=== PATIENT | female | born 1955 | race Caucasian/White ===

== ENCOUNTER 2016-08-22 23:20 | Emergency (ER) | payer MEDICAID ==
[~2016-08-22] VITALS: Ht 170.2 cm; Wt 85.0 kg
[~2016-08-22 23:20] MED LIST: ACET325T51 PO; ASPI-1085 PO; BUSP7.5T7 PO; CHOL4PAC23 PO; FLUT12AE7 ORAL INH; FURO20TA4 PO; GABA-338 PO; IPRA3AMP INH; LANS30CA58 PO; LEVO1CAP2 PO; LORA-315 PO; MELO15TA12 PO; METF500T4 PO; METO-279 PO; NITR0.4T SL; PALI3TAB PO; PANT40TA27 PO; POTA-12 PO; PRED20TA PO; PRIM50TA30 PO; RISP3TAB14 PO; TRAM50TA4 PO; [UNRECOGNIZED DRUG - CODE] PO
[2016-08-22 23:27] VITALS: TEMP 98.7; Ht 170.2 cm; Wt 85.0 kg
[2016-08-22] MEDS ORDERED: NITROGLYCERIN 0.4 MG SUBLINGUAL TABLET SL PRN (23:30)
[2016-08-22] MEDS ORDERED: ALBUTEROL/IPRATROPIUM INHAL. 2.5mg-0.5mg/3ml Neb. AEROSOL ONE (23:30)
--- NOTE | 2016-08-22 23:32 | ERPDOC ---
Departure Disposition Decision Date: Aug 23, 2016 Disposition Decision Time: 00:33 Disposition: 01 DISCHARGED HOME, SELF-CARE Impression Impression Impression: Primary Impression: Atypical chest pain Severity: Severe Condition: Improved Seen By: Physician only Referrals: MONICA COLVIN DO (Family) Patient Instructions: Chest Pain (ED) Problems/Meds/Labs Reviewed?: Yes Medications reviewed and manag: Yes Additional Instructions: For any return of chest discomfort tonight, immediately take one nitroglycerin sublingually, and call EMS See Dr. Colvin first thing in the morning at your scheduled appointment Follow up care ordered?: Yes Mental Status: Alert HPI - Chest Pain General Chief Complaint: Chest Pain Stated Complaint: CHEST PAIN Time Seen by Provider: 23:24 Source: patient, EMS Exam Limitations: no limitations HPI - Chest Pain Initial Comments Patient was sitting in a recliner approximately one to one and a half hours ago when she had the sudden onset of chest tightness and pain with radiation into the left jaw. Patient says this is the same way she felt when she had her myocardial infarction in 2000. Patient also notes tightness with her breathing, consistent with her COPD, and does note that she's had worsening dyspnea over the past several days. Patient took one of her nitroglycerin yesterday for chest tightness with resolution, earlier today for chest tightness with resolution, and then this evening with only partial resolution. EMS found the patient in moderate distress with both Tylenol sounds as well as chest tightness and chest pain. Patient elected no more nitroglycerin, but was given 100 g of fentanyl in route, which reduced her pain further to a 5 or 6 out of 10 at this time. Currently the patient complains of a 3 out of 10 chest heaviness and tightness, but states that the "chest pain" is gone. Patient has a history of coronary artery disease with GA in 2000, COPD, oxygen dependence on 2 L, continues to smoke heavily, and is morbidly obese with diabetes. Occurred At: home Onset/Timing: Rapid Duration: 1-3 hrs Activities at Onset/Context: rest Location: substernal Quality: squeezing, tightness Modifying Factors: IMPROVES WITH: nitroglycerin Associated Symptoms: diaphoresis, shortness of breath, DENIES: abdominal pain, back pain, dizziness, edema, fast HR, fatigue, fever/chills, headache, heartburn , irregular HR, nausea/vomiting, rash, slow HR, swelling/lump in chest, syncope , weakness Chest Pain Radiation: jaw Nitro Today/Relief: 0.4 mg x 1, provided at home Aspirin Treatment Today: 81 mg x 4, provided by EMS Prior Chest Pain/Cardiac Yariel: non-cardiac, angina, cardiac cath, heart attack Hx of Similar Symptoms: Yes Allergies: Coded Allergies: Influenza Virus Vaccines (Verified Allergy, Severe, DYSPNEA, 08/22/16) lisinopril (Verified Allergy, Intermediate, TONGUE SWELLING, 08/22/16) Iodinated Contrast Media - Oral and (Verified Allergy, Mild, RASH, 08/22/16 ) Sulfa (Sulfonamide Antibiotics) (Verified Allergy, Unknown, RASH, 08/22/16) asenapine (Verified Allergy, Unknown, 08/22/16) asenapine maleate (Verified Allergy, Unknown, 08/22/16) duloxetine (Verified Allergy, Unknown, 08/22/16) hydromorphone HCl (Verified Allergy, Unknown, 08/22/16) venlafaxine (Verified Allergy, Unknown, 08/22/16) lurasidone (Verified Adverse Reaction, Intermediate, INCREASED SODIUM, ) adhesive (Verified Adverse Reaction, Unknown, 08/22/16) cephalexin (Verified Adverse Reaction, Unknown, VOMITING, 08/22/16) morphine (Verified Adverse Reaction, Unknown, SWELLING, 08/22/16) Uncoded Allergies: SHELLFISH (Allergy, Severe, 08/06/15) DECONGESTANT ALLERGY ORAL (Allergy, Unknown, 05/01/12) Past History Past Medical History Metabolic: cancer, diabetes, hypercholesterolemia, hypertension, other Cardiac: CAD, GA Respiratory: COPD, pneumonia GI: GERD, gallbladder disease, ulcers Female: UTI Neurological: CVA, chronic disability Musculoskeletal: back pain, osteoarthritis Integumentary: other Psychological: bipolar, depression Surgical History General: appendix, colonoscopy, gallbladder, hernia, tonsils Cardiac: cardiac cath Reproductive/: hysterectomy Joint: carpal tunnel, knee, shoulder Family History Family PMH: FOUND: GA, cancer, diabetes Vaccines Hx Influenza Vaccination: Yes (fall last year) Hx Pneumococcal Vaccination: Yes (05/17) Hx Tetanus Diptheria: No Hx Tetanus, Diptheria, Pertuss: No Social History Smoking Status: Current every day smoker Does patient use chewing tobac: No # of Packs/Tins per Day: 2 # of Years: 47 Quit Date: Jun 24, 2016 Substance Use Type: does not use Alcohol Intake: occasionally Marital Status: Single Housing: apartment Household Members: caregiver Current Occupational Status: retired Record Review Pertinent history updated: Yes Review of Systems Constitutional Constitutional: DENIES: appetite decrease, appetite increase, chills, dizziness , fever, weakness ENMT Ears: DENIES: pain Hearing: DENIES: hearing loss, tinnitus Balance: DENIES: vertigo Mouth/Throat: DENIES: change in swallowing, change in voice, hoarsness, painful swallowing, sore throat Cardiovascular Cardiac: chest pain Rhythm/Rate: DENIES: irregular beat, palpitations, tachycardia Vascular: DENIES: pedal edema Pulmonary Respiratory: dyspnea, pneumonia hx, DENIES: cough, exposure to TB, hyperventilation, last PPD, pleuritic chest pain, recent risky activities, sputum, tachypnea GI Upper Abdomen: DENIES: dysphagia, heartburn/indigestion, nausea, pain, vomiting Lower Abdomen: DENIES: blood in stool, constipation, diarrhea, pain General: DENIES: burning, dysuria, frequency, pain, urgency Musculoskeletal General: DENIES: cramps, joint pain, joint swelling, pain, weakness Integumentary Skin: DENIES: rash, sores Neurological General: DENIES: headache, numbness, tingling, vertigo, weakness Physical Exam General General Nourishment: well nourished, well developed, appears stated age, obese General Body Habitus: disheveled Vitals and Pain First Documented Vital Signs Date Time Temp Pulse Resp B/P Pulse Ox O2 Delivery O2 Flow Rate FiO2 08/22/16 23:27 98.7 83 25 140/92 95 Nasal Cannula 2.00 Weight: Kilograms: Height (feet): 5 Height (inches): 5.00 Triage Pain Scale: RN VS reviewed by Provider: Yes Normal Exams: Head: Normocephalic w/o trauma Eyes: Pupils are PERRLA w/ EOMI, No scleral icterus, irritation, or foreign bodies noted ENMT: No facial trauma, nasal exudates, pharyngeal erythema, or exudates are noted Neck: Full range of motion, without adenopathy, JVD, bruits or thyromegaly Respiratory (brief) Respiratory: FOUND: equal bilaterally, symmetrical, wheezes, NOT FOUND: clear all bone (course tight wheezes bilaterally with poor air movement), rales, tenderness Cardiovascular (brief) Cardiac: FOUND: regular rate, regular rhythm, NOT FOUND: click, gallop, murmur , pedal edema Capillary Refill: <2 sec Pulses: all distal extremities, equal, strong Abdomen (brief) Abdominal Brief: FOUND: bowel normo active x4, soft, NOT FOUND: distended, hepatosplenomegaly, tender Lymphatic (brief) Lymphatic Brief: NOT FOUND: adenopathy, lymphedema Musculoskeletal (brief) Musculoskeletal Brief: NOT FOUND: deformity, loss of motion, spasm, tenderness Integumentary (brief) Integumentary Brief: FOUND: dry, pink, warm Neurologic (brief) Neurological Brief: FOUND: CN w/o gross def to obs, motor-no gross deficits, sensory-no gross deficits Psychiatric (brief) Psychiatric Brief: FOUND: alert, attentive, normal affect, oriented Progress Results/Orders Orders Procedure Category Date Status Time Iv Lock (Ed Only) EDM 08/22/16 Transmitted 23:24 Cbc W/Auto LAB 08/22/16 Complete Diff-Reflex Manual Cmp - Comprehensive LAB 08/22/16 Complete Metabolic EKG EKG 08/22/16 Taken Troponin I W LAB 08/22/16 Complete Hemolysis Index Chest 1 View RAD 08/22/16 Taken Albuterol/Ipratropium PHA 08/22/16 Complete (Duoneb) 23:30 Nitroglycerin PHA 08/22/16 In Process (Nitrostat) 23:30 Methylprednisolone PHA 08/23/16 Complete Sod Succ (Solu-Medrol 00:00 Lab Results Laboratory Tests Test 08/22/16 23:42 White Blood Count 14.2T/MM3 Red Blood Count 4.16M/MM3 Hemoglobin 12.6GM/DL Hematocrit 36.2% Mean Corpuscular Volume 87.0UM3 Mean Corpuscular Hemoglobin 30.3UUG Mean Corpuscular Hemoglobin Concent 34.8GM/DL RDW Standard Deviation 41.6FL Platelet Count 282T/MM3 Mean Platelet Volume 9.4UM3 Immature Granulocyte % (Auto) 0.4% Neutrophils (%) (Auto) 65.1% Lymphocytes (%) (Auto) 29.3% Monocytes (%) (Auto) 4.5% Eosinophils (%) (Auto) 0.4% Basophils (%) (Auto) 0.3% Absolute Immature Granulocyte (auto 0.06T/MM3 Absolute Neutrophils (auto) 9.2T/MM3 Absolute Lymphocytes (auto) 4.2T/MM3 Absolute Monocytes (auto) 0.6T/MM3 Absolute Eosinophils (auto) 0.1T/MM3 Absolute Basophils (auto) 0.0T/MM3 Turbidity < 20 Sodium Level 130MEQ/L Potassium Level 3.9MEQ/L Chloride Level 90MEQ/L Carbon Dioxide Level 28MEQ/L Anion Gap 12MEQ/L Blood Urea Nitrogen 15.0MG/DL Creatinine 0.8MG/DL Glomerular Filtration Rate Calc 73 BUN/Creatinine Ratio 19RATIO Glucose Level 93MG/DL Calculated Osmolality 252MOSM/KG Calcium Level 9.3MG/DL Total Bilirubin 0.50MG/DL Icterus Index < 2 Aspartate Amino Transf (AST/SGOT) 28U/L Alanine Aminotransferase (ALT/SGPT) 37U/L Alkaline Phosphatase 113U/L Troponin I < 0.012ng/ml Total Protein 7.3G/DL Albumin 4.3G/DL Globulin 3.0G/DL Albumin/Globulin Ratio 1.4RATIO Chemistry Specimen Hemolysis < 15 Medications Current ED Medications Albuterol/ Ipratropium (Duoneb) 6 ml O ONCE AEROSOL Last administered on 23:32; Start 08/22/16 at 23:30; Stop 08/22/16 at 23:31; Status DC Nitroglycerin (Nitrostat) 0.4 mg Q5MIN PRN SL CHEST PAIN Last administered on 23:59; Start 08/22/16 at 23:30 Methylprednisolone Sodium Succinate (Solu-Medrol) 125 mg O ONCE IV Last administered on 08/22/16 23:57; Start 08/23/16 at 00:00; Stop 08/23/16 at 00:01 ; Status DC Progress Progress Patient given 2 DuoNeb nebs [id number], also given is sublingual 1 - EKG - normal sinus rhythm without ischemia, ectopy, or infarction. He does have mildly peaked T waves in comparison to old EKGs, but no STEMI CBC - normal CMP - normal Troponin - normal Chest x-ray - normal After a total of 2 DuoNeb nebs, Solu-Medrol her 25 mg, and one sublingual nitroglycerin, the patient is completely and totally pain/discomfort free in the chest. Patient feels like she is breathing back to her baseline, and states that she feels like she got more relief from the nitroglycerin in the breathing treatment Patient feels like this is atypical for her COPD exacerbations. Patient is discussed with Dr. Colvin - patient has an appointment with him at 8: 30 tomorrow morning, had no specific relief directly related to nitroglycerin, and is certainly a complex medical case. At this point patient would prefer to go home, with close follow-up with Dr. Colvin first thing in the morning and is being allowed to return home, with strict instructions to use nitroglycerin and call EMS immediately for any return of chest discomfort. MONICA CLEMENTS MD Aug 22, 2016 23:32
[2016-08-22] MEDS ORDERED: PALI3TAB PO (23:41)
[2016-08-22] MEDS ORDERED: CYPR4TAB37 PO (23:41)
[2016-08-22 23:57] LABS: BASOPHILS % (AUTO) 0.3 % (0-2); EOSINOPHILS # (AUTO) 0.1 T/MM3 (0-0.5); EOSINOPHILS % (AUTO) 0.4 % (0-4); HCT - HEMATOCRIT 36.2 % (36-46); HGB - HEMOGLOBIN 12.6 GM/DL (12-16); IMMATURE GRANULOCYTE # (AUTO) 0.06 T/MM3 (0.00-0.03); IMMATURE GRANULOCYTE % (AUTO) 0.4 % (0.0-0.5); LYMPHOCYTES # (AUTO) 4.2 T/MM3 (1-4.8); LYMPHOCYTES % (AUTO) 29.3 % (23-45); MEAN CORPUSCULAR HGB 30.3 UUG (26-34); MEAN CORPUSCULAR HGB CONC(MCHC 34.8 GM/DL (31-37); MEAN PLATELET VOLUME 9.4 UM3 (9.4-12.4); MONOCYTES # (AUTO) 0.6 T/MM3 (0-0.8); MONOCYTES % (AUTO) 4.5 % (0-9.0); NEUTROPHILS #(AUTO)-ABSOLUTE 9.2 T/MM3 (1.8-7.7); NEUTROPHILS % (AUTO) 65.1 % (33-66); RED BLOOD COUNT 4.16 M/MM3 (4.00-5.20); WBC - WHITE BLOOD COUNT 14.2 T/MM3 (4.5-11.0)
[2016-08-23] LABS: ALBUMIN 4.3 G/DL (3.5-5.0); ALBUMIN/GLOBULIN RATIO 1.4 RATIO (1.1-2.2); ALKALINE PHOSPHATASE 113 U/L (38-126); ALT (SGPT) 37 U/L (9-52); ANION GAP 12 MEQ/L (5-15); AST (SGOT) 28 U/L (14-36); BUN/CREATININE RATIO 19 RATIO (6-26); CALCIUM 9.3 MG/DL (8.4-10.2); CHLORIDE 90 MEQ/L (98-107); CO2 - CARBON DIOXIDE 28 MEQ/L (22-30); CREATININE 0.8 MG/DL (0.7-1.2); GLOMERULAR FILTRATION RATE 73; GLUCOSE 93 MG/DL (65-110); POTASSIUM 3.9 MEQ/L (3.6-5); SODIUM 130 MEQ/L (134-144); TOTAL PROTEIN 7.3 G/DL (6.3-8.2)
[2016-08-23 00:40] VITALS: BP 122/68; PULSE 80; RESP 19; O2SAT 95
--- NOTE | 2016-08-23 00:40 | NUR ---
DEPARTURE PT COLLECTED BELONGINGS AND TAKEN TO EXIT VIA WHEELCHAIR, WITH OXYGEN STILL APPLIED, TO AWAIT RIDE FROM CAREGIVER.
--- NOTE | 2016-08-23 07:51 | DI ---
Indication: ITS.REASON: dyspnea with chest heaviness PROCEDURE: CHEST 1 VIEW: Encounter: Initial Comparison: August 09, 2016 Findings: The lungs are stable in appearance without new focal airspace consolidation. There is no pleural effusion or pneumothorax. The heart size, pulmonary vascularity and mediastinal contours are unchanged. IMPRESSION: Stable appearance of the chest without acute cardiopulmonary disease. .
== END 2016-08-23 00:40 | disposition home or self-care (01) ==
LOC: ED 23:20
DX: R07.89 Other chest pain (principal); J44.9 Chronic obstructive pulmonary disease, unspecified; I25.10 Atherosclerotic heart disease of native coronary artery without angina pectoris; I10 Essential (primary) hypertension; I25.2 Old myocardial infarction; F17.200 Nicotine dependence, unspecified, uncomplicated; Z99.81 Dependence on supplemental oxygen
CPT/HCPCS: 71010; 80053; 84484; 85025; 93005; 94640; 96374; 99284; J2930

== ENCOUNTER 2016-08-26 13:50 | Outpatient (CLI) | payer MEDICAID ==
--- NOTE | 2016-08-23 14:25 | NUR ---
PREOP CALL NO ANSWER DETAILED VOICE MAIL LEFT WITH INSTRUCTIONS AND CHECK IN TIME.
[2016-08-26] VITALS (20 sets, daily range): BP systolic 152–194; BP diastolic 67–97; PULSE 87–108; RESP 20–32; TEMP 98.7; O2SAT 91–100; Ht 165.1 cm; Wt 108.6 kg
[~2016-08-26] VITALS: Ht 165.1 cm; Wt 108.6 kg
--- NOTE | 2016-08-26 12:27 | HPPDOC ---
KARISHMA EMERSON [employer] 08/26/16 1215: HPI - Adult Date DATE: 08/26/16 TIME: 12:04 General Date of Admission Date of Admission: 08/26/16 Chief Complaint: chest pain History of Present Illness Suyapa is a 61 year old female who is known to Dr. Benoit with a history of CAD with AK in 2000, COPD and Pulmonary HTN who is oxygen dependent on 2 L, continues to smoke heavily, is morbidly obese with HTN and DM. She was evaluated on 08/22/16 in the ED for sudden onset of chest tightness and pain with radiation into the left jaw. She at the time reported this was the same way she felt when she had her myocardial infarction in 2000. She reported tightness with her breathing, consistent with her COPD, and worsening dyspnea over the past several days prior. She was scheduled to see Dr. Fink the following morning and did not want to be admitted so she allowed to return home , with strict instructions to use nitroglycerin and call EMS immediately for any return of chest discomfort. She is being admitted as an outpatient for left heart catheterization with possible PCI today. She is examined in her room on Surgical. She states she has used Nitro SL 3x in the last 2 weeks. Currently denies chest pain, dyspnea or other complaints. Past Medical History Past Medical History Metabolic: cancer, diabetes, hypercholesterolemia, hypertension, other Cardiac: CAD, AK Respiratory: COPD, pneumonia GI: GERD, gallbladder disease, ulcers Female: UTI Neurological: CVA, chronic disability Musculoskeletal: back pain, osteoarthritis Integumentary: other Psychological: bipolar, depression Surgical History General: appendix, colonoscopy, gallbladder, hernia, tonsils Cardiac: cardiac cath Reproductive/: hysterectomy Joint: carpal tunnel, knee, shoulder Current Medications Home Meds Reported Medications Paliperidone (Invega) 6 Mg Tab.er.24, 1 TAB PO DAILY, #30 TAB 2 Refills 08/26/16 Potassium Chloride (Potassium Chloride) 10 Meq Capsule.er, 10 MEQ PO WB, CAP Take 1 capsule, by mouth, daily with breakfast 08/26/16 Lorazepam (Lorazepam) 0.5 Mg Tablet, 0.5 MG PO HS Y for ANXIETY, TAB 08/26/16 Paliperidone (Invega) 3 Mg Tab.er.24, 0.5 TAB PO BID, #30 TAB 2 Refills 08/22/16 Cyproheptadine HCl (Cyproheptadine HCl) 4 Mg Tablet, 1 TAB PO HS, #30 TAB 1 Refill 08/22/16 Levomefolate/Algal Oil (Deplin-Algal Oil 7.5 mg Cap) 1 Each Capsule, 1 TAB PO DAILY 08/09/16 Buspirone HCl (Buspirone HCl) 7.5 Mg Tablet, 1 TAB PO BID 08/09/16 Pantoprazole Sodium (Pantoprazole Sodium) 40 Mg Tablet.dr, 40 MG PO HS 07/15/16 Metoprolol Succinate (Metoprolol Succinate) 100 Mg Tab.er.24h, 100 MG PO DAILY 07/15/16 Metformin HCl (Metformin HCl) 500 Mg Tablet, 500 MG PO BID 07/15/16 Gabapentin (Gabapentin) 300 Mg Capsule, 1 CAP PO HS, CAP 07/01/16 Lansoprazole (Lansoprazole) 30 Mg Capsule.dr, 30 MG PO DAILY 10/26/15 Acetaminophen (Acetaminophen) 325 Mg Tablet, 325-650 MG PO Q6H Y for PAIN 10/26/15 Aspirin *EC* (Aspirin EC) 81 Mg Tablet.dr, 81 MG PO DAILY 10/26/15 Furosemide (Furosemide) 20 Mg Tablet, 20 MG PO DAILY 10/26/15 Ipratropium/Albuterol Sulfate (Iprat-Albut 0.5-3(2.5) mg/3 ml) 3 Ml Ampul.neb, 1 VIAL INH Q6H 09/23/15 Nitroglycerin (Nitrostat) 0.4 Mg Tablet, 0.4 MG SL Q5MIN Y for CHEST PAIN 08/06/15 Risperidone (Risperidone) 3 Mg Tablet, 1.5 MG PO DAILY 10/11/14 Meloxicam (Mobic) 15 Mg Tablet, 15 MG PO DAILY 10/11/14 Cholestyramine (with Sugar) (Questran Packet) 4 Gm Powd.pack, 4 GM PO BID Y for DIARRHEA 10/11/14 Primidone (Primidone) 50 Mg Tablet, 150 MG PO HS 10/11/14 Fluticasone Propionate (Flovent HFA 220mcg) 120 Puff/12 G Inhaler, 2 PUFF ORAL INH BID 07/14/14 Tramadol HCl (Tramadol HCl) 50 Mg Tablet, 50-100 MG PO QID Y for PAIN 07/13/14 Cabergoline (Cabergoline) 0.5 Mg Tablet, 1 MG PO TuFr 06/19/12 Discontinued Reported Medications Potassium Chloride (Potassium Chloride) 10 Meq Tab.er.prt, 10 MEQ PO DAILY 04/13/16 Allergies: Coded Allergies: Influenza Virus Vaccines (Verified Allergy, Severe, DYSPNEA, 08/22/16) lisinopril (Verified Allergy, Intermediate, TONGUE SWELLING, 08/22/16) Iodinated Contrast Media - Oral and (Verified Allergy, Mild, RASH, 08/22/16 ) Sulfa (Sulfonamide Antibiotics) (Verified Allergy, Unknown, RASH, 08/22/16) asenapine (Verified Allergy, Unknown, 08/22/16) asenapine maleate (Verified Allergy, Unknown, 08/22/16) duloxetine (Verified Allergy, Unknown, 08/22/16) hydromorphone HCl (Verified Allergy, Unknown, 08/22/16) venlafaxine (Verified Allergy, Unknown, 08/22/16) lurasidone (Verified Adverse Reaction, Intermediate, INCREASED SODIUM, ) adhesive (Verified Adverse Reaction, Unknown, 08/22/16) cephalexin (Verified Adverse Reaction, Unknown, VOMITING, 08/22/16) morphine (Verified Adverse Reaction, Unknown, SWELLING, 08/22/16) Uncoded Allergies: SHELLFISH (Allergy, Severe, 08/06/15) DECONGESTANT ALLERGY ORAL (Allergy, Unknown, 05/01/12) Family History FOUND: CHF (mother), AK (brother), cancer, diabetes Vaccines fall 05/17 UNKNOWN Social History Smoking Status: Current every day smoker Does patient use chewing tobac: No # of Packs/Tins per Day: 2 # of Years: 47 Quit Date: Jun 24, 2016 Substance Use Type: does not use Alcohol Intake: occasionally Marital Status: Single Housing: apartment Household Members: caregiver Current Occupational Status: retired Review of Systems Constitutional: DENIES: chills, dizziness, fever, weakness Eyes General: DENIES: pain Vision: DENIES: double vision ENMT Hearing: DENIES: tinnitus Balance: DENIES: vertigo Sinuses: NOT FOUND: rhinorrhea Mouth/Throat: DENIES: sore throat Cardiovascular chest pain, dyspnea on exertion, DENIES: murmur, orthopnea, paroxysmal nocturnal dysp Rhythm/Rate: DENIES: irregular beat, palpitations Pulmonary Respiratory: cough, DENIES: dyspnea, sputum GI Upper Abdomen: DENIES: nausea, vomiting Lower Abdomen: DENIES: blood in stool, diarrhea General: DENIES: dysuria Integumentary Skin: DENIES: rash, sores Neurological General: DENIES: headache, numbness, seizures, syncope, weakness All Other Systems All Other Systems: Reviewed (remainder of 10-point ROS Neg.) Physical Exam General General Nourishment: well nourished, well developed, obese, apparent age Height (Feet): 5 Height (Inches): 7.00 Telemetry Rhythm: Sinus Rhythm ENMT Brief: FOUND: mucosa moist Neck Brief: NOT FOUND: JVD, carotid bruits Respiratory Brief: FOUND: equal bilaterally, wheezes (throughout, inspiratory and expiratory), NOT FOUND: clear all bone, rales Cardiovascular (brief) Cardiac Brief: FOUND: regular rate, regular rhythm, NOT FOUND: click, gallop, murmur, pedal edema Abdomen (brief) Abdominal Brief: FOUND: BS normo active x4, soft Integumentary (brief) Integumentary Brief: FOUND: dry, pink, warm Neurologic RN Documented GCS Eye Opening: Verbal: Motor: Total: Psychiatric (brief) FOUND: alert, attentive, oriented Laboratory Laboratory Tests Test 08/26/16 14:18 08/26/16 14:19 Turbidity < 20 Sodium Level 131MEQ/L Potassium Level 3.8MEQ/L Chloride Level 92MEQ/L Carbon Dioxide Level 27MEQ/L Anion Gap 12MEQ/L Blood Urea Nitrogen 14.0MG/DL Creatinine 0.8MG/DL Glomerular Filtration Rate Calc 73 BUN/Creatinine Ratio 18RATIO Glucose Level 199MG/DL Calculated Osmolality 260MOSM/KG Calcium Level 9.0MG/DL Icterus Index < 2 Chemistry Specimen Hemolysis < 15 White Blood Count 8.4T/MM3 Red Blood Count 4.39M/MM3 Hemoglobin 12.9GM/DL Hematocrit 38.3% Mean Corpuscular Volume 87.2UM3 Mean Corpuscular Hemoglobin 29.4UUG Mean Corpuscular Hemoglobin Concent 33.7GM/DL RDW Standard Deviation 42.1FL Platelet Count 268T/MM3 Mean Platelet Volume 8.6UM3 Immature Granulocyte % (Auto) % Neutrophils (%) (Auto) % Lymphocytes (%) (Auto) % Monocytes (%) (Auto) % Eosinophils (%) (Auto) % Basophils (%) (Auto) % Absolute Immature Granulocyte (auto T/MM3 Absolute Neutrophils (auto) T/MM3 Absolute Lymphocytes (auto) T/MM3 Absolute Monocytes (auto) T/MM3 Absolute Eosinophils (auto) T/MM3 Absolute Basophils (auto) T/MM3 Neutrophils % (Manual) 91.0% Lymphocytes % (Manual) 6.0% Monocytes % (Manual) 3.0% Absolute Neutrophils (Manual) 7.6T/MM3 Lymphocytes # (Manual) 0.5T/MM3 Monocytes # (Manual) 0.3T/MM3 Red Cell Morphology Comment Normal EKG SR Assessment & Plan Problems: (1) Precordial pain Status: Acute Assessment & Plan: Left heart cath today with possible PCI (2) CAD (coronary artery disease) Status: Chronic Qualifiers: Coronary Disease-Associated Artery/Lesion type: [place] artery [place] vs. transplanted heart: [place] heart Associated angina: without angina Qualified Codes: I25.10 - Atherosclerotic heart disease of [place] coronary artery without angina pectoris Assessment & Plan: Heart cath 11/2010: No significant coronary lesions (3) HTN (hypertension) Status: Chronic Qualifiers: Hypertension type: essential hypertension Qualified Codes: I10 - Essential (primary) hypertension Assessment & Plan: well controlled on current therapy (4) DM type 2 (diabetes mellitus, type 2) Status: Chronic Qualifiers: Diabetes mellitus complication status: without complication Diabetes mellitus custodial insulin use: without terminal computer operator use Qualified Codes: E11.9 - Type 2 diabetes mellitus without complications Assessment & Plan: PCP manages (5) COPD (chronic obstructive pulmonary disease) Status: Chronic Qualifiers: COPD type: unspecified COPD Qualified Codes: J44.9 - Chronic obstructive pulmonary disease, unspecified (6) Nicotine dependence Status: Chronic Qualifiers: Nicotine product type: cigarettes Code Status Full Code Hospital Course Summary Disclaimer The hospital course summary below is not to be considered part of the above Progress Note. RENE BENOIT MD 08/26/16 0732: Past Medical History Current Medications Home Meds Reported Medications Paliperidone (Invega) 6 Mg Tab.er.24, 1 TAB PO DAILY, #30 TAB 2 Refills 08/26/16 Potassium Chloride (Potassium Chloride) 10 Meq Capsule.er, 10 MEQ PO WB, CAP Take 1 capsule, by mouth, daily with breakfast 08/26/16 Lorazepam (Lorazepam) 0.5 Mg Tablet, 0.5 MG PO HS Y for ANXIETY, TAB 08/26/16 Paliperidone (Invega) 3 Mg Tab.er.24, 0.5 TAB PO BID, #30 TAB 2 Refills 08/22/16 Cyproheptadine HCl (Cyproheptadine HCl) 4 Mg Tablet, 1 TAB PO HS, #30 TAB 1 Refill 08/22/16 Levomefolate/Algal Oil (Deplin-Algal Oil 7.5 mg Cap) 1 Each Capsule, 1 TAB PO DAILY 08/09/16 Buspirone HCl (Buspirone HCl) 7.5 Mg Tablet, 1 TAB PO BID 08/09/16 Pantoprazole Sodium (Pantoprazole Sodium) 40 Mg Tablet.dr, 40 MG PO HS 07/15/16 Metoprolol Succinate (Metoprolol Succinate) 100 Mg Tab.er.24h, 100 MG PO DAILY 07/15/16 Metformin HCl (Metformin HCl) 500 Mg Tablet, 500 MG PO BID 07/15/16 Gabapentin (Gabapentin) 300 Mg Capsule, 1 CAP PO HS, CAP 07/01/16 Lansoprazole (Lansoprazole) 30 Mg Capsule.dr, 30 MG PO DAILY 10/26/15 Acetaminophen (Acetaminophen) 325 Mg Tablet, 325-650 MG PO Q6H Y for PAIN 10/26/15 Aspirin *EC* (Aspirin EC) 81 Mg Tablet.dr, 81 MG PO DAILY 10/26/15 Furosemide (Furosemide) 20 Mg Tablet, 20 MG PO DAILY 10/26/15 Ipratropium/Albuterol Sulfate (Iprat-Albut 0.5-3(2.5) mg/3 ml) 3 Ml Ampul.neb, 1 VIAL INH Q6H 09/23/15 Nitroglycerin (Nitrostat) 0.4 Mg Tablet, 0.4 MG SL Q5MIN Y for CHEST PAIN 08/06/15 Risperidone (Risperidone) 3 Mg Tablet, 1.5 MG PO DAILY 10/11/14 Meloxicam (Mobic) 15 Mg Tablet, 15 MG PO DAILY 10/11/14 Cholestyramine (with Sugar) (Questran Packet) 4 Gm Powd.pack, 4 GM PO BID Y for DIARRHEA 10/11/14 Primidone (Primidone) 50 Mg Tablet, 150 MG PO HS 10/11/14 Fluticasone Propionate (Flovent HFA 220mcg) 120 Puff/12 G Inhaler, 2 PUFF ORAL INH BID 07/14/14 Tramadol HCl (Tramadol HCl) 50 Mg Tablet, 50-100 MG PO QID Y for PAIN 07/13/14 Cabergoline (Cabergoline) 0.5 Mg Tablet, 1 MG PO TuFr 06/19/12 Discontinued Reported Medications Potassium Chloride (Potassium Chloride) 10 Meq Tab.er.prt, 10 MEQ PO DAILY 04/13/16 Allergies: Coded Allergies: Influenza Virus Vaccines (Verified Allergy, Severe, DYSPNEA, 08/22/16) lisinopril (Verified Allergy, Intermediate, TONGUE SWELLING, 08/22/16) Iodinated Contrast Media - Oral and (Verified Allergy, Mild, RASH, 08/22/16 ) Sulfa (Sulfonamide Antibiotics) (Verified Allergy, Unknown, RASH, 08/22/16) asenapine (Verified Allergy, Unknown, 08/22/16) asenapine maleate (Verified Allergy, Unknown, 08/22/16) duloxetine (Verified Allergy, Unknown, 08/22/16) hydromorphone HCl (Verified Allergy, Unknown, 08/22/16) venlafaxine (Verified Allergy, Unknown, 08/22/16) lurasidone (Verified Adverse Reaction, Intermediate, INCREASED SODIUM, ) adhesive (Verified Adverse Reaction, Unknown, 08/22/16) cephalexin (Verified Adverse Reaction, Unknown, VOMITING, 08/22/16) morphine (Verified Adverse Reaction, Unknown, SWELLING, 08/22/16) Uncoded Allergies: SHELLFISH (Allergy, Severe, 08/06/15) DECONGESTANT ALLERGY ORAL (Allergy, Unknown, 05/01/12) Assessment & Plan Plan/Intensity of Service After examining the patient I agree with the above assessment. I am involved in the formulation of the patient's plan of care. KARISHMA EMERSON APRN Aug 26, 2016 12:15 RENE BENOIT MD Aug 26, 2016 16:56
[~2016-08-26 13:50] MED LIST changes: +CYPR4TAB37 PO; -LORA-315 PO; +NORMAL SALINE 1,000 ML IV SCH; -POTA-12 PO; -PRED20TA PO; +SALINE FLUSH 10ml SYRINGE IVF PRN
--- NOTE | 2016-08-26 14:00 | NUR ---
Admitted to room, denies pain, has chronic tremors.
[2016-08-26] MEDS: ALBUTEROL/IPRATROPIUM INHAL. 2.5mg-0.5mg/3ml Neb. AEROSOL PRN ×2 (14:27→18:13)
[2016-08-26 14:35] LABS: HCT - HEMATOCRIT 38.3 % (36-46); HGB - HEMOGLOBIN 12.9 GM/DL (12-16); MEAN CORPUSCULAR HGB 29.4 UUG (26-34); MEAN CORPUSCULAR HGB CONC(MCHC 33.7 GM/DL (31-37); MEAN CORPUSCULAR VOLUME 87.2 UM3 (80-100); MEAN PLATELET VOLUME 8.6 UM3 (9.4-12.4); RED BLOOD COUNT 4.39 M/MM3 (4.00-5.20); WBC - WHITE BLOOD COUNT 8.4 T/MM3 (4.5-11.0)
[2016-08-26 14:44] LABS: ANION GAP 12 MEQ/L (5-15); BUN/CREATININE RATIO 18 RATIO (6-26); CHLORIDE 92 MEQ/L (98-107); CO2 - CARBON DIOXIDE 27 MEQ/L (22-30); CREATININE 0.8 MG/DL (0.7-1.2); GLOMERULAR FILTRATION RATE 73; GLUCOSE 199 MG/DL (65-110); POTASSIUM 3.8 MEQ/L (3.6-5); SODIUM 131 MEQ/L (134-144)
[2016-08-26] MEDS ORDERED: LORA0.5T2 PO (14:48)
[2016-08-26 14:57] LABS: LYMPHOCYTES # (MANUAL) 0.5 T/MM3 (1-4.8); MONOCYTES # (MANUAL) 0.3 T/MM3 (0-0.8); NEUTROPHILS #(MANUAL)-ABSOLUTE 7.6 T/MM3 (1.8-7.7)
--- NOTE | 2016-08-26 15:00 | NUR ---
IVL inserted on first attempt. Preps done, admission done.
[2016-08-26] MEDS ORDERED: POTA10CA37 PO (15:08)
[2016-08-26] MEDS ORDERED: PALI6TAB PO (15:10)
[2016-08-26] MEDS ORDERED: HEPARIN 1,000units in NS 500ml BAG IV ONE (16:29)
[2016-08-26] MEDS ORDERED: LIDOCAINE 1% (10mg/ml) 30ml SDV ONE (16:29)
[2016-08-26] MEDS ORDERED: LORAZEPAM 2 MG/ML INJECTION IV ONE (16:45)
[2016-08-26] MEDS ORDERED: MIDAZOLAM 2mg/2ml INJECTION ONE (17:13)
[2016-08-26] MEDS ORDERED: VERAPAMIL 5mg/2ml INJECTION IV ONE (17:13)
[2016-08-26] MEDS ORDERED: FENTANYL 100mcg/2ml INJECTION ONE (17:13)
[2016-08-26] MEDS ORDERED: NITROGLYCERIN 50mg/10ml INJECTION IV ONE (17:14)
[2016-08-26] MEDS ORDERED: IOHEXOL 350mg/ml 200ml BOTTLE ONE (17:19)
--- NOTE | 2016-08-26 17:20 | NUR ---
To CVL per cart.
[2016-08-26] MEDS ORDERED: DiphenhydrAMINE 50 MG/ML INJECTION ONE (17:33)
[2016-08-26] MEDS ORDERED: ONDANSETRON 4mg/2ml INJECTION IV PRN (18:00)
[2016-08-26] MEDS ORDERED: MILK OF MAGNESIA 30 ML SUSP PO PRN (18:00)
[2016-08-26] MEDS ORDERED: ATROPINE 1 MG/ML VIAL IV PRN (18:00)
[2016-08-26] MEDS ORDERED: BISACODYL 5 MG E.C. TABLET PO PRN (18:00)
[2016-08-26] MEDS ORDERED: ACETAMINOPHEN 325 MG TABLET PO PRN (18:00)
[2016-08-26] MEDS ORDERED: NITROGLYCERIN 0.4 MG SUBLINGUAL TABLET SL PRN (18:00)
[2016-08-26] MEDS ORDERED: BISACODYL 10 MG SUPPOSITORY RECTALLY PRN (18:00)
[2016-08-26] MEDS ORDERED: LORAZEPAM 2 MG/ML INJECTION IV PRN (18:00)
[2016-08-26] MEDS ORDERED: MAG-AL + SIM LIQUID 30 ML UDC PO PRN (18:00)
[2016-08-26] MEDS ORDERED: PROMETHAZINE 25 MG INJECTION IV PRN (18:00)
[2016-08-26] MEDS ORDERED: LORAZEPAM 0.5 MG TABLET PO PRN (18:00)
[2016-08-26] MEDS ORDERED: METOCLOPRAMIDE 10mg/2ml INJECTION IV PRN (18:00)
--- NOTE | 2016-08-26 21:31 | CVPROF ---
CARDIAC CATHETERIZATION DATE OF PROCEDURE August 26, 2016 The patient is a very pleasant 61-year-old lady who was admitted with symptoms of unstable angina and has been experiencing symptoms of unstable angina. She was referred for further evaluation by cardiac catheterization and possible intervention. Informed consent was obtained after explaining the procedure and the potential risks to the patient who agreed to proceed with the procedure. PROCEDURE 1. Left heart catheterization. 2. Coronary angiography. 3. Left ventriculography. TECHNIQUE She was prepped and draped in the usual sterile techniques. Conscious sedation was performed using Versed and fentanyl. Using modified Seldinger technique, arterial access was obtained into the right radial artery with placement of a 6-Khmer arterial sheath. 3000 units of heparin, 300 mcg of nitroglycerin, and 2.5 mg of verapamil were given through the arterial sheath. LEFT VENTRIGULOGRAPHY Left ventriculography in single-plane RUBIO shallow projection showed normal LV systolic function with ejection fraction of about 60% with no mitral regurgitation or gradient across the aortic valve. LVEDP was about 5. CORONARY ANGIOGRAPHY Left main, left anterior descending and diagonals, left circumflex and marginals, and right coronary artery all had minor irregularities with no hemodynamically significant lesions. The patient tolerated the procedure well with no complications. IMPRESSION 1. Minor coronary irregularities with no hemodynamically significant lesions. 2. Normal LV systolic function with ejection fraction of about 60%. PLAN Medical management. TAMI
--- NOTE | 2016-08-26 21:40 | NUR ---
DISMISSAL REVIEWED DISMISSAL TEACHING WITH PATIENT, THEN WHEN CAREGIVER ARRIVED. INCLUDING DIET, ACTIVITY WITH RESTRICTIONS. ADVISED HER TO CALL DR BENOIT'S OFFICE IN THE A.M. TO CLARIFY APPT, SHE HAD ALREADY HAD AN APPT FOR THE WITH HIM. SHE IS AWARE OF THE NEW APPT FOR 09/17 AT 1030. MEDS RETURNED AND BELONGINGS GATHERED AND PLACED IN BAG. PT BACK ON HER HOME O2 AT 2L SHE TAKES AT HOME. BP IMPROVED BEFORE DISMISSAL. PT DENIED PAIN. WHEELED TO E.R. EXIT AND CAREGIVER HERE TO DRIVE HER HOME. THEY BOTH VOICED UNDERSTANDING OF ALL INSTRUCTIONS. 2X2 AND TEGADERM TO RIGHT RADIAL SITE DRY AND INTACT UPON DISMISSAL, IV SITE DC'D, HEMOSTASIS ACHIEVED, 2X2 APPLIED. GIVEN DISMISSAL PACKET.
--- NOTE | 2016-08-27 09:37 | NUR ---
DM Screen Pt here less than 24 hours. Pt dismissed without being seen by RD. RD will contact pt to offer out pt visit.
== END 2016-08-26 21:40 | disposition home or self-care (01) ==
LOC: CATH 13:50 → SRG 13:51 → CATH 21:40
PROVIDERS: ATTEND Internal Medicine Cardiovascular Disease
DX: I25.10 Atherosclerotic heart disease of native coronary artery without angina pectoris (principal); R07.2 Precordial pain; J44.9 Chronic obstructive pulmonary disease, unspecified; J45.909 Unspecified asthma, uncomplicated; I27.2 Other secondary pulmonary hypertension; Z99.81 Dependence on supplemental oxygen; F17.210 Nicotine dependence, cigarettes, uncomplicated; E66.01 Morbid (severe) obesity due to excess calories; I10 Essential (primary) hypertension; E11.9 Type 2 diabetes mellitus without complications; Z68.39 Body mass index [BMI] 39.0-39.9, adult; I25.2 Old myocardial infarction; R60.0 Localized edema; E78.00 Pure hypercholesterolemia, unspecified; Z87.01 Personal history of pneumonia (recurrent); K21.9 Gastro-esophageal reflux disease without esophagitis; Z86.73 Personal history of transient ischemic attack (TIA), and cerebral infarction without residual deficits; F31.9 Bipolar disorder, unspecified; Z79.82 Long term (current) use of aspirin; Z79.1 Long term (current) use of non-steroidal anti-inflammatories (NSAID); Z79.899 Other long term (current) drug therapy; Z79.84 Long term (current) use of oral hypoglycemic drugs; Z82.49 Family history of ischemic heart disease and other diseases of the circulatory system
CPT/HCPCS: 36415; 80048; 85025; 93005; 93458; 94640; C1893; J1200; J1644; J2060; J2250; J2930; J3010; J7030; Q9967; Z2098; Z2605

== ENCOUNTER 2016-10-17 12:17 | Emergency (ER) | payer MEDICAID ==
[~2016-10-17] VITALS: Ht 165.1 cm; Wt 111.0 kg
[~2016-10-17 12:17] MED LIST changes: +ALBU2.5V7 PO; +HYDR-4246 PO; -LEVO1CAP2 PO; +LORA0.5T2 PO; +MAGN400T31 PO; +METH-310 PO; -NORMAL SALINE 1,000 ML IV SCH; +PALI6TAB PO; +POTA10CA37 PO; -SALINE FLUSH 10ml SYRINGE IVF PRN
[2016-10-17 12:21] VITALS: Ht 165.1 cm; Wt 111.0 kg
[2016-10-17] MEDS ORDERED: ALBUTEROL/IPRATROPIUM INHAL. 2.5mg-0.5mg/3ml Neb. AEROSOL ONE ×2 (12:30→13:00)
[2016-10-17] MEDS ORDERED: PredniSONE 10 MG TABLET PO ONE (12:30)
--- NOTE | 2016-10-17 12:35 | NUR ---
RT IN TRIAGE ROOM TO ADMINISTER NEBULIZER TREATMENT AT THIS TIME.
[2016-10-17 12:39] VITALS: O2SAT 95
--- NOTE | 2016-10-17 12:44 | ERPDOC ---
Departure Disposition Decision Date: October 17, 2016 Disposition Decision Time: 14:26 Disposition: 01 DISCHARGED HOME, SELF-CARE Impression Impression Impression: Primary Impression: COPD exacerbation Severity: Moderate Condition: Stable Seen By: Mid-level only Referrals: MONICA COLVIN DO (PCP) Patient Instructions: COPD (Chronic Obstructive Pulmonary Disease) (ED) Problems/Meds/Labs Reviewed?: Yes Medications reviewed and manag: Yes Additional Instructions: Take the Prednisone as prescribed. Use your nebulizer as needed for shortness of breath. I do want you to return to Er for reevaluation of you have any worsening of symptoms at all. Follow up care ordered?: Yes Mental Status: Alert Scripts Azithromycin (Zithromax) 250 Mg Tablet 1 TAB PO DAILY, #4 TAB 0 Refills TAKE TWO ON DAY ONE, THEN ONE TAB DAILY UNTIL ALL TAKEN. Prov: LIONESSylvester Damon APRN 10/17/16 Prednisone (Prednisone) 20 Mg Tablet 20 MG PO BIDWM, #10 TAB 0 Refills Take 1 tablet, by mouth, 2 times a day with meals. Prov: ALISTAIR HAZEL APRN 10/17/16 HPI - Dyspnea General Chief Complaint: Dyspnea/Respdistress Stated Complaint: DIFFICULTY BREATHING Time Seen by Provider: 12:26 Source: patient Exam Limitations: no limitations HPI - Dyspnea Initial Comments She was at PT this morning and had onset of dyspnea. Has a history of COPD with frequent exacerbations. She did use her nebulizer at home about 2 hours ago. Is normally on 2L O2 per NC at home, O2 says up on arrival were in the upper 80s so was placed on 4L O2 per NC and sats up to 94%. She denies any fever or cough. Occurred At: other (while at PT) Onset/Timing: Rapid Duration: 1/2 hour Severity: moderate Activities at Onset: activity Prior Episodes/Possible Cause: frequent episodes Associated Symptoms: shortness of breath, DENIES: chest pain, cough, diaphoresis, fever/chills, headaches, loss of appetite, malaise, nausea/vomiting , rash, seizure, syncope, weakness Aspirin Treatment Today: unknown Hx of Similar Symptoms: No Allergies: Coded Allergies: Influenza Virus Vaccines (Verified Allergy, Severe, DYSPNEA, 10/17/16) lisinopril (Verified Allergy, Intermediate, TONGUE SWELLING, 10/17/16) Iodinated Contrast Media - Oral and (Verified Allergy, Mild, RASH, 10/17/16 ) Sulfa (Sulfonamide Antibiotics) (Verified Allergy, Unknown, RASH, 10/17/16) asenapine (Verified Allergy, Unknown, 10/17/16) asenapine maleate (Verified Allergy, Unknown, 10/17/16) duloxetine (Verified Allergy, Unknown, 10/17/16) hydromorphone HCl (Verified Allergy, Unknown, 10/17/16) venlafaxine (Verified Allergy, Unknown, 10/17/16) lurasidone (Verified Adverse Reaction, Intermediate, INCREASED SODIUM, ) adhesive (Verified Adverse Reaction, Unknown, 10/17/16) cephalexin (Verified Adverse Reaction, Unknown, VOMITING, 10/17/16) morphine (Verified Adverse Reaction, Unknown, SWELLING, 10/17/16) Uncoded Allergies: SHELLFISH (Allergy, Severe, 08/06/15) DECONGESTANT ALLERGY ORAL (Allergy, Unknown, 05/01/12) Past History Past Medical History Metabolic: cancer, diabetes, hypercholesterolemia, hypertension, other Cardiac: CAD, [place] Respiratory: COPD, pneumonia GI: GERD, gallbladder disease, ulcers Female: UTI Neurological: CVA, chronic disability Musculoskeletal: back pain, osteoarthritis Integumentary: other Psychological: bipolar, depression Surgical History General: appendix, colonoscopy, gallbladder, hernia, tonsils Cardiac: cardiac cath Reproductive/: hysterectomy Joint: carpal tunnel, knee, shoulder Family History Family PMH: FOUND: CHF, [place], cancer, diabetes Vaccines Hx Influenza Vaccination: Yes (April 2016) Hx Pneumococcal Vaccination: Yes (may 2016) Hx Tetanus Diptheria: No Hx Tetanus, Diptheria, Pertuss: No Social History Does patient use chewing tobac: No # of Packs/Tins per Day: 2 # of Years: 47 Quit Date: Jun 24, 2016 Substance Use Type: does not use Alcohol Intake: occasionally Marital Status: Single Housing: apartment Household Members: caregiver Current Occupational Status: retired Review of Systems Constitutional Constitutional: DENIES: chills, dizziness, fatigue, fever, weakness Cardiovascular Cardiac: dyspnea on exertion, DENIES: chest pain, orthopnea Rhythm/Rate: DENIES: irregular beat, palpitations Vascular: DENIES: pedal edema, unilateral swelling Pulmonary Respiratory: dyspnea, DENIES: cough, sputum, tachypnea GI Upper Abdomen: DENIES: nausea, pain, vomiting Lower Abdomen: DENIES: constipation, diarrhea, pain Integumentary Skin: DENIES: rash Neurological General: DENIES: headache, numbness, tingling, weakness Physical Exam General General Nourishment: well nourished, well developed, appears stated age, no acute distress, adult General Body Habitus: well groomed Vitals and Pain First Documented Vital Signs Date Time Temp Pulse Resp B/P Pulse Ox O2 Delivery O2 Flow Rate FiO2 10/17/16 12:21 98.0 92 24 151/69 87 Nasal Cannula 3.00 Weight: Kilograms: 111.000 Height (feet): 5 Height (inches): 5.00 Triage Pain Scale: RN VS reviewed by Provider: Yes Normal Exams: Neck: Full range of motion, without adenopathy, JVD, bruits or thyromegaly CV: Regular rate and rhythm, without murmur or gallop, Pulses 2+ all extremities, capillary refill, <2 seconds all ext., no pedal edema noted Abdomen: Bowel sounds positive, soft, non-tender, non-distended, no hepatosplenomegaly, masses or bruits noted Integumentary: No rashes, hives, or bruising noted Neurologic: Patient is alert, and oriented Psychiatric: Patient exhibits, appropriate attention, emotion and affect Respiratory (brief) Respiratory: FOUND: wheezes (throughout all lobes) Differential Diagnoses Considering: Acute Bronchitis, Acute CA, Acute Respiratory Failure, Angioedema , COPD Exacerbation Progress Results/Orders Orders Procedure Category Date Status Time Albuterol/Ipratropium PHA 10/17/16 Complete (Duoneb) 12:30 Prednisone PHA 10/17/16 Complete (Prednisone) 12:30 Albuterol/Ipratropium PHA 10/17/16 Complete (Duoneb) 13:00 EKG EKG 10/17/16 Taken Chest, Pa & Lateral RAD 10/17/16 Resulted Albuterol Sulfate PHA 10/17/16 Complete (Proventil 2.5 Mg/3 Ml 14:15 Azithromycin PHA 10/17/16 In Process (Zithromax 500 Mg) 14:45 Medications Current ED Medications Albuterol/ Ipratropium (Duoneb) 3 ml O ONCE AEROSOL Last administered on t 12:39; Start 10/17/16 at 12:30; Stop 10/17/16 at 12:31; Status DC Prednisone (PredniSONE) 60 mg O ONCE PO Last administered on 10/17/16t 12:48; Start 10/17/16 at 12:30; Stop 10/17/16 at 12:31; Status DC Albuterol/ Ipratropium (Duoneb) 3 ml O ONCE AEROSOL ; Start 10/17/16 at 13:00; Stop 10/17/16 at 13:01; Status DC Albuterol Sulfate (Proventil 2.5 Mg/3 ml) 2.5 mg O ONCE AEROSOL Last administered on 10/17/16 14:11; Start 10/17/16 at 14:15; Stop 10/17/16 at 14:16 ; Status DC Azithromycin (ZITHROMAX 500 mg) 500 mg O ONCE PO ; Start 10/17/16 at 14:45; Stop 10/17/16 at 14:46 Progress Progress 1330- Patient feels like she is at her baseline. Is breathing much better. Lungs are still very wheezy throughout however. Did turn O2 down to 3L per NC and sats so far have remained at 93%. Will go ahead and get Chest xray and EKG at this time. May repeat Albuterol x1, has had Duoneb x2 so far. Still with wheezing throughout. She does again state that she feels much better and insists she is at her baseline. Is ready to go home. O2 remains at 98% on the 2L per NC. Have weaned her back down to 2L which is what she takes at home. Will have her take some Prednisone and Zithromax for possible early pneumonia. nebulizer at home. Strict return precautions were given. Xray Xray : Reason for Exam: dyspnea Xray: CXR PA/Lat Interpretation: Abnormal (airspace disease vs early pneumonia) ALISTAIR HAZEL APRN October 17, 2016 12:44
--- NOTE | 2016-10-17 12:57 | NUR ---
PROVIDER LORENA HAZEL APRN IN ROOM TO ASSESS PT AT THIS TIME.
[2016-10-17] MEDS ORDERED: [UNRECOGNIZED DRUG - CODE] PO (13:07)
--- NOTE | 2016-10-17 13:13 | NUR ---
RT IN ROOM TO ADMINISTER NEBULIZER TREATMENT AT THIS TIME.
--- NOTE | 2016-10-17 13:21 | NUR ---
ROOM CHANGE PATIENT TAKEN TO TRAUMA A PER WC, STABLE.
--- NOTE | 2016-10-17 14:05 | DI ---
INDICATION: ITS.REASON: dyspnea PROCEDURE: CHEST 2-VIEWS UPRIGHT (PA \T\ LAT) Encounter: Initial COMPARISON: September 18, 2016 FINDINGS: Mild airspace opacity in the right lower lobe is new seen on the frontal view only. Remaining lung bone are clear. There is no pleural effusion or pneumothorax. Elevated left hemidiaphragm. The heart size, mediastinal contours and pulmonary vascularity are within normal limits. Nondisplaced right second rib fracture again noted. Suture anchor in the right humeral head. IMPRESSION: Mild right basilar airspace disease could be due to atelectasis or early pneumonia. .
--- NOTE | 2016-10-17 14:08 | NUR ---
RT RT AT BEDSIDE FOR REPEAT BREATHING TX
[2016-10-17] MEDS ORDERED: ALBUTEROL INH.SOLN. 2.5mg/3ml (0.083%) Neb. AEROSOL ONE (14:15)
--- NOTE | 2016-10-17 14:25 | NUR ---
PROVIDER N NOLD CANTEEN OPERATOR AT BEDSIDE TO DISCUSS POC
[2016-10-17] MEDS ORDERED: PRED20TA PO (14:29)
[2016-10-17] MEDS ORDERED: AZIT250T PO (14:31)
[2016-10-17 14:32] VITALS: BP 164/72; PULSE 83; RESP 25; TEMP 98; O2SAT 95
[2016-10-17] MEDS ORDERED: AZITHROMYCIN 500 MG TABLET PO ONE (14:45)
== END 2016-10-17 14:32 | disposition home or self-care (01) ==
LOC: ED 12:17
DX: J44.1 Chronic obstructive pulmonary disease with (acute) exacerbation (principal); I10 Essential (primary) hypertension; I25.10 Atherosclerotic heart disease of native coronary artery without angina pectoris; Z99.81 Dependence on supplemental oxygen; Z87.891 Personal history of nicotine dependence
CPT/HCPCS: 71020; 93005; 94640; 99283; J7512; J7611

== ENCOUNTER 2016-10-25 08:50 | Emergency (ER) | payer MEDICAID ==
[~2016-10-25] VITALS: Ht 165.1 cm; Wt 107.9 kg
[~2016-10-25 08:50] MED LIST changes: -ALBU2.5V7 PO; +AZIT250T PO; -HYDR-4246 PO; -LORA0.5T2 PO; -METH-310 PO; -PALI3TAB PO; +PRED20TA PO; -RISP3TAB14 PO; +[UNRECOGNIZED DRUG - CODE] PO
[2016-10-25 08:53] VITALS: Ht 165.1 cm; Wt 107.9 kg
--- NOTE | 2016-10-25 09:15 | NUR ---
DR DEL TORO IN
[2016-10-25] MEDS ORDERED: IBUP-1724 PO (09:26)
[2016-10-25] MEDS ORDERED: ALBU2.5V7 AEROSOL (09:26)
[2016-10-25] MEDS ORDERED: PRAM0.129 PO (09:26)
--- NOTE | 2016-10-25 09:54 | ERPDOC ---
Departure Disposition Decision Date: October 25, 2016 Disposition Decision Time: 09:52 Disposition: 01 DISCHARGED HOME, SELF-CARE Impression Impression Impression: Primary Impression: Eye pain Laterality: left Qualified Codes: H57.12 - Ocular pain, left eye Severity: Moderate Condition: Improved Seen By: Physician only Referrals: MONICA COLVIN DO (PCP) 1 Day Patient Instructions: Eye Pain (ED) Problems/Meds/Labs Reviewed?: Yes Medications reviewed and manag: Yes Additional Instructions: Go directly to Dr. Ortega's office of opthamology at [place] after leaving the ED today. Do not go anywhere else. Follow up as directed. Follow up care ordered?: Yes Mental Status: Alert, Oriented HPI - General Medical General Chief Complaint: Eye Problems Stated Complaint: L EYE PAIN Time Seen by Provider: 09:00 HPI - General Medical Initial Comments 71-year-old female presents to the emergency department with a chief complaint of left eye pain. Patient noted onset of symptoms 3 days ago. Symptoms have been persistent in nature since onset. She denies any injury or trauma. She does not wear contact lenses. Her symptoms are moderate in nature. She does not note any exacerbating or remitting factors. Patient notes a mild burning discomfort in the left eye without radiation. She notes that her symptoms started 3 days ago. Patient states that her vision also feels slightly blurry. She denies any other complaints or associated symptoms. Denies foreign body sensation. Occurred At: home Onset: Constant Allergies: Coded Allergies: Influenza Virus Vaccines (Verified Allergy, Severe, DYSPNEA, 10/25/16) lisinopril (Verified Allergy, Intermediate, TONGUE SWELLING, 10/25/16) Iodinated Contrast Media - Oral and (Verified Allergy, Mild, RASH, 10/25/16 ) Sulfa (Sulfonamide Antibiotics) (Verified Allergy, Unknown, RASH, 10/25/16) asenapine (Verified Allergy, Unknown, 10/25/16) asenapine maleate (Verified Allergy, Unknown, 10/25/16) duloxetine (Verified Allergy, Unknown, 10/25/16) hydromorphone HCl (Verified Allergy, Unknown, 10/25/16) venlafaxine (Verified Allergy, Unknown, 10/25/16) lurasidone (Verified Adverse Reaction, Intermediate, INCREASED SODIUM, ) adhesive (Verified Adverse Reaction, Unknown, 10/25/16) cephalexin (Verified Adverse Reaction, Unknown, VOMITING, 10/25/16) morphine (Verified Adverse Reaction, Unknown, SWELLING, 10/25/16) Uncoded Allergies: SHELLFISH (Allergy, Severe, 08/06/15) DECONGESTANT ALLERGY ORAL (Allergy, Unknown, 05/01/12) Past History Past Medical History Metabolic: cancer, diabetes, hypercholesterolemia, hypertension, other Cardiac: CAD, NE Respiratory: COPD, pneumonia GI: GERD, gallbladder disease, ulcers Female: UTI Neurological: CVA, chronic disability Musculoskeletal: back pain, osteoarthritis Integumentary: other Psychological: bipolar, depression Surgical History General: appendix, colonoscopy, gallbladder, hernia, tonsils Cardiac: cardiac cath Reproductive/: hysterectomy Joint: carpal tunnel, knee, shoulder Family History Family PMH: FOUND: CHF, NE, cancer, diabetes Vaccines Hx Influenza Vaccination: Yes (April 2016) Hx Pneumococcal Vaccination: Yes (may 2016) Hx Tetanus Diptheria: No Hx Tetanus, Diptheria, Pertuss: No Social History Smoking Status: Former smoker Does patient use chewing tobac: No # of Packs/Tins per Day: 2 # of Years: 47 Quit Date: Jun 24, 2016 Substance Use Type: does not use Alcohol Intake: occasionally Marital Status: Single Housing: apartment Household Members: caregiver Current Occupational Status: retired Review of Systems Constitutional Constitutional: DENIES: chills, fever Eyes General: burning, DENIES: erythema, exudate Lids/Accessories: DENIES: erythema, swelling Vision: blurring, DENIES: acuity ENMT Ears: DENIES: drainage, erythema Hearing: DENIES: hearing loss Balance: DENIES: ataxia, falling to one side Sinuses: DENIES: congestion, pain Nose: DENIES: nosebleeds, pain Mouth/Throat: DENIES: painful swallowing, sore throat Teeth: DENIES: pain Jaw: DENIES: pain Cardiovascular Cardiac: DENIES: chest pain, dyspnea on exertion Rhythm/Rate: DENIES: irregular beat, palpitations Vascular: DENIES: pedal edema, unilateral swelling Pulmonary Respiratory: DENIES: cough, dyspnea, pleuritic chest pain, sputum GI Upper Abdomen: DENIES: nausea, pain, vomiting Lower Abdomen: DENIES: diarrhea, pain General: DENIES: burning, dysuria, frequency, urgency Musculoskeletal General: DENIES: joint pain, pain, tenderness Integumentary Skin: DENIES: itching, rash Neurological General: DENIES: change in strength, headache, numbness, weakness Psychiatric Psychiatric: DENIES: emotional instability, suicidal ideation/attempt Endocrine Endocrine: DENIES: polydipsia, polyphagia Hematologic/Lymphatic Hematologic/Lymphatic: DENIES: frequent nosebleeds, lymphadenopathy Allergic/Immunological Allergic/Immunoligical: DENIES: allergic reactions, hives Physical Exam General General Nourishment: well nourished, well developed, appears stated age, no acute distress, adult General Body Habitus: well groomed Vitals and Pain First Documented Vital Signs Date Time Temp Pulse Resp B/P Pulse Ox O2 Delivery O2 Flow Rate FiO2 10/25/16 08:53 97.8 69 20 110/70 95 Nasal Cannula 2.00 Weight: Kilograms: 107.900 Height (feet): 5 Height (inches): 5.00 Triage Pain Scale: RN VS reviewed by Provider: Yes Normal Exams: Head: Normocephalic w/o trauma Eyes: Pupils are PERRLA w/ EOMI, No scleral icterus, irritation, or foreign bodies noted Fundi: Disks flat and sharp, No hemorrhages, or AV nicking noted ENMT: No facial trauma, nasal exudates, pharyngeal erythema, or exudates are noted Dental: No fractured, loose, or missing teeth noted Neck: Full range of motion, without adenopathy, JVD, bruits or thyromegaly Chest/Resp: Clear all bone, with good airflow, and symmetry bilaterally CV: Regular rate and rhythm, without murmur or gallop, Pulses 2+ all extremities, capillary refill, <2 seconds all ext., no pedal edema noted Abdomen: Bowel sounds positive, soft, non-tender, non-distended, no hepatosplenomegaly, masses or bruits noted Lymphatic: No lymphadenopathy, or lymphedema noted Musculoskeletal: No tenderness, or deformity noted, good range of motion, all extremities Integumentary: No rashes, hives, or bruising noted, hair and nails, without abnormality Neurologic: Patient is alert, and oriented, cranial nerves, motor/sensory/ cerebellar, exams w/o gross deficits, to observation Psychiatric: Patient exhibits, appropriate attention, emotion and affect ENMT (brief) Comments L eye - Pupil was round equal and reactive to light. Extra ocular movements are intact. No proptosis. Normal lids and lashes. No hyphema. Mild conjunctival injection. Negative fluorescein dye uptake. Unremarkable slit lamp examination. No foreign body. Intraocular pressure was 14, 16, 18. R eye - WNL. Visual Acuity - 20/50 - R. 20/200 - L. BILAT: 20/50. Differential Diagnoses Considering: Other (foreign body/conjunctivitis/iritis/ eye injury) Progress Results/Orders Orders Procedure Category Date Status Time Fluorescein Sodium PHA 10/25/16 Complete (Ful-Yris) 09:30 Medications Current ED Medications Fluorescein Sodium (Ful-Yris) 1 mg O ONCE LEFT EYE Last administered on t 10:03; Start 10/25/16 at 09:30; Stop 10/25/16 at 09:31; Status DC Progress Progress Exam is discussed in detail with the patient's marketing director Dr. Ortega of [employer]. Dr. Ortega recommends not placing any medications in the patient's eye at this time and having the patient follow-up with her in the office today. She will handle all medications as needed for the patient at her request. Appointment is secured for the patient at 4:15 today. Patient verbalizes agreement and understanding. Patient is to go directly to Dr. Ortega office after leaving the emergency department at 4:15 for follow-up. Patient verbalizes agreement and understanding. Patient is discharged home in improved condition. She is to follow up as instructed. Patient is to return to the emergency Department if her condition worsens or changes in any manner. Patient declined offered analgesic pain medication in the ED. FARA DEL TORO DO October 25, 2016 09:54
[2016-10-25] MEDS: FLUORESCEIN SODIUM 1 MG/STRIP LEFT EYE ONE (10:03)
[2016-10-25 10:05] VITALS: BP 109/71; PULSE 68; RESP 20; TEMP 98.2; O2SAT 94
--- NOTE | 2016-10-25 10:05 | NUR ---
DISMISSAL DC WITH O2 ON TO PROCEED TO DR MONSON'S OFFICE IN [place]
== END 2016-10-25 10:05 | disposition home or self-care (01) ==
LOC: ED 08:50
DX: H57.12 Ocular pain, left eye (principal)

== ENCOUNTER 2016-12-01 22:11 | Inpatient (IN) ==
[2016-12-01] MEDS ORDERED: SALINE FLUSH 10ml SYRINGE IVF PRN (22:46)
[2016-12-01] MEDS ORDERED: HYDROCODONE/APAP 5mg/325mg TABLET PO ONE (22:48)
--- NOTE | 2016-12-01 23:24 | Emergency Department Report ---
General Adult HPI - General Chief complaint: Upper Respiratory Infection Stated complaint: Pain/Cough Time Seen by Provider: 12/01/16 22:26 Source: patient, EMS Mode of arrival: EMS Limitations: no limitations - History of Present Illness HPI narrative: 61yo woman presents to the ER for right, anterior chest pain of a few hours duration. Pt has COPD; continues to smoke. She thinks that she broke a rib today at 2030 while coughing. Pt took tramadol without significant relief. Wants relief. Onset (ago): hour(s) (2) Location: chest Radiation: non-radiation Severity: severe Severity scale (1-10): 9 Quality: stabbing, sharp Consistency: intermittent Relieving factors: none Exacerbating factors: movement, other (Breathing) Associated symptoms: cough Treatments prior to arrival: other (tramadol) - Related Data Home Medications Medication Instructions Recorded Confirmed Cabergoline [Dostinex] 1 mg PO TuFr #0 06/19/12 Tramadol HCl 50 mg PO Q6H PRN #0 07/13/14 Fluticasone Propionate [Flovent 2 puff ORAL INH BID #0 07/14/14 Hfa] Cholestyramine (with Sugar) 4 gm PO BID PRN #0 10/11/14 [Questran Packet] Meloxicam [Mobic] 15 mg PO DAILY #0 10/11/14 Primidone 150 mg PO HS #0 10/11/14 Nitroglycerin [Nitrostat] 0.4 mg SL Q5MIN PRN #0 08/06/15 Ipratropium/Albuterol Sulfate 1 vial INH Q6H #0 09/23/15 [Iprat-Albut 0.5-3(2.5) mg/3 ml] Aspirin [Aspirin EC] 81 mg PO DAILY #0 10/26/15 Furosemide 20 mg PO DAILY #0 10/26/15 Lansoprazole 30 mg PO DAILY #0 10/26/15 Gabapentin 300 mg PO HS #0 07/01/16 Metformin HCl 500 mg PO BID #0 07/15/16 Metoprolol Succinate 100 mg PO DAILY #0 07/15/16 Pantoprazole Sodium 40 mg PO HS #0 07/15/16 Buspirone HCl 7.5 mg PO BID #0 08/09/16 Cyproheptadine HCl 8 mg PO HS #0 08/22/16 Paliperidone Tab [Invega] 6 mg PO HS #0 08/26/16 Potassium Chloride 10 meq PO WB PRN #0 08/26/16 Magnesium Oxide (Magox 400) 400 mg PO BID PRN #0 09/18/16 Levomefolate Calcium 7.5 mg PO DAILY #0 10/17/16 [l-Methylfolate Calcium] Albuterol Sulfate 2.5 mg AEROSOL QID #0 10/25/16 Ibuprofen 400 mg PO Q4H PRN #0 10/25/16 Pramipexole Di-HCl [Pramipexole 0.375 mg PO HS #0 10/25/16 Dihydrochloride] Allergies Allergy/AdvReac Type Severity Reaction Status Date / Time Influenza Virus Vaccines Allergy Severe DYSPNEA Verified 12/01/16 23:05 lisinopril Allergy Intermediate TONGUE Verified 12/01/16 23:05 SWELLING Iodinated Contrast- Oral and Allergy Mild RASH Verified 12/01/16 23:05 IV Dye asenapine Allergy Unknown Verified 12/01/16 23:05 duloxetine Allergy Unknown Verified 12/01/16 23:05 Sulfa (Sulfonamide Allergy Unknown RASH Verified 12/01/16 23:05 Antibiotics) venlafaxine Allergy Unknown Verified 12/01/16 23:05 lurasidone AdvReac Intermediate INCREASED Verified 12/01/16 23:05 SODIUM adhesive AdvReac Unknown Verified 12/01/16 23:05 cephalexin AdvReac Unknown VOMITING Verified 12/01/16 23:05 morphine AdvReac Unknown SWELLING Verified 12/01/16 23:05 SHELLFISH Allergy Severe Allergic Uncoded 12/01/16 23:06 Asthmatic Reaction asenapine maleate Allergy Unknown Uncoded 12/01/16 23:06 DECONGESTANT ALLERGY ORAL Allergy Unknown Uncoded 12/01/16 23:07 hydromorphone HCl Allergy Unknown Uncoded 12/01/16 23:06 Review of Systems All systems: reviewed and negative except as stated Cardiovascular: Reports: chest pain Respiratory: Reports: cough PFSH DM HL HTN CAD NC COPD PNA GERD Cholecystitis Gastric ulcers UTI CVA Back pain OA Bipolar Depression Surgical History: appendix. colonoscopy. gallbladder. hernia. tonsils. cardiac cath. hysterectomy. carpal tunnel. knee. shoulder Physical Exam - Limitations Limitations: no limitations - General General appearance: alert, in no apparent distress, obese - Normal Exams: Head:: Normocephalic without trauma Eyes:: Pupils are PERRLA w/ EOMI, No scleral icterus, irritation, or foreign bodies noted ENMT:: No facial trauma, nasal exudates, pharyngeal erythema, or exudates are noted Neck:: Full range of motion, without adenopathy, JVD, bruits or thyromegaly Lymphatic:: No lymphadenopathy, or lymphedema noted Musculoskeletal:: No tenderness, or deformity noted, good range of motion, all extremities Integumentary:: No rashes, hives, or bruising noted, hair and nails, without abnormality Neurological:: Patient is alert, and oriented Psychiatric:: Patient exhibits, appropriate attention - Respiratory Respiratory exam: Present: wheezes (Throughout), prolonged expiratory phase. Absent: normal lung sounds bilaterally, respiratory distress - Cardiovascular Cardiovascular exam: Present: regular rate, normal rhythm, normal heart sounds - Abdominal Exam Abdominal exam: Present: soft, normal bowel sounds. Absent: distention, tenderness, guarding, rebound, psoas sign, obturator sign, Cunningham's sign, Rovsing's sign, hernia Course - Consultations Consultation #1: [facility] Telemed: Time: 23:42 Vital Signs Temperature 97.9 F 12/01/16 22:36 Pulse Rate 75 12/01/16 22:36 Respiratory Rate 24 12/01/16 22:36 Blood Pressure 132/62 12/01/16 22:36 Pulse Oximetry 95 12/01/16 22:36 Temperature 97.9 F 12/01/16 22:36 Pulse Rate 75 12/01/16 22:36 Respiratory Rate 24 12/01/16 22:36 Blood Pressure 132/62 12/01/16 22:36 Pulse Oximetry 95 12/01/16 22:36 Medical Decision Making - Differential Diagnosis Costochondritis, rib fracture, muscle spasm - Lab Data Lab results reviewed: Yes: I reviewed the patient's lab results. Result diagrams: 12/01/16 23:12 12/01/16 23:12 Lab Results 12/01/16 12/01/16 Range/Units 23:12 23:12 WBC 8.1 (4.5-11.0) T/MM3 RBC 4.05 (4.00-5.20) M/MM3 Hgb 11.9 L (12-16) GM/DL Hct 34.5 L (36-46) % MCV 85.2 (80-100) UM3 MCH 29.4 (26-34) UUG MCHC 34.5 (31-37) GM/DL RDW Std Deviation 39.8 (36.9-50.2) FL Plt Count 294 (130-400) T/MM3 MPV 8.2 L (9.4-12.4) UM3 Turbidity < 20 (0-20) Sodium 119 L* (134-144) MEQ/L Potassium 3.6 (3.6-5) MEQ/L Chloride 86 L (98-107) MEQ/L Carbon Dioxide 25 (22-30) MEQ/L Anion Gap 8 (5-15) MEQ/L BUN 8.0 (7-17) MG/DL Creatinine 0.8 (0.7-1.2) MG/DL GFR Calculation 73 BUN/Creatinine Ratio 10 (6-26) RATIO Glucose 90 (65-110) MG/DL Calculated Osmolality 228 L (261-280) MOSM/KG Calcium 8.9 (8.4-10.2) MG/DL Icterus Index < 2 (0-7) Specimen Hemolysis < 15 (0-25) - Radiology Data Radiology results reviewed: Yes: I reviewed the patient's radiology results. Rib films: Poor insp effort. Stable chest. No apparent fx or dislocation. No acute CT pathology. Disposition Clinical Impression: Costochondral chest pain, Hyponatremia Disposition: 02 To [facility] [place] Acute Care Prescriptions: No Action Cholestyramine (with Sugar) [Questran Packet] 4 gm PO BID PRN #0 PRN Reason: DIARRHEA Meloxicam [Mobic] 15 mg PO DAILY #0 Furosemide 20 mg PO DAILY #0 Lansoprazole 30 mg PO DAILY #0 Pantoprazole Sodium 40 mg PO HS #0 Paliperidone Tab [Invega] 6 mg PO HS #0 Cabergoline [Dostinex] 1 mg PO TuFr #0 Tramadol HCl 50 mg PO Q6H PRN #0 PRN Reason: PAIN Fluticasone Propionate [Flovent Hfa] 2 puff ORAL INH BID #0 Primidone 150 mg PO HS #0 Nitroglycerin [Nitrostat] 0.4 mg SL Q5MIN PRN #0 PRN Reason: CHEST PAIN Ipratropium/Albuterol Sulfate [Iprat-Albut 0.5-3(2.5) mg/3 ml] 1 vial INH Q6H #0 Aspirin [Aspirin EC] 81 mg PO DAILY #0 Gabapentin 300 mg PO HS #0 Metformin HCl 500 mg PO BID #0 Metoprolol Succinate 100 mg PO DAILY #0 Buspirone HCl 7.5 mg PO BID #0 Cyproheptadine HCl 8 mg PO HS #0 Potassium Chloride 10 meq PO WB PRN #0 PRN Reason: PRN ORDERS Magnesium Oxide (Magox 400) 400 mg PO BID PRN #0 PRN Reason: PRN ORDERS Albuterol Sulfate 2.5 mg AEROSOL QID #0 Levomefolate Calcium [l-Methylfolate Calcium] 7.5 mg PO DAILY #0 Ibuprofen 400 mg PO Q4H PRN #0 PRN Reason: PAIN Pramipexole Di-HCl [Pramipexole Dihydrochloride] 0.375 mg PO HS #0 Time of Disposition: 00:12 - Seen By: physician
[2016-12-02] MEDS ORDERED: Oxycodone/Acetaminophen 5/325 1 TAB PO PRN (01:25)
[2016-12-02] MEDS ORDERED: ONDANSETRON 4 MG/2 ML INJECTION IVP PRN (02:26)
[2016-12-02 02:34] VITALS: BMI 40.5
[2016-12-02] MEDS: NS 1,000 ML IV SCH ×3 (02:50→23:07)
--- NOTE | 2016-12-02 03:06 | History & Physical Report ---
History of Present Illness Date: 12/02/16 Chief complaint: chest pain and weakness HPI: Please note that the patient was seen via telemedicine with nursing assistance on 12/02/2016 Ms. Barr is a 61yo woman with h/o COPD and chronic hypoxic resp failure on 2L NC continuous along with nocturnal BIPAP with pulmonary hypertension, tobacco abuse ongoing, CVA 1999 with some residual L sided weakness, CAD s/p 2000 [place], essential HTN, dyslipidemia, PUD, and obesity presents after her chronic cough having a spell that lead to chest pain. The pain is reproducible with deep inspiration, and she denies fevers, chills, or blood in sputum. No sob at rest. No other GI symptoms. When asked about medication changes or new activities leading to Na 119 she does admit to 4-5 glasses of tea and also that much soda per day. Diuretic is not new, but thirst is worse this time of year. Review of Systems Review of systems: 10+ reviewed and negative aside from mentioned in HPI PFSH Patient Stated Medical History Hypertension Yes Myocardial Infarction Yes: PT IS VAGUE/UNSURE REGARDING DETAILS Asthma Yes Chronic Obstructive Pulmonary Yes Disease (COPD) Sleep Apnea Yes: Uses a Bipap occasionally at home. Other Respiratory Yes: EMPHYSEMA Diabetes Mellitus Type 2 Yes Gastroesophageal Reflux Yes Disease Hx Renal Disease Yes Anemia Yes Osteoarthritis Yes MRSA Yes: HX PREVIOUS SORES ON BACK/BUTTOCKS. Bipolar Disorder Yes Substance Use Disorder Yes: NICOTINE DEPENDENCE Surgical History: appendix. colonoscopy. gallbladder. hernia. tonsils. cardiac cath. hysterectomy. carpal tunnel. knee. shoulder Family History: CAD - Social History Smoking status: Heavy tobacco smoker Medications Home Medications Medication Instructions Recorded Confirmed Type Cabergoline [Dostinex] 1 mg PO TuFr #0 06/19/12 History Tramadol HCl 50 mg PO Q6H PRN #0 07/13/14 History Fluticasone Propionate [Flovent 2 puff ORAL INH BID #0 07/14/14 History Hfa] Cholestyramine (with Sugar) 4 gm PO BID PRN #0 10/11/14 History [Questran Packet] Meloxicam [Mobic] 15 mg PO DAILY #0 10/11/14 History Primidone 150 mg PO HS #0 10/11/14 History Nitroglycerin [Nitrostat] 0.4 mg SL Q5MIN PRN #0 08/06/15 History Ipratropium/Albuterol Sulfate 1 vial INH Q6H #0 09/23/15 History [Iprat-Albut 0.5-3(2.5) mg/3 ml] Aspirin [Aspirin EC] 81 mg PO DAILY #0 10/26/15 History Furosemide 20 mg PO DAILY #0 10/26/15 History Lansoprazole 30 mg PO DAILY #0 10/26/15 History Gabapentin 300 mg PO HS #0 07/01/16 History Metformin HCl 500 mg PO BID #0 07/15/16 History Metoprolol Succinate 100 mg PO DAILY #0 07/15/16 History Pantoprazole Sodium 40 mg PO HS #0 07/15/16 History Buspirone HCl 7.5 mg PO BID #0 08/09/16 History Cyproheptadine HCl 8 mg PO HS #0 08/22/16 History Paliperidone Tab [Invega] 6 mg PO HS #0 08/26/16 History Potassium Chloride 10 meq PO WB PRN #0 08/26/16 History Magnesium Oxide (Magox 400) 400 mg PO BID PRN #0 09/18/16 History Levomefolate Calcium 7.5 mg PO DAILY #0 10/17/16 History [l-Methylfolate Calcium] Albuterol Sulfate 2.5 mg AEROSOL QID #0 10/25/16 History Ibuprofen 400 mg PO Q4H PRN #0 10/25/16 History Pramipexole Di-HCl [Pramipexole 0.375 mg PO HS #0 10/25/16 History Dihydrochloride] Allergies Allergy/AdvReac Type Severity Reaction Status Date / Time Influenza Virus Vaccines Allergy Severe DYSPNEA Verified 12/01/16 23:05 lisinopril Allergy Intermediate TONGUE Verified 12/01/16 23:05 SWELLING Iodinated Contrast- Oral and Allergy Mild RASH Verified 12/01/16 23:05 IV Dye asenapine Allergy Unknown Verified 12/01/16 23:05 duloxetine [From Cymbalta] Allergy Unknown Verified 12/02/16 01:56 Sulfa (Sulfonamide Allergy Unknown RASH Verified 12/01/16 23:05 Antibiotics) venlafaxine Allergy Unknown Verified 12/01/16 23:05 lurasidone AdvReac Intermediate INCREASED Verified 12/01/16 23:05 SODIUM adhesive AdvReac Unknown Verified 12/01/16 23:05 cephalexin AdvReac Unknown VOMITING Verified 12/01/16 23:05 morphine AdvReac Unknown SWELLING Verified 12/01/16 23:05 SHELLFISH Allergy Severe Allergic Uncoded 12/01/16 23:06 Asthmatic Reaction hydromorphone HCl Allergy Unknown Uncoded 12/01/16 23:06 Exam Vital Signs: Temperature 98.9 F 12/02/16 02:43 Pulse Rate 68 12/02/16 02:43 Respiratory Rate 28 H 12/02/16 02:43 Blood Pressure 164/72 H 12/02/16 02:43 Pulse Oximetry 95 12/02/16 02:43 Oxygen Delivery Method Nasal Cannula Oxygen Flow Rate 2 Fraction of Inspired Oxygen 2 SaO2/FiO2 Ratio 4750 Telemetry Rhythm: Sinus Rhythm Height: 1.63 m Weight: 107.2 kg Body Mass Index: 40.5 - Constitutional Present: mild distress - Routine HEENT Exam Head: Present: normocephalic Eye: Present: EOMI - Routine Neck Exam Present: full ROM - Routine Respiratory Exam Present: decreased breath sounds, prolonged expiratory phase, wheezes. Absent: accessory muscle use - Routine Cardiovascular Exam Present: RRR, no murmur - Routine Abdominal Exam Present: soft, normoactive bowel sounds, non tender - Routine Neurological Exam Present: alert, oriented X3, CN II-XII intact, moving all extremities Results - Labs CBC & Chem 7: 12/01/16 23:12 12/01/16 23:12 Assessment and Plan (1) Hyponatremia Current visit: Yes Status: Acute 12/02/16 03:09 likely free water excess with also diuretic and chronic lung disease contributors. NS, education, repeat labs, tele. (2) Costochondral chest pain Current visit: Yes Status: Acute 12/02/16 03:11 prn percocet and supportive care with one additional troponin based on hx with EKG said nonischemic (3) COPD (chronic obstructive pulmonary disease) Current visit: Yes Status: Acute 12/02/16 03:11 clarify meds with duoneb now and monitor with BIPAP order and O2 with parameters (4) Chronic respiratory failure with hypoxia Current visit: Yes Status: Acute (5) CAD (coronary artery disease) Current visit: Yes Status: Acute 12/02/16 03:12 verify asa, statin, bblocker (6) HTN (hypertension) Current visit: Yes Status: Acute (7) Dyslipidemia Current visit: Yes Status: Acute (8) Obesity Current visit: Yes Status: Acute (9) Tobacco abuse Current visit: Yes Status: Acute 12/02/16 03:12 must stop Hospital Course Summary Disclaimer: The visit summary below is not to be considered part of the above Progress Note.
[2016-12-02] MEDS: ALBUTEROL 2.5mg/3ml (0.083%) NEB AEROSOL PRN ×2 (03:14→17:21)
[2016-12-02] MEDS: NICOTINE 14 MG PATCH TD PRN ×2 (03:32→11:30)
[2016-12-02] MEDS: ALBUTEROL/IPRATROPIUM 2.5mg-0.5mg/3ml NEB AEROSOL SCH ×5 (07:07→19:29)
[2016-12-02] MEDS: Oxycodone/Acetaminophen 5/325 1 TAB PO PRN ×2 (07:54→17:18)
--- NOTE | 2016-12-02 08:32 | XRay Report ---
Indication: Right rib pain (ant) PROCEDURE: XR ribs RT min 3V w [id number]: Encounter: Initial Comparison: September 18, 2016 FINDINGS: Chest: The lungs are clear. There is no abnormal airspace opacity, pleural effusion or pneumothorax identified. The heart size, pulmonary vasculature and mediastinum are within normal limits. AP and oblique views of the right ribs: No acute displaced rib fracture is seen. Subacute healing right second rib fracture. IMPRESSION: No acute cardiopulmonary abnormality. Healing right second rib fracture. .
[2016-12-02] MEDS: NICOTINE PATCH REMOVAL TD SCH (11:31)
[2016-12-02] MEDS: ACETAMINOPHEN 325 MG TABLET PO PRN ×2 (12:03→21:17)
--- NOTE | 2016-12-02 17:44 | Internal Med Progress Note ---
Internal Medicine Subjective Patient seen and examined. Chart, labs, radiographs reviewed. Review was admitted with chest wall pain secondary to persistent cough. She has severe COPD secondary to years of smoking. She smokes approximately 45 cigarettes a day that she rolls her self. She also had hyponatremia upon admission. It seems that every time there is a change in her psych meds, she has a drop in her serum sodium. She was placed on IV normal saline which has raised her serum sodium to 126. She does not appear to be having mental status change. Exam Vital Signs: Temperature 97.4 F 12/02/16 16:29 Pulse Rate 76 12/02/16 16:29 Respiratory Rate 20 12/02/16 17:21 Blood Pressure 166/76 H 12/02/16 16:29 Pulse Oximetry 98 12/02/16 17:21 Oxygen Delivery Method Nasal Cannula Oxygen Flow Rate 3.5 Telemetry Rhythm: Sinus Rhythm Height: 5 ft 4 in Weight: 107.3 kg Body Mass Index: 40.5 - Constitutional Present: no acute distress, obese, disheveled, cooperative - Routine HEENT Exam Head: Present: normocephalic, atraumatic Eye: Present: EOMI, PERRL, conjunctivae pink. Absent: conjunctival icterus, scleral injection ENT: Present: mucous membranes moist, oropharynx clear, nares patent - Routine Neck Exam Present: supple. Absent: JVD, carotid bruit, lymphadenopathy, thyromegaly - Routine Chest/Breast/Axilla Exam Chest wall: Present: tenderness (left greater than right) Breast: Absent: tenderness Axillae: Absent: lymphadenopathy - Routine Respiratory Exam Present: decreased breath sounds, rhonchi (scattered), wheezes (expiratory). Absent: accessory muscle use, stridor - Routine Cardiovascular Exam Present: RRR. Absent: S3, S4 - Routine Abdominal Exam Present: soft, normoactive bowel sounds, non distended, non tender. Absent: rebound, guarding, firm, rigid, organomegaly - Routine Extremities Exam Present: edema, non tender. Absent: cyanosis, clubbing, calf tenderness, palpable cord - Routine Skin Exam Present: intact, normal turgor. Absent: cyanosis, erythema, pallor, mottling, petechiae, urticaria, jaundice - Routine Neurological Exam Present: oriented X3, CN II-XII intact, moving all extremities - Routine Psychiatric Exam Present: normal affect, cooperative, good insight, depressed, anxious Internal Medicine Results - Labs CBC & Chem 7: 12/01/16 23:12 12/02/16 09:47 Labs: BMP 12/02/16 12/02/16 03:52 09:47 Sodium 122 L 126 L Potassium 3.7 3.6 Chloride 87 L 92 L Carbon Dioxide 28 27 BUN 8.0 7.0 Creatinine 0.7 0.7 Glucose 88 156 H Calcium 9.2 8.9 Cardiac Enzymes 12/02/16 Range/Units 03:52 Troponin I < 0.012 (0-0.12) ng/ml - Imaging and Cardiology Chest x-ray Status: image reviewed by me Progress Note-A&P (1) Hyponatremia Status: Acute Current Visit: Yes (2) Costochondral chest pain Status: Acute Current Visit: Yes (3) Smoker Status: Acute Current Visit: Yes (4) CAD (coronary artery disease) Status: Acute Current Visit: Yes (5) COPD (chronic obstructive pulmonary disease) Status: Acute Current Visit: Yes (6) Dyslipidemia Status: Acute Current Visit: Yes (7) HTN (hypertension) Status: Acute Current Visit: Yes (8) Obesity Status: Acute Current Visit: Yes - Time Spent With Patient Total time spent is greater than 50% in coordination of care (as documented) at patient's floor/unit and/or counseling patient: 25 - 35 minutes Sepsis Assessment - Evaluation Sepsis screening result: No Definite Risk Hospital Course Summary Disclaimer: The visit summary below is not to be considered part of the above Progress Note.
[2016-12-02] MEDS ORDERED: NITROGLYCERIN 0.4 MG SUBLINGUAL TABLET SL PRN (22:01)
[2016-12-02] MEDS: TRAMADOL 50 MG TABLET PO PRN (22:10)
[2016-12-03] MEDS: Oxycodone/Acetaminophen 5/325 1 TAB PO PRN ×4 (00:31→22:12)
[2016-12-03] MEDS: ALBUTEROL 2.5mg/3ml (0.083%) NEB AEROSOL PRN (02:35)
[2016-12-03] MEDS: ACETAMINOPHEN 325 MG TABLET PO PRN (02:46)
[2016-12-03] MEDS: TRAMADOL 50 MG TABLET PO PRN ×3 (03:39→17:56)
[2016-12-03] MEDS: ALBUTEROL/IPRATROPIUM 2.5mg-0.5mg/3ml NEB IPPB SCH ×5 (04:51→23:39)
[2016-12-03] MEDS ORDERED: INHALER ASSIST DEVICE (Optichamber) MC ONE (06:23)
[2016-12-03] MEDS: ALBUTEROL 2.5mg/3ml (0.083%) NEB AEROSOL SCH ×4 (07:42→20:41)
[2016-12-03] MEDS: BUSPIRONE 5 MG TABLET PO SCH ×2 (08:24→21:07)
[2016-12-03] MEDS: PRIMIDONE 50 MG TABLET PO SCH (08:25)
[2016-12-03] MEDS: METFORMIN 500 MG TABLET PO SCH ×2 (08:26→17:56)
[2016-12-03] MEDS: MELOXICAM 15 MG TABLET PO SCH (08:26)
[2016-12-03] MEDS: ASPIRIN *EC* 81 MG TABLET PO SCH (08:26)
[2016-12-03] MEDS: NICOTINE 14 MG PATCH TD PRN (08:27)
[2016-12-03] MEDS: ZIPRASIDONE 40 MG CAPSULE PO SCH ×2 (08:27→21:09)
[2016-12-03] MEDS: NICOTINE PATCH REMOVAL TD SCH (08:31)
[2016-12-03] MEDS ORDERED: CABERGOLINE 0.5 MG TABLET PO SCH (09:00)
[2016-12-03] MEDS: NS 1,000 ML IV SCH ×2 (10:14→21:05)
[2016-12-03] MEDS: ALBUTEROL/IPRATROPIUM 2.5mg-0.5mg/3ml NEB AEROSOL SCH ×5 (10:25→19:25)
--- NOTE | 2016-12-03 14:52 | Progress Note ---
Subjective: Suyapa reports ongoing pain in her anterior chest wall particularly with coughing spells. This all started after a bad coughing spell at home with an associated "pop" along the right costochondral margin. Pain was adequately controlled yesterday with Percocet but worsened after another coughing spell this morning. Cough is chronic and there is no associated sputum production. She has chronic exertional dyspnea which is unchanged from baseline. She denies pain in the upper right back associated with known rib fracture. She denied palpitations, nausea, constipation, lightheadedness, or weakness. She's had no worsening of restless leg symptoms but is very concerned that she is not receiving the new medication her psychiatrist prescribed for restless legs. She is voiding well. She complains of sleeping poorly. Objective Vital signs: Temperature 98.4 F 12/03/16 08:17 Pulse Rate 78 12/03/16 09:49 Respiratory Rate 14 12/03/16 13:21 Blood Pressure 182/97 H 12/03/16 09:49 Pulse Oximetry 96 12/03/16 13:21 Oxygen Delivery Method Nasal Cannula Oxygen Flow Rate 4.5 EXAM General-NAD, alert, cooperative, fluent speech HEENT-conjunctiva clear, conjugate gaze, oropharynx clear, neck supple without adenopathy Lungs-respirations nonlabored, good airflow, breath sounds are slightly coarse diffusely but no wheezing is present Cardiac-regular rhythm, S1-S2 Abd-obese, soft, nontender, diminished bowel sounds Ext-without edema Neuro-moves upper extremities spontaneously/symmetrically Psych-calm, cooperative, oriented 3 - Weight: 110.9 kg Results - Labs CBC & Chem 7: 12/01/16 23:12 12/02/16 09:47 Labs: Urine sodium 42 urine sodium 42 Assessment and Plan (1) Costochondral chest pain Current visit: Yes Status: Acute 12/02/16 03:11 prn percocet and supportive care with one additional troponin based on hx with EKG said nonischemic (2) Hyponatremia Current visit: Yes Status: Acute 12/02/16 03:09 likely free water excess with also diuretic and chronic lung disease contributors. NS, education, repeat labs, tele. (3) COPD (chronic obstructive pulmonary disease) Current visit: Yes Status: Acute 12/02/16 03:11 clarify meds with duoneb now and monitor with BIPAP order and O2 with parameters (4) Chronic respiratory failure with hypoxia Current visit: Yes Status: Acute (5) CAD (coronary artery disease) Current visit: Yes Status: Acute 12/02/16 03:12 verify asa, statin, bblocker (6) HTN (hypertension) Current visit: Yes Status: Acute (7) Dyslipidemia Current visit: Yes Status: Acute (8) Obesity Current visit: Yes Status: Acute (9) Tobacco abuse Current visit: Yes Status: Acute 12/02/16 03:12 must stop (10) Diabetes mellitus Current visit: Yes Status: Chronic (11) Restless leg syndrome Current visit: Yes Status: Chronic (12) Bipolar affective disorder Current visit: Yes Status: Chronic Assessment and Plan: Mrs. Barr has shown improvement in sodium level from 119 on admission to 126 with infusion of normal saline. Records indicate history of recurrent hyponatremia associated with changes in psychiatric regimen. There is a note from her healthcare provider indicating recent discontinuation of risperidone and initiation of Geodon/Lunesta although neither of the new medications are reported to trigger hyponatremia. No altered mental status evident nor was reported on admission. Pain control typically controlled with Percocet, dose increased to allow one or 2 tablets to be administered if needed. Given cough is the trigger for chest wall pain would seem that controlling cough is really the primary means by which chest wall pain can be controlled- Subsequently the patient has been started on Tessalon Perles 200 mg 3 times daily and Mucinex 1200 mg twice daily-patient reports good control with Mucinex previously. Continue normal saline overnight, sodium to be rechecked at 4:00 today and in the morning. May be able to decrease rate of sodium infusion later today. Admission x-ray of ribs reviewed and lung bone were clear by my review. No indication of acute lung pathology and described rib fracture is old radiographically and by patient history. No active restless leg symptoms, patient reports she was started on a medication that begins with "p" however I cannot identify this from her medication list or from the list provided by her mental health provider at [facility]. Fasting blood sugars well controlled on metformin, postprandials to be checked as well. Dr. Fink will resume care in the morning. Sepsis Assessment - Evaluation Sepsis screening result: No Definite Risk Hospital Course Summary Disclaimer: The visit summary below is not to be considered part of the above Progress Note.
[2016-12-03] MEDS: PANTOPRAZOLE 40 MG TABLET PO SCH (14:59)
[2016-12-03] MEDS: BENZONATATE 200 MG CAPSULE PO SCH ×2 (14:59→22:12)
[2016-12-03] MEDS: GUAIFENESIN LA 600 MG TABLET PO SCH (21:07)
[2016-12-03] MEDS: GABAPENTIN 300 MG CAPSULE PO SCH (21:07)
[2016-12-03] MEDS ORDERED: PANTOPRAZOLE 40 MG TABLET PO SCH (22:00)
[2016-12-03] MEDS: ESZOPICLONE 2 MG TABLET PO SCH (22:12)
[2016-12-04] MEDS: ALBUTEROL/IPRATROPIUM 2.5mg-0.5mg/3ml NEB IPPB SCH ×5 (03:45→21:51)
[2016-12-04] MEDS: TRAMADOL 50 MG TABLET PO PRN ×2 (04:45→18:43)
[2016-12-04] MEDS: ALBUTEROL/IPRATROPIUM 2.5mg-0.5mg/3ml NEB AEROSOL SCH ×3 (05:12→20:58)
[2016-12-04] MEDS: PANTOPRAZOLE 40 MG TABLET PO SCH (06:05)
[2016-12-04] MEDS: Oxycodone/Acetaminophen 5/325 1 TAB PO PRN ×3 (07:19→20:52)
[2016-12-04] MEDS: NS 1,000 ML IV SCH ×2 (07:24→17:41)
[2016-12-04] MEDS: ALBUTEROL 2.5mg/3ml (0.083%) NEB AEROSOL SCH ×4 (07:58→18:35)
[2016-12-04] MEDS: MAGNESIUM OXIDE 400 MG TABLET PO SCH ×2 (08:37→20:51)
[2016-12-04] MEDS: ASPIRIN *EC* 81 MG TABLET PO SCH (08:37)
[2016-12-04] MEDS: BENZONATATE 200 MG CAPSULE PO SCH ×3 (08:37→20:51)
[2016-12-04] MEDS: BUSPIRONE 5 MG TABLET PO SCH ×2 (08:38→20:49)
[2016-12-04] MEDS: PRIMIDONE 50 MG TABLET PO SCH (08:38)
[2016-12-04] MEDS: GUAIFENESIN LA 600 MG TABLET PO SCH ×2 (08:38→20:49)
[2016-12-04] MEDS: METFORMIN 500 MG TABLET PO SCH ×2 (08:38→17:41)
[2016-12-04] MEDS: MELOXICAM 15 MG TABLET PO SCH (08:39)
[2016-12-04] MEDS: ZIPRASIDONE 40 MG CAPSULE PO SCH ×2 (08:40→20:51)
[2016-12-04] MEDS: NICOTINE PATCH REMOVAL TD SCH (08:41)
[2016-12-04] MEDS: NICOTINE 14 MG PATCH TD PRN (08:42)
[2016-12-04] MEDS: HYDRALAZINE 20 MG/ML INJECTION IVP PRN (17:43)
--- NOTE | 2016-12-04 17:45 | Internal Med Progress Note ---
Internal Medicine Subjective Patient seen and examined. Chart, labs, radiographs reviewed. Review was admitted with chest wall pain secondary to persistent cough. She has severe COPD secondary to years of smoking. She appears much improved from admission. She still has chest wall pain with cough, and I spoke with her about the use of a pillow against her rib cage when she coughs. She is wanting to go home. Her blood pressure is quite high today. I did add a when necessary hydralazine order Exam Vital Signs: Temperature 98.6 F 12/04/16 15:11 Pulse Rate 71 12/04/16 16:00 Respiratory Rate 18 12/04/16 16:05 Blood Pressure 198/100 H 12/04/16 15:11 Pulse Oximetry 98 12/04/16 15:11 Oxygen Delivery Method Nasal Cannula Oxygen Flow Rate 2 Telemetry Rhythm: Sinus Rhythm Height: 5 ft 4 in Weight: 110.2 kg Body Mass Index: 40.5 - Constitutional Present: no acute distress - Routine HEENT Exam Head: Present: normocephalic, atraumatic Eye: Present: EOMI, PERRL. Absent: conjunctival icterus, scleral injection, conjunctivae pink ENT: Present: mucous membranes moist, oropharynx clear, nares patent - Routine Neck Exam Present: supple. Absent: JVD, carotid bruit, lymphadenopathy, thyromegaly - Routine Chest/Breast/Axilla Exam Chest wall: Present: tenderness Breast: Absent: tenderness Axillae: Absent: lymphadenopathy - Routine Respiratory Exam Absent: accessory muscle use, dyspnea, decreased breath sounds, respiratory distress, rhonchi, stridor, wheezes, crackles - Routine Cardiovascular Exam Present: RRR. Absent: S3, S4 - Routine Abdominal Exam Present: soft, non distended, non tender - Routine Extremities Exam Absent: cyanosis, clubbing, edema - Routine Skin Exam Present: intact. Absent: cyanosis, erythema, mottling, petechiae, urticaria, jaundice - Routine Neurological Exam Present: alert, oriented X3, CN II-XII intact, moving all extremities. Absent: altered mental status - Routine Psychiatric Exam Present: normal affect, cooperative, good insight. Absent: depressed, anxious Internal Medicine Results - Labs CBC & Chem 7: 12/04/16 04:48 12/04/16 04:48 Labs: Short CBC 12/04/16 Range/Units 04:48 WBC 6.7 (4.5-11.0) T/MM3 Hgb 12.1 (12-16) GM/DL Hct 36.9 (36-46) % Plt Count 294 (130-400) T/MM3 BMP 12/04/16 04:48 Sodium 134 Potassium 3.9 Chloride 95 L Carbon Dioxide 32 H BUN 9.0 Creatinine 0.7 Glucose 125 H Calcium 9.6 Liver Function 12/04/16 Range/Units 04:48 Albumin 4.2 (3.5-5.0) G/DL Progress Note-A&P (1) Hyponatremia Status: Resolved Current Visit: Yes (2) Costochondral chest pain Status: Acute Current Visit: Yes (3) Smoker Status: Chronic Current Visit: Yes (4) CAD (coronary artery disease) Status: Chronic Current Visit: Yes (5) COPD (chronic obstructive pulmonary disease) Status: Chronic Current Visit: Yes (6) Dyslipidemia Status: Chronic Current Visit: Yes (7) HTN (hypertension) Status: Chronic Current Visit: Yes (8) Obesity Status: Chronic Current Visit: Yes - Time Spent With Patient Total time spent is greater than 50% in coordination of care (as documented) at patient's floor/unit and/or counseling patient: 25 - 35 minutes Sepsis Assessment - Evaluation Sepsis screening result: No Definite Risk Hospital Course Summary Disclaimer: The visit summary below is not to be considered part of the above Progress Note. Hospital Course: 12/04/16 17:46 Suyapa appears to be doing much better today. She does want to go home. Her blood pressure needs to be better controlled and so I have added hydralazine when necessary. Once again, I had a long discussion with her about smoking cessation. She states she wants to use the patches but really has no plan to do so. If her sodium and blood pressure are controlled tomorrow I will discharge her to home.
[2016-12-04] MEDS: ESZOPICLONE 2 MG TABLET PO SCH ×2 (20:53→22:24)
[2016-12-04] MEDS: GABAPENTIN 300 MG CAPSULE PO SCH ×2 (20:53→23:44)
[2016-12-05] MEDS: ALBUTEROL/IPRATROPIUM 2.5mg-0.5mg/3ml NEB IPPB SCH ×2 (03:09→09:27)
[2016-12-05] MEDS: NS 1,000 ML IV SCH ×2 (03:17→14:06)
[2016-12-05] MEDS: PANTOPRAZOLE 40 MG TABLET PO SCH (06:27)
[2016-12-05] MEDS: Oxycodone/Acetaminophen 5/325 1 TAB PO PRN (06:35)
[2016-12-05] MEDS: HYDRALAZINE 20 MG/ML INJECTION IVP PRN (06:46)
[2016-12-05] MEDS: ALBUTEROL 2.5mg/3ml (0.083%) NEB AEROSOL SCH ×2 (07:08→11:09)
[2016-12-05 07:49] VITALS: TEMP 97.7; O2SAT 96
[2016-12-05] MEDS ORDERED: MELOXICAM 7.5 MG TABLET PO SCH (08:00)
[2016-12-05] MEDS: ALBUTEROL/IPRATROPIUM 2.5mg-0.5mg/3ml NEB AEROSOL SCH ×3 (08:31→11:09)
[2016-12-05] MEDS: MAGNESIUM OXIDE 400 MG TABLET PO SCH (08:38)
[2016-12-05] MEDS: BENZONATATE 200 MG CAPSULE PO SCH (08:38)
[2016-12-05] MEDS: PRIMIDONE 50 MG TABLET PO SCH (08:39)
[2016-12-05] MEDS: BUSPIRONE 5 MG TABLET PO SCH (08:39)
[2016-12-05] MEDS: GUAIFENESIN LA 600 MG TABLET PO SCH (08:39)
[2016-12-05] MEDS: METFORMIN 500 MG TABLET PO SCH (08:40)
[2016-12-05] MEDS: NICOTINE 14 MG PATCH TD PRN (08:40)
[2016-12-05] MEDS: ASPIRIN *EC* 81 MG TABLET PO SCH (08:41)
[2016-12-05] MEDS: NICOTINE PATCH REMOVAL TD SCH (08:42)
[2016-12-05] MEDS: ZIPRASIDONE 40 MG CAPSULE PO SCH (08:51)
[2016-12-05 09:07] VITALS: BP 144/70; PULSE 80
[2016-12-05 11:21] VITALS: RESP 20
--- NOTE | 2016-12-05 13:35 | Discharge Instructions ---
Discharge Plan - Med Rec/Dispo Referrals/Follow Up: Cristo Fink DO [Physician] - Natali Instructions: Hyponatremia (GEN) Prescriptions: New Magnesium Oxide [Magox] 400 mg PO BID tablet Continue Meloxicam [Mobic] 15 mg PO DAILY #0 Furosemide 20 mg PO DAILY #0 Lansoprazole 30 mg PO DAILY #0 Pantoprazole Sodium 40 mg PO HS #0 Levomefolate/Algal Oil [Deplin-Algal Oil 7.5 mg Cap] 1 each PO DAILY Ziprasidone [Geodon] 40 mg PO BID Cabergoline [Dostinex] 1 mg PO TuFr #0 Tramadol HCl 50 mg PO Q6H PRN #0 PRN Reason: PAIN Fluticasone Propionate [Flovent Hfa] 2 puff ORAL INH BID #0 Primidone 50 mg PO DAILY #0 Nitroglycerin [Nitrostat] 0.4 mg SL Q5MIN PRN #0 PRN Reason: CHEST PAIN Ipratropium/Albuterol Sulfate [Iprat-Albut 0.5-3(2.5) mg/3 ml] 1 vial INH Q6H #0 Aspirin [Aspirin EC] 81 mg PO DAILY #0 Gabapentin 300 mg PO HS #0 Metformin HCl 500 mg PO BID #0 Metoprolol Succinate 100 mg PO DAILY #0 Buspirone HCl 7.5 mg PO BID #0 Cyproheptadine HCl 1 - 2 tab PO HS PRN #0 PRN Reason: Insomnia Albuterol Sulfate 2.5 mg AEROSOL QID #0 Ibuprofen 400 mg PO Q4H PRN #0 PRN Reason: PAIN Eszopiclone [Lunesta] 2 mg PO HS Pramipexole Di-HCl [Pramipexole Dihydrochloride] 0.375 mg PO HS Discharge Instructions/Outpatient Orders: Final Provider Discharge Instructions Location: Determined By Patient - Disposition 01 Discharged Home, Self-Care
--- NOTE | 2016-12-05 13:50 | Discharge Summary ---
Discharge Information Date of admission: 12/02/16 00:31 Anticipated date of discharge: 12/05/16 Attending Physician: Cristo Fink DO - Discharge Diagnosis (1) Hyponatremia Status: Resolved (2) Costochondral chest pain Status: Resolved (3) Smoker Status: Chronic (4) CAD (coronary artery disease) Status: Chronic (5) COPD (chronic obstructive pulmonary disease) Qualifiers: COPD type: unspecified COPD Qualified Code(s): J44.9 - Chronic obstructive pulmonary disease, unspecified Status: Chronic (6) Dyslipidemia Status: Chronic (7) HTN (hypertension) Qualifiers: Hypertension type: essential hypertension Qualified Code(s): I10 - Essential (primary) hypertension Status: Chronic (8) Obesity Qualifiers: Obesity type: due to excess calories Obesity severity: morbid Qualified Code(s): E66.01 - Morbid (severe) obesity due to excess calories Status: Chronic - Laboratory Labs: 12/05/16 04:20 12/05/16 04:20 History of Present Illness HPI: Please note that the patient was seen via telemedicine with nursing assistance on 12/02/2016 Ms. 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 The pain is reproducible with deep inspiration, and she denies fevers, chills, or blood in sputum. No sob at rest. No other GI symptoms. When asked about medication changes or new activities leading to Na 119 she does admit to 4-5 glasses of tea and also that much soda per day. Diuretic is not new, but thirst is worse this time of year. Hospital Course This is a general summary of the patient's hospital course. For more details refer to the complete medical record. Hospital course: 12/04/16 17:46 Suyapa appears to be doing much better today. She does want to go home. Her blood pressure needs to be better controlled and so I have added hydralazine when necessary. Once again, I had a long discussion with her about smoking cessation. She states she wants to use the patches but really has no plan to do so. If her sodium and blood pressure are controlled tomorrow I will discharge her to home. Time spent with patient: 25 - 35 minutes DVT Prophylaxis: other GI Prophylaxis: other Discharge Plan - Med Rec/Dispo Referrals/Follow Up: Cristo Fink DO [Physician] - [place] Instructions: Hyponatremia (GEN) Prescriptions: New Magnesium Oxide [Magox] 400 mg PO BID tablet Continue Meloxicam [Mobic] 15 mg PO DAILY #0 Furosemide 20 mg PO DAILY #0 Lansoprazole 30 mg PO DAILY #0 Pantoprazole Sodium 40 mg PO HS #0 Levomefolate/Algal Oil [Deplin-Algal Oil 7.5 mg Cap] 1 each PO DAILY Ziprasidone [Geodon] 40 mg PO BID Cabergoline [Dostinex] 1 mg PO TuFr #0 Tramadol HCl 50 mg PO Q6H PRN #0 PRN Reason: PAIN Fluticasone Propionate [Flovent Hfa] 2 puff ORAL INH BID #0 Primidone 50 mg PO DAILY #0 Nitroglycerin [Nitrostat] 0.4 mg SL Q5MIN PRN #0 PRN Reason: CHEST PAIN Ipratropium/Albuterol Sulfate [Iprat-Albut 0.5-3(2.5) mg/3 ml] 1 vial INH Q6H #0 Aspirin [Aspirin EC] 81 mg PO DAILY #0 Gabapentin 300 mg PO HS #0 Metformin HCl 500 mg PO BID #0 Metoprolol Succinate 100 mg PO DAILY #0 Buspirone HCl 7.5 mg PO BID #0 Cyproheptadine HCl 1 - 2 tab PO HS PRN #0 PRN Reason: Insomnia Albuterol Sulfate 2.5 mg AEROSOL QID #0 Ibuprofen 400 mg PO Q4H PRN #0 PRN Reason: PAIN Eszopiclone [Lunesta] 2 mg PO HS Pramipexole Di-HCl [Pramipexole Dihydrochloride] 0.375 mg PO HS Discharge Instructions/Outpatient Orders: Final Provider Discharge Instructions Location: Determined By Patient - Disposition 01 Discharged Home, Self-Care
== END 2016-12-05 14:50 | disposition home or self-care (01) | DRG 641 ==
LOC: ED 22:11 → MED 12-02 00:31
PROVIDERS: ADMIT Hospitalist; ATTEND Internal Medicine

== ENCOUNTER 2017-06-18 20:05 | Inpatient (IN) ==
[2017-06-18] MEDS ORDERED: METHYLPREDNISOLONE SOD SUCC 125mg/2ml INJECTION IVP ONE (20:18)
[2017-06-18] MEDS ORDERED: ALBUTEROL/IPRATROPIUM 2.5mg-0.5mg/3ml NEB IH ONE (20:18)
--- OUTSIDE RECORDS SUMMARY | 2017-06-18 20:20 | External Medical Summary ---
:1955 Author Organization [employer] Care Team Providers Name Role Phone Vicki An Provider Role Unavailable Allergies No Known Allergies Problems Problem Type Condition ICD-9 Code Onset Dates Condition Status Problem COPD 496 Active Problem Bipolar I disorder, most recent 296.62 Active episode (or current) mixed, moderate Problem Generalized anxiety disorder 300.02 Active Problem Nondependent tobacco use 305.1 Active disorder Problem Observation of other suspected V71.09 Active mental condition Medications Medication Code System Code Instructions Start Date End Date Status Dosage Lunesta [facility] [address] 3 MG Orally Once 1 tablet -30 a day Results No Known Results Summary Purpose [employer] Submission
--- OUTSIDE RECORDS SUMMARY | 2017-06-18 20:20 | External Medical Summary ---
:1955 Author Organization [employer] Care Team Providers Name Role Phone Vicki An Provider Role Unavailable Allergies, Adverse Reactions, Alerts Substance Reaction Event Type Latuda increased sodium Drug Allergy Saphris Info Not Available Drug Allergy Sulfa Info Not Available Drug Allergy Adhesive Tape Info Not Available Drug Allergy Asenapine Maleate Info Not Available Drug Allergy Morphine Sulfate Info Not Available Drug Allergy Keflex Info Not Available Drug Allergy Iodine Info Not Available Drug Allergy Influenza Virus Vaccine Live Info Not Available Drug Allergy Hydromorphone HCl Info Not Available Drug Allergy Effexor Info Not Available Drug Allergy Dilaudid Info Not Available Drug Allergy Cymbalta Info Not Available Drug Allergy Cephalexin Info Not Available Drug Allergy Problems Problem Type Condition Code Onset Dates Condition Status Problem COPD 496 Active Problem Bipolar disorder, current episode F31.62 Active mixed, moderate Problem Personal history of nicotine Z87.891 Active dependence Assessment Personal history of nicotine Z87.891 Active dependence Assessment Bipolar disorder, current episode F31.62 Active mixed, moderate Problem Generalized anxiety disorder F41.1 Active Assessment Generalized anxiety disorder F41.1 Active Medications Medication Code Code Instructions Start End Status Dosage System Date Date Cabergoline [facility] [address]80-27 0.5 MG Orally 2 tablets 20-88 two times a week by mouth on Tuesdays [place] [address]-17 4 GM/DOSE Orally 4gms mix 40-97 twice a day - do with 2-3 oz not give within of 1 hr of other water/[place] [address]-60 0.5-2.5 (3) 3 ml 72-30 MG/3ML Inhalation every 6 [place] [address]-86 10 MG Orally 1 tablet 67-01 once [place] 8[place] [address]-58 3 MG Orally in 1/2 tablet 15-30 am and H.S. by mouth at 8am and h[place]. [place] [address]-18 21 MG/24HR 1 patch to 45- Transdermal Once skin a day Aspirin [facility] 52395-92 81 MG Orally 1 tablet 11-25 Once a day Cyproheptadine HCl [facility] 26773-65 4 MG Orally 1-2 tabs by daily at bedtime mouth at bedtime for sleep aid Metformin HCl [facility] 53659-60 500 MG Orally 1 tablet 48-01 twice a day at with meals 8am and 6pm Ferrous Sulfate [facility] 29206-48 325 (65 Fe) MG 1 tablet 28- Orally Twice a day Nitrostat [facility] 89016-12 0.4 MG 1 tablet 18-13 Sublingual every under the 5 minutes up to tongue and 3 times PRN allow to dissolve as needed Brovana [facility] 16809-61 15 MCG/2ML 2 ml 11-30 Inhalation Twice a day Acetaminophen [facility] 79706-03 325 MG Orally 2 tabs 53-78 every 4 hrs PRN pain Lorazepam [facility] [address]5424-99 0.5 MG Orally up 1 tablet 20- to three times a day as needed for anxiety Mobic [facility] 18641-64 15 MG Orally 1 tablet 30- Once a day Clonazepam [facility] 75984-21 1 MG Orally July 1 tablet 33-01 twice a day 2014 Flovent HFA [facility] 09443-36 220 MCG/ACT 2 puffs 20-20 Inhalation Twice a day Lansoprazole [facility] 17348-94 30 MG Orally 1 tablet on 49- once a day the tongue before breakfast and allow to dissolve before a meal Metoprolol [facility] 92592-54 100 MG Orally 1 tablet Succinate ER 83-01 Once a day Procedures Procedure Coding System Code Date OFFICE VISIT, EST-MOD. COMPLEXITY (25 MIN) CPT-4 51320 Mar 10, 2015 Vital Signs Date/Time: Mar 10, 2015 Height 66 in Weight 252.4 lbs Temperature 97.9 F Blood Pressure Diastolic 80 mm Hg Blood Pressure Systolic 122 mm Hg Cardiac Monitoring Heart Rate 92 /min BMI 40.73 Index Respiratory Rate 22 /min Results No Known Results Summary Purpose [employer] Submission
--- OUTSIDE RECORDS SUMMARY | 2017-06-18 20:21 | External Medical Summary ---
[...] history of nicotine Z87.891 Active dependence Assessment Generalized anxiety disorder F41.1 Active Problem Generalized anxiety disorder F41.1 Active Assessment Bipolar disorder, current episode F31.62 Active mixed, moderate Medications Medication Code Code Instructions Start End Status Dosage System Date Date Acetaminophen [facility] [address]-77 325 MG Orally 2 tabs every 4 hrs PRN pain Aspirin [facility] [address]-35 81 MG Orally 1 tablet Once a day Metformin HCl [facility] [address]-28 500 MG Orally 1 tablet twice a day at with meals 8am and 6pm Lansoprazole [facility] [address]-85 30 MG Orally 1 tablet once a day on the before tongue and breakfast allow to dissolve before a meal Ferrous Sulfate [facility] [address]-02 325 (65 Fe) MG 1 tablet Orally Twice a day Nicoderm CQ [facility] [address]-55 21 MG/24HR 1 patch to Transdermal skin Once a day Cabergoline [facility] [address]-50 0.5 MG Orally 2 tablets two times a by mouth week on Tuesdays and Fridays Brovana [facility] [address]-79 15 MCG/2ML 2 ml Inhalation Twice a day Lisinopril [facility] [address]-10 10 MG Orally 1 tablet once a day at 8am Cyproheptadine [facility] [address]-80 4 MG Orally 1-2 tabs HCl daily at by mouth bedtime at bedtime for sleep aid Clonazepam [facility] [address]-73 1 MG Orally July 1 tablet twice a day [address] [facility] [address]-34 15 MG Orally 1 tablet Once a day Lorazepam [facility] [address]-31 0.5 MG Orally 1 tablet up to three times a day as needed for anxiety Cholestyramine [facility] [address]-06 4 GM/DOSE 4gms mix Orally twice a with 2-3 day - do not oz of give within 1 water/juic hr of other e meds DuoNeb [facility] [address]-65 0.5-2.5 (3) 3 ml MG/3ML Inhalation every [address] [facility] [address]-92 0.4 MG 1 tablet Sublingual under the every 5 minutes tongue and up to 3 times allow to PRN dissolve as needed Risperdal [facility] [address]-03 3 MG Orally in 1/2 tablet am and H.S. by mouth at 8am and h.s. for mood control Metoprolol [facility] [address]-53 100 MG Orally 1 tablet Succinate ER Once a day Flovent HFA [facility] [address]-34 220 MCG/ACT 2 puffs Inhalation Twice a day Risperidone [facility] 15683347548 3 TAKE 1/2 TABLET BY MOUTH AT 8AM AND AT BEDTIME FOR MOOD CONTROL Procedures Procedure Coding System Code Date OFFICE VISIT, EST-MOD. COMPLEXITY (25 MIN) CPT-4 87355 May 09, 2015 Vital Signs Date/Time: May 09, 2015 Height 66 in Weight 251.4 lbs Temperature 98.4 F Blood Pressure Diastolic 70 mm Hg Blood Pressure Systolic 140 mm Hg Cardiac Monitoring Heart Rate 102 /min BMI 40.57 Index Respiratory Rate 24 /min Results No Known Results Summary Purpose eClinicalWorks Submission
--- OUTSIDE RECORDS SUMMARY | 2017-06-18 20:21 | External Medical Summary | Continuity of Care Document ---
:1955 Author Organization [facility] Allergies Active Description Code Type Severity Reaction Onset Reported/ Identified Relationship Clinical to Patient Status Yes ADHESIVE 3263 1 N/A N/A BANDAGE Yes ASENAPINE 94546 1 N/A N/A MALEATE Yes DULOXETINE 8707 1 N/A N/A HCL Yes influenza 3029 1 N/A N/A virus vacc,specifi c Yes influenza 3029 1 N/A N/A virus vaccine, specific Yes lisinopril 658 1 N/A N/A Yes VENLAFAXINE 4429 1 N/A N/A HCL Yes CEPHALEXIN 6830 1 N/A N/A MONOHYDRATE Yes HYDROMORPHON 1547 1 N/A N/A E HCL Yes iodine 852 1 N/A N/A Yes morphine 1545 1 N/A N/A Yes PRESERVATIVE 9870 1 N/A N/A FREE Yes Sulfa 491 3 N/A N/A (Sulfonamide Antibiotics) Medications Medication Packaging Start Date Stop Date Route Dosage Sig Tablet 07/02/2016 PYRIDIUM take 1 tablet by oral route 3 times every day after meals x2 days Problems There is no data. Procedures There is no data. Results There is no data. Encounters ACCT No. Visit Discharge Status Pt. Type Provider Facility Loc./Unit Complaint Date/Time [id number] 07/15/2016 07/15/2016 [facility] Outpatient Ramo, 09:10:00 23:59:59 Dalton Omer [id number] 07/02/2016 07/02/2016 [facility] Outpatient Ramo, 15:45:00 23:59:59 Dalton Omer
--- OUTSIDE RECORDS SUMMARY | 2017-06-18 20:21 | External Medical Summary ---
[...] Start Date End Date Status Dosage Lunesta [facility] [address] 3 MG Orally Once 1 tablet -30 a day Results No Known Results Summary Purpose eClinicalWorks Submission
--- OUTSIDE RECORDS SUMMARY | 2017-06-18 20:21 | External Medical Summary ---
:1955 Author Organization [facility] Care Team Providers Name Role Phone Vicki An Provider Role Unavailable Allergies No Known Allergies Problems Problem Type Condition Code Onset Dates Condition Status Problem COPD 496 Active Problem Bipolar disorder, current episode F31.62 Active mixed, moderate Problem Personal history of nicotine Z87.891 Active dependence Problem Generalized anxiety disorder F41.1 Active Medications No Known Medications Results No Known Results Summary Purpose [facility] Submission
--- OUTSIDE RECORDS SUMMARY | 2017-06-18 20:21 | External Medical Summary ---
:1955 Author Organization [employer] Care Team Providers Name Role Phone Vicki An Provider Role Unavailable Allergies No Known Allergies Problems Problem Type Condition Code Onset Dates Condition Status Problem COPD 496 Active Problem Bipolar disorder, current episode F31.62 Active mixed, moderate Problem Personal history of nicotine Z87.891 Active dependence Problem Generalized anxiety disorder F41.1 Active Medications Medication Code System Code Instructions Start Date End Date Status Dosage Lorazepam [facility] [address] 0.5 MG Orally up 1 tablet -01 to three times a day as needed for anxiety Results No Known Results Summary Purpose eClinicalWorks Submission
--- OUTSIDE RECORDS SUMMARY | 2017-06-18 20:21 | External Medical Summary ---
[...] Start Date End Date Status Dosage Lorazepam [facility] [place] [address] 0.5 MG Orally up 1 tablet -01 to three times a day as needed for anxiety Results No Known Results Summary Purpose eClinicalWorks Submission
--- OUTSIDE RECORDS SUMMARY | 2017-06-18 20:21 | External Medical Summary ---
:1955 Author Organization [employer] Care Team Providers Name Role Phone Vicki An Provider Role Unavailable Allergies, Adverse Reactions, Alerts Substance Reaction Event Type Sulfa Info Not Available Drug Allergy Saphris Info Not Available Drug Allergy Asenapine Maleate Info Not Available Drug Allergy Adhesive Tape Info Not Available Drug Allergy Latuda increased sodium Drug Allergy Morphine Sulfate Info Not Available Drug Allergy Keflex Info Not Available Drug Allergy Iodine Info Not Available Drug Allergy Influenza Virus Vaccine Live Info Not Available Drug Allergy Hydromorphone HCl Info Not Available Drug Allergy Effexor Info Not Available Drug Allergy Dilaudid Info Not Available Drug Allergy Cymbalta Info Not Available Drug Allergy Cephalexin Info Not Available Drug Allergy lisionpril Info Not Available Non Drug Allergy Problems Problem Type Condition Code [...] Start End Status Dosage System Date Date Cyproheptadine HCl [facility] 36577-07 4 MG Orally 1-2 tabs by - daily at bedtime mouth at [place] [address]-68 1 MG Orally JulyJan 31 tablet 33-01 twice a day 2014 [place] [address]-36 3 MG Orally take 1/2 42-05 tablet by mouth at 8am and at bedtime for mood control DuoNeb [facility] 82117-30 0.5-2.5 (3) 3 ml 72-30 MG/3ML Inhalation every 6 [place] [address]-37 4 GM/DOSE Orally 4gms mix 40-97 twice a day - do with 2-3 oz not give within of 1 hr of other water/[place] [address]-51 325 (65 Fe) MG 1 tablet 28-00 Orally Twice a day Metformin HCl NDC 71295-46 500 MG Orally 1 tablet 48-01 twice a day at with meals 8am and 6pm Aspirin [facility] 15804-21 81 MG Orally 1 tablet - Once a day Brovana [facility] 95654-16 15 MCG/2ML 2 ml 11-30 Inhalation Twice a day Cabergoline [facility] 93380-38 0.5 MG Orally 2 tablets 20-88 two times a week by mouth on Tuesdays and Fridays Pantoprazole [facility] 08099-83 40 MG Orally 1 tablet Sodium 07- Once a day Primidone [facility] 12430-77 50 MG Orally not defined 30- Metoprolol [facility] 96665-56 100 MG Orally 1 tablet Succinate ER 83- Once a day Nitrostat [facility] 16453-02 0.4 MG 1 tablet 18-13 Sublingual every under the 5 minutes up to tongue and 3 times PRN allow to dissolve as needed Lorazepam [facility] 04698-96 0.5 MG Orally up 1 tablet 20-01 to three times a day as needed for anxiety Acetaminophen [facility] 61549-60 325 MG Orally 2 tabs 53-78 every 4 hrs PRN pain Nicoderm CQ [facility] 25428-34 21 MG/24HR 1 patch to 45-01 Transdermal Once skin a day Tramadol HCl [facility] 98492-93 50 MG Orally 1 tablet as 58-01 every 6 hrs needed Flovent HFA [facility] 68188-34 220 MCG/ACT 2 puffs 20-20 Inhalation Twice a day Lansoprazole [facility] 82090-56 30 MG Orally 1 tablet on 51-56 once a day the tongue before breakfast and allow to dissolve before a meal Mobic [facility] 32891-13 15 MG Orally 1 tablet 30-01 Once a day Procedures Procedure Coding System Code Date OFFICE VISIT, EST-MOD. COMPLEXITY (25 MIN) CPT-4 47239 September 26, 2015 Vital Signs Date/Time: September 26, 2015 Temperature 98.5 F Height 66 in Weight 231.4 lbs Blood Pressure Diastolic 72 mm Hg Blood Pressure Systolic 106 mm Hg Cardiac Monitoring Heart Rate 97 /min BMI 37.34 Index Respiratory Rate 24 /min Results No Known Results Summary Purpose eClinicalWorks Submission
--- OUTSIDE RECORDS SUMMARY | 2017-06-18 20:21 | External Medical Summary ---
:1955 Author Organization [employer] Care Team Providers Name Role Phone Vicki An Provider Role Unavailable Allergies No Known Allergies Problems Problem Type Condition Code Onset Dates Condition Status Problem Bipolar I disorder, most recent 296.62 Active episode (or current) mixed, moderate Problem Nondependent tobacco use disorder 305.1 Active Problem COPD 496 Active Problem Observation of other suspected V71.09 Active mental condition Medications Medication Code System Code Instructions Start Date End Date Status Dosage Lunesta [facility] [address] 3 MG Orally Once 1 tablet -30 a day Results No Known Results Summary Purpose eClinicalWorks Submission
--- OUTSIDE RECORDS SUMMARY | 2017-06-18 20:21 | External Medical Summary ---
[...] Instructions Start Date End Date Status Dosage Clonazepam [facility] [address] 1 MG Orally twice August 23, Mar 01, 1 tablet -01 a day 2014 2015 Results No Known Results Summary Purpose eClinicalWorks Submission
--- OUTSIDE RECORDS SUMMARY | 2017-06-18 20:21 | External Medical Summary ---
[...] Start Date End Date Status Dosage Lorazepam [facility] [address] 0.5 MG Orally up 1 tablet -01 to three times a day as needed for anxiety Results No Known Results Summary Purpose eClinicalWorks Submission
--- OUTSIDE RECORDS SUMMARY | 2017-06-18 20:21 | External Medical Summary ---
[...] Start Date End Date Status Dosage Lorazepam [facility] [address] 0.5 MG Orally up 1 tablet -01 to three times a day as needed for anxiety Results No Known Results Summary Purpose eClinicalWorks Submission
--- OUTSIDE RECORDS SUMMARY | 2017-06-18 20:21 | External Medical Summary ---
[...] Code Onset Dates Condition Status Problem Bipolar disorder, current episode F31.62 Active mixed, moderate Problem Generalized anxiety disorder F41.1 Active Problem COPD 496 Active Assessment Nondependent tobacco use disorder 305.1 Active Assessment Bipolar I disorder, most recent 296.62 Active episode (or current) mixed, moderate Assessment Observation of other suspected V71.09 Active mental condition Medications Medication Code Code Instructions Start End Status Dosage System Date Date DuoNeb [facility] 37019-20 0.5-2.5 (3) 3 ml 72-30 MG/3ML Inhalation every 6 [place] [address]-60 0.5 MG Orally 2 tablets 20-88 two times a week by mouth on Tuesdays and [place] [address]-42 4 MG Orally 1-2 tabs by - daily at bedtime mouth at [place] [address]-58 500 MG Orally 1 tablet 48-01 twice a day at with meals 8am and 6[place] [address]-39 3 MG Orally in 1/2 tablet 15-30 am and H.S. by mouth at 8am [place] [address]-79 15 MG Orally 1 tablet 30- [place] [address]-44 4 GM/DOSE Orally 4gms mix 40-97 twice a day - do with 2-3 oz not give within of 1 hr of other water/[place] [address]-88 21 MG/24HR 1 patch to 45-01 Transdermal Once [place] [address]-50 25 MG Orally at 3 tabs by 61-01 [place] [address]-81 10 MG Orally 1 tablet 67-01 once a day at 8am Metoprolol [facility] 99103-04 100 MG Orally 1 tablet Succinate ER 83-[address] [facility] [address]38[address]-41 0.5 MG Orally 1 tab by 20-01 [place] [address]-64 3 MG Orally Once 1 tablet 02-[address] [facility] 65892-30 30 MG Orally 1 tablet on 49-19 once a day the tongue before breakfast and allow to dissolve before a meal Nitrostat [facility] 18857-50 0.4 MG 1 tablet 18-13 Sublingual every under the 5 minutes up to tongue and 3 times PRN allow to [place] [address]-63 325 MG Orally 2 tabs 53-78 every 4 [address] [facility] 460[address]-33 81 MG Orally 1 tablet 11-25 Once a day Flovent HFA [facility] 405[address]-21 220 MCG/ACT 2 puffs 20-20 Inhalation Twice a day Procedures Procedure Coding System Code Date OFFICE VISIT, EST-MOD. COMPLEXITY (25 MIN) CPT-4 29840 Jun 28, 2014 Vital Signs Date/Time: Jun 28, 2014 Height N/A in Weight 276 lbs Temperature 97.6 F Blood Pressure Diastolic 74 mm Hg Blood Pressure Systolic 120 mm Hg Cardiac Monitoring Heart Rate 96 /min BMI 44.54 Index Respiratory Rate 22 /min Results No Known Results Summary Purpose eClinicalWorks Submission
--- OUTSIDE RECORDS SUMMARY | 2017-06-18 20:21 | External Medical Summary ---
:1955 Author Organization [employer] Care Team Providers Name Role Phone Vicki An Provider Role Unavailable Allergies No Known Allergies Problems Problem Type Condition ICD-9 Code Onset Dates Condition Status Problem Bipolar I disorder, most recent 296.62 Active episode (or current) mixed, moderate Problem Nondependent tobacco use 305.1 Active disorder Problem COPD 496 Active Problem Observation of other suspected V71.09 Active mental condition Medications Medication Code System Code Instructions Start Date [place] D[place] [address]-652 3 MG Orally Once 1 tablet 2-30 [place] [address]-649 0.5 MG Orally 1 tab by 0-01 Twice a day mouth Results No Known Results Summary Purpose eClinicalWorks Submission
--- OUTSIDE RECORDS SUMMARY | 2017-06-18 20:21 | External Medical Summary ---
[...] Start Date End Date Status Dosage Lorazepam [facility] [address] 0.5 MG Orally up 1 tablet -01 to three times a day as needed for anxiety Results No Known Results Summary Purpose eClinicalWorks Submission
--- OUTSIDE RECORDS SUMMARY | 2017-06-18 20:21 | External Medical Summary ---
[...] Start End Status Dosage System Date Date Cholestyramine [facility] 77896-62 4 GM/DOSE Orally 4gms mix 40-97 twice a day - do with 2-3 oz not give within of 1 hr of other water/juice meds DuoNeb [facility] 45472-99 0.5-2.5 (3) 3 ml 72-30 MG/3ML Inhalation every 6 hrs Flovent HFA [facility] 92194-69 220 MCG/ACT 2 puffs 20-20 Inhalation [place] [address]-65 500 MG Orally 1 tablet 48-01 twice a day at with meals 8am and 6[place] [address]-09 40 MG Orally 1 tablet Sodium 07-01 [place] [address]-02 0.5 MG Orally 2 tablets 20-88 two times a week by mouth on [place]ues[place] [address]-17 3 MG Orally take 1/2 42-05 tablet by mouth at 8am and at bedtime for mood control Metoprolol [facility] 46918-24 100 MG Orally 1 tablet Succinate ER 83-01 [place] [address]-87 0.5 MG Orally up 1 tablet 20-01 to three times a day as needed for anxiety Cyproheptadine HCl [facility] 44472-89 4 MG Orally 1-2 tabs by 29- daily at bedtime mouth [place] [address]-48 0.4 MG 1 tablet 18-13 Sublingual every under the 5 minutes up to tongue and 3 times PRN allow to dissolve as needed Aspirin [facility] 16096-01 81 MG Orally 1 tablet 11-25 Once a day Acetaminophen [facility] 31124-21 325 MG Orally 2 tabs 53-78 every 4 hrs PRN pain Primidone [facility] 717[address]-29 50 MG Orally not defined 30- Lansoprazole [facility] 82053-02 30 MG Orally 1 tablet on 49-19 once a day the tongue before breakfast and allow to dissolve before a meal Mobic [facility] 39039-96 15 MG Orally 1 tablet 30- [place] [address]-78 50 MG Orally 1 tablet as 58-01 every 6 hrs needed Procedures Procedure Coding System Code Date OFFICE VISIT, EST-LOW COMPLEXITY (15 MIN.) CPT-4 31380 Jan 23, 2016 Vital Signs Date/Time: Jan 23, 2016 Temperature 98.5 F Height 66 in Weight 248.12 lbs Blood Pressure Diastolic 74 mm Hg Blood Pressure Systolic 114 mm Hg Cardiac Monitoring Heart Rate 101 /min BMI 40.04 Index Respiratory Rate 24 /min Results No Known Results Summary Purpose eClinicalWorks Submission
--- OUTSIDE RECORDS SUMMARY | 2017-06-18 20:21 | External Medical Summary ---
[...] Start Date End Date Status Dosage Lunesta [facility] [address] 3 MG Orally Once 1 tablet -30 a day Results No Known Results Summary Purpose eClinicalWorks Submission
--- OUTSIDE RECORDS SUMMARY | 2017-06-18 20:21 | External Medical Summary ---
[...] Available Drug Allergy Problems Problem Type Condition ICD-9 Code Onset Dates Condition Status Problem Bipolar I disorder, most recent 296.62 Active episode (or current) mixed, moderate Problem Nondependent tobacco use 305.1 Active disorder Problem COPD 496 Active Assessment Nondependent tobacco use 305.1 Active disorder Problem Observation of other suspected V71.09 Active mental condition Assessment Bipolar I disorder, most recent 296.62 Active episode (or current) mixed, moderate Medications Medication Code Code Instructions Start End Status Dosage System Date Date Cholestyramine [facility] 29783-87 4 GM/DOSE Orally 4gms mix 40-97 twice a day - do with 2-3 oz not give within of 1 hr of other water/juice meds Flovent HFA [facility] 55484-26 220 MCG/ACT 2 puffs 20-20 Inhalation Twice a day Nicoderm CQ [facility] 84174-08 21 MG/24HR 1 patch to 45-01 Transdermal Once skin a day Metoprolol [facility] 63313-36 100 MG Orally 1 tablet Succinate ER 83- Once a day Clonazepam [facility] 71573-87 1 MG Orally July 31 tablet 33-01 twice a day 2014 Risperdal [facility] 42782-62 3 MG Orally in 1/2 tablet 15-30 am and H.S. by mouth at 8am and h.s. for mood control DuoNeb [facility] 71017-59 0.5-2.5 (3) 3 ml 72-30 MG/3ML Inhalation every 6 hrs Cabergoline [facility] 35529-79 0.5 MG Orally 2 tablets 20- two times a week by mouth on Tuesdays and Fridays Metformin HCl [facility] 55945-25 500 MG Orally 1 tablet 48- twice a day at with meals 8am and 6pm Aspirin [facility] 61455-46 81 MG Orally 1 tablet 11-25 Once a day Lorazepam [facility] 16691-90 0.5 MG Orally 1 tab by - once a day mouth; may take 1 tab daily as needed only for anxiety Cyproheptadine HCl [facility] 06411-69 4 MG Orally 1-2 tabs by daily at bedtime mouth at bedtime for sleep aid Lisinopril [facility] 73753-47 10 MG Orally 1 tablet - once a day at 8am Lansoprazole [facility] 36216-91 30 MG Orally 1 tablet on - once a day the tongue before breakfast and allow to dissolve before a meal Lunesta [facility] 37530-61 3 MG Orally Once 1 tablet 02-30 a day Acetaminophen [facility] 18518-63 325 MG Orally 2 tabs 53-78 every 4 hrs PRN pain Mobic [facility] 52405-58 15 MG Orally 1 tablet - Once a day Nitrostat [facility] 46972-97 0.4 MG 1 tablet 18-13 Sublingual every under the 5 minutes up to tongue and 3 times PRN allow to dissolve as needed Brovana [facility] 70498-03 15 MCG/2ML 2 ml 11-30 Inhalation Twice a day Procedures Procedure Coding System Code Date OFFICE VISIT, EST-MOD. COMPLEXITY (25 MIN) CPT-4 17062 August 23, 2014 Vital Signs Date/Time: August 23, 2014 Height 66 in Weight 283.8 lbs Temperature 98.9 F Blood Pressure Diastolic 72 mm Hg Blood Pressure Systolic 118 mm Hg Cardiac Monitoring Heart Rate 80 /min BMI 45.80 Index Respiratory Rate 24 /min Results No Known Results Summary Purpose eClinicalWorks Submission
--- OUTSIDE RECORDS SUMMARY | 2017-06-18 20:21 | External Medical Summary ---
[...] Status Dosage System Date Date Cyproheptadine [facility] 60477-79 4 MG Orally 1-2 tabs 29-01 daily at bedtime by mouth at bedtime for sleep aid Results No Known Results Summary Purpose eClinicalWorks Submission
--- OUTSIDE RECORDS SUMMARY | 2017-06-18 20:21 | External Medical Summary ---
[...] Start Date End Date Status Dosage Lorazepam [facility] [address]-806 0.5 MG Orally 1 tab by 0-01 once a day mouth; may take 1 tab daily as needed only for anxiety Results No Known Results Summary Purpose eClinicalWorks Submission
--- OUTSIDE RECORDS SUMMARY | 2017-06-18 20:21 | External Medical Summary ---
[...] Start Date End Date Status Dosage Lorazepam [facility] [address] 0.5 MG Orally up 1 tablet -01 to three times a day as needed for anxiety Results No Known Results Summary Purpose eClinicalWorks Submission
--- OUTSIDE RECORDS SUMMARY | 2017-06-18 20:21 | External Medical Summary ---
[...] Start Date End Date Status Dosage Clonazepam [facility] [address] 1 MG Orally twice August 23, Mar 01, 1 tablet -01 a day 2014 2015 Results No Known Results Summary Purpose eClinicalWorks Submission
[2017-06-18] MEDS: SALINE FLUSH 10ml SYRINGE IVF PRN ×2 (20:25→23:15)
[2017-06-18] MEDS ORDERED: ALBUTEROL/IPRATROPIUM 2.5mg-0.5mg/3ml NEB AEROSOL ONE (20:54)
--- NOTE | 2017-06-18 21:22 | Emergency Department Report ---
SOB HPI - General Chief Complaint: Shortness of Breath/Dyspnea Stated Complaint: Diff breathing Time Seen by Provider: 06/18/17 20:11 - History of Present Illness 62-year-old female presents by EMS with acute shortness of breath. She has a history of COPD and requires BiPAP at night. She requires 2 L of oxygen during the day nasal cannula. She still smokes, 1.5 packs per day and has not cut back today. She does have inhalers, which she uses at home. She's had no fever or chills. Has had some increased body aches. States she did not get an influenza vaccine this year. She states she has a DO NOT RESUSCITATE, but does want CPR and does want intubation if needed. Therefore I'm not certain she understands what a DO NOT RESUSCITATE is. - Related Data Home Medications Medication Instructions Recorded Confirmed Cabergoline [Dostinex] 1 mg PO TuFr #0 06/19/12 06/18/17 Gabapentin 300 mg PO HS #0 07/01/16 06/18/17 Metoprolol Succinate 100 mg PO DAILY #0 07/15/16 06/18/17 Buspirone HCl 7.5 mg PO BID #0 08/09/16 06/18/17 Cyproheptadine HCl 1 - 2 tab PO HS PRN #0 08/22/16 06/18/17 Pramipexole Di-HCl [Pramipexole 0.375 mg PO HS 12/04/16 06/18/17 Dihydrochloride] Acetaminophen 650 mg PO Q4H PRN 01/05/17 06/18/17 Paliperidone [Paliperidone ER] 9 mg PO DAILY 01/05/17 06/18/17 CloNIDine [Catapres] 0.1 mg PO DAILY 05/02/17 06/18/17 Folic Acid [Folate] 1 mg PO DAILY 05/02/17 06/18/17 Potassium Chloride 10 meq PO DAILY 05/02/17 06/18/17 Zolpidem [Ambien] 10 mg PO HS 05/02/17 06/18/17 Albuterol Sulfate [Proair Hfa] 1 spray INH PRN PRN 06/18/17 06/18/17 Albuterol/Ipratropium [Duoneb] 1 unit AEROSOL Q6H PRN 06/18/17 06/18/17 Aspirin [Adult Aspirin Regimen] 81 mg PO DAILY 06/18/17 06/18/17 Cholestyramine Packet [Questran 4 g PO BID 06/18/17 06/18/17 Light] Fluticasone HFA [Flovent Hfa 220 1 - 2 puff INH Q2-4HR 06/18/17 06/18/17 mcg] Metformin [Glucophage] 500 mg PO BIDWM 06/18/17 06/18/17 Nitroglycerin [Nitrostat] 0.4 mg SL Q5M PRN 06/18/17 06/18/17 Pantoprazole Tab [Protonix Tab] 40 mg PO DAILY 06/18/17 06/18/17 PredniSONE [Deltasone] 10 mg PO DAILY 06/18/17 06/18/17 Primidone [Mysoline] 150 mg PO HS 06/18/17 06/18/17 Tramadol [Ultram] 50 mg PO Q6H PRN 06/18/17 06/18/17 Allergies Allergy/AdvReac Type Severity Reaction Status Date / Time Influenza Virus Vaccines Allergy Severe DYSPNEA Verified 06/18/17 20:33 lisinopril Allergy Intermediate TONGUE Verified 06/18/17 20:33 SWELLING Iodinated Contrast- Oral and Allergy Mild RASH Verified 06/18/17 20:33 IV Dye asenapine Allergy Unknown Verified 06/18/17 20:33 duloxetine [From Cymbalta] Allergy Unknown Verified 06/18/17 20:33 hydromorphone [From Dilaudid] Allergy Unknown Verified 06/18/17 20:33 iodine Allergy Unknown Verified 06/18/17 20:33 Sulfa (Sulfonamide Allergy Unknown RASH Verified 06/18/17 20:33 Antibiotics) venlafaxine Allergy Unknown Verified 06/18/17 20:33 lurasidone AdvReac Intermediate INCREASED Verified 06/18/17 20:33 SODIUM adhesive AdvReac Unknown Verified 06/18/17 20:33 cephalexin AdvReac Unknown VOMITING Verified 06/18/17 20:33 morphine AdvReac Unknown SWELLING Verified 06/18/17 20:33 SHELLFISH Allergy Severe Allergic Uncoded 01/29/17 23:04 Asthmatic Reaction Review of Systems All systems: reviewed and negative except as stated PFSH Patient Stated Medical History Cerebrovascular Accident Yes: 2000 Hypertension Yes Myocardial Infarction Yes: PT IS VAGUE/UNSURE REGARDING DETAILS Asthma Yes Chronic Obstructive Pulmonary Yes Disease (COPD) Sleep Apnea Yes: Uses a Bipap occasionally at home. Other Respiratory Yes: EMPHYSEMA Diabetes Mellitus Type 2 Yes Gastroesophageal Reflux Yes Disease Hx Renal Disease Yes Anemia Yes Osteoarthritis Yes Other Musculoskeletal Yes: osteopenia MRSA Yes: HX PREVIOUS SORES ON BACK/BUTTOCKS. Blood Transfusions Yes Bipolar Disorder Yes Substance Use Disorder Yes: NICOTINE DEPENDENCE Surgical History: appendix. colonoscopy. gallbladder. hernia. tonsils. cardiac cath. hysterectomy. carpal tunnel. knee. shoulder - Social History Smoking status: Current every day smoker Current residence: Apartment/Private Home Physical Exam - Limitations Limitations: no limitations - General General appearance: alert, anxious - Normal Exams: Head:: Normocephalic without trauma Neck:: Full range of motion, without adenopathy, JVD, bruits or thyromegaly Cardiovascular:: Regular rate and rhythm, without murmur or gallop, Pulses 2+ all extremities, capillary refill, <2 seconds all extremities Abdomen:: Bowel sounds positive, soft, non-tender, non-distended, no hepatosplenomegaly, masses or bruits noted Neurological:: Patient is alert, and oriented, cranial nerves, motor/sensory/ cerebellar, exams w/o gross deficits, to observation Psychiatric:: Patient exhibits, appropriate attention, emotion and affect - Chest Chest inspection: Present: normal inspection - Respiratory Respiratory exam: Present: wheezes, other (poor air movement) Course Vital Signs Temperature 100.9 F H 06/18/17 20:06 Pulse Rate 101 H 06/18/17 20:06 Respiratory Rate 26 H 06/18/17 20:06 Blood Pressure 173/98 H 06/18/17 20:06 Pulse Oximetry 96 06/18/17 20:06 Temperature 100.9 F H 06/18/17 20:06 Pulse Rate 102 H 06/18/17 22:01 Respiratory Rate 25 H 06/18/17 22:01 Blood Pressure 203/89 H 06/18/17 22:01 Pulse Oximetry 98 06/18/17 22:01 Shortness of Breath/Dyspnea - [facility] Narrative Medical decision making narrative: IV placed, respiratory consult placed. DuoNeb ordered. Labs ordered and chest x- ray. Patient given 125 mg Solu-Medrol IV. Chest x-ray obtained which shows pulmonary congestion. Labs returned with BNP of 1070. Patient did improve breathing with BiPAP placement and repeat DuoNeb 2. She does have 2+ pitting edema bilateral lower extremities with worsening orthopnea when reclined at all from 90. IV Lasix 40 mg and fully catheter placed. No acute infection is noted. Lactate is normal and white count is appropriate. Hospitalist consult obtained and is accepting the patient with CHF and COPD exacerbation. Patient is full resuscitation requesting both CPR and intubation if needed. - Differential Diagnosis Likely: acute exacerbation of chronic obstructive airways disease, congestive heart failure - Medical Records Attestation: I reviewed the patient's medical records. - Lab Data Attestation: I reviewed the patient's lab results. Result diagrams: 06/18/17 20:29 06/18/17 20:29 Lab Results 06/18/17 06/18/17 06/18/17 Range/Units 20:15 20:29 20:29 WBC 9.4 (4.5-11.0) T/MM3 RBC 4.22 (4.00-5.20) M/MM3 Hgb 12.2 (12-16) GM/DL Hct 37.0 (36-46) % MCV 87.7 (80-100) UM3 MCH 28.9 (26-34) UUG MCHC 33.0 (31-37) GM/DL RDW Std Deviation 43.3 (36.9-50.2) FL Plt Count 244 (130-400) T/MM3 MPV 8.2 L (9.4-12.4) UM3 Immature Gran % (Auto) Not performed Neut % (Auto) Not performed Lymph % (Auto) Not performed Ransom % (Auto) Not performed Eos % (Auto) Not performed Baso % (Auto) Not performed Neut # (Auto) Not performed Lymph # (Auto) Not performed Ransom # (Auto) Not performed Eos # (Auto) Not performed Baso # (Auto) Not performed Abs Immat Gran (auto) Not performed Neutrophils % (Manual) 89.0 H (33-66) % Band Neutrophils % 2.0 (0-6) % Lymphocytes % (Manual) 2.0 L (23-45) % Reactive Lymphs % 2.0 H (0-0) % Monocytes % (Manual) 5.0 (0-9.0) % Neutrophils # (Manual) 8.4 H (1.8-7.7) T/MM3 Band Neutrophils # 0.2 T/MM3 Lymphocytes # (Manual) 0.2 L (1-4.8) T/MM3 Abs React Lymphs (Man) 0.2 H (0-0) T/MM3 Monocytes # (Manual) 0.5 (0-0.8) T/MM3 RBC Morph Comment Normal D-Dimer 154 (0-230) NG/ML Turbidity (0-20) Sodium (134-144) MEQ/L Potassium (3.6-5) MEQ/L Chloride (98-107) MEQ/L Carbon Dioxide (22-30) MEQ/L Anion Gap (5-15) MEQ/L BUN (7-17) MG/DL Creatinine (0.7-1.2) MG/DL GFR Calculation BUN/Creatinine Ratio (6-26) RATIO Glucose (65-110) MG/DL Calculated Osmolality (261-280) MOSM/KG Calcium (8.4-10.2) MG/DL Total Bilirubin (0.20-1.30) MG/DL Icterus Index (0-7) AST (14-36) U/L ALT (9-52) U/L Alkaline Phosphatase (38-126) U/L Troponin I (0-0.12) ng/ml B-Natriuretic Peptide (0-175) pg/mL Total Protein (6.3-8.2) G/DL Albumin (3.5-5.0) G/DL Globulin (2.4-3.6) G/DL Albumin/Globulin Ratio (1.1-2.2) RATIO Plasma Lactate (0.6-2.2) MMOL/L Specimen Hemolysis (0-25) Influenza Type A (PCR) Negative (Negative) Influenza Type B (PCR) Negative (Negative) 06/18/17 Range/Units 20:29 WBC (4.5-11.0) T/MM3 RBC (4.00-5.20) M/MM3 Hgb (12-16) GM/DL Hct (36-46) % MCV (80-100) UM3 MCH (26-34) UUG MCHC (31-37) GM/DL RDW Std Deviation (36.9-50.2) FL Plt Count (130-400) T/MM3 MPV (9.4-12.4) UM3 Immature Gran % (Auto) Neut % (Auto) Lymph % (Auto) Ransom % (Auto) Eos % (Auto) Baso % (Auto) Neut # (Auto) Lymph # (Auto) Ransom # (Auto) Eos # (Auto) Baso # (Auto) Abs Immat Gran (auto) Neutrophils % (Manual) (33-66) % Band Neutrophils % (0-6) % Lymphocytes % (Manual) (23-45) % Reactive Lymphs % (0-0) % Monocytes % (Manual) (0-9.0) % Neutrophils # (Manual) (1.8-7.7) T/MM3 Band Neutrophils # T/MM3 Lymphocytes # (Manual) (1-4.8) T/MM3 Abs React Lymphs (Man) (0-0) T/MM3 Monocytes # (Manual) (0-0.8) T/MM3 RBC Morph Comment D-Dimer (0-230) NG/ML Turbidity < 20 (0-20) Sodium 130 L (134-144) MEQ/L Potassium 4.2 (3.6-5) MEQ/L Chloride 92 L (98-107) MEQ/L Carbon Dioxide 26 (22-30) MEQ/L Anion Gap 12 (5-15) MEQ/L BUN 10.0 (7-17) MG/DL Creatinine 0.7 (0.7-1.2) MG/DL GFR Calculation 85 BUN/Creatinine Ratio 14 (6-26) RATIO Glucose 129 H (65-110) MG/DL Calculated Osmolality 252 L (261-280) MOSM/KG Calcium 9.0 (8.4-10.2) MG/DL Total Bilirubin 0.30 (0.20-1.30) MG/DL Icterus Index < 2 (0-7) AST 21 (14-36) U/L ALT 30 (9-52) U/L Alkaline Phosphatase 119 (38-126) U/L Troponin I 0.014 (0-0.12) ng/ml B-Natriuretic Peptide 1070 H (0-175) pg/mL Total Protein 7.7 (6.3-8.2) G/DL Albumin 4.6 (3.5-5.0) G/DL Globulin 3.1 (2.4-3.6) G/DL Albumin/Globulin Ratio 1.5 (1.1-2.2) RATIO Plasma Lactate 1.7 (0.6-2.2) MMOL/L Specimen Hemolysis 17 (0-25) Influenza Type A (PCR) (Negative) Influenza Type B (PCR) (Negative) - Radiology Data Attestation: I reviewed the patient's radiology results. Disposition Clinical Impression: Acute exacerbation of chronic obstructive airways disease, Congestive heart failure [place] [facility] [place]: Stable Prescriptions: No Action Acetaminophen 650 mg PO Q4H PRN PRN Reason: Pain Folic Acid [Folate] 1 mg PO DAILY Potassium Chloride 10 meq PO DAILY CloNIDine [Catapres] 0.1 mg PO DAILY PredniSONE [Deltasone] 10 mg PO DAILY Albuterol/Ipratropium [Duoneb] 1 unit AEROSOL Q6H PRN PRN Reason: Shortness Of Air Pantoprazole Tab [Protonix Tab] 40 mg PO DAILY Tramadol [Ultram] 50 mg PO Q6H PRN PRN Reason: Pain Primidone [Mysoline] 150 mg PO HS Albuterol Sulfate [Proair Hfa] 1 spray INH PRN PRN PRN Reason: Shortness Of Air Metformin [Glucophage] 500 mg PO BIDWM Fluticasone HFA [Flovent Hfa 220 mcg] 1 - 2 puff INH Q2-4HR Nitroglycerin [Nitrostat] 0.4 mg SL Q5M PRN PRN Reason: Chest Pain Cabergoline [Dostinex] 1 mg PO TuFr #0 Gabapentin 300 mg PO HS #0 Metoprolol Succinate 100 mg PO DAILY #0 Buspirone HCl 7.5 mg PO BID #0 Cyproheptadine HCl 1 - 2 tab PO HS PRN #0 PRN Reason: Insomnia Pramipexole Di-HCl [Pramipexole Dihydrochloride] 0.375 mg PO HS Paliperidone [Paliperidone ER] 9 mg PO DAILY Zolpidem [Ambien] 10 mg PO HS Aspirin [Adult Aspirin Regimen] 81 mg PO DAILY Cholestyramine Packet [Questran Light] 4 g PO BID Referrals: Rafaela Rosales APRN [Primary Care Provider] - Time of Disposition: 22:49 - Seen By: physician
[2017-06-18] MEDS ORDERED: FUROSEMIDE 40 MG/4 ML INJECTION IVP ONE (22:43)
[2017-06-18] MEDS ORDERED: FentaNYL 100 MCG/2 ML INJECTION IVP ONE (23:01)
[2017-06-18] MEDS ORDERED: NITROGLYCERIN 0.4 MG SUBLINGUAL TABLET SL PRN (23:08)
[2017-06-18] MEDS ORDERED: ACETAMINOPHEN 325 MG TABLET PO PRN (23:08)
[2017-06-18] MEDS ORDERED: ONDANSETRON 4 MG/2 ML INJECTION IVP PRN (23:08)
[2017-06-19] MEDS: FUROSEMIDE 40 MG/4 ML INJECTION IVP SCH ×2 (00:08→06:11)
[2017-06-19] MEDS: TRAMADOL 50 MG TABLET PO PRN ×2 (00:37→09:45)
[2017-06-19] MEDS: GABAPENTIN 300 MG CAPSULE PO SCH ×2 (00:54→22:41)
[2017-06-19] MEDS: ALBUTEROL/IPRATROPIUM 2.5mg-0.5mg/3ml NEB AEROSOL PRN ×5 (02:10→21:44)
--- NOTE | 2017-06-19 03:27 | History & Physical Report ---
History of Present Illness Date: 06/19/17 Chief complaint: SOA HPI: Suyapa is a pleasant 62-year-old female patient with known COPD, oxygen dependent, she uses BiPAP at night with 2 L by nasal cannula during the day. She has been progressively short of air for 2-3 days, she stops tasting taking her Lasix prior to that. She presented to the emergency department complaining of shortness of air, her blood pressure was 203/89 and she had hypoxia worse than baseline. Her chest x-ray showed evidence of pulmonary vascular congestion, she was given intravenous Lasix A Diop catheter was placed and she is admitted for further evaluation and management. Review of Systems - Constitutional Constitutional: Present: chills, fever(s) - Cardiovascular Cardiovascular: Present: orthopnea. Absent: chest pain, palpitations - Respiratory Respiratory: Present: dyspnea, dyspnea on exertion. Absent: hemoptysis - Gastrointestinal Gastrointestinal: Present: diarrhea ( 2 days ago, none since). Absent: abdominal pain, vomiting - Musculoskeletal Musculoskeletal: Present: back pain, neck pain Past Medical History Patient Stated Medical History Cerebrovascular Accident Yes: 2000 Hypertension Yes Myocardial Infarction Yes: PT IS VAGUE/UNSURE REGARDING DETAILS Asthma Yes Chronic Obstructive Pulmonary Yes Disease (COPD) Sleep Apnea Yes: Uses a Bipap occasionally at home. Other Respiratory Yes: EMPHYSEMA Diabetes Mellitus Type 2 Yes Gastroesophageal Reflux Yes Disease Hx Renal Disease Yes Anemia Yes Osteoarthritis Yes Other Musculoskeletal Yes: osteopenia MRSA Yes: HX PREVIOUS SORES ON BACK/BUTTOCKS. Blood Transfusions Yes Bipolar Disorder Yes Substance Use Disorder Yes: NICOTINE DEPENDENCE Surgical History: appendix. colonoscopy. gallbladder. hernia. tonsils. cardiac cath. hysterectomy. carpal tunnel. knee. shoulder Family History Updates: she states that her mother and 5 brothers all had emphysema and all 5 brothers are apparently . They all smoked. 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[employer]) Medications Home Medications Medication Instructions Recorded Confirmed Type Cabergoline [Dostinex] 1 mg PO TuFr #0 06/19/12 06/18/17 History Gabapentin 300 mg PO HS #0 07/01/16 06/18/17 History Metoprolol Succinate 100 mg PO DAILY #0 07/15/16 06/18/17 History Buspirone HCl 7.5 mg PO BID #0 08/09/16 06/18/17 History Cyproheptadine HCl 1 - 2 tab PO HS PRN #0 08/22/16 06/18/17 History Pramipexole Di-HCl [Pramipexole 0.375 mg PO HS 12/04/16 06/18/17 History Dihydrochloride] Acetaminophen 650 mg PO Q4H PRN 01/05/17 06/18/17 History Paliperidone [Paliperidone ER] 9 mg PO DAILY 01/05/17 06/18/17 History CloNIDine [Catapres] 0.1 mg PO DAILY 05/02/17 06/18/17 History Folic Acid [Folate] 1 mg PO DAILY 05/02/17 06/18/17 History Potassium Chloride 10 meq PO DAILY 05/02/17 06/18/17 History Zolpidem [Ambien] 10 mg PO HS 05/02/17 06/18/17 History Albuterol Sulfate [Proair Hfa] 1 spray INH PRN PRN 06/18/17 06/18/17 History Albuterol/Ipratropium [Duoneb] 1 unit AEROSOL Q6H PRN 06/18/17 06/18/17 History Aspirin [Adult Aspirin Regimen] 81 mg PO DAILY 06/18/17 06/18/17 History Cholestyramine Packet [Questran 4 g PO BID 06/18/17 06/18/17 History Light] Fluticasone HFA [Flovent Hfa 220 1 - 2 puff INH Q2-4HR 06/18/17 06/18/17 History mcg] Metformin [Glucophage] 500 mg PO BIDWM 06/18/17 06/18/17 History Nitroglycerin [Nitrostat] 0.4 mg SL Q5M PRN 06/18/17 06/18/17 History Pantoprazole Tab [Protonix Tab] 40 mg PO DAILY 06/18/17 06/18/17 History PredniSONE [Deltasone] 10 mg PO DAILY 06/18/17 06/18/17 History Primidone [Mysoline] 150 mg PO HS 06/18/17 06/18/17 History Tramadol [Ultram] 50 mg PO Q6H PRN 06/18/17 06/18/17 History Allergies Allergy/AdvReac Type Severity Reaction Status Date / Time Influenza Virus Vaccines Allergy Severe DYSPNEA Verified 06/19/17 00:26 lisinopril Allergy Intermediate TONGUE Verified 06/19/17 00:26 SWELLING Iodinated Contrast- Oral and Allergy Mild RASH Verified 06/19/17 00:26 IV Dye asenapine Allergy Unknown Verified 06/19/17 00:26 duloxetine [From Cymbalta] Allergy Unknown Verified 06/19/17 00:26 hydromorphone [From Dilaudid] Allergy Unknown Verified 06/19/17 00:26 iodine Allergy Unknown Verified 06/19/17 00:26 Sulfa (Sulfonamide Allergy Unknown RASH Verified 06/19/17 00:26 Antibiotics) venlafaxine Allergy Unknown Verified 06/19/17 00:26 lurasidone AdvReac Intermediate INCREASED Verified 06/19/17 00:26 SODIUM adhesive AdvReac Unknown Verified 06/19/17 00:26 cephalexin AdvReac Unknown VOMITING Verified 06/19/17 00:26 morphine AdvReac Unknown SWELLING Verified 06/19/17 00:26 SHELLFISH Allergy Severe Allergic Uncoded 06/19/17 00:26 Asthmatic Reaction Exam Vital Signs: Temperature 100.9 F H 06/18/17 23:42 Pulse Rate 98 06/19/17 00:52 Respiratory Rate 31 H 06/19/17 02:10 Blood Pressure 171/105 H 06/19/17 00:13 Pulse Oximetry 98 06/19/17 02:10 Telemetry Rhythm: Sinus Rhythm Height/Weight/BMI: Height 5 ft 4 in - Constitutional Present: mild distress, morbidly obese Comments: on BiPAP - Routine HEENT Exam Head: Present: normocephalic, atraumatic Eye: Present: EOMI - Routine Neck Exam Present: supple, full ROM. Absent: JVD - Routine Respiratory Exam Present: accessory muscle use, crackles - Routine Cardiovascular Exam Present: no murmur, tachycardia - Routine Abdominal Exam Present: soft, non distended, non tender - Routine Extremities Exam Present: edema ( trace symmetric bipedal edema). Absent: cyanosis, clubbing - Routine Neurological Exam Present: alert, oriented X3, CN II-XII intact Results - Labs CBC & Chem 7: 06/19/17 04:22 06/19/17 04:22 Assessment and Plan (1) Diastolic CHF, acute Problem details: EF 60%-08/16 Current visit: Yes Status: Acute (2) Acute exacerbation of chronic obstructive airways disease Current visit: Yes Status: Acute (3) Hyponatremia Current visit: No Status: Resolved Assessment and Plan: Suyapa is a 62-year-old woman with known COPD and congestive heart failure, with no recent echocardiogram in our system. She presents with apparent exacerbation of the latter, with a BNP over 1000 and chest x-ray suggestive of pulmonary vascular overload. She was admitted on BiPAP, plan to continue with intravenous Lasix, check an echocardiogram in the morning to further elucidate. She states that she feels somewhat better after triage treatment thus far. Other medical problems including a pituitary prolactinoma, bipolar affect disorder, morbid obesity, are noted in the majority of her home medications continued. I did not continue Solu-Medrol, though was told she received a dose in the emergency department. We will provide further symptomatically supportive and diagnostic cares as the current workup, or changes in her clinical scenario, indicate. Plan of care was discussed with the patient at the time of my evaluation and she expressed understanding and desire to proceed. Examination was performed using telemedicine equipment with the assistance of the bedside nurse. DVT Prophylaxis: SCD's Resuscitation Status: Full Code - Physician Narrative Physician: Jammie Woodard MD Narrative: Date: 06/19/17 Time: 1819 Dr. Greene's note reviewed. Ms. Barr interviewed and examined. Old records reviewed. CC: Dyspnea HPI: Mrs. Barr is a 62 year old morbidly obese female with known history of advanced COPD who continues to smoke. She presented with increasing dyspnea for 3-4 days after she stopped taking Lasix prior to onset of symptoms. She describes increasing edema in the lower extremities, increasing weight, increasing cough with associated PND, orthopnea, and exertional dyspnea. She has not had chest pain and is unsure if she's had any fever. To be noted that the patient is extremely dyspneic and tachypnea when evaluated despite being on BiPAP. She is generally on 2-3 L supplemental oxygen and uses BiPAP at night. Little history could be obtained from the patient beyond that that allowed her to nod yes or no. On arrival in the emergency room blood pressure was 203/89 and Lasix was initiated addition to BiPAP, Solu-Medrol, and breathing treatments. Patient is required continuous BiPAP since admission. PH/SH/FH: agree with that recorded above by Dr. Greene with additional history of pituitary adenoma, history of cancer-type unknown (patient sleeping soundly and I can't clarify), and 1.5 pack per day tobacco use since a teenager, and no history of alcohol or illicit drug use. 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 ROS: 10 point review negative outside of symptoms noted in the history of present illness or by Dr. Greene. EXAM: General-morbidly obese female in respiratory distress, continually repositioning herself between sitting forward and dropping back onto the bed which is elevated maximally. 96.3, respiratory rate 39, 106/68, 96% with BiPAP- FiO2 30% HEENT-PERRL, EOMI without nystagmus, conjunctiva clear, sclera anicteric, conjugate gaze, facial structures symmetric, neck without palpable adenopathy Lungs-respirations are very labored with diminished breath sounds throughout, breath sounds are moderately coarse and there is some wheezing present posteriorly, crackles at the bases Cardiac-tachycardic, regular rhythm, S1-S2 Abd-obese, soft, nontender, bowel sounds not audible Ext-+1 edema bilateral lower extremities Skin-without generalized rash Neuro-moving upper extremities well, facial structure symmetric and eye movements intact; sensation intact to light touch 4 extremities Psych-anxious/apprehensive, cooperative DATA: White count 9.4 with 89% neutrophils, 2% bands, hemoglobin 12.2, d-dimer 154, sodium 130-127, BUN/creatinine 10/0.7, troponin 0.014, proBNP 1070, lactic acid 1.7-2.2 UA positive nitrates, 0-1 WBC, +2 bacteria Influenza A/B negative 7.45/45/104/31 oxygen saturation 98% on BiPAP with FiO2 30% Chest x-ray reviewed by myself-cardiomegaly with mild increased markings. EKG also reviewed by myself-sinus rhythm without acute changes, normal tracing. A/P: Acute hypoxic respiratory failure Acute diastolic congestive heart failure COPD with exacerbation Hyponatremia Obstructive sleep apnea Diabetes mellitus, type II CAD Bipolar affective disorder Hypertension Morbid obesity Pituitary adenoma Continue ventilatory support with BiPAP, Dr. Rolon consulted for assistance due to the severity of patient's respiratory symptoms. Continue diuresis-changed from furosemide to Bumex to enhance diuresis. Lorazepam added for anxiety in addition to usual BuSpar. Continue steroids for COPD exacerbation in conjunction with breathing treatments initiated overnight. Echocardiogram. Check respiratory viral panel. Multiple home medications to BE continued. Monitor sodium-maybe due to heart failure or psychiatric medications. Lactic acid was noted to be elevated earlier in the day however there is no indication of acute infectious process and hypoxia is probable cause. Discussed with Dr. Rolon. Hospital Course Summary Disclaimer: The visit summary below is not to be considered part of the above Progress Note.
[2017-06-19] MEDS ORDERED: PredniSONE 10 MG TABLET PO SCH (08:00)
--- NOTE | 2017-06-19 08:07 | XRay Report ---
Indication: dyspnea PROCEDURE: XR chest 1V: Encounter: Initial Comparison: May 08, 2017 FINDINGS: The lungs are clear. Findings of COPD. There is no abnormal airspace opacity, pleural effusion or pneumothorax identified. The heart size, pulmonary vasculature and mediastinum are within normal limits. No significant skeletal abnormality is seen. IMPRESSION: No acute cardiopulmonary abnormality. .
[2017-06-19] MEDS: BUSPIRONE 15 MG TABLET PO SCH ×2 (09:29→22:41)
[2017-06-19] MEDS: ASPIRIN *EC* 81 MG TABLET PO SCH (09:34)
[2017-06-19] MEDS: PANTOPRAZOLE 40 MG TABLET PO SCH (09:34)
[2017-06-19] MEDS: FOLIC ACID 1 MG TABLET PO SCH (09:35)
[2017-06-19] MEDS: PALIPERIDONE ER 1.5mg TAB PO SCH (09:36)
[2017-06-19] MEDS: ENOXAPARIN 40 MG/0.4 ML INJECTION SQ SCH (09:36)
[2017-06-19] MEDS: METHYLPREDNISOLONE SOD SUCC 125mg/2ml INJECTION IVP SCH ×3 (12:12→22:04)
--- NOTE | 2017-06-19 16:21 | Pulmonology Consult Note ---
History of Present Illness Consult date: 06/19/17 Requesting physician: Jammie Woodard Reason for consult: COPD Chief complaint: shortness of breath History of present illness: This is a 62 year old lady known to me from pulmonary clinic, first seen on 05/19. The patient is known to have Severe COPD. The patient is stating that they feel their disease is uncontrolled. The patient has had a recent exacerbations. The patient's main symptom right now is shortness of breath with exertion She has severe COPD with FEV1 37 %. COPD Assessment Test score is 35 This patient is GOLD Stage D and is High risk for exacerbation or complications related to COPD. We treated this patient with a combination of: prednisone 10 mg daily, Stiolto 2 puffs daily, albuterol prn. At baseline, the patient is using supplemental Oxygen at 3 lpm to maintain O2sats >90%. The patient is compliant with the use of O2 and benefits from its use. She uses BiPAP at night with 2 L by nasal cannula during the day. She complains of shortness of air for 2-3 days. She presented to the emergency department complaining of shortness of air, her blood pressure was 203/89 and she had hypoxia worse than baseline. Her chest x-ray showed evidence of pulmonary vascular congestion, she was given intravenous Lasix A Diop catheter was placed and she is admitted for further evaluation and management. She is on bipap and exhibiting altered consciousness and respiratory distress. I was asked to see the patient for respiratory problems. Review of Systems All systems: reviewed and no additional remarkable complaints except as stated PFSH Patient Stated Medical History Cerebrovascular Accident Yes: 2000 Hypertension Yes Myocardial Infarction Yes: PT IS VAGUE/UNSURE REGARDING DETAILS Asthma Yes Chronic Obstructive Pulmonary Yes Disease (COPD) Sleep Apnea Yes: Uses a Bipap occasionally at home. Other Respiratory Yes: EMPHYSEMA Diabetes Mellitus Type 2 Yes Gastroesophageal Reflux Yes Disease Hx Renal Disease Yes Anemia Yes Osteoarthritis Yes Other Musculoskeletal Yes: osteopenia MRSA Yes: HX PREVIOUS SORES ON BACK/BUTTOCKS. Blood Transfusions Yes Bipolar Disorder Yes Substance Use Disorder Yes: NICOTINE DEPENDENCE Surgical History: appendix. colonoscopy. gallbladder. hernia. tonsils. cardiac cath. hysterectomy. carpal tunnel. knee. shoulder - Social History Smoking status: Current every day smoker Medications Home Medications Medication Instructions Recorded Confirmed Type Cabergoline [Dostinex] 1 mg PO TuFr #0 06/19/12 06/18/17 History Gabapentin 300 mg PO HS #0 07/01/16 06/18/17 History Metoprolol Succinate 100 mg PO DAILY #0 07/15/16 06/18/17 History Buspirone HCl 7.5 mg PO BID #0 08/09/16 06/18/17 History Cyproheptadine HCl 1 - 2 tab PO HS PRN #0 08/22/16 06/18/17 History Pramipexole Di-HCl [Pramipexole 0.375 mg PO HS 12/04/16 06/18/17 History Dihydrochloride] Acetaminophen 650 mg PO Q4H PRN 01/05/17 06/18/17 History Paliperidone [Paliperidone ER] 9 mg PO DAILY 01/05/17 06/18/17 History CloNIDine [Catapres] 0.1 mg PO DAILY 05/02/17 06/18/17 History Folic Acid [Folate] 1 mg PO DAILY 05/02/17 06/18/17 History Potassium Chloride 10 meq PO DAILY 05/02/17 06/18/17 History Zolpidem [Ambien] 10 mg PO HS 05/02/17 06/18/17 History Albuterol Sulfate [Proair Hfa] 1 spray INH PRN PRN 06/18/17 06/18/17 History Albuterol/Ipratropium [Duoneb] 1 unit AEROSOL Q6H PRN 06/18/17 06/18/17 History Aspirin [Adult Aspirin Regimen] 81 mg PO DAILY 06/18/17 06/18/17 History Cholestyramine Packet [Questran 4 g PO BID 06/18/17 06/18/17 History Light] Fluticasone HFA [Flovent Hfa 220 1 - 2 puff INH Q2-4HR 06/18/17 06/18/17 History mcg] Metformin [Glucophage] 500 mg PO BIDWM 06/18/17 06/18/17 History Nitroglycerin [Nitrostat] 0.4 mg SL Q5M PRN 06/18/17 06/18/17 History Pantoprazole Tab [Protonix Tab] 40 mg PO DAILY 06/18/17 06/18/17 History PredniSONE [Deltasone] 10 mg PO DAILY 06/18/17 06/18/17 History Primidone [Mysoline] 150 mg PO HS 06/18/17 06/18/17 History Tramadol [Ultram] 50 mg PO Q6H PRN 06/18/17 06/18/17 History Allergies Allergy/AdvReac Type Severity Reaction Status Date / Time Influenza Virus Vaccines Allergy Severe DYSPNEA Verified 06/19/17 00:26 lisinopril Allergy Intermediate TONGUE Verified 06/19/17 00:26 SWELLING Iodinated Contrast- Oral and Allergy Mild RASH Verified 06/19/17 00:26 IV Dye asenapine Allergy Unknown Verified 06/19/17 00:26 duloxetine [From Cymbalta] Allergy Unknown Verified 06/19/17 00:26 hydromorphone [From Dilaudid] Allergy Unknown Verified 06/19/17 00:26 iodine Allergy Unknown Verified 06/19/17 00:26 Sulfa (Sulfonamide Allergy Unknown RASH Verified 06/19/17 00:26 Antibiotics) venlafaxine Allergy Unknown Verified 06/19/17 00:26 lurasidone AdvReac Intermediate INCREASED Verified 06/19/17 00:26 SODIUM adhesive AdvReac Unknown Verified 06/19/17 00:26 cephalexin AdvReac Unknown VOMITING Verified 06/19/17 00:26 morphine AdvReac Unknown SWELLING Verified 06/19/17 00:26 SHELLFISH Allergy Severe Allergic Uncoded 06/19/17 00:26 Asthmatic Reaction Exam Vital signs: Temperature 96.3 F L 06/19/17 15:23 Pulse Rate 98 06/19/17 15:23 Respiratory Rate 39 H 06/19/17 15:23 Blood Pressure 106/68 06/19/17 15:23 Pulse Oximetry 96 06/19/17 15:23 - Constitutional mild distress, obese - Routine HEENT Exam Head: Present: normocephalic, atraumatic Eye: Present: EOMI, PERRL. Absent: conjunctival icterus Nose: moist mucous membranes - Routine Neck Exam Present: supple - Routine Respiratory Exam Present: decreased breath sounds, prolonged expiratory phase, wheezes - Routine Cardiovascular Exam Present: RRR - Routine Abdominal Exam Present: soft. Absent: guarding - Routine Extremities Exam Present: edema. Absent: cyanosis, clubbing - Routine Skin Exam Present: intact. Absent: cyanosis - Routine Neurological Exam Present: alert somnolent, no focal deficits Results - Laboratory Findings CBC and BMP: 06/19/17 04:22 06/19/17 04:22 ABG ABG pH 7.450 (7.350-7.450) 06/19/17 12:35 ABG pCO2 45 MMHG (34-45) 06/19/17 12:35 ABG pO2 104 MMHG (80-100) H 06/19/17 12:35 ABG O2 Saturation 98.0 % (95.0-98.0) 06/19/17 12:35 PT/INR, D-dimer D-Dimer 154 NG/ML (0-230) 06/18/17 20:29 Abnormal lab findings: Abnormal Labs 06/19/17 06/19/17 06/19/17 04:22 04:22 12:35 MPV 8.7 L Neutrophils % (Manual) 90.0 H Lymphocytes % (Manual) 5.0 L Neutrophils # (Manual) 7.8 H Lymphocytes # (Manual) 0.4 L ABG pO2 104 H ABG HCO3 31 H ABG Total CO2 32.7 H ABG Base Excess 6.4 H Sodium 127 L Chloride 86 L D Glucose 205 H Calculated Osmolality 251 L - Diagnostic Findings Chest x-ray: report reviewed, image reviewed Assessment and Plan (1) Acute respiratory failure with hypoxemia Status: Acute Assessment and plan: Agree with BIPAP at night and prn IPAP 18, EPAP 5, rate 5, FiO2 35% Use nasal cannula O2 to keep sat > 90% ABG did demonstrate significant hypercapnia but will monitor closely. I doubt her mental status is altered on the basis of respiratory issues at this time Current Visit: Yes (2) Acute exacerbation of chronic obstructive airways disease Status: Acute Assessment and plan: Agree with methylpred 62.5 q 6 Neb albuterol/iprat Q4h Recommend repeat cxr No fever or leukocytosis to suggest acute infection. She may benefit from diuretic therapy. Current Visit: Yes - Time Spent With Patient Total time spent is greater than 50% in coordination of care (as documented) at patient's floor/unit and/or counseling patient: 25 - 35 minutes
[2017-06-19] MEDS ORDERED: CYPROHEPTADINE 4 MG TABLET PO PRN (18:54)
[2017-06-19] MEDS: SALINE FLUSH 10ml SYRINGE IVF PRN (22:05)
[2017-06-19] MEDS: PRAMIPEXOLE 0.25 MG TABLET PO SCH (22:41)
[2017-06-19] MEDS: PRIMIDONE 50 MG TABLET PO SCH (22:41)
[2017-06-19] MEDS: ZOLPIDEM 10 MG TABLET PO SCH (22:41)
[2017-06-20] MEDS: ALBUTEROL 2.5mg/3ml (0.083%) NEB AEROSOL PRN ×2 (00:50→10:13)
[2017-06-20] MEDS: METHYLPREDNISOLONE SOD SUCC 125mg/2ml INJECTION IVP SCH ×4 (05:04→20:32)
[2017-06-20] MEDS: SALINE FLUSH 10ml SYRINGE IVF PRN (05:05)
[2017-06-20] MEDS: ALBUTEROL/IPRATROPIUM 2.5mg-0.5mg/3ml NEB AEROSOL PRN ×3 (05:20→19:28)
[2017-06-20] MEDS: ENOXAPARIN 40 MG/0.4 ML INJECTION SQ SCH (10:40)
[2017-06-20] MEDS: ASPIRIN *EC* 81 MG TABLET PO SCH (10:42)
[2017-06-20] MEDS: FOLIC ACID 1 MG TABLET PO SCH (10:42)
[2017-06-20] MEDS: PALIPERIDONE ER 1.5mg TAB PO SCH (10:43)
[2017-06-20] MEDS: BUSPIRONE 15 MG TABLET PO SCH ×2 (10:43→20:27)
--- NOTE | 2017-06-20 10:50 | Echocardiogram ---
DATE OF PROCEDURE June 19, [address] Jammie Woodard This is a two-dimensional echo with spectral Doppler, color-flow and M-mode. It was obtained in a patient with congestive heart failure. Left atrium is dilated. Left ventricular end-diastolic dimension is normal. Left ventricle wall thickness is normal. LV systolic function is normal with ejection fraction of 58%. Right atrium is normal. Right ventricle is normal. Aortic root dimension is normal. Mitral valve is morphologically normal. Aortic valve appears to be normal but it was not visualized well. Tricuspid valve shows mild tricuspid regurgitation with normal estimated pulmonary artery systolic pressure of 24. Pulmonary valve shows trace of pulmonary insufficiency. There is no pericardial effusion. IMPRESSION 1. Normal LV systolic function with ejection fraction of 58%. 2. Left atrial dilation. 3. Mild tricuspid regurgitation with normal estimated pulmonary artery systolic pressure of 24. 4. Trace of pulmonary insufficiency. MTDD
[2017-06-20] MEDS: PANTOPRAZOLE 40 MG TABLET PO SCH (11:13)
--- NOTE | 2017-06-20 17:27 | Progress Note ---
- Date 06/20/17 Subjective: Patient seen in bed on BiPAP. She c/o burning in her chest and increase in coughing and SOA. Her temp is down and her BP's and pulse are improved. Tachypnea is improved. Continues on BiPAP. States she can't eat and drink as much as she would like because she gets so short of breath off of the BiPAP. She also complains of burning in her feet, but notes that she has diabetic neuropathy. Objective Vital signs: Temperature 97.1 F 06/20/17 16:00 Pulse Rate 80 06/20/17 16:00 Respiratory Rate 18 06/20/17 16:00 Blood Pressure 111/74 06/20/17 16:00 Pulse Oximetry 95 06/20/17 16:00 Height/Weight/BMI: Height 1.63 m Weight 104.2 kg - Constitutional Present: no acute distress, well nourished, well developed - Routine HEENT Exam Head: Present: normocephalic - Routine Respiratory Exam Present: decreased breath sounds, diminished air movement. Absent: wheezes Comments: On BiPAP - Routine Cardiovascular Exam Present: RRR. Absent: murmur - Routine Abdominal Exam Present: soft, normoactive bowel sounds, non distended. Absent: tenderness - Routine Extremities Exam Present: no edema, normal capillary refill - Routine Skin Exam Present: dry, warm - Routine Neurological Exam Present: alert - Routine Lymphatic Exam Lymphatic: Absent: adenopathy - Routine Psychiatric Exam Present: normal affect, cooperative Results - Labs CBC & Chem 7: 06/20/17 05:02 06/20/17 05:02 Microbiology Results: Microbiology 06/20/17 11:40 Sputum, Expectorated Gram Stain - Final 06/20/17 11:40 Sputum, Expectorated Sputum Culture - Preliminary Culture Initiated - Results Pending - ABG Interpretation ABG results: 06/19/17 12:35 ABG pH 7.450 ABG pCO2 45 ABG pO2 104 H ABG HCO3 31 H ABG Total CO2 32.7 H ABG O2 Saturation 98.0 ABG Base Excess 6.4 H - Echocardiogram Echocardiogram: Date of Exam: 06/19/17 Type of Exam(s): US echo doppler complete DATE OF PROCEDURE June 19, [address] Jammie Woodard This is a two-dimensional echo with spectral Doppler, color-flow and M-mode. It was obtained in a patient with congestive heart failure. Left atrium is dilated. Left ventricular end-diastolic dimension is normal. Left ventricle wall thickness is normal. LV systolic function is normal with ejection fraction of 58%. Right atrium is normal. Right ventricle is normal. Aortic root dimension is normal. Mitral valve is morphologically normal. Aortic valve appears to be normal but it was not visualized well. Tricuspid valve shows mild tricuspid regurgitation with normal estimated pulmonary artery systolic pressure of 24. Pulmonary valve shows trace of pulmonary insufficiency. There is no pericardial effusion. IMPRESSION 1. Normal LV systolic function with ejection fraction of 58%. 2. Left atrial dilation. 3. Mild tricuspid regurgitation with normal estimated pulmonary artery systolic pressure of 24. 4. Trace of pulmonary insufficiency. Assessment and Plan (1) Acute exacerbation of chronic obstructive airways disease Current visit: Yes Status: Acute (2) Diastolic CHF, acute Problem details: EF 60%-08/16 Current visit: Yes Status: Acute (3) Influenza A (H1N1) Current visit: Yes Status: Acute Assessment and Plan: Assessment Influenza A H1N1 Acute hypoxic respiratory failure Acute diastolic congestive heart failure COPD with exacerbation Hyponatremia - (130) present on admission Obstructive sleep apnea Diabetes mellitus, type II CAD Bipolar affective disorder Hypertension Morbid obesity Pituitary adenoma Plan Continue ventilatory support with BiPAP, Dr. Rolon consulted for assistance due to the severity of patient's respiratory symptoms and recommended BIPAP at night and prn IPAP 18, EPAP 5, rate 5, FiO2 35%. Repeat CXR ordered. Bumex 1mg IV q 8 hrs with increase in creatinine and BUN. Dr Woodard to address if dose change is indicated at this time. Weight down 5.5 kg. Overall improvement in vitals since admission. DVT Prophylaxis: Lovenox Resuscitation Status: Full Code - Physician Narrative Physician: Jammie Woodard MD Narrative: Date: 06/20/17 Time: 2019 I have independently evaluated and examined this patient. I reviewed the chart, the patient's history, and the CHECK PROCESSING CLERK/PA's documented findings as above. We discussed and formulated the assessment and plan as above with additions as below: Suyapa reports that her breathing is improving but she cannot tolerate being off BiPAP very long-nursing reports she becomes anxious when she takes it off but doesn't seem to be in respiratory distress otherwise. She is not wheezing and reports that she's coughing little today. She was able to get some sleep overnight and denies being in pain. She clarify her CODE STATUS indicating she doesn't want to be on a ventilator long-term and CPR and defibrillation can be initiated but she only wants to be shocked twice-I told her that she needs to discuss this with her DPOA so that individual knows when to intervene and discontinue resuscitative efforts. The patient is alert, BiPAP is on but she is able to speak clearly Respirations are nonlabored, decreased airflow, breath sounds clear H1 N1 influenza-Tamiflu initiated Continue supportive care; creatinine up-hold diuretics. Nursing reports patient diuresed well yesterday-urine output not fully charted. Urine culture positive Escherichia coli-sensitivities pending; 0-1 WBC in urine and no urinary symptoms described on admission-Will rediscuss with patient before antibiotics initiated. Hospital Course Summary Disclaimer: The visit summary below is not to be considered part of the above Progress Note. Hospital Course: Assessment Acute hypoxic respiratory failure Acute diastolic congestive heart failure COPD with exacerbation Hyponatremia Obstructive sleep apnea Diabetes mellitus, type II CAD Bipolar affective disorder Hypertension Morbid obesity Pituitary adenoma 06/18- - hospital admission Continue ventilatory support with BiPAP, Dr. Rolon consulted for assistance due to the severity of patient's respiratory symptoms. Continue diuresis-changed from furosemide to Bumex to enhance diuresis. Lorazepam added for anxiety in addition to usual BuSpar. Continue steroids for COPD exacerbation in conjunction with breathing treatments initiated overnight. Echocardiogram. Check respiratory viral panel. Multiple home medications to BE continued. Monitor sodium-maybe due to heart failure or psychiatric medications. Lactic acid was noted to be elevated earlier in the day however there is no indication of acute infectious process and hypoxia is probable cause. Discussed with Dr. Rolon. 06/20/17 Continue ventilatory support with BiPAP, Dr. Rolon consulted for assistance due to the severity of patient's respiratory symptoms and recommended BIPAP at night and prn IPAP 18, EPAP 5, rate 5, FiO2 35%. Repeat CXR ordered. Bumex 1mg IV q 8 hrs with increase in creatinine and BUN. Dr Woodard to address if dose change is indicated at this time. Weight down 5.5 kg.
[2017-06-20] MEDS: TRAMADOL 50 MG TABLET PO PRN (19:12)
[2017-06-20] MEDS: PRAMIPEXOLE 0.25 MG TABLET PO SCH (20:25)
[2017-06-20] MEDS: GABAPENTIN 300 MG CAPSULE PO SCH (20:27)
[2017-06-20] MEDS: PRIMIDONE 50 MG TABLET PO SCH (20:28)
[2017-06-20] MEDS: INSULIN DETEMIR 100unit/ml INJECTION SQ SCH (20:29)
[2017-06-20] MEDS: ZOLPIDEM 10 MG TABLET PO SCH (20:29)
[2017-06-20] MEDS: INSULIN ASPART 100unit/ml INJECTION SQ PRN (20:30)
--- NOTE | 2017-06-20 21:50 | Pulmonology Progress Note ---
Subjective Interval history: Pt resting in bed on bipap. Wakes to voice, stil with some SOB noted, + cough noted. Exam Vital signs: Temperature 97.1 F 06/20/17 16:00 Pulse Rate 80 06/20/17 16:00 Respiratory Rate 24 06/20/17 19:33 Blood Pressure 111/74 06/20/17 16:00 Pulse Oximetry 99 06/20/17 19:33 - Constitutional no acute distress, morbidly obese - Routine HEENT Exam Head: Present: normocephalic, atraumatic Eye: Present: EOMI, PERRL ENT: Present: mucous membranes moist - Routine Neck Exam Present: supple, full ROM, trachea midline - Routine Respiratory Exam Present: accessory muscle use, decreased breath sounds - Routine Cardiovascular Exam Present: RRR, S1, S2, no murmur - Routine Abdominal Exam Present: soft, normoactive bowel sounds - Routine Extremities Exam Present: non tender, full ROM - Routine Back/Spine/Pelvis Exam Back/Spine: Present: full ROM - Routine Skin Exam Present: intact, dry - Routine Neurological Exam Present: alert, oriented X3, CN II-XII intact - Routine Psychiatric Exam Present: normal affect, normal thought process - Urinary Catheter Management Urethral Cath placed during this visit: yes Reason for continuing: Prolonged Immobilization Insertion date: 06/18/17 Insertion time: 22:40 Assessment and Plan - Assessment and Plan Acute Hypoxic Hypercapnic Failure severe COPD EF 37% Influenza A Plan: Pt on bipap IPAP 18, EPAP 5, rate 5, FiO2 35%, tolerating. Continue Bt's with a/ a, + influenza starting tamiflu. Will d/c steroids, follow closely. - Time Spent With Patient Total time spent is greater than 50% in coordination of care (as documented) at patient's floor/unit and/or counseling patient: less than 15 minutes
[2017-06-20] MEDS ORDERED: CABERGOLINE 0.5 MG TABLET PO SCH (22:51)
[2017-06-20] MEDS: ALBUTEROL/IPRATROPIUM 2.5mg-0.5mg/3ml NEB AEROSOL SCH (23:54)
[2017-06-21] MEDS: ALBUTEROL/IPRATROPIUM 2.5mg-0.5mg/3ml NEB AEROSOL SCH ×6 (04:05→22:54)
[2017-06-21] MEDS: INSULIN ASPART 100unit/ml INJECTION SQ PRN ×4 (06:38→20:27)
[2017-06-21] MEDS: ASPIRIN *EC* 81 MG TABLET PO SCH (10:05)
[2017-06-21] MEDS: CIPROFLOXACIN 500 MG TABLET PO SCH ×3 (10:05→20:19)
[2017-06-21] MEDS: PANTOPRAZOLE 40 MG TABLET PO SCH (10:05)
[2017-06-21] MEDS: FOLIC ACID 1 MG TABLET PO SCH (10:05)
[2017-06-21] MEDS: PALIPERIDONE ER 1.5mg TAB PO SCH (10:06)
[2017-06-21] MEDS: ENOXAPARIN 40 MG/0.4 ML INJECTION SQ SCH (10:06)
[2017-06-21] MEDS: BUSPIRONE 15 MG TABLET PO SCH ×3 (10:07→20:19)
[2017-06-21] MEDS: SALINE FLUSH 10ml SYRINGE IVF PRN (10:08)
[2017-06-21] MEDS: TRAMADOL 50 MG TABLET PO PRN (10:54)
[2017-06-21] MEDS ORDERED: BENZONATATE 200 MG CAPSULE PO PRN (11:07)
--- NOTE | 2017-06-21 11:13 | Progress Note ---
- Date 06/21/17 Subjective: Coughing more; requesting something for cough so she can sleep. Not getting OOB yet. Still feels better on CPAP than with NC 02 but breathing improved. Objective Vital signs: Temperature 97.3 F 06/21/17 07:46 Pulse Rate 71 06/21/17 07:46 Respiratory Rate 22 06/21/17 08:15 Blood Pressure 127/76 06/21/17 07:46 Pulse Oximetry 97 06/21/17 08:15 Height/Weight/BMI: Height 1.63 m Weight 104.2 kg - Constitutional Present: no acute distress, obese, cooperative - Routine HEENT Exam Head: Present: normocephalic, atraumatic Eye: Present: PERRL. Absent: conjunctival icterus ENT: Present: mucous membranes moist, oropharynx clear - Routine Respiratory Exam Present: CTA bilaterally, diminished air movement. Absent: rhonchi, wheezes, crackles - Routine Cardiovascular Exam Present: RRR. Absent: murmur - Routine Abdominal Exam Present: soft, non distended, non tender - Routine Extremities Exam Present: edema (trace BLE), pulses intact - Routine Skin Exam Present: dry, warm. Absent: rash - Routine Neurological Exam Present: alert, oriented X3, moving all extremities, normal speech - Routine Psychiatric Exam Present: normal affect Results - Labs CBC & Chem 7: 06/20/17 05:02 06/21/17 04:22 Labs: Urine culture reviewed and + for E. Coli. Microbiology Results: Microbiology 06/20/17 11:40 Sputum, Expectorated Gram Stain - Final 06/20/17 11:40 Sputum, Expectorated Sputum Culture - Preliminary Culture Initiated - Results Pending - ABG Interpretation ABG results: 06/19/17 12:35 ABG pH 7.450 ABG pCO2 45 ABG pO2 104 H ABG HCO3 31 H ABG Total CO2 32.7 H ABG O2 Saturation 98.0 ABG Base Excess 6.4 H Assessment and Plan Assessment and Plan: Assessment Influenza A H1N1/09 Acute hypoxic respiratory failure Acute diastolic congestive heart failure COPD with exacerbation Hyponatremia - (130) present on admission Obstructive sleep apnea Diabetes mellitus, type II CAD Bipolar affective disorder Hypertension Morbid obesity Pituitary adenoma E. Coli UTI, POA Plan Continue ventilatory support with BiPAP, Dr. Rolon consulted for assistance due to the severity of patient's respiratory symptoms and recommended BIPAP at night and prn IPAP 18, EPAP 5, rate 5, FiO2 35%. Repeat CXR pending and will assess when resulted. Continue current diuretic dosing and monitor weights. Improving. Add Tessalon perles for ongoing and worsening cough. Add cipro 500 mg TID x 5 days for UTI. Overall improvement since admission but debilitated; will have PT assess and encourage activity. - Physician Narrative Narrative: Date: 06/21/17 Time: 1109 Hospital Course Summary Disclaimer: The visit summary below is not to be considered part of the above Progress Note. Hospital Course: Assessment Acute hypoxic respiratory failure Acute diastolic congestive heart failure COPD with exacerbation Hyponatremia Obstructive sleep apnea Diabetes mellitus, type II CAD Bipolar affective disorder Hypertension Morbid obesity Pituitary adenoma 06/18- - hospital admission Continue ventilatory support with BiPAP, Dr. Rolon consulted for assistance due to the severity of patient's respiratory symptoms. Continue diuresis-changed from furosemide to Bumex to enhance diuresis. Lorazepam added for anxiety in addition to usual BuSpar. Continue steroids for COPD exacerbation in conjunction with breathing treatments initiated overnight. Echocardiogram. Check respiratory viral panel. Multiple home medications to BE continued. Monitor sodium-maybe due to heart failure or psychiatric medications. Lactic acid was noted to be elevated earlier in the day however there is no indication of acute infectious process and hypoxia is probable cause. Discussed with Dr. Rolon. 06/20/17 Continue ventilatory support with BiPAP, Dr. Rolon consulted for assistance due to the severity of patient's respiratory symptoms and recommended BIPAP at night and prn IPAP 18, EPAP 5, rate 5, FiO2 35%. Repeat CXR ordered. Bumex 1mg IV q 8 hrs with increase in creatinine and BUN. Dr Woodard to address if dose change is indicated at this time. Weight down 5.5 kg. 06/21/17 Continue ventilatory support with BiPAP, Dr. Rolon consulted for assistance due to the severity of patient's respiratory symptoms and recommended BIPAP at night and prn IPAP 18, EPAP 5, rate 5, FiO2 35%. Repeat CXR pending and will assess when resulted. Continue current diuretic dosing and monitor weights. Improving. Add Tessalon perles for ongoing and worsening cough. Add cipro 500 mg TID x 5 days for UTI. Overall improvement since admission but debilitated; will have PT assess and encourage activity.
--- NOTE | 2017-06-21 13:55 | Pulmonology Progress Note ---
Subjective Interval history: Pt resting in bed on bipap. answers questions. Not very hungry. would like something for her cough. Exam Vital signs: Temperature 97.3 F 06/21/17 07:46 Pulse Rate 68 06/21/17 08:00 Respiratory Rate 23 06/21/17 11:37 Blood Pressure 127/76 06/21/17 07:46 Pulse Oximetry 97 06/21/17 11:37 - Constitutional mild distress, obese - Routine HEENT Exam Head: Present: normocephalic Eye: Absent: conjunctival icterus - Routine Respiratory Exam Present: decreased breath sounds, prolonged expiratory phase - Routine Cardiovascular Exam Present: RRR - Urinary Catheter Management Urethral Cath placed during this visit: yes Insertion date: 06/18/17 Insertion time: 22:40 Assessment and Plan (1) Acute respiratory failure with hypoxemia Status: Acute Assessment and plan: Tolerating Bipap 18/5, rate 12, FIo2 30%. use at night and prn. when off BIPAP use O2 by nc to keep O2 >90% Current Visit: Yes (2) Acute exacerbation of chronic obstructive airways disease Status: Acute Assessment and plan: Severe COPD, FEV1 37% pred. Nebulized albuterol/iprat q4H [place]. IS when off BIPAP, as she would do well to improve her respiratory efforts. We can use hydrocodone if needed for cough and comfort Current Visit: Yes - Time Spent With Patient Total time spent is greater than 50% in coordination of care (as documented) at patient's floor/unit and/or counseling patient: less than 15 minutes
--- NOTE | 2017-06-21 14:54 | XRay Report ---
Indication: SOA, hypoxia PROCEDURE: XR chest 1V: Encounter: Initial Comparison: 06/18/2017 Findings: Heart size is normal. The lungs are clear. There is no focal opacity to suggest atelectasis or pneumonia. No mediastinal or hilar adenopathy. No pleural effusion. There is no significant tortuosity of the descending thoracic aorta. There is no significant degenerative changes of the thoracic spine. IMPRESSION: No acute process. .
[2017-06-21] MEDS: FUROSEMIDE 40 MG TABLET PO SCH (16:25)
[2017-06-21] MEDS: GABAPENTIN 300 MG CAPSULE PO SCH ×2 (19:38→20:20)
[2017-06-21] MEDS: HYDROCODONE/APAP 5mg/325mg TABLET PO PRN (19:52)
[2017-06-21] MEDS: PRIMIDONE 50 MG TABLET PO SCH ×2 (19:53→20:20)
[2017-06-21] MEDS: ZOLPIDEM 10 MG TABLET PO SCH ×2 (19:55→20:20)
[2017-06-21] MEDS: PRAMIPEXOLE 0.25 MG TABLET PO SCH ×2 (19:56→20:20)
[2017-06-21] MEDS: INSULIN DETEMIR 100unit/ml INJECTION SQ SCH (20:28)
[2017-06-22] MEDS: ALBUTEROL/IPRATROPIUM 2.5mg-0.5mg/3ml NEB AEROSOL SCH ×6 (03:35→20:53)
[2017-06-22] MEDS ORDERED: MAGNESIUM SULFATE 1gm PREMIX 1 GM/100 ML BAG IV ONE (07:37)
[2017-06-22] MEDS: ENOXAPARIN 40 MG/0.4 ML INJECTION SQ SCH (09:11)
[2017-06-22] MEDS: PALIPERIDONE ER 1.5mg TAB PO SCH (09:12)
[2017-06-22] MEDS: CIPROFLOXACIN 500 MG TABLET PO SCH ×2 (09:12→21:23)
[2017-06-22] MEDS: BUSPIRONE 15 MG TABLET PO SCH ×2 (09:12→21:25)
[2017-06-22] MEDS: PANTOPRAZOLE 40 MG TABLET PO SCH (09:13)
[2017-06-22] MEDS: FUROSEMIDE 40 MG TABLET PO SCH ×2 (09:13→16:13)
[2017-06-22] MEDS: ASPIRIN *EC* 81 MG TABLET PO SCH (09:13)
[2017-06-22] MEDS: FOLIC ACID 1 MG TABLET PO SCH (09:13)
--- NOTE | 2017-06-22 11:51 | Progress Note ---
- Date 06/22/17 Subjective: Doing about the same. Still coughing a lot. Has not really been up OOB. Appetite is okay. Tessalon perles did not help with cough but lortab did help some. Objective Vital signs: Temperature 96.1 F L 06/22/17 00:49 Pulse Rate 88 06/22/17 08:00 Respiratory Rate 29 H 06/22/17 11:10 Blood Pressure 154/92 H 06/22/17 00:49 Pulse Oximetry 95 06/22/17 11:10 Height/Weight/BMI: Height 1.63 m Weight 108 kg - Constitutional Present: no acute distress, obese - Routine HEENT Exam Head: Present: normocephalic, atraumatic Eye: Present: EOMI, PERRL. Absent: conjunctival icterus ENT: Present: mucous membranes moist, oropharynx clear - Routine Respiratory Exam Present: decreased breath sounds. Absent: rhonchi, wheezes, crackles - Routine Cardiovascular Exam Present: RRR. Absent: murmur - Routine Abdominal Exam Present: soft, non distended, non tender - Routine Extremities Exam Present: edema (trace BLE) - Routine Skin Exam Present: dry, warm. Absent: rash - Routine Neurological Exam Present: alert, oriented X3, vision grossly intact, hearing grossly intact, normal speech - Routine Psychiatric Exam Present: normal affect Results - Labs CBC & Chem 7: 06/22/17 04:45 06/22/17 04:45 Microbiology Results: Microbiology 06/20/17 11:40 Sputum, Expectorated Gram Stain - Final 06/20/17 11:40 Sputum, Expectorated Sputum Culture - Preliminary Early growth Assessment and Plan Assessment and Plan: Assessment Influenza A H1N1/09 Acute hypoxic respiratory failure Acute diastolic congestive heart failure COPD with exacerbation Hyponatremia - (130) present on admission and stable Obstructive sleep apnea Diabetes mellitus, type II CAD Bipolar affective disorder Hypertension Morbid obesity Pituitary adenoma E. Coli UTI, POA Plan Continue ventilatory support with BiPAP, [place] [address] Rolon consulted for assistance due to the severity of patient's respiratory symptoms and recommended BIPAP at night and prn IPAP 18, EPAP 5, rate 5, FiO2 35%. Will need equipment for home use as well; has ill-fitting CPAP currently. Continue current diuretic dosing and monitor weights. Improving. Continue prn lortab for cough suppression. Added cipro 500 mg TID x 5 days for UTI. Fluid restriction to 1.5L daily, monitor Na, labs ordered for AM. Overall improvement since admission but debilitated; will have PT assess and encourage activity as well as making DC recommendations. DVT Prophylaxis: SCD's Resuscitation Status: Full Code - Physician Narrative Narrative: Date: 06/22/17 Time: 1148 Hospital Course Summary Disclaimer: The visit summary below is not to be considered part of the above Progress Note. Hospital Course: Assessment Acute hypoxic respiratory failure Acute diastolic congestive heart failure COPD with exacerbation Hyponatremia Obstructive sleep apnea Diabetes mellitus, type II CAD Bipolar affective disorder Hypertension Morbid obesity Pituitary adenoma 06/18- - hospital admission Continue ventilatory support with BiPAP, Dr. Rolon consulted for assistance due to the severity of patient's respiratory symptoms. Continue diuresis-changed from furosemide to Bumex to enhance diuresis. Lorazepam added for anxiety in addition to usual BuSpar. Continue steroids for COPD exacerbation in conjunction with breathing treatments initiated overnight. Echocardiogram. Check respiratory viral panel. Multiple home medications to BE continued. Monitor sodium-maybe due to heart failure or psychiatric medications. Lactic acid was noted to be elevated earlier in the day however there is no indication of acute infectious process and hypoxia is probable cause. Discussed with Dr. Rolon. 06/20/17 Continue ventilatory support with BiPAP, Dr. Rolon consulted for assistance due to the severity of patient's respiratory symptoms and recommended BIPAP at night and prn IPAP 18, EPAP 5, rate 5, FiO2 35%. Repeat CXR ordered. Bumex 1mg IV q 8 hrs with increase in creatinine and BUN. Dr Woodard to address if dose change is indicated at this time. Weight down 5.5 kg. 06/21/17 Continue ventilatory support with BiPAP, Dr. Rolon consulted for assistance due to the severity of patient's respiratory symptoms and recommended BIPAP at night and prn IPAP 18, EPAP 5, rate 5, FiO2 35%. Repeat CXR pending and will assess when resulted. Continue current diuretic dosing and monitor weights. Improving. Add Tessalon perles for ongoing and worsening cough. Add cipro 500 mg TID x 5 days for UTI. Overall improvement since admission but debilitated; will have PT assess and encourage activity. 06/22/17 Continue ventilatory support with BiPAP, NC [address] Rolon consulted for assistance due to the severity of patient's respiratory symptoms and recommended BIPAP at night and prn IPAP 18, EPAP 5, rate 5, FiO2 35%. Will need equipment for home use as well; has ill-fitting CPAP currently. Continue current diuretic dosing and monitor weights. Improving. Continue prn lortab for cough suppression. Added cipro 500 mg TID x 5 days for UTI. Fluid restriction to 1.5L daily, monitor Na, labs ordered for AM. Overall improvement since admission but debilitated; will have PT assess and encourage activity as well as making DC recommendations.
[2017-06-22] MEDS: INSULIN ASPART 100unit/ml INJECTION SQ PRN (21:23)
[2017-06-22] MEDS: INSULIN DETEMIR 100unit/ml INJECTION SQ SCH (21:23)
[2017-06-22] MEDS: GABAPENTIN 300 MG CAPSULE PO SCH (21:24)
[2017-06-22] MEDS: PRAMIPEXOLE 0.25 MG TABLET PO SCH (21:24)
[2017-06-22] MEDS: PRIMIDONE 50 MG TABLET PO SCH (21:25)
[2017-06-22] MEDS: HYDROCODONE/APAP 5mg/325mg TABLET PO PRN (21:25)
[2017-06-22] MEDS: ZOLPIDEM 10 MG TABLET PO SCH (21:25)
[2017-06-22] MEDS: SALINE FLUSH 10ml SYRINGE IVF PRN (21:26)
[2017-06-23] MEDS: ALBUTEROL/IPRATROPIUM 2.5mg-0.5mg/3ml NEB AEROSOL SCH ×4 (01:05→15:08)
[2017-06-23] MEDS: ALBUTEROL 2.5mg/3ml (0.083%) NEB AEROSOL PRN (03:30)
[2017-06-23] MEDS: HYDROCODONE/APAP 5mg/325mg TABLET PO PRN ×2 (04:20→13:15)
[2017-06-23] MEDS: PALIPERIDONE ER 1.5mg TAB PO SCH (08:36)
[2017-06-23] MEDS: PANTOPRAZOLE 40 MG TABLET PO SCH (08:37)
[2017-06-23] MEDS: FUROSEMIDE 40 MG TABLET PO SCH ×2 (08:37→16:44)
[2017-06-23] MEDS: CIPROFLOXACIN 500 MG TABLET PO SCH (08:38)
[2017-06-23] MEDS: FOLIC ACID 1 MG TABLET PO SCH (08:38)
[2017-06-23] MEDS: BUSPIRONE 15 MG TABLET PO SCH (08:38)
[2017-06-23] MEDS: ASPIRIN *EC* 81 MG TABLET PO SCH (08:38)
[2017-06-23] MEDS: ENOXAPARIN 40 MG/0.4 ML INJECTION SQ SCH (08:39)
[2017-06-23] MEDS: SALINE FLUSH 10ml SYRINGE IVF PRN (08:40)
--- NOTE | 2017-06-23 11:02 | Pulmonology Progress Note ---
Subjective Interval history: Pt resting in bed on o2 at 3L per NC, states stable cough and SOB noted, wanting to go home. Exam Vital signs: Temperature 97.9 F 06/23/17 08:25 Pulse Rate 85 06/23/17 08:25 Respiratory Rate 23 06/23/17 08:25 Blood Pressure 128/73 06/23/17 08:25 Pulse Oximetry 94 06/23/17 08:25 - Constitutional no acute distress, morbidly obese - Routine HEENT Exam Head: Present: normocephalic, atraumatic Eye: Present: EOMI, PERRL - Routine Neck Exam Present: supple, full ROM, trachea midline - Routine Respiratory Exam Present: decreased breath sounds - Routine Cardiovascular Exam Present: RRR, S1, S2, no murmur - Routine Abdominal Exam Present: soft, normoactive bowel sounds - Routine Extremities Exam Present: no edema, non tender, full ROM - Routine Back/Spine/Pelvis Exam Back/Spine: Present: full ROM - Routine Skin Exam Present: intact, dry - Routine Neurological Exam Present: alert, oriented X3, CN II-XII intact - Routine Psychiatric Exam Present: normal affect, normal thought process - Urinary Catheter Management Urethral Cath placed during this visit: yes Insertion date: 06/18/17 Insertion time: 22:40 Assessment and Plan - Assessment and Plan Acute Hypoxic Hypercapnic Failure severe COPD EF 37% Influenza A UTI Plan: Pt on O2 at 3L per NC (uses 2L at home) bipap f 10, IPAP 15, EPAP 5, rate 5, FiO2 30%, tolerating. Continue Bt's with a/a, + influenza and on tamiflu. on Cipro for UTI. Will need to continue on home a/a prn, would recommend cont home prednisone 10mg daily and stiolto at discharge with a follow up in 2-3 weeks. - Time Spent With Patient Total time spent is greater than 50% in coordination of care (as documented) at patient's floor/unit and/or counseling patient: less than 15 minutes
[2017-06-23] MEDS: INSULIN ASPART 100unit/ml INJECTION SQ PRN ×2 (11:17→14:23)
[2017-06-23 15:51] VITALS: BP 120/79; RESP 20; TEMP 96.4; O2SAT 98
--- NOTE | 2017-06-23 17:10 | Discharge Summary ---
Discharge Summary- Blank Discharge Summary: Suyapa was seen earlier this afternoon after she told case management that she wants to go home today. She was seen earlier today by pulmonary and she was felt stable for discharge with follow-up in 2-3 weeks. Suyapa reports that she's been off BiPAP for several hours at a time and she denies ongoing dyspnea. Her appetite is good. Oxygen saturation is well maintained at 2 L when she is off BiPAP. She had no concerns. I advised her that Diop catheter will have to be removed prior to discharge to make sure she is able to void spontaneously. This was done and she voided about 1 hour later without difficulty. On examination the patient was alert and speech was fluent. Respirations were nonlabored with decreased breath sounds/airflow throughout but no wheezing was present. Extremities are without edema and abdomen is benign. Stable for discharge with outpatient follow-up with Rafaela Rosales in one week and pulmonary follow-up in 2-3 weeks. Full discharge summary to follow.
[2017-06-23 18:06] VITALS: PULSE 75
--- NOTE | 2017-06-23 23:14 | Discharge Summary ---
Discharge Information Date of admission: 06/18/17 23:03 Anticipated date of discharge: 06/23/17 Attending Physician: Jammie Woodard MD Primary care physician: Rafaela Adams APRN Consults: Consulting Provider: Pankaj Rolon Reason For Exam: resp failure - Discharge Diagnosis (1) Acute respiratory failure with hypoxemia Status: Acute (2) Acute exacerbation of chronic obstructive airways disease Status: Acute (3) Influenza A (H1N1) Status: Acute Influenza A - H1N1 Acute hypoxic respiratory failure; chronic hypoxic/hypercarbic respiratory failure Acute diastolic congestive heart failure COPD with acute exacerbation Hyponatremia -POA/chronic Obstructive sleep apnea Diabetes mellitus, type II CAD Bipolar affective disorder Hypertension Morbid obesity Pituitary adenoma E. Coli UTI, POA Nicotine dependence - Procedures Procedures: Echocardiogram on 06/19/17: This is a two-dimensional echo with spectral Doppler, color-flow and M-mode. It was obtained in a patient with congestive heart failure. Left atrium is dilated. Left ventricular end-diastolic dimension is normal. Left ventricle wall thickness is normal. LV systolic function is normal with ejection fraction of 58%. Right atrium is normal. Right ventricle is normal. Aortic root dimension is normal. Mitral valve is morphologically normal. Aortic valve appears to be normal but it was not visualized well. Tricuspid valve shows mild tricuspid regurgitation with normal estimated pulmonary artery systolic pressure of 24. Pulmonary valve shows trace of pulmonary insufficiency. There is no pericardial effusion. IMPRESSION 1. Normal LV systolic function with ejection fraction of 58%. 2. Left atrial dilation. 3. Mild tricuspid regurgitation with normal estimated pulmonary artery systolic pressure of 24. 4. Trace of pulmonary insufficiency. - Laboratory Labs: On 06/18/17 (admission) white count 9.4, hemoglobin 12.2; d-dimer 154, sodium 130 , creatinine 0.7, normal liver enzymes. ProBNP 1070. Initial influenza swab was negative. Respiratory viral panel on 06/19/17 positive for influenza A-H1N1 06/23/17 04:49 06/23/17 04:49 - Microbiology Microbiology 06/20/17 11:40 Sputum, Expectorated Gram Stain - Final 06/20/17 11:40 Sputum, Expectorated Sputum Culture - Preliminary Staphylococcus aureus Normal Respiratory Brianna Urine culture 06/18/17 > 100,000 CFU Escherichia coli resistant to ampicillin and Bactrim, intermediate sensitivity to Augmentin Blood cultures 2 drawn 06/18/17 negative after 5 days - Radiology Radiology: Chest x-ray on admission demonstrated findings of COPD but no acute abnormalities; follow-up film on 06/20 was unchanged. History of Present Illness HPI: Suyapa is a pleasant 62-year-old female patient with known COPD, oxygen dependent, she uses BiPAP at night with 2 L by nasal cannula during the day. She has been progressively short of air for 2-3 days, she stops tasting taking her Lasix prior to that. She presented to the emergency department complaining of shortness of air, her blood pressure was 203/89 and she had hypoxia worse than baseline. Her chest x-ray showed evidence of pulmonary vascular congestion, she was given intravenous Lasix A Diop catheter was placed and she is admitted for further evaluation and management. Objective Vital signs: Temperature 96.4 F L 06/23/17 15:42 Pulse Rate 75 06/23/17 16:00 Respiratory Rate 20 06/23/17 15:42 Blood Pressure 120/79 06/23/17 15:42 Pulse Oximetry 98 06/23/17 15:42 Height/Weight/BMI: Height 1.63 m Weight 105.2 kg Hospital Course This is a general summary of the patient's hospital course. For more details refer to the complete medical record. Hospital course: Hospital course 06/18/17-06/19/17 - hospital admission Continue ventilatory support with BiPAP, Dr. Rolon consulted for assistance due to the severity of patient's respiratory symptoms. Continue diuresis-changed from furosemide to Bumex to enhance diuresis. Lorazepam added for anxiety in addition to usual BuSpar. Continue steroids for COPD exacerbation in conjunction with breathing treatments initiated overnight. Echocardiogram. Check respiratory viral panel. Multiple home medications to BE continued. Monitor sodium-maybe due to heart failure or psychiatric medications. Lactic acid was noted to be elevated earlier in the day however there is no indication of acute infectious process and hypoxia is probable cause. Discussed with Dr. Rolon. 06/20/17 Continue ventilatory support with BiPAP, Dr. Rolon consulted for assistance due to the severity of patient's respiratory symptoms and recommended BIPAP at night and prn IPAP 18, EPAP 5, rate 5, FiO2 35%. Repeat CXR ordered. Bumex 1mg IV q 8 hrs and diuresing well. Weight down 5.5 kg. 06/21/17 Continue ventilatory support with BiPAP, Dr. Rolon consulted for assistance due to the severity of patient's respiratory symptoms and recommended BIPAP at night and prn IPAP 18, EPAP 5, rate 5, FiO2 35%. Repeat CXR pending and will assess when resulted. Lasix resumed, continues to diurese well. Respiratory status improved. Add Tessalon perles for ongoing and worsening cough. Add cipro 500 mg TID x 5 days for UTI. Overall improvement since admission but debilitated; will have PT assess and encourage activity. 06/22/17 Continue ventilatory support with BiPAP, NC [address] Rolon consulted for assistance due to the severity of patient's respiratory symptoms and recommended BIPAP at night and prn IPAP 18, EPAP 5, rate 5, FiO2 35%. Will need equipment for home use as well; has ill-fitting CPAP currently. Continue current diuretic dosing and monitor weights. Improving. Continue prn lortab for cough suppression. Added cipro 500 mg TID x 5 days for UTI. Fluid restriction to 1.5L daily, monitor Na, labs ordered for AM. Overall improvement since admission but debilitated; will have PT assess and encourage activity as well as making DC recommendations. 06/23/17-discharge Suyapa reports that dyspnea has improved significantly and that she is tolerating several hours off BiPAP at a time. She is on 2 L supplemental oxygen with will maintain saturations when off BiPAP. 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 She denies dyspnea or increased anxiety when on nasal cannula oxygen and is eating well. Diop catheter was removed and the patient was able to void spontaneously. On examination the patient was alert and speech was fluent. Respirations were nonlabored with decreased breath sounds/airflow throughout but no wheezing was present. Extremities are without edema and abdomen is benign. Stable for discharge with outpatient follow-up with Rafaela Adams APRN in one week and pulmonary follow-up in 2-3 weeks. Patient will continue home BiPAP at prior settings and 2 L supplemental oxygen when off BiPAP. Prednisone was decreased to 10 mg daily and she will resume stiolto at discharge. She will continue furosemide at 40 mg daily to help with fluid management, electrolytes should be reassessed on follow-up in the office in approximately one week. The patient will remain on Cipro for the Escherichia coli UTI and will complete 5 day course of Tamiflu for influenza A. Remainder of home medications have been resumed as previously prescribed. Time spent with patient: discharge greater than 30 minutes Resuscitation Status: Full Code Discharge Plan - Discharge Disposition Discharge Date: 06/23/17 Disposition: 01 Discharged Home, Self-Care *Condition: Stable Reason For Visit (Visit label in EMR): SOA - Discharge Medications *Discharge Medications: New Furosemide [Lasix] 40 mg PO DAILY #30 tab Oseltamivir Cap [Tamiflu] 75 mg PO BID #4 cap Ciprofloxacin [Cipro] 500 mg PO Q12HR #5 tab Continue Acetaminophen 650 mg PO Q4H PRN PRN Reason: Pain Folic Acid [Folate] 1 mg PO DAILY Potassium Chloride 10 meq PO DAILY CloNIDine [Catapres] 0.1 mg PO DAILY PredniSONE [Deltasone] 10 mg PO DAILY Albuterol/Ipratropium [Duoneb] 1 unit AEROSOL Q6H PRN PRN Reason: Shortness Of Air Pantoprazole Tab [Protonix Tab] 40 mg PO DAILY Tramadol [Ultram] 50 mg PO Q6H PRN PRN Reason: Pain Primidone [Mysoline] 150 mg PO HS Albuterol Sulfate [Proair Hfa] 1 spray INH PRN PRN PRN Reason: Shortness Of Air Metformin [Glucophage] 500 mg PO BIDWM Fluticasone HFA [Flovent Hfa 220 mcg] 1 - 2 puff INH Q2-4HR Nitroglycerin [Nitrostat] 0.4 mg SL Q5M PRN PRN Reason: Chest Pain Cabergoline [Dostinex] 1 mg PO TuFr #0 Gabapentin 300 mg PO HS #0 Metoprolol Succinate 100 mg PO DAILY #0 Buspirone HCl 7.5 mg PO BID #0 Cyproheptadine HCl 1 - 2 tab PO HS PRN #0 PRN Reason: Insomnia Pramipexole Di-HCl [Pramipexole Dihydrochloride] 0.375 mg PO HS Paliperidone [Paliperidone ER] 9 mg PO DAILY Zolpidem [Ambien] 10 mg PO HS Aspirin [Adult Aspirin Regimen] 81 mg PO DAILY Cholestyramine Packet [Questran Light] 4 g PO BID - Discharge Packet/Instructions *Diet: Regular diet. Restrict fluids to no more than 1500 mL per day (1.5 L) *Activity: As tolerated *Pain Management/Treatment: n/a *Wound Care: n/a Additional Instructions: Take Cipro for urinary infection - 1 pill 2x a day until gone. Take Tamiflu for influenza - 1 pill 2x a day until gone. Take furosemide (Lasix) daily (diuretic) *Expected Signs/Symptoms: Continued improvement *Notify Physician if: You develop fever or become increasingly short of breath *During Business Hours Contact: [facility] *After Business Hours Contact: [facility] and follow after-hours instructions *Pending Lab/Results: No Pending Lab - Referrals/Follow Up *Referrals/Follow Up: Pankaj Rolon MD [Physician] - (2-3 weeks ) Rafaela Adams APRN [Primary Care Provider] - 1 Week (sched pt to see Rafaela in 1 wk - needs BMP at that visit. appointment with rafaela adams APRN on 06/30/2017 AT 10:30 AM (CHECK IN 10:15 AM ) office number [phone] have bmp lab draw that day) - Patient Handouts Patient Handouts: Shortness of Breath (GEN) - Dismissal Complete Discharge Instructions are:: Complete Physician Narrative - Narrative Attestation Narrative: Date: 06/23/17 Time: 2771
== END 2017-06-23 17:57 | disposition home or self-care (01) | DRG 190 ==
LOC: ED 20:05 → MED 23:03
PROVIDERS: ADMIT Internal Medicine; ATTEND Internal Medicine

== ENCOUNTER 2017-07-02 17:46 | Inpatient (IN) ==
[2017-07-02 17:57] VITALS: BMI 38.2
[2017-07-02] MEDS ORDERED: METHYLPREDNISOLONE SOD SUCC 125mg/2ml INJECTION IVP SCH (18:00)
[2017-07-02] MEDS ORDERED: ALBUTEROL/IPRATROPIUM 2.5mg-0.5mg/3ml NEB AEROSOL PRN (18:39)
[2017-07-02] MEDS ORDERED: CYPROHEPTADINE 4 MG TABLET PO PRN (18:39)
[2017-07-02] MEDS ORDERED: NITROGLYCERIN 0.4 MG SUBLINGUAL TABLET SL PRN (18:39)
[2017-07-02] MEDS ORDERED: ACETAMINOPHEN 325 MG TABLET PO PRN (18:39)
[2017-07-02] MEDS ORDERED: BISACODYL 10 MG SUPPOSITORY RECTALLY PRN (18:42)
--- NOTE | 2017-07-02 19:12 | History & Physical Report ---
History of Present Illness Date: 07/02/17 Chief complaint: acute on chronic respiratory failure, generalized weakness HPI: Suyapa Barr is a 62-year-old patient of Rafaela Rosales APRN, who is well known to the hospitalist service from her prior admissions. She was recently admitted from June 18 through the for acute respiratory failure with hypoxemia, acute exacerbation of COPD and influenza A. She was discharged home on 06/23/17 and reports continued increased dyspnea despite taking home medications as directed and completing the course of Levaquin while continuing on the prednisone as directed. She does have a history of chronic COPD and is dependent on oxygen at home at 2L. She reports that over the past few days, she has had to increase her home oxygen to 3L due to her increased dyspnea. During her acute hospitalization, she was seen by Dr. Rolon who recommended continued use of her home BiPAP as well as home breathing treatments with prednisone 10mg daily and to follow up in clinic in 2-3 weeks. She was discharged home on 3L NC. She states that since her discharge, she has continued to have increased difficulty breathing. She denies any fevers, chills , cough, congestion, abdominal pain, nausea, vomiting or dysuria. She does admit to occasional right sided chest pain with deep breathing. She has been seen multiple times in the ED since her discharge on 06/23/17 due to concerns of increased difficulty breathing. During her ED visits, she was thoroughly evaluated and given IV steroids with nebulized treatments resulting in improvement and discharge home. She is noted to have several comorbidities including coronary artery disease, hypertension, diabetes, nicotinic dependence , COPD in addition to obstructive sleep apnea. She was seen by her PCP today, , for follow up from her recent hospitalization. She reports that she was "having a good day" but her doctor "heard something in her right lung" and felt that she needed to be readmitted as a direct admit. She presented to [facility] for direct admission. Dr. Anton was consulted and she was admitted into observation status for further evaluation and close respiratory monitoring. Review of Systems All systems PM: 10-point ROS was reviewed, no additional remarkable complaints except - Constitutional Constitutional: Present: weakness (generalized). Absent: chills, fatigue, fever (s), headache(s), increased appetite, malaise - EENMT Eyes: Absent: blurry vision, loss of vision, photophobia Ears: Absent: ear pain Balance: Absent: falling to one side Nose: Absent: nosebleeds Mouth/Throat: Absent: sore throat, changes in swallowing - Cardiovascular Cardiovascular: Present: dyspnea on exertion. Absent: chest pain, palpitations , syncope, orthopnea, edema Rhythm: Present: regular rhythm Vascular: Absent: pallor of an extermity, pedal edema - Respiratory Respiratory: Present: dyspnea, dyspnea on exertion, wheezing, pain on inspiration. Absent: cough, hemoptysis, chest congestion, excessive phlegm production - Gastrointestinal Gastrointestinal: Absent: abdominal pain, diarrhea, hematemesis, hematochezia, melena, nausea, vomiting - Genitourinary Genitourinary: Absent: dysuria, flank pain, hematuria - Musculoskeletal Musculoskeletal: Present: muscle weakness. Absent: back pain, deformity - Integumentary/Breasts Integumentary: Absent: rash - Neurological Neurological: Present: tremor(s), weakness. Absent: confusion, convulsions, dizziness, focal weakness, headache(s) - Psychiatric Psychiatric: Present: other (bipolar). Absent: behavioral changes, depression - Endocrine Endocrine: Absent: flushing, heat intolerance, palpitations - Hematologic/Lymphatic Hematologic/Lymphatic: Absent: easy bruising - Allergic/Immunologic Allergic/Immunologic: Present: seasonal rhinorrhea Past Medical History Patient Stated Medical History Cerebrovascular Accident Yes: 2000 Hypertension Yes Myocardial Infarction Yes: PT IS VAGUE/UNSURE REGARDING DETAILS Asthma Yes Chronic Obstructive Pulmonary Yes Disease (COPD) Sleep Apnea Yes: Uses a Bipap occasionally at home. Other Respiratory Yes: EMPHYSEMA Diabetes Mellitus Type 2 Yes Gastroesophageal Reflux Yes Disease Hx Renal Disease Yes Anemia Yes Osteoarthritis Yes Other Musculoskeletal Yes: osteopenia MRSA Yes: HX PREVIOUS SORES ON BACK/BUTTOCKS. Blood Transfusions Yes Bipolar Disorder Yes Substance Use Disorder Yes: NICOTINE DEPENDENCE Surgical History: appendix. colonoscopy. gallbladder. hernia. tonsils. cardiac cath. hysterectomy. carpal tunnel. knee. shoulder Family History Updates: Family History (Last Updated 06/19/17 @ 18:20 by Jammie Woodard MD). Mother. COPD (chronic obstructive pulmonary disease) . Brother. COPD (chronic obstructive pulmonary disease) - Social History Smoking status: Current every day smoker Packs per day: 1.5 Packs-years: 50 Time spent discussing smoking cessation with patient: 3 to 10 minutes Substance use type: does not use Alcohol intake frequency: does not drink Housing: house Household members: caregiver Current occupational status: disabled Does patient use chewing tobacco?: No Current residence: Apartment/Private Home Social history: PCP - Rafaela Rosales APRN. Sarika - Dr. Rolon. Medications Home Medications Medication Instructions Recorded Confirmed Type Cabergoline [Dostinex] 1 mg PO TuFr #0 06/19/12 07/02/17 History Gabapentin 300 mg PO HS #0 07/01/16 07/02/17 History Metoprolol Succinate 100 mg PO DAILY #0 07/15/16 07/02/17 History Buspirone HCl 7.5 mg PO BID #0 08/09/16 07/02/17 History Cyproheptadine HCl 1 - 2 tab PO HS PRN #0 08/22/16 07/02/17 History Pramipexole Di-HCl [Pramipexole 0.375 mg PO HS 12/04/16 07/02/17 History Dihydrochloride] Acetaminophen 650 mg PO Q4H PRN 01/05/17 07/02/17 History Paliperidone [Paliperidone ER] 9 mg PO DAILY 01/05/17 07/02/17 History CloNIDine [Catapres] 0.1 mg PO DAILY 05/02/17 07/02/17 History Folic Acid [Folate] 1 mg PO DAILY 05/02/17 07/02/17 History Potassium Chloride 10 meq PO DAILY 05/02/17 07/02/17 History Zolpidem [Ambien] 10 mg PO HS 05/02/17 07/02/17 History Albuterol Sulfate [Proair Hfa] 1 spray INH PRN PRN 06/18/17 07/02/17 History Aspirin [Adult Aspirin Regimen] 81 mg PO DAILY 06/18/17 07/02/17 History Cholestyramine Packet [Questran 4 g PO BID 06/18/17 07/02/17 History Light] Fluticasone HFA [Flovent Hfa 220 1 - 2 puff INH Q2-4HR 06/18/17 07/02/17 History mcg] Metformin [Glucophage] 500 mg PO BIDWM 06/18/17 07/02/17 History Nitroglycerin [Nitrostat] 0.4 mg SL Q5M PRN 06/18/17 07/02/17 History Pantoprazole Tab [Protonix Tab] 40 mg PO DAILY 06/18/17 07/02/17 History Primidone [Mysoline] 150 mg PO HS 06/18/17 07/02/17 History Tramadol [Ultram] 50 mg PO Q6H PRN 06/18/17 07/02/17 History Allergies Allergy/AdvReac Type Severity Reaction Status Date / Time Influenza Virus Vaccines Allergy Severe DYSPNEA Verified 07/02/17 17:59 lisinopril Allergy Intermediate TONGUE Verified 07/02/17 17:59 SWELLING Iodinated Contrast- Oral and Allergy Mild RASH Verified 07/02/17 17:59 IV Dye asenapine Allergy Unknown Verified 07/02/17 17:59 duloxetine [From Cymbalta] Allergy Unknown Verified 07/02/17 17:59 hydromorphone [From Dilaudid] Allergy Unknown Verified 07/02/17 17:59 iodine Allergy Unknown Verified 07/02/17 17:59 Sulfa (Sulfonamide Allergy Unknown RASH Verified 07/02/17 17:59 Antibiotics) venlafaxine Allergy Unknown Verified 07/02/17 17:59 lurasidone AdvReac Intermediate INCREASED Verified 07/02/17 17:59 SODIUM adhesive AdvReac Unknown Verified 07/02/17 17:59 cephalexin AdvReac Unknown VOMITING Verified 07/02/17 17:59 morphine AdvReac Unknown SWELLING Verified 07/02/17 17:59 SHELLFISH Allergy Severe Allergic Uncoded 07/02/17 17:59 Asthmatic Reaction Exam Vital Signs: Temperature 98.1 F 07/02/17 17:54 Pulse Rate 98 07/02/17 17:54 Respiratory Rate 22 07/02/17 17:54 Blood Pressure 154/68 H 07/02/17 17:54 Pulse Oximetry 96 07/02/17 17:54 Height/Weight/BMI: Height 5 ft 5 in Weight 229 lb 15.074 oz Body Mass Index 38.2 Comments: Patient seen shortly after arrival to room #137. She is resting in bed and noted to have increased respiratory effort despite being on 3L NC. - Constitutional Present: mild distress, well nourished, well developed, morbidly obese, cooperative - Routine HEENT Exam Head: Present: normocephalic, atraumatic Eye: Present: PERRL. Absent: conjunctival icterus ENT: Present: mucous membranes dry - Routine Neck Exam Present: supple, full ROM, trachea midline - Routine Chest/Breast/Axilla Exam Chest wall: Absent: tenderness - Routine Respiratory Exam Present: accessory muscle use, dyspnea, decreased breath sounds, prolonged expiratory phase, respiratory distress, wheezes Comments: no cough. - Routine Cardiovascular Exam Present: RRR, S1, S2, no murmur - Routine Abdominal Exam Present: soft, normoactive bowel sounds, non distended, non tender Comments: obese. - Routine Extremities Exam Present: no edema, non tender, full ROM, pulses intact - Routine Back/Spine/Pelvis Exam Back/Spine: Present: full ROM. Absent: vertebral tenderness - Routine Skin Exam Present: intact, dry, warm. Absent: jaundice Comments: afebrile - Routine Neurological Exam Present: alert, oriented X3, moving all extremities, normal speech. Absent: facial asymmetry - Routine Psychiatric Exam Present: cooperative Results - Labs CBC & Chem 7: 07/02/17 18:23 07/02/17 18:23 Microbiology Results: Microbiology 07/02/17 18:23 Peripheral/Iv Start Blood Culture - Preliminary Culture Initiated - Results Pending 07/02/17 18:29 Peripheral/Iv Start Blood Culture - Preliminary Culture Initiated - Results Pending Assessment and Plan (1) Acute and chronic respiratory failure Current visit: Yes Status: Acute (2) Hyponatremia Current visit: No Status: Acute (3) Hypokalemia Current visit: Yes Status: Acute (4) Hypomagnesemia Current visit: Yes Status: Acute Assessment and Plan: Assessment Acute on chronic respiratory failure with chronic hypoxia requiring supplemental oxygen at home at 2-3L. COPD exacerbation. Hypokalemia, acute - present on admission. Hypomagnesium, acute - present on admission. Hyponatremia - chronic, present on admission. CHF, diastolic. Obstructive sleep apnea with home BiPAP. Diabetes mellitus, type II. CAD. Bipolar affective disorder. Hypertension. Morbid obesity with BMI >38. Pituitary adenoma. Nicotine dependency. GERD. Chronic anemia. Osteopenia. History of blood transfusion. Plan - 07/02/17 (Admission) Admit to observation status under the care of Dr. Anton. Labs obtained on admission revealed hyponatremia (NA 130), hypokalemia (K 3.5), hyperglycemia (Glu 284), anemia (Hgb 11.3) and thrombocytosis (424). Magnesium sulfate 1gm and additional KCl 10mEq po now. Hyponatremia is noted to be chronic and stable. Will monitor closely. History of diabetes. Hyperglycemia on arrival. Will check A1c in AM. Lactate elevated on admission at 3.1. Suspect elevated lactate is related to home metformin. Will hold metformin and initiate sliding scale insulin. Carb controlled diet. Monitor BGMs closely, especially in light of current steroid use. Monitor serial lactate levels. NS 125cc/hr for hydration. Monitor closely for fluid overload given history of diastolic dysfunction. CXR obtained on admission - results pending. Continue home medications - patient may take own medications. SCDs for DVT prophylaxis. Protonix for GI protection and GERD. Patient may use home CPAP/BiPAP for sleep apnea and as needed. Concern for generalized weakness. Will consult PT/OT for evaluation. Recent history of influenza. Will reassess respiratory panel and place on respiratory precautions. Nebulized treatments QID and Q6H PRN as well as pulmicort BID. Continue home Levaquin for antimicrobial coverage of possible pulmonary pathogens. Solu-Medrol 125mg Q6H for pulmonary inflammation. Nicotine patch and smoking cessation counseling given tobacco dependency. Upon discharge, patient's care will be returned to her PCP, Rafaela Rosales APRN. Patient requests to be a FULL CODE. Sloane Lactic acid returned high at 3.1. Do NOT feel this is due to infectious etiology -not seeing any other evidence for sepsis. Patient is on Metformin -- suspect elevation of lactic acid due more to metformin use. Will hold metformin. DVT Prophylaxis: SCD's GI Prophylaxis: Protonix Resuscitation Status: Full Code - Time spent with patient Time with patient PN: 70 minutes - Physician Narrative Physician: Mark Anton MD Narrative: Date: 07/02/17 Time: 2044 Have independently interviewed and examined pt. Chart reviewed. Case discussed with my PA. Care plan developed with my supervision; agree with above. Was seen in clinic today for hospital/ED follow up. Reports her provider thought she was needing to be in the hospital-was recommending Direct Admit. Pt didn't want to go to hospital-wanted to see how she would do on her own. Unfortunately, that didn't last long. Presents to ED that afternoon for evaluation. Third ED visit in about 4 days. Notes SOA, cough, and congestion. Reports adherent with her medications and working to stop smoking. Lungs: decreased, diffusely wheezing. No distress on O2. CV: regular AB: soft nt HEENT: no thrush Plan: OBS admission. Steroids/neb treatments/acapella/supplemental O2. Discussed with patient about her failing at home-discussed about possible skilled care to help -- does not want to think about that, wants to be able to return home. Will need further discussion. Hospital Course Summary Disclaimer: The visit summary below is not to be considered part of the above Progress Note. Hospital Course: Plan - 07/02/17 (Admission) Admit to observation status under the care of Dr. Anton. Labs obtained on admission revealed hyponatremia (NA 130), hypokalemia (K 3.5), hyperglycemia (Glu 284), anemia (Hgb 11.3) and thrombocytosis (424). Magnesium sulfate 1gm and additional KCl 10mEq po now. Hyponatremia is noted to be chronic and stable. Will monitor closely. History of diabetes. Hyperglycemia on arrival. Will check A1c in AM. Lactate elevated on admission at 3.1. Suspect elevated lactate is related to home metformin. Will hold metformin and initiate sliding scale insulin. Carb controlled diet. Monitor BGMs closely, especially in light of current steroid use. Monitor serial lactate levels. NS 125cc/hr for hydration. Monitor closely for fluid overload given history of diastolic dysfunction. CXR obtained on admission - results pending. Continue home medications - patient may take own medications. SCDs for DVT prophylaxis. Protonix for GI protection and GERD. Patient may use home CPAP/BiPAP for sleep apnea and as needed. Concern for generalized weakness. Will consult PT/OT for evaluation. Recent history of influenza. Will reassess respiratory panel and place on respiratory precautions. Nebulized treatments QID and Q6H PRN as well as pulmicort BID. Continue home Levaquin for antimicrobial coverage of possible pulmonary pathogens. Solu-Medrol 125mg Q6H for pulmonary inflammation. Nicotine patch and smoking cessation counseling given tobacco dependency. Upon discharge, patient's care will be returned to her PCP, Rafaela Rosales APRN. Patient requests to be a FULL CODE.
[2017-07-02] MEDS ORDERED: GLUCOSE ORAL GEL 40% 37.5gm PO PRN (19:30)
[2017-07-02] MEDS: METHYLPREDNISOLONE SOD SUCC 125mg/2ml INJECTION IVP SCH ×2 (19:52→23:50)
[2017-07-02] MEDS: NS 1,000 ML IV SCH (19:53)
[2017-07-02] MEDS: BUDESONIDE INH.SOLN 0.5mg/2ml NEB AEROSOL SCH (20:04)
[2017-07-02] MEDS: ALBUTEROL/IPRATROPIUM 2.5mg-0.5mg/3ml NEB AEROSOL SCH (20:04)
[2017-07-02] MEDS: PRIMIDONE 50 MG TABLET PO SCH (20:34)
[2017-07-02] MEDS: INSULIN ASPART 100unit/ml INJECTION SQ PRN (20:35)
[2017-07-02] MEDS: MAGNESIUM SULFATE 1gm PREMIX 1 GM/100 ML BAG IV SCH ×2 (20:39→22:01)
[2017-07-02] MEDS: CHOLESTYRAMINE LIGHT 4 G PACKET PO SCH (20:39)
[2017-07-02] MEDS: GABAPENTIN 300 MG CAPSULE PO SCH (20:39)
[2017-07-02] MEDS: LORazepam 1 MG TABLET PO PRN (20:39)
[2017-07-03] MEDS: ALBUTEROL 2.5mg/3ml (0.083%) NEB AEROSOL PRN ×4 (02:49→23:00)
[2017-07-03] MEDS: LEVOFLOXACIN 750 MG TABLET PO SCH (05:50)
[2017-07-03] MEDS: METHYLPREDNISOLONE SOD SUCC 125mg/2ml INJECTION IVP SCH ×4 (05:50→23:37)
[2017-07-03] MEDS: NS 1,000 ML IV SCH ×2 (05:59→14:16)
[2017-07-03] MEDS: INSULIN ASPART 100unit/ml INJECTION SQ PRN ×4 (06:00→22:59)
[2017-07-03] MEDS: BUDESONIDE INH.SOLN 0.5mg/2ml NEB AEROSOL SCH ×2 (06:45→18:59)
[2017-07-03] MEDS: ALBUTEROL/IPRATROPIUM 2.5mg-0.5mg/3ml NEB AEROSOL SCH ×4 (06:45→18:59)
[2017-07-03] MEDS ORDERED: METFORMIN 500 MG TABLET PO SCH (08:00)
--- NOTE | 2017-07-03 08:12 | XRay Report ---
Indication: Dyspnea PROCEDURE: XR chest 1V: Encounter: Initial Comparison: June 30, 2017 Findings: Interstitial prominence has improved since the prior study. No lobar consolidation. There is no pleural effusion or pneumothorax. The heart size, pulmonary vascularity and mediastinal contours are unchanged. IMPRESSION: Decreasing interstitial prominence which could be due to atypical/viral pneumonia or mild edema. There is a preliminary report by virtual radiologic. .
[2017-07-03] MEDS: PANTOPRAZOLE 40 MG TABLET PO SCH (09:51)
[2017-07-03] MEDS: ASPIRIN *EC* 81 MG TABLET PO SCH (09:51)
[2017-07-03] MEDS: BUSPIRONE 15 MG TABLET PO SCH ×2 (09:51→21:54)
[2017-07-03] MEDS: CHOLESTYRAMINE LIGHT 4 G PACKET PO SCH ×2 (09:51→21:54)
[2017-07-03] MEDS: FOLIC ACID 1 MG TABLET PO SCH (09:52)
[2017-07-03] MEDS: PALIPERIDONE ER 1.5mg TAB PO SCH (09:52)
[2017-07-03] MEDS: NICOTINE PATCH REMOVAL TD SCH (09:54)
[2017-07-03] MEDS: NICOTINE 14 MG PATCH TD SCH (09:54)
[2017-07-03] MEDS: TRAMADOL 50 MG TABLET PO PRN (09:54)
[2017-07-03] MEDS: PRAMIPEXOLE 0.25 MG TABLET PO SCH ×2 (11:57→21:53)
[2017-07-03] MEDS: LORazepam 1 MG TABLET PO PRN (13:40)
--- NOTE | 2017-07-03 14:27 | Progress Note ---
- Date 07/03/17 Subjective: Patient seen this am before breakfast. She is on Bipap. She reports trouble breathing and back pain. No n/v/f/c. Has been eating well. Objective Vital signs: Temperature 97.6 F 07/03/17 09:44 Pulse Rate 82 07/03/17 09:44 Respiratory Rate 31 H 07/03/17 13:28 Blood Pressure 183/93 H 07/03/17 12:28 Pulse Oximetry 97 07/03/17 13:28 Height/Weight/BMI: Height 1.65 m Weight 106.8 kg Body Mass Index 38.2 - Constitutional Present: no acute distress, well nourished, well developed, disheveled - Routine HEENT Exam Head: Present: normocephalic, atraumatic - Routine Respiratory Exam Present: decreased breath sounds, wheezes, diminished air movement Comments: on BiPAP - Routine Cardiovascular Exam Present: RRR, no murmur - Routine Abdominal Exam Present: soft, non distended, non tender - Routine Extremities Exam Present: no edema, normal capillary refill - Routine Skin Exam Present: dry, warm - Routine Neurological Exam Present: alert, moving all extremities - Routine Lymphatic Exam Lymphatic: Absent: adenopathy - Routine Psychiatric Exam Present: normal affect, cooperative Results - Labs CBC & Chem 7: 07/03/17 04:31 07/03/17 04:31 Microbiology Results: Microbiology 07/02/17 18:23 Peripheral/Iv Start Blood Culture - Preliminary Culture Initiated - Results Pending 07/02/17 18:29 Peripheral/Iv Start Blood Culture - Preliminary Culture Initiated - Results Pending Assessment and Plan (1) Acute and chronic respiratory failure Current visit: Yes Status: Acute (2) Chronic obstructive pulmonary disease with acute exacerbation Current visit: Yes Status: Acute (3) Hypomagnesemia Current visit: Yes Status: Acute Assessment and Plan: Assessment Acute on chronic respiratory failure with chronic hypoxia requiring supplemental oxygen at home at 2-3L. COPD exacerbation. Hypokalemia, acute - present on admission. Hypomagnesium, acute - present on admission. Hyponatremia - chronic, present on admission. CHF, diastolic. Obstructive sleep apnea with home BiPAP. Diabetes mellitus, type II. CAD. Bipolar affective disorder. Hypertension. Morbid obesity with BMI >38. Pituitary adenoma. Nicotine dependency. GERD. Chronic anemia. Osteopenia. History of blood transfusion. Plan Metformin remains on hold. Repeat lactate was WNL. Will resume metformin as pt is eating/drinking well. Magnesium replaced IV yesterday. Start Magnesium 400mg BID p.o. Repeat Mg level in am. Home Lasix resumed. BP's are high, wt is up - may be volume up. DC IVF's. BMP in am. Continues on Levaquin and solumedrol and breathing txs. DVT Prophylaxis: SCD's, Lovenox Resuscitation Status: Full Code - Physician Narrative Physician: Jammie Woodard MD Narrative: Date: 07/03/17 Time: 2144 I have independently evaluated and examined this patient. I reviewed the chart, the patient's history, and the [employer]/PA's documented findings as above. We discussed and formulated the assessment and plan as above with additions as below: Mrs. Barr was on BiPAP when seen. She reported that her lungs are burning and that she can't breathe unless she has BiPAP on. She indicated this is been true since she left the hospital following exacerbation with influenza A approximately 10 days ago. She's been in and out of the emergency room since that time and has been unable to stay off of BiPAP long enough to eat at times. She continues to have some cough with faint yellow sputum but denies fever, nausea, or vomiting. Obese female, appears comfortable on BiPAP. Respirations are nonlabored with diminished breath sounds throughout, anterior lung bone are clear in the upper lung bone and slightly coarse lower There is minor edema at the right lateral malleolus Chest x-ray reviewed by myself and with Dr. Rolon-JANET Treatment plans reviewed with Dr. Rolon, will add gentle diuresis and continue IV steroids and aggressive breathing treatments. Given rapid relapse I suspect patient will require rehabilitation or jail for stabilization for discharge home can be entertained. Converted to inpatient due to ongoing need for aggressive ventilatory support and severity of respiratory symptoms. Hospital Course Summary Disclaimer: The visit summary below is not to be considered part of the above Progress Note. Hospital Course: Plan - 07/02/17 (Admission) Admit to observation status under the care of Dr. Anton. Labs obtained on admission revealed hyponatremia (NA 130), hypokalemia (K 3.5), hyperglycemia (Glu 284), anemia (Hgb 11.3) and thrombocytosis (424). Magnesium sulfate 1gm and additional KCl 10mEq po now. Hyponatremia is noted to be chronic and stable. Will monitor closely. History of diabetes. Hyperglycemia on arrival. Will check A1c in AM. Lactate elevated on admission at 3.1. Suspect elevated lactate is related to home metformin. Will hold metformin and initiate sliding scale insulin. Carb controlled diet. Monitor BGMs closely, especially in light of current steroid use. Monitor serial lactate levels. NS 125cc/hr for hydration. Monitor closely for fluid overload given history of diastolic dysfunction. CXR obtained on admission - results pending. Continue home medications - patient may take own medications. SCDs for DVT prophylaxis. Protonix for GI protection and GERD. Patient may use home CPAP/BiPAP for sleep apnea and as needed. Concern for generalized weakness. Will consult PT/OT for evaluation. Recent history of influenza. Will reassess respiratory panel and place on respiratory precautions. Nebulized treatments QID and Q6H PRN as well as pulmicort BID. Continue home Levaquin for antimicrobial coverage of possible pulmonary pathogens. Solu-Medrol 125mg Q6H for pulmonary inflammation. Nicotine patch and smoking cessation counseling given tobacco dependency. Upon discharge, patient's care will be returned to her PCP, Rafaela Rosales APRN. Patient requests to be a FULL CODE. 07/03/17 Metformin remains on hold. Repeat lactate was WNL. Will resume metformin as pt is eating/drinking well. Magnesium replaced IV yesterday. Start Magnesium 400mg BID p.o. Repeat Mg level in am. Home Lasix resumed. BP's are high, wt is up - may be volume up. DC IVF's. Continues on Levaquin and solumedrol and breathing txs.
--- NOTE | 2017-07-03 15:32 | Pulmonology Consult Note ---
History of Present Illness Consult date: 07/03/17 Requesting physician: Jammie Woodard Reason for consult: dyspnea, COPD Chief complaint: shortness of breath History of present illness: HPI: Suyapa Barr is a 62-year-old patient of Rafaela Rosales APRN, and known to me from pulmonary clinic, first seen on 05/13/18. she was recently hospitalized at [facility] due to acute respiratory failure, COPD and influenza A. The patient is known to have Severe COPD. She has severe COPD with FEV1 37 %. COPD Assessment Test score is 35 This patient is GOLD Stage D and is High risk for exacerbation or complications related to COPD. She is on a treatment regimen of prednisone 10 mg daily, Stiolto 2 puffs daily, albuterol prn. At baseline, the patient is using supplemental Oxygen at 3 lpm to maintain O2sats >90%. The patient is compliant with the use of O2 and benefits from its use. She uses BiPAP at night with 2 L by nasal cannula during the day. She is now admitted due to increasing shortness of breath. She was recently admitted from June 18 through the for acute respiratory failure with hypoxemia, acute exacerbation of COPD and influenza A. She was discharged home on 06/23/17 and reports continued increased dyspnea despite taking home medications as directed and completing the course of Levaquin while continuing on the prednisone as directed. She does have a history of chronic COPD and is dependent on oxygen at home at 2L. She reports that over the past few days, she has had to increase her home oxygen to 3L due to her increased dyspnea. She was discharged home on 3L NC. She states that since her discharge, she has continued to have increased difficulty breathing. She denies any fevers, chills, cough, congestion, abdominal pain, nausea, vomiting or dysuria. She does admit to occasional right sided chest pain with deep breathing. She has been seen multiple times in the ED since her discharge on 06/23/17 due to concerns of increased difficulty breathing. During her ED visits, she was thoroughly evaluated and given IV steroids with nebulized treatments resulting in improvement and discharge home. She is noted to have several comorbidities including coronary artery disease, hypertension, diabetes, nicotinic dependence, COPD in addition to obstructive sleep apnea. She was seen by her PCP today, 07/02/17, for follow up from her recent hospitalization. She reports that she was "having a good day" but her doctor "heard something in her right lung" and felt that she needed to be readmitted as a direct admit. She presented to [facility] ED for direct admission. Dr. Anton was consulted and she was admitted into observation status for further evaluation and close respiratory monitoring. Past Medical History Patient Stated Medical History Cerebrovascular Accident Yes: 1999 Hypertension Yes Myocardial Infarction Yes: PT IS VAGUE/UNSURE REGARDING DETAILS Asthma Yes Chronic Obstructive Pulmonary Yes Disease (COPD) Sleep Apnea Yes: Uses a Bipap occasionally at home. Other Respiratory Yes: EMPHYSEMA Diabetes Mellitus Type 2 Yes Gastroesophageal Reflux Yes Disease Hx Renal Disease Yes Anemia Yes Osteoarthritis Yes Other Musculoskeletal Yes: osteopenia MRSA Yes: HX PREVIOUS SORES ON BACK/BUTTOCKS. Blood Transfusions Yes Bipolar Disorder Yes Substance Use Disorder Yes: NICOTINE DEPENDENCE Surgical History: appendix. colonoscopy. gallbladder. hernia. tonsils. cardiac cath. hysterectomy. carpal tunnel. knee. shoulder Family History Updates: Family History (Last Updated 06/19/17 @ 18:20 by Jammie Woodard MD). Mother. COPD (chronic obstructive pulmonary disease) . Brother. COPD (chronic obstructive pulmonary disease) - Social History Smoking status: Current every day smoker Packs per day: 1.5 Packs-years: 50 Time spent discussing smoking cessation with patient: 3 to 10 minutes Substance use type: does not use Alcohol intake frequency: does not drink Housing: house Household members: caregiver Current occupational status: disabled Does patient use chewing tobacco?: No Current residence: Apartment/Private Home Social history: PCP - Rafaela Rosales APRN. Pulm - Dr. Rolon. Review of Systems All systems: reviewed and no additional remarkable complaints except as stated PFSH Patient Stated Medical History Cerebrovascular Accident Yes: 1999 Hypertension Yes Myocardial Infarction Yes: PT IS VAGUE/UNSURE REGARDING DETAILS Asthma Yes Chronic Obstructive Pulmonary Yes Disease (COPD) Sleep Apnea Yes: Uses a Bipap occasionally at home. Other Respiratory Yes: EMPHYSEMA Diabetes Mellitus Type 2 Yes Gastroesophageal Reflux Yes Disease Hx Renal Disease Yes Anemia Yes Osteoarthritis Yes Other Musculoskeletal Yes: osteopenia MRSA Yes: HX PREVIOUS SORES ON BACK/BUTTOCKS. Blood Transfusions Yes Bipolar Disorder Yes Substance Use Disorder Yes: NICOTINE DEPENDENCE Surgical History: appendix. colonoscopy. gallbladder. hernia. tonsils. cardiac cath. hysterectomy. carpal tunnel. knee. shoulder Family History: Family History (Last Updated 06/19/17 @ 18:20 by Jammie Woodard MD) Mother COPD (chronic obstructive pulmonary disease) Brother COPD (chronic obstructive pulmonary disease) - Social History Current residence: Apartment/Private Home Medications Home Medications Medication Instructions Recorded Confirmed Type Cabergoline [Dostinex] 1 mg PO TuFr #0 06/19/07/02/17 History Gabapentin 300 mg PO HS #0 07/01/16 07/02/17 History Metoprolol Succinate 100 mg PO DAILY #0 07/15/16 07/02/17 History Buspirone HCl 7.5 mg PO BID #0 08/09/16 07/02/17 History Cyproheptadine HCl 1 - 2 tab PO HS PRN #0 08/22/16 07/02/17 History Pramipexole Di-HCl [Pramipexole 0.375 mg PO HS 12/04/16 07/02/17 History Dihydrochloride] Acetaminophen 650 mg PO Q4H PRN 01/05/17 07/02/17 History Paliperidone [Paliperidone ER] 9 mg PO DAILY 01/05/17 07/02/17 History CloNIDine [Catapres] 0.1 mg PO DAILY 05/02/17 07/02/17 History Folic Acid [Folate] 1 mg PO DAILY 05/02/17 07/02/17 History Potassium Chloride 10 meq PO DAILY 05/02/17 07/02/17 History Zolpidem [Ambien] 10 mg PO HS 05/02/17 07/02/17 History Albuterol Sulfate [Proair Hfa] 1 spray INH PRN PRN 06/18/17 07/02/17 History Aspirin [Adult Aspirin Regimen] 81 mg PO DAILY 06/18/17 07/02/17 History Cholestyramine Packet [Questran 4 g PO BID 06/18/17 07/02/17 History Light] Fluticasone HFA [Flovent Hfa 220 1 - 2 puff INH Q2-4HR 06/18/17 07/02/17 History mcg] Metformin [Glucophage] 500 mg PO BIDWM 06/18/17 07/02/17 History Nitroglycerin [Nitrostat] 0.4 mg SL Q5M PRN 06/18/17 07/02/17 History Pantoprazole Tab [Protonix Tab] 40 mg PO DAILY 06/18/17 07/02/17 History Primidone [Mysoline] 150 mg PO HS 06/18/17 07/02/17 History Tramadol [Ultram] 50 mg PO Q6H PRN 06/18/17 07/02/17 History Allergies Allergy/AdvReac Type Severity Reaction Status Date / Time Influenza Virus Vaccines Allergy Severe DYSPNEA Verified 07/02/17 17:59 lisinopril Allergy Intermediate TONGUE Verified 07/02/17 17:59 SWELLING Iodinated Contrast- Oral and Allergy Mild RASH Verified 07/02/17 17:59 IV Dye asenapine Allergy Unknown Verified 07/02/17 17:59 duloxetine [From Cymbalta] Allergy Unknown Verified 07/02/17 17:59 hydromorphone [From Dilaudid] Allergy Unknown Verified 07/02/17 17:59 iodine Allergy Unknown Verified 07/02/17 17:59 Sulfa (Sulfonamide Allergy Unknown RASH Verified 07/02/17 17:59 Antibiotics) venlafaxine Allergy Unknown Verified 07/02/17 17:59 lurasidone AdvReac Intermediate INCREASED Verified 07/02/17 17:59 SODIUM adhesive AdvReac Unknown Verified 07/02/17 17:59 cephalexin AdvReac Unknown VOMITING Verified 07/02/17 17:59 morphine AdvReac Unknown SWELLING Verified 07/02/17 17:59 SHELLFISH Allergy Severe Allergic Uncoded 07/02/17 17:59 Asthmatic Reaction Exam Vital signs: Temperature 97.6 F 07/03/17 09:44 Pulse Rate 82 07/03/17 09:44 Respiratory Rate 31 H 07/03/17 15:00 Blood Pressure 183/93 H 07/03/17 12:28 Pulse Oximetry 97 07/03/17 15:00 - Constitutional mild distress, obese, cooperative - Routine HEENT Exam Head: Present: normocephalic, atraumatic Eye: Absent: conjunctival icterus ENT: Present: mucous membranes moist - Routine Neck Exam Present: supple, full ROM - Routine Respiratory Exam Present: decreased breath sounds, prolonged expiratory phase, wheezes - Routine Cardiovascular Exam Present: RRR - Routine Abdominal Exam Present: soft. Absent: guarding - Routine Extremities Exam Present: edema. Absent: cyanosis, clubbing - Routine Skin Exam Present: intact. Absent: cyanosis - Routine Neurological Exam Present: alert, oriented X3 Results - Laboratory Findings CBC and BMP: 07/03/17 04:31 07/03/17 04:31 Abnormal lab findings: Abnormal Labs 07/02/17 07/02/17 07/02/17 18:23 18:23 21:18 RBC 3.92 L Hgb 11.3 L Hct 34.4 L Plt Count 424 H MPV 8.2 L Neut % (Auto) 80.6 H Lymph % (Auto) 15.2 L Neutrophils % (Manual) Lymphocytes % (Manual) Reactive Lymphs % Lymphocytes # (Manual) Abs React Lymphs (Man) Sodium 130 L Potassium 3.5 L Chloride 91 L Glucose 284 H Hemoglobin A1c Calcium 7.5 L Magnesium 1.0 L Plasma Lactate 3.1 H Urine Glucose (UA) 3+ A 07/03/17 07/03/17 04:31 04:31 RBC Hgb 11.6 L Hct 35.9 L Plt Count 425 H MPV 8.4 L Neut % (Auto) Lymph % (Auto) Neutrophils % (Manual) 91.0 H Lymphocytes % (Manual) 8.0 L Reactive Lymphs % 1.0 H Lymphocytes # (Manual) 0.5 L Abs React Lymphs (Man) 0.1 H Sodium 132 L Potassium Chloride 94 L Glucose 197 H Hemoglobin A1c 6.7 H Calcium 7.9 L Magnesium Plasma Lactate Urine Glucose (UA) Assessment and Plan (1) Acute and chronic respiratory failure with hypoxia Status: Acute Assessment and plan: I agree with the use of BIPAP 13/5, rate 14, FiOF2 30%. Use at night and prn. At present this will reduce her work of breathing and prevent worsening respiratory status. She has home bipap and we will check settings and compliance on dismissal Current Visit: Yes (2) Chronic obstructive pulmonary disease with acute exacerbation Status: Acute Assessment and plan: Severe wheeze and bronchospasm. CXR is clear, I doubt this is "cardiac asthma" due to pulmonary edema. Nevertheless gentle diuresis might be helpful. I agree with with methylpred 125 q6 Neb albuterol/ipratropium q4H VResp is negative at this time, though she just finished treatment for Influenza A Will follow closely Current Visit: Yes - Time Spent With Patient Total time spent is greater than 50% in coordination of care (as documented) at patient's floor/unit and/or counseling patient: 25 - 35 minutes
[2017-07-03] MEDS: FUROSEMIDE 40 MG TABLET PO SCH (16:34)
[2017-07-03] MEDS: METFORMIN 500 MG TABLET PO SCH (16:34)
[2017-07-03] MEDS: PRIMIDONE 50 MG TABLET PO SCH (21:53)
[2017-07-03] MEDS: GABAPENTIN 300 MG CAPSULE PO SCH (21:53)
[2017-07-03] MEDS: MAGNESIUM OXIDE 400 MG TABLET PO SCH (21:54)
[2017-07-04] MEDS: ALBUTEROL 2.5mg/3ml (0.083%) NEB AEROSOL PRN (02:40)
[2017-07-04] MEDS: METHYLPREDNISOLONE SOD SUCC 125mg/2ml INJECTION IVP SCH ×3 (06:09→17:18)
[2017-07-04] MEDS: PANTOPRAZOLE 40 MG TABLET PO SCH ×2 (06:10→06:54)
[2017-07-04] MEDS: LEVOFLOXACIN 750 MG TABLET PO SCH (06:10)
[2017-07-04] MEDS: INSULIN ASPART 100unit/ml INJECTION SQ PRN ×4 (06:45→20:47)
[2017-07-04] MEDS: ALBUTEROL/IPRATROPIUM 2.5mg-0.5mg/3ml NEB AEROSOL SCH ×6 (08:03→23:10)
[2017-07-04] MEDS: BUDESONIDE INH.SOLN 0.5mg/2ml NEB AEROSOL SCH ×2 (08:03→18:46)
[2017-07-04] MEDS ORDERED: FUROSEMIDE 20 MG/2 ML INJECTION IVP SCH (09:00)
[2017-07-04] MEDS: PALIPERIDONE ER 1.5mg TAB PO SCH (09:19)
[2017-07-04] MEDS: NICOTINE 14 MG PATCH TD SCH (09:19)
[2017-07-04] MEDS: MAGNESIUM OXIDE 400 MG TABLET PO SCH ×2 (09:20→20:49)
[2017-07-04] MEDS: FOLIC ACID 1 MG TABLET PO SCH (09:20)
[2017-07-04] MEDS: METFORMIN 500 MG TABLET PO SCH ×2 (09:20→17:19)
[2017-07-04] MEDS: ASPIRIN *EC* 81 MG TABLET PO SCH (09:20)
[2017-07-04] MEDS: BUSPIRONE 15 MG TABLET PO SCH ×2 (09:21→20:49)
[2017-07-04] MEDS: NICOTINE PATCH REMOVAL TD SCH (09:27)
[2017-07-04] MEDS: FUROSEMIDE 40 MG TABLET PO SCH ×2 (09:28→17:18)
[2017-07-04] MEDS: CHOLESTYRAMINE LIGHT 4 G PACKET PO SCH ×2 (09:28→20:49)
[2017-07-04] MEDS: ENOXAPARIN 40 MG/0.4 ML INJECTION SQ SCH (09:28)
--- NOTE | 2017-07-04 10:49 | Pulmonology Progress Note ---
Subjective Principal diagnosis: SOB Interval history: Pt in bed, states her breathing is a little better today. + cough with some sputum noted. Exam Vital signs: Temperature 97.6 F 07/04/17 08:53 Pulse Rate 66 07/04/17 08:53 Respiratory Rate 24 07/04/17 08:53 Blood Pressure 154/90 H 07/04/17 08:59 Pulse Oximetry 100 07/04/17 08:53 - Constitutional no acute distress, morbidly obese, cooperative - Routine HEENT Exam Head: Present: normocephalic, atraumatic Eye: Present: EOMI, PERRL ENT: Present: mucous membranes moist - Routine Neck Exam Present: supple, full ROM, trachea midline - Routine Respiratory Exam Present: decreased breath sounds, wheezes - Routine Cardiovascular Exam Present: RRR, S1, S2, no murmur - Routine Abdominal Exam Present: soft, normoactive bowel sounds - Routine Extremities Exam Present: no edema, non tender, full ROM - Routine Back/Spine/Pelvis Exam Back/Spine: Present: full ROM - Routine Skin Exam Present: intact, dry - Routine Neurological Exam Present: alert, oriented X3, CN II-XII intact - Routine Psychiatric Exam Present: normal affect, normal thought process Assessment and Plan - Assessment and Plan Acute on Chronic Respiratory Failure with hypoxia COPD exacerbation Plan: Pt currently on the bipap settings were at f8 14/6, Vt 700's. changed to 10, 12/ 6. Currently on solumedrol 125mg q6, pulmicort BID and a/a QID. Still noticing wheezing, will change a/a to q4hr and when steroids to 80mg. No new CXR, last without infiltrate noted. Continues on Levaquin po with + sputum, RVP NTD, BC NTD. - Time Spent With Patient Total time spent is greater than 50% in coordination of care (as documented) at patient's floor/unit and/or counseling patient: less than 15 minutes
--- NOTE | 2017-07-04 16:08 | Progress Note ---
- Date 07/04/17 Subjective: Suyapa reports minor improvement in her breathing-she was able to stay off bipap long enough to eat today-but no longer. She denies fever, nausea, or vomiting. She has not been ambulating but is working with physical therapy on bed exercises today. Nursing reports intermittent episodes of anxiety associated with increased dyspnea. Objective Vital signs: Temperature 97.6 F 07/04/17 08:53 Pulse Rate 66 07/04/17 08:53 Respiratory Rate 28 H 07/04/17 13:05 Blood Pressure 154/90 H 07/04/17 08:59 Pulse Oximetry 98 -30% O2, BiPAP 07/04/17 13:05 I/O 1687/1751 Weight up 4 kg from admission NAD, alert Conjunctiva clear, conjugate gaze BiPAP on, speech slightly muffled but can be made out Respirations mildly labored with diminished airflow, faint expiratory wheezing present anterior lung bone Regular rhythm, diminished heart tones Abdomen soft, nontender, bowel sounds present Moving upper extremities symmetrically Height/Weight/BMI: Height 1.65 m Weight 108.2 kg Body Mass Index 38.2 Results - Labs CBC & Chem 7: 07/04/17 04:31 07/04/17 04:31 Labs: S94 B1 L5 Blood sugars [id number] yesterday; fasting 187 this morning Magnesium 1.6 Microbiology Results: Microbiology 07/02/17 18:29 Peripheral/Iv Start Blood Culture - Preliminary No Growth After 1 Day 07/02/17 18:23 Peripheral/Iv Start Gram Stain - Final 07/02/17 18:23 Peripheral/Iv Start Blood Culture - Preliminary Gram Positive Asher Assessment and Plan (1) Acute and chronic respiratory failure Current visit: Yes Status: Acute (2) Chronic obstructive pulmonary disease with acute exacerbation Current visit: Yes Status: Acute (3) Hypomagnesemia Current visit: Yes Status: Acute Assessment and Plan: Assessment Acute on chronic respiratory failure with chronic hypoxia requiring supplemental oxygen at home at 2-3L. COPD exacerbation. 1/2 BC [id number] asher Hypokalemia, acute - present on admission. Hypomagnesium, acute - present on admission. Hyponatremia - chronic, present on admission. CHF, diastolic. Obstructive sleep apnea with home BiPAP. Diabetes mellitus, type II. CAD. Bipolar affective disorder. Hypertension. Morbid obesity with BMI >38. Pituitary adenoma. Nicotine dependency. GERD. Chronic anemia. Osteopenia. History of blood transfusion. Plan Minor progress being made with respect to acute COPD exacerbation, tolerating very brief periods off of BiPAP today. Discussed with pulmonary today-steroid dose decreased somewhat, frequency of albuterol/ipratropium increased to every 4 hours scheduled with additional treatments available if needed. Continue strengthening efforts with PT/OT-patient reluctant to try any exercises outside of bed at this point. Blood culture positive for gram-positive asher--clinically no indication of sepsis ; continue Levaquin and repeat blood cultures today. Suspect contaminant. Diuresis initiated, monitor electrolytes. Increase Lasix to twice daily. Continue magnesium replacement. Sodium remains low normal but stable. Blood pressure is borderline high, continue to monitor with diuresis. Blood sugars remain moderately elevated, metformin resumed yesterday evening; insulin available for correction as needed. - Physician Narrative Narrative: Date: 07/04/17 Time: 1603 Hospital Course Summary Disclaimer: The visit summary below is not to be considered part of the above Progress Note. Hospital Course: Plan - 07/02/17 (Admission) Admit to observation status under the care of Dr. Anton. Labs obtained on admission revealed hyponatremia (NA 130), hypokalemia (K 3.5), hyperglycemia (Glu 284), anemia (Hgb 11.3) and thrombocytosis (424). Magnesium sulfate 1gm and additional KCl 10mEq po now. Hyponatremia is noted to be chronic and stable. Will monitor closely. History of diabetes. Hyperglycemia on arrival. Will check A1c in AM. Lactate elevated on admission at 3.1. Suspect elevated lactate is related to home metformin. Will hold metformin and initiate sliding scale insulin. Carb controlled diet. Monitor BGMs closely, especially in light of current steroid use. Monitor serial lactate levels. NS 125cc/hr for hydration. Monitor closely for fluid overload given history of diastolic dysfunction. CXR obtained on admission - results pending. Continue home medications - patient may take own medications. SCDs for DVT prophylaxis. Protonix for GI protection and GERD. Patient may use home CPAP/BiPAP for sleep apnea and as needed. Concern for generalized weakness. Will consult PT/OT for evaluation. Recent history of influenza. Will reassess respiratory panel and place on respiratory precautions. Nebulized treatments QID and Q6H PRN as well as pulmicort BID. Continue home Levaquin for antimicrobial coverage of possible pulmonary pathogens. Solu-Medrol 125mg Q6H for pulmonary inflammation. Nicotine patch and smoking cessation counseling given tobacco dependency. Upon discharge, patient's care will be returned to her PCP, Rafaela Rosales APRN. Patient requests to be a FULL CODE. 07/03/17 Metformin remains on hold. Repeat lactate was WNL. Will resume metformin as pt is eating/drinking well. Magnesium replaced IV yesterday. Start Magnesium 400mg BID p.o. Repeat Mg level in am. Home Lasix resumed. BP's are high, wt is up - may be volume up. DC IVF's. Continues on Levaquin and solumedrol and breathing txs. 07/04/17 Minor progress being made with respect to acute COPD exacerbation, tolerating very brief periods off of BiPAP today. Discussed with pulmonary today-steroid dose decreased somewhat, frequency of albuterol/ipratropium increased to every 4 hours scheduled with additional treatments available if needed. Continue strengthening efforts with PT/OT-patient reluctant to try any exercises outside of bed at this point. Blood culture positive for gram-positive asher--clinically no indication of sepsis ; continue Levaquin and repeat blood cultures today. Suspect contaminant. Diuresis initiated, monitor electrolytes. Increase Lasix to twice daily.
[2017-07-04] MEDS ORDERED: CABERGOLINE 0.5 MG TABLET PO SCH (18:39)
[2017-07-04] MEDS: PRAMIPEXOLE 0.25 MG TABLET PO SCH (20:48)
[2017-07-04] MEDS: PRIMIDONE 50 MG TABLET PO SCH (20:48)
[2017-07-04] MEDS: GABAPENTIN 300 MG CAPSULE PO SCH (20:49)
[2017-07-05] MEDS: METHYLPREDNISOLONE SOD SUCC 125mg/2ml INJECTION IVP SCH ×2 (00:07→04:44)
[2017-07-05] MEDS: ALBUTEROL/IPRATROPIUM 2.5mg-0.5mg/3ml NEB AEROSOL SCH ×6 (03:25→22:35)
[2017-07-05] MEDS: FUROSEMIDE 40 MG TABLET PO SCH ×2 (06:10→13:33)
[2017-07-05] MEDS: PANTOPRAZOLE 40 MG TABLET PO SCH (06:10)
[2017-07-05] MEDS: LEVOFLOXACIN 750 MG TABLET PO SCH (06:10)
[2017-07-05] MEDS: INSULIN ASPART 100unit/ml INJECTION SQ PRN ×3 (06:10→20:07)
[2017-07-05] MEDS: BUDESONIDE INH.SOLN 0.5mg/2ml NEB AEROSOL SCH ×2 (06:51→18:55)
[2017-07-05] MEDS: PALIPERIDONE ER 1.5mg TAB PO SCH ×2 (07:45→10:34)
[2017-07-05] MEDS: BUSPIRONE 15 MG TABLET PO SCH ×3 (07:47→20:09)
[2017-07-05] MEDS: FOLIC ACID 1 MG TABLET PO SCH ×2 (07:47→10:21)
[2017-07-05] MEDS: METFORMIN 500 MG TABLET PO SCH ×2 (07:47→17:28)
[2017-07-05] MEDS: MAGNESIUM OXIDE 400 MG TABLET PO SCH ×3 (07:47→20:08)
[2017-07-05] MEDS: ASPIRIN *EC* 81 MG TABLET PO SCH ×2 (07:47→10:21)
[2017-07-05] MEDS: NICOTINE PATCH REMOVAL TD SCH (07:49)
[2017-07-05] MEDS: NICOTINE 14 MG PATCH TD SCH ×2 (07:49→10:22)
[2017-07-05] MEDS: ENOXAPARIN 40 MG/0.4 ML INJECTION SQ SCH (08:51)
[2017-07-05] MEDS: CHOLESTYRAMINE LIGHT 4 G PACKET PO SCH ×2 (08:51→22:04)
[2017-07-05] MEDS: ALBUTEROL 2.5mg/3ml (0.083%) NEB AEROSOL PRN (09:01)
--- NOTE | 2017-07-05 09:34 | Pulmonology Progress Note ---
Subjective Principal diagnosis: SOB Interval history: states she feels "a lot" better and wants to go home. remains on bipap, f 10, 12/6. Vte 550 ML. awake and alert. Exam Vital signs: Temperature 97.9 F 07/05/17 07:44 Pulse Rate 87 07/05/17 08:00 Respiratory Rate 20 07/05/17 09:01 Blood Pressure 166/87 H 07/05/17 07:44 Pulse Oximetry 98 07/05/17 09:01 - Constitutional no acute distress, obese - Routine HEENT Exam Head: Present: normocephalic, atraumatic Eye: Absent: conjunctival icterus - Routine Neck Exam Present: supple - Routine Respiratory Exam Present: patient mechanically ventilated, decreased breath sounds, prolonged expiratory phase, wheezes Comments: on BIPAP - Routine Cardiovascular Exam Present: RRR Assessment and Plan (1) Acute and chronic respiratory failure with hypoxia Status: Acute Assessment and plan: continue bipap at night and prn. Hopefully she will tolerate being off bipap most of the day, except for naps. Continue O2 to keep sPo2 90-95%. Current Visit: Yes (2) Chronic obstructive pulmonary disease with acute exacerbation Status: Acute Assessment and plan: She is still markedly wheezy today. I will start to reduce methylpred dose slowly. continue neb treatments q4h. Recommend continued hospitalization Current Visit: Yes - Assessment and Plan Acute on Chronic Respiratory Failure with hypoxia COPD exacerbation - Time Spent With Patient Total time spent is greater than 50% in coordination of care (as documented) at patient's floor/unit and/or counseling patient: less than 15 minutes
--- NOTE | 2017-07-05 14:52 | Progress Note ---
- Date 07/05/17 Subjective: 62-year-old patient of Rafaela Rosales APRN, who is well known to the hospitalist service from her prior admissions. She was recently admitted from June 18 through the for acute respiratory failure with hypoxemia, acute exacerbation of COPD and influenza A. She was discharged home on 06/23/17 and reports continued increased dyspnea despite taking home medications as directed and completing the course of Levaquin while continuing on the prednisone as directed. She does have a history of chronic COPD and is dependent on oxygen at home at 2L. She reports that over the past few days, she has had to increase her home oxygen to 3L due to her increased dyspnea. During her acute hospitalization, she was seen by Dr. Rolon who recommended continued use of her home BiPAP as well as home breathing treatments with prednisone 10mg daily and to follow up in clinic in 2-3 weeks. She was discharged home on 3L NC. She states that since her discharge, she has continued to have increased difficulty breathing. She denies any fevers, chills , cough, congestion, abdominal pain, nausea, vomiting or dysuria. She does admit to occasional right sided chest pain with deep breathing. She has been seen multiple times in the ED since her discharge on 06/23/17 due to concerns of increased difficulty breathing. During her ED visits, she was thoroughly evaluated and given IV steroids with nebulized treatments resulting in improvement and discharge home. She is noted to have several comorbidities including coronary artery disease, hypertension, diabetes, nicotinic dependence , COPD in addition to obstructive sleep apnea. She was seen by her PCP today, , for follow up from her recent hospitalization. She reports that she was "having a good day" but her doctor "heard something in her right lung" and felt that she needed to be readmitted as a direct admit. She presented to [facility] ED for direct admission. Dr. Anton was consulted and she was admitted into observation status for further evaluation and close respiratory monitoring. 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 Today, she reports she wants to go home stating that she can do this (lay around in bed) at home as well as she can here. Dr. Rolon saw her this am and feels as though she is not good enough to go home from his standpoint. She continues to wheeze. She continues to have mild chest discomfort with deep breathing. The hope is she can be off BiPAP during the day with oxygen by NC and BiPAP at night and with naps. I don't think we are there yet. Pt seen again in the [place]. She did go for a walk in the [place] today and did pretty well. I think part of her BiPAP dependency is anxiety. She did well coming off for meals and the walk. Objective Vital signs: Temperature 97.9 F 07/05/17 07:44 Pulse Rate 87 07/05/17 08:00 Respiratory Rate 28 H 07/05/17 12:57 Blood Pressure 166/87 H 07/05/17 07:44 Pulse Oximetry 95 07/05/17 12:57 Height/Weight/BMI: Height 1.65 m Weight 105.6 kg Body Mass Index 38.2 Comments: Gen: alert and oriented. NAD. BIPAP in place Skin: warm and dry. HEENT: NC/AT PERRL, EOMI, Sclera,lids and conjunctiva wnl. MMM. OP clear. Neck: supple. No JVD. Carotids 2+ without bruits Lungs: Diminished BS, wheezes bilaterally. CV: regular rate and rhythm. No murmur, rub or gallop No edema. Pedal pulses are good Abd: soft. +BS. NT/ND MS: Good strength and ROM. Neuro: no focal deficit. Results - Labs CBC & Chem 7: 07/05/17 04:39 07/05/17 04:39 Microbiology Results: Microbiology 07/02/17 18:23 Peripheral/Iv Start Gram Stain - Final 07/02/17 18:23 Peripheral/Iv Start Blood Culture - Preliminary Corynebacterium species 07/02/17 18:29 Peripheral/Iv Start Blood Culture - Preliminary No Growth After 2 Days 07/04/17 17:36 Peripheral/Iv Start Blood Culture - Preliminary Culture Initiated - Results Pending 07/04/17 17:36 Peripheral/Iv Start Blood Culture - Preliminary Culture Initiated - Results Pending Assessment and Plan (1) Acute and chronic respiratory failure Current visit: Yes Status: Acute (2) Hypomagnesemia Current visit: Yes Status: Acute (3) Chronic obstructive pulmonary disease with acute exacerbation Current visit: Yes Status: Acute Assessment and Plan: Assessment and Plan: 1. Acute on chronic respiratory failure with chronic hypoxia requiring supplemental oxygen at home at 2-3L. -Still wheezing, still using BIPAP more than just with naps. ?anxiety 2. COPD exacerbation/MILDRED on home BiPAP -On solumedrol 40mg IV [id number] -Dr. Rolon following -Continue nebs, inhalers 3. 1/2 BC [id number] daisy -Likely contaminant. follow up cultures NTD -On levaquin day 3 4. Hypokalemia, acute - present on admission. -Resolved 5. Hypomagnesium, acute - present on admission. -Repeat in am 6. Hyponatremia - chronic, present on admission. -Stable 7. CHF, diastolic. -Weight down today but up from admission still -Lasix 40mg BID 8. Diabetes mellitus, type II. -Back on metformin, BS better 9. CAD. -No anginal symptoms -On BBL and ASA -Not on a statin 10. Bipolar affective disorder. 11. Hypertension. -Still high. Will increase 12. Morbid obesity with BMI >38. -low motivation for activity 13. Pituitary adenoma. 14. Nicotine dependency. -On a nicotine patch -REALLY needs to quit smoking 15. GERD. -PPI 16. Chronic anemia. -Stable 17. PT 18. Prophylaxis -Lovenox and PPI - Physician Narrative Narrative: Date: 07/05/17 Time: 1448 Hospital Course Summary Disclaimer: The visit summary below is not to be considered part of the above Progress Note. Hospital Course: Plan - 07/02/17 (Admission) Admit to observation status under the care of Dr. Anton. Labs obtained on admission revealed hyponatremia (NA 130), hypokalemia (K 3.5), hyperglycemia (Glu 284), anemia (Hgb 11.3) and thrombocytosis (424). Magnesium sulfate 1gm and additional KCl 10mEq po now. Hyponatremia is noted to be chronic and stable. Will monitor closely. History of diabetes. Hyperglycemia on arrival. Will check A1c in AM. Lactate elevated on admission at 3.1. Suspect elevated lactate is related to home metformin. Will hold metformin and initiate sliding scale insulin. Carb controlled diet. Monitor BGMs closely, especially in light of current steroid use. Monitor serial lactate levels. NS 125cc/hr for hydration. Monitor closely for fluid overload given history of diastolic dysfunction. CXR obtained on admission - results pending. Continue home medications - patient may take own medications. SCDs for DVT prophylaxis. Protonix for GI protection and GERD. Patient may use home CPAP/BiPAP for sleep apnea and as needed. Concern for generalized weakness. Will consult PT/OT for evaluation. Recent history of influenza. Will reassess respiratory panel and place on respiratory precautions. Nebulized treatments QID and Q6H PRN as well as pulmicort BID. Continue home Levaquin for antimicrobial coverage of possible pulmonary pathogens. Solu-Medrol 125mg Q6H for pulmonary inflammation. Nicotine patch and smoking cessation counseling given tobacco dependency. Upon discharge, patient's care will be returned to her PCP, Rafaela Rosales APRN. Patient requests to be a FULL CODE. 07/03/17 Metformin remains on hold. Repeat lactate was WNL. Will resume metformin as pt is eating/drinking well. Magnesium replaced IV yesterday. Start Magnesium 400mg BID p.o. Repeat Mg level in am. Home Lasix resumed. BP's are high, wt is up - may be volume up. DC IVF's. Continues on Levaquin and solumedrol and breathing txs. 07/04/17 Minor progress being made with respect to acute COPD exacerbation, tolerating very brief periods off of BiPAP today. Discussed with pulmonary today-steroid dose decreased somewhat, frequency of albuterol/ipratropium increased to every 4 hours scheduled with additional treatments available if needed. Continue strengthening efforts with PT/OT-patient reluctant to try any exercises outside of bed at this point. Blood culture positive for gram-positive daisy--clinically no indication of sepsis ; continue Levaquin and repeat blood cultures today. Suspect contaminant. Diuresis initiated, monitor electrolytes. Increase Lasix to twice daily.
[2017-07-05] MEDS ORDERED: METHYLPREDNISOLONE SOD SUCC 40mg/ml INJECTION IM SCH (15:00)
[2017-07-05] MEDS: METHYLPREDNISOLONE SOD SUCC 40mg/ml INJECTION IVP SCH ×2 (15:33→20:08)
[2017-07-05] MEDS: LORazepam 1 MG TABLET PO PRN (16:08)
[2017-07-05] MEDS: AMLODIPINE 5 MG TABLET PO SCH (17:28)
[2017-07-05] MEDS: PRAMIPEXOLE 0.25 MG TABLET PO SCH (20:08)
[2017-07-05] MEDS: GABAPENTIN 300 MG CAPSULE PO SCH (20:08)
[2017-07-05] MEDS: PRIMIDONE 50 MG TABLET PO SCH (20:14)
[2017-07-06] MEDS: ALBUTEROL/IPRATROPIUM 2.5mg-0.5mg/3ml NEB AEROSOL SCH ×6 (02:19→22:46)
[2017-07-06] MEDS: METHYLPREDNISOLONE SOD SUCC 40mg/ml INJECTION IVP SCH ×4 (02:55→20:42)
[2017-07-06] MEDS: ALBUTEROL 2.5mg/3ml (0.083%) NEB AEROSOL PRN (04:40)
[2017-07-06] MEDS: PANTOPRAZOLE 40 MG TABLET PO SCH (05:35)
[2017-07-06] MEDS: LEVOFLOXACIN 750 MG TABLET PO SCH (05:35)
[2017-07-06] MEDS: FUROSEMIDE 40 MG TABLET PO SCH (06:03)
[2017-07-06] MEDS: BUDESONIDE INH.SOLN 0.5mg/2ml NEB AEROSOL SCH ×2 (07:00→18:55)
[2017-07-06] MEDS: NICOTINE PATCH REMOVAL TD SCH (11:00)
[2017-07-06] MEDS: ASPIRIN *EC* 81 MG TABLET PO SCH (11:07)
[2017-07-06] MEDS: BUSPIRONE 15 MG TABLET PO SCH ×2 (11:07→20:45)
[2017-07-06] MEDS: AMLODIPINE 5 MG TABLET PO SCH (11:07)
[2017-07-06] MEDS: FOLIC ACID 1 MG TABLET PO SCH (11:07)
[2017-07-06] MEDS: ENOXAPARIN 40 MG/0.4 ML INJECTION SQ SCH (11:08)
[2017-07-06] MEDS: METFORMIN 500 MG TABLET PO SCH (11:08)
[2017-07-06] MEDS: MAGNESIUM OXIDE 400 MG TABLET PO SCH ×3 (11:08→20:44)
[2017-07-06] MEDS: NICOTINE 14 MG PATCH TD SCH (11:08)
[2017-07-06] MEDS: TRAMADOL 50 MG TABLET PO PRN ×2 (11:15→17:27)
--- NOTE | 2017-07-06 11:22 | Progress Note ---
- Date 07/06/17 Subjective: 62-year-old patient of Rafaela Rosales APRN, who is well known to the hospitalist service from her prior admissions. She was recently admitted from June 18 through the for acute respiratory failure with hypoxemia, acute exacerbation of COPD and influenza A. She was discharged home on 06/23/17 and reports continued increased dyspnea despite taking home medications as directed and completing the course of Levaquin while continuing on the prednisone as directed. She does have a history of chronic COPD and is dependent on oxygen at home at 2L. She reports that over the past few days, she has had to increase her home oxygen to 3L due to her increased dyspnea. During her acute hospitalization, she was seen by Dr. Rolon who recommended continued use of her home BiPAP as well as home breathing treatments with prednisone 10mg daily and to follow up in clinic in 2-3 weeks. She was discharged home on 3L NC. She states that since her discharge, she has continued to have increased difficulty breathing. She denies any fevers, chills , cough, congestion, abdominal pain, nausea, vomiting or dysuria. She does admit to occasional right sided chest pain with deep breathing. She has been seen multiple times in the ED since her discharge on 06/23/17 due to concerns of increased difficulty breathing. During her ED visits, she was thoroughly evaluated and given IV steroids with nebulized treatments resulting in improvement and discharge home. She is noted to have several comorbidities including coronary artery disease, hypertension, diabetes, nicotinic dependence , COPD in addition to obstructive sleep apnea. She was seen by her PCP today, , for follow up from her recent hospitalization. She reports that she was "having a good day" but her doctor "heard something in her right lung" and felt that she needed to be readmitted as a direct admit. She presented to [facility] for direct admission. Dr. Anton was consulted and she was admitted into observation status for further evaluation and close respiratory monitoring. 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 Today, she is resting comfortably and is on only the nasal cannula. She really wants to go home today. She has been walking in the halls. She appears to be tolerating being off the BiPAP during the day. She denies any chest discomfort or palpitations. She denies any fever or chills. She denies nausea, vomiting or diarrhea. Her lungs continue to sound very course with rhonchi. She reports that 's normal for her. 1400 Checked on pt this afternoon. She is back on BiPAP. I explained to her that she needs to get the IV magnesium in and that I have changed her BP medications. I thinks she needs to stay at least another day. She is willing. Objective Vital signs: Temperature 97.9 F 07/06/17 07:43 Pulse Rate 88 07/06/17 08:00 Respiratory Rate 20 07/06/17 10:36 Blood Pressure 152/69 H 07/06/17 07:43 Pulse Oximetry 93 07/06/17 10:36 Height/Weight/BMI: Height 1.65 m Weight 102.6 kg Body Mass Index 38.2 Comments: Gen: alert and oriented. NAD. Skin: warm and dry. HEENT: NC/AT PERRL, EOMI, Sclera,lids and conjunctiva wnl. MMM. OP clear. Neck: supple. No JVD. Carotids 2+ without bruits Lungs: Diminished BS, Coarse BS, rhonchi CV: regular rate and rhythm. No murmur, rub or gallop No edema. Pedal pulses are good Abd: soft. +BS. NT/ND MS: Good strength and ROM. Neuro: no focal deficit. Results - Labs CBC & Chem 7: 07/06/17 04:25 07/06/17 04:25 Microbiology Results: Microbiology 07/02/17 18:29 Peripheral/Iv Start Blood Culture - Preliminary No Growth After 3 Days 07/04/17 17:36 Peripheral/Iv Start Blood Culture - Preliminary No Growth After 1 Day 07/04/17 17:36 Peripheral/Iv Start Blood Culture - Preliminary No Growth After 1 Day 07/02/17 18:23 Peripheral/Iv Start Gram Stain - Final 07/02/17 18:23 Peripheral/Iv Start Blood Culture - Preliminary Corynebacterium species Assessment and Plan (1) Acute and chronic respiratory failure Current visit: Yes Status: Acute (2) Hypomagnesemia Current visit: Yes Status: Acute (3) Chronic obstructive pulmonary disease with acute exacerbation Current visit: Yes Status: Acute Assessment and Plan: Assessment and Plan: 1. Acute on chronic respiratory failure with chronic hypoxia requiring supplemental oxygen at home at 2-3L. -Breathing is better and she is tolerating NC oxygen while awake and with ambulation 2. COPD exacerbation/MILDRED on home BiPAP -On solumedrol 40mg IV [id number] -Dr. Rolon following -Continue nebs, inhalers 3. 1/2 BC deqhqmpy-xihl-[id number] daisy -Likely contaminant. follow up cultures NTD -On levaquin day 4 will dc after today 4. Hypokalemia, acute - present on admission. -Resolved 5. Hypomagnesium, acute - present on admission. -Replace today IV and increase po dosage -repeat lab in am 6. Hyponatremia - chronic, present on admission. -Stable 7. CHF, diastolic. -Weight down again today -will go back to Lasix 40mg daily as at home 8. Diabetes mellitus, type II. -Back on metformin, BS better but still high -Increase metformin to 1000mg BID 9. CAD. -No anginal symptoms -On BBL and ASA -Not on a statin 10. Bipolar affective disorder. 11. Hypertension. -Still high. I have changed toprol and clonidine to labetalol -Will need to adjust dose for good control 12. Morbid obesity with BMI >38. -low motivation for activity 13. Pituitary adenoma. 14. Nicotine dependency. -On a nicotine patch -REALLY needs to quit smoking 15. GERD. -PPI 16. Chronic anemia. -Stable 17. PT 18. Prophylaxis -Lovenox and PPI I feel we are close to being able to send her home but I would like another day to get BPs better and to get her on PO steroid dosing. Will await Dr. Rolon's recommendation on that. She is at high risk of return. She is agreeable to this. - Physician Narrative Narrative: Date: 07/06/17 Time: 1119 Hospital Course Summary Disclaimer: The visit summary below is not to be considered part of the above Progress Note. Hospital Course: Plan - 07/02/17 (Admission) Admit to observation status under the care of Dr. Anton. Labs obtained on admission revealed hyponatremia (NA 130), hypokalemia (K 3.5), hyperglycemia (Glu 284), anemia (Hgb 11.3) and thrombocytosis (424). Magnesium sulfate 1gm and additional KCl 10mEq po now. Hyponatremia is noted to be chronic and stable. Will monitor closely. History of diabetes. Hyperglycemia on arrival. Will check A1c in AM. Lactate elevated on admission at 3.1. Suspect elevated lactate is related to home metformin. Will hold metformin and initiate sliding scale insulin. Carb controlled diet. Monitor BGMs closely, especially in light of current steroid use. Monitor serial lactate levels. NS 125cc/hr for hydration. Monitor closely for fluid overload given history of diastolic dysfunction. CXR obtained on admission - results pending. Continue home medications - patient may take own medications. SCDs for DVT prophylaxis. Protonix for GI protection and GERD. Patient may use home CPAP/BiPAP for sleep apnea and as needed. Concern for generalized weakness. Will consult PT/OT for evaluation. Recent history of influenza. Will reassess respiratory panel and place on respiratory precautions. Nebulized treatments QID and Q6H PRN as well as pulmicort BID. Continue home Levaquin for antimicrobial coverage of possible pulmonary pathogens. Solu-Medrol 125mg Q6H for pulmonary inflammation. Nicotine patch and smoking cessation counseling given tobacco dependency. Upon discharge, patient's care will be returned to her PCP, Rafaela Rosales APRN. Patient requests to be a FULL CODE. 07/03/17 Metformin remains on hold. Repeat lactate was WNL. Will resume metformin as pt is eating/drinking well. Magnesium replaced IV yesterday. Start Magnesium 400mg BID p.o. Repeat Mg level in am. Home Lasix resumed. BP's are high, wt is up - may be volume up. DC IVF's. Continues on Levaquin and solumedrol and breathing txs. 07/04/17 Minor progress being made with respect to acute COPD exacerbation, tolerating very brief periods off of BiPAP today. Discussed with pulmonary today-steroid dose decreased somewhat, frequency of albuterol/ipratropium increased to every 4 hours scheduled with additional treatments available if needed. Continue strengthening efforts with PT/OT-patient reluctant to try any exercises outside of bed at this point. Blood culture positive for gram-positive daisy--clinically no indication of sepsis ; continue Levaquin and repeat blood cultures today. Suspect contaminant. Diuresis initiated, monitor electrolytes. Increase Lasix to twice daily.
[2017-07-06] MEDS: INSULIN ASPART 100unit/ml INJECTION SQ PRN ×2 (11:31→20:43)
[2017-07-06] MEDS: MAGNESIUM SULFATE 1gm PREMIX 1 GM/100 ML BAG IV SCH ×4 (13:33→17:22)
[2017-07-06] MEDS: CHOLESTYRAMINE LIGHT 4 G PACKET PO SCH ×2 (13:39→20:46)
[2017-07-06] MEDS: PALIPERIDONE ER 1.5mg TAB PO SCH (13:41)
--- NOTE | 2017-07-06 15:05 | Pulmonology Progress Note ---
Subjective Principal diagnosis: SOB Interval history: states she feels "a lot" better and wants to go home. was off bipap most of the day today, is now back on bipap, f 05/07. Vte 550 ML. awake and alert. no distress Exam Vital signs: Temperature 97.9 F 07/06/17 07:43 Pulse Rate 88 07/06/17 08:00 Respiratory Rate 20 07/06/17 10:36 Blood Pressure 152/69 H 07/06/17 07:43 Pulse Oximetry 93 07/06/17 10:36 - Constitutional no acute distress, obese - Routine HEENT Exam Head: Present: normocephalic Eye: Absent: conjunctival icterus - Routine Respiratory Exam Present: decreased breath sounds, wheezes - Routine Cardiovascular Exam Present: RRR Assessment and Plan (1) Acute and chronic respiratory failure with hypoxia Status: Acute Assessment and plan: overall improving. Still using bipap at night and during periods of the day continue current plan I would be hesitant to dismiss too quickly due to her failure to cope at home last time. continue O2 to keep sat >90%. Current Visit: Yes (2) Chronic obstructive pulmonary disease with acute exacerbation Status: Acute Assessment and plan: wean methylpred further Current Visit: Yes - Assessment and Plan Acute on Chronic Respiratory Failure with hypoxia COPD exacerbation - Time Spent With Patient Total time spent is greater than 50% in coordination of care (as documented) at patient's floor/unit and/or counseling patient: less than 15 minutes
[2017-07-06] MEDS: METFORMIN 1,000 MG TABLET PO SCH (18:40)
[2017-07-06] MEDS: GABAPENTIN 300 MG CAPSULE PO SCH (20:43)
[2017-07-06] MEDS: LABETALOL 100 MG TABLET PO SCH (20:43)
[2017-07-06] MEDS: PRAMIPEXOLE 0.25 MG TABLET PO SCH (20:44)
[2017-07-06] MEDS: PRIMIDONE 50 MG TABLET PO SCH (20:45)
[2017-07-07] MEDS: ALBUTEROL/IPRATROPIUM 2.5mg-0.5mg/3ml NEB AEROSOL SCH ×5 (02:50→23:10)
[2017-07-07] MEDS: PANTOPRAZOLE 40 MG TABLET PO SCH (06:08)
[2017-07-07] MEDS: BUDESONIDE INH.SOLN 0.5mg/2ml NEB AEROSOL SCH ×2 (06:26→23:10)
[2017-07-07] MEDS: METFORMIN 1,000 MG TABLET PO SCH ×2 (09:00→17:12)
[2017-07-07] MEDS ORDERED: FUROSEMIDE 40 MG TABLET PO SCH (09:00)
--- NOTE | 2017-07-07 09:42 | XRay Report ---
Indication: hypoxia, resp failure follow up PROCEDURE: XR chest 2V: Encounter: Initial Comparison: 07/02/2017 Findings: There is perhaps mild elevation of the left diaphragm, similar prior exam. No definite lobar consolidation or pleural effusion. Heart size is normal. Trachea is midline. No subdiaphragmatic free air. There is mild degenerative disc disease of the thoracic spine. No significant tortuosity of the descending thoracic aorta. Impression: Mild elevation of the left diaphragm, similar to prior exam. No definite acute cardiopulmonary process. .
[2017-07-07] MEDS: ASPIRIN *EC* 81 MG TABLET PO SCH (10:09)
[2017-07-07] MEDS: AMLODIPINE 5 MG TABLET PO SCH (10:10)
[2017-07-07] MEDS: MAGNESIUM OXIDE 400 MG TABLET PO SCH ×2 (10:10→15:37)
[2017-07-07] MEDS: FOLIC ACID 1 MG TABLET PO SCH (10:10)
[2017-07-07] MEDS: BUSPIRONE 15 MG TABLET PO SCH (10:10)
[2017-07-07] MEDS: ENOXAPARIN 40 MG/0.4 ML INJECTION SQ SCH (10:11)
[2017-07-07] MEDS: CHOLESTYRAMINE LIGHT 4 G PACKET PO SCH (10:11)
[2017-07-07] MEDS: PALIPERIDONE ER 1.5mg TAB PO SCH (10:12)
[2017-07-07] MEDS: NICOTINE PATCH REMOVAL TD SCH (10:12)
[2017-07-07] MEDS: METHYLPREDNISOLONE SOD SUCC 40mg/ml INJECTION IVP SCH (10:13)
[2017-07-07] MEDS: NICOTINE 14 MG PATCH TD SCH (10:13)
[2017-07-07] MEDS: LABETALOL 100 MG TABLET PO SCH (13:42)
[2017-07-07] MEDS: TRAMADOL 50 MG TABLET PO PRN (13:48)
[2017-07-07] MEDS ORDERED: PredniSONE 20 MG TABLET PO ONE (15:14)
--- NOTE | 2017-07-07 15:18 | Pulmonology Progress Note ---
Subjective Principal diagnosis: SOB Interval history: Pt states she is doing ok, wanting to go home. States she doesn't have SOB, + cough with minimal sputum noted. Exam Vital signs: Temperature 97.1 F 07/07/17 07:47 Pulse Rate 91 07/07/17 08:00 Respiratory Rate 20 07/07/17 10:20 Blood Pressure 145/61 H 07/07/17 07:47 Pulse Oximetry 95 07/07/17 10:20 - Constitutional no acute distress, obese, cooperative - Routine HEENT Exam Head: Present: normocephalic, atraumatic Eye: Present: EOMI, PERRL ENT: Present: mucous membranes moist - Routine Neck Exam Present: supple, full ROM - Routine Respiratory Exam Present: decreased breath sounds, wheezes Comments: faint - Routine Cardiovascular Exam Present: RRR, S1, S2, no murmur - Routine Abdominal Exam Present: soft, normoactive bowel sounds - Routine Extremities Exam Present: no edema, non tender, full ROM - Routine Back/Spine/Pelvis Exam Back/Spine: Present: full ROM - Routine Skin Exam Present: intact, dry - Routine Neurological Exam Present: alert, oriented X3, CN II-XII intact - Routine Psychiatric Exam Present: normal affect, normal thought process Assessment and Plan - Assessment and Plan Acute on Chronic Respiratory Failure with hypoxia COPD exacerbation Plan: Pt currently on O2 at 2L per [place] and tolerating (home O2. Has been using bipap here F10, 12/6, Vt 500's but has a home NIPPV. Currently on A/A, pulmicort and solumedrol. Switch to prednisone 40mg and Ok to dismiss home. Cont home flovent BID, stiolto daily, duo-neb QID pen with proair prn. Will need to follow up in 3 -4 weeks. - Time Spent With Patient Total time spent is greater than 50% in coordination of care (as documented) at patient's floor/unit and/or counseling patient: less than 15 minutes
[2017-07-07 15:24] VITALS: BP 142/71; PULSE 88; RESP 22; TEMP 97.6; O2SAT 92
[2017-07-07] MEDS: INSULIN ASPART 100unit/ml INJECTION SQ PRN (15:34)
--- NOTE | 2017-07-07 15:58 | Discharge Summary ---
Discharge Information Date of admission: 07/02/17 17:46 Anticipated date of discharge: 07/07/17 Attending Physician: Jammie Woodard MD Primary care physician: Rafaela Rosales APRN Consults: Consulting Provider: Pankaj Rolon Reason For Exam: respiratory failure - Discharge Diagnosis (1) Acute and chronic respiratory failure Status: Acute (2) Chronic obstructive pulmonary disease with acute exacerbation Status: Acute Acute/chronic hypoxic and hypercarbic respiratory failure Acute exacerbation COPD Hypomagnesemia Hypokalemia Hyponatremia, chronic Chronic diastolic CHF Obstructive sleep apnea Diabetes mellitus, type II-oral medications CAD Bipolar affective disorder Chronic anemia GERD Nicotine dependence - Laboratory Labs: On admission white count was 7.3 with hemoglobin 11.3 and unremarkable differential; sodium 130, potassium 3.5, magnesium 1.0, and lactic acid 3.1. Procalcitonin was nondetectable. Respiratory viral panel was negative on admission. A1C 6.7 on 07/0307/06/17 04:25 07/07/17 05:21 - Microbiology 07/02/17 18:29 Peripheral/Iv Start Blood Culture - Preliminary No Growth After 4 Days 07/04/17 17:36 Peripheral/Iv Start Blood Culture - Preliminary No Growth After 2 Days 07/04/17 17:36 Peripheral/Iv Start Blood Culture - Preliminary No Growth After 2 Days 07/02/17 18:23 Peripheral/Iv Start Gram Stain - Final 07/02/17 18:23 Peripheral/Iv Start Blood Culture - Preliminary Corynebacterium species - Radiology Radiology: Chest x-ray on 07/02 demonstrated improvement in interstitial prominence described 2 days earlier; there is no evidence of lobar infiltrate, pleural effusion, or pneumothorax. Chest x-ray on 07/06 revealed minor elevation of the left diaphragm (unchanged from prior exam) and no acute disease. History of Present Illness HPI: Suyapa Barr is a 62-year-old patient of Rafaela Rosales APRN, who is well known to the hospitalist service from her prior admissions. She was recently admitted from June 18 through the for acute respiratory failure with hypoxemia, acute exacerbation of COPD and influenza A. She was discharged home on 06/23/17 and reports continued increased dyspnea despite taking home medications as directed and completing the course of Levaquin while continuing on the prednisone as directed. She does have a history of chronic COPD and is dependent on oxygen at home at 2L. She reports that over the past few days, she has had to increase her home oxygen to 3L due to her increased dyspnea. During her acute hospitalization, she was seen by Dr. Rolon who recommended continued use of her home BiPAP as well as home breathing treatments with prednisone 10mg daily and to follow up in clinic in 2-3 weeks. She was discharged home on 3L NC. She states that since her discharge, she has continued to have increased difficulty breathing. She denies any fevers, chills , cough, congestion, abdominal pain, nausea, vomiting or dysuria. She does admit to occasional right sided chest pain with deep breathing. She has been seen multiple times in the ED since her discharge on 06/23/17 due to concerns of increased difficulty breathing. During her ED visits, she was thoroughly evaluated and given IV steroids with nebulized treatments resulting in improvement and discharge home. She is noted to have several comorbidities including coronary artery disease, hypertension, diabetes, nicotinic dependence , COPD in addition to obstructive sleep apnea. She was seen by her PCP today, , for follow up from her recent hospitalization. She reports that she was "having a good day" but her doctor "heard something in her right lung" and felt that she needed to be readmitted as a direct admit. She presented to [facility] [place] [facility] ED for direct admission. Dr. Anton was consulted and she was admitted into observation status for further evaluation and close respiratory monitoring. Objective Vital signs: Temperature 97.6 F 07/07/17 15:22 Pulse Rate 88 07/07/17 15:22 Respiratory Rate 22 07/07/17 15:22 Blood Pressure 142/71 H 07/07/17 15:22 Pulse Oximetry 92 07/07/17 15:22 Height/Weight/BMI: Height 1.65 m Weight 104 kg Body Mass Index 38.2 - Constitutional Present: no acute distress - Routine Respiratory Exam Present: decreased breath sounds, CTA bilaterally (respirations nonlabored). Absent: accessory muscle use - Routine Cardiovascular Exam Present: RRR, S1, S2 - Routine Extremities Exam Absent: edema Hospital Course This is a general summary of the patient's hospital course. For more details refer to the complete medical record. Hospital course: Plan - 07/02/17 (Admission) Admit to observation status under the care of Dr. Anton. Labs obtained on admission revealed hyponatremia (NA 130), hypokalemia (K 3.5), hyperglycemia (Glu 284), anemia (Hgb 11.3) and thrombocytosis (424). Magnesium sulfate 1gm and additional KCl 10mEq po now. Hyponatremia is noted to be chronic and stable. Will monitor closely. History of diabetes. Hyperglycemia on arrival. Will check A1c in AM. Lactate elevated on admission at 3.1. Suspect elevated lactate is related to home metformin. Will hold metformin and initiate sliding scale insulin. Carb controlled diet. Monitor BGMs closely, especially in light of current steroid use. Monitor serial lactate levels. NS 125cc/hr for hydration. Monitor closely for fluid overload given history of diastolic dysfunction. CXR obtained on admission - results pending. Continue home medications - patient may take own medications. SCDs for DVT prophylaxis. Protonix for GI protection and GERD. Patient may use home CPAP/BiPAP for sleep apnea and as needed. Concern for generalized weakness. Will consult PT/OT for evaluation. Recent history of influenza. Will reassess respiratory panel and place on respiratory precautions. Nebulized treatments QID and Q6H PRN as well as pulmicort BID. Continue home Levaquin for antimicrobial coverage of possible pulmonary pathogens. Solu-Medrol 125mg Q6H for pulmonary inflammation. Nicotine patch and smoking cessation counseling given tobacco dependency. Upon discharge, patient's care will be returned to her PCP, Rafaela Rosales APRN. Patient requests to be a FULL CODE. 07/03/17 Metformin remains on hold. Repeat lactate was WNL. Will resume metformin as pt is eating/drinking well. Magnesium replaced IV yesterday. Start Magnesium 400mg BID p.o. Repeat Mg level in am. Home Lasix resumed. BP's are high, wt is up - may be volume up. DC IVF's. Continues on Levaquin and solumedrol and breathing txs. 07/04/17 Minor progress being made with respect to acute COPD exacerbation, tolerating very brief periods off of BiPAP today. Discussed with pulmonary today-steroid dose decreased somewhat, frequency of albuterol/ipratropium increased to every 4 hours scheduled with additional treatments available if needed. Continue strengthening efforts with PT/OT-patient reluctant to try any exercises outside of bed at this point. Blood culture positive for gram-positive daisy--clinically no indication of sepsis ; continue Levaquin and repeat blood cultures today. Suspect contaminant. Diuresis initiated, monitor electrolytes. Increase Lasix to twice daily. 07/05/17 Continues to use BiPAP much of the day, Solu-Medrol dose decreased to 40 mg every 6 hours. 1/2 blood culture positive for gram-positive daisy-likely contaminant; repeat cultures negative overnight. Levaquin discontinued. 07/06/17 Off BiPAP part of the day, ambulating in the halls with nasal cannula with good tolerance. Patient anxious to discharge home. Magnesium level low again and supplemented with IV in addition to increased oral mag oxide. Solu-Medrol dose decreased to 40 mg twice daily in anticipation of discharge in the next 1-2 days. 1/2 blood cultures drawn on admission positive for corynebacterium-consistent with contaminant. Repeat blood cultures remain negative. Blood pressure is modestly elevated on IV steroids. Need to discontinue smoking again counseled. 07/07/17-discharge Patient reports that she's been getting in and out of bed independently and ambulating in the halls without difficulty. Nursing confirms that she's doing well and tolerates walking with nasal cannula O2 on. She was on BiPAP when initially seen reporting that she planned to nap but later was off BiPAP and breathing without difficulty. She denied dyspnea, lightheadedness, or nausea. She reports minimal sputum production which she considers baseline. Patient is able to describe her usual pulmonary regimen including Flonase and Stiolto respiratory inhaler which were not on her home medication list. She is felt stable for discharge home at this time following conversion from Solu-Medrol to prednisone 40 mg daily for 4 days followed by 20 mg daily for 4 days then resuming chronic 10 mg per day prednisone dose. No additional antibiotics needed. Continue BiPAP at night and when necessary; supplemental oxygen at 2-3 L as in the past. She will remain on magnesium oxide due to recurrent hypomagnesemia documented during the hospitalization. Follow-up with Rafaela Rosales APRN within [address] Rolon in 2-3 weeks or as previously scheduled. Time spent with patient: discharge greater than 30 minutes Resuscitation Status: Full Code Discharge Plan - Discharge Disposition Discharge Date: 07/07/17 Disposition: 86 Home Health Service *Condition: Stable Reason For Visit (Visit label in EMR): COPD exacerbation/acute-chronic respiratory failur - Discharge Medications *Discharge Medications: New Fluticasone Propionate [Flovent Diskus 100 mcg] 1 puff INH BID #1 inhaler Magnesium Oxide [Magox] 400 mg PO TID #100 tab Nicotine Patch [Nicoderm] 14 mg TD DAILY patch predniSONE [Prednisone] 40 mg PO DAILY #10 tab Tiotropium Br/Olodaterol HCl [Stiolto Respimat Inhal [place]] 4 gm IH DAILY #1 mist.inhal Continue Acetaminophen 650 mg PO Q4H PRN PRN Reason: Pain Folic Acid [Folate] 1 mg PO DAILY Potassium Chloride 10 meq PO DAILY CloNIDine [Catapres] 0.1 mg PO DAILY Pantoprazole Tab [Protonix Tab] 40 mg PO DAILY Tramadol [Ultram] 50 mg PO Q6H PRN PRN Reason: Pain Primidone [Mysoline] 150 mg PO HS Albuterol Sulfate [Proair Hfa] 1 spray INH PRN PRN PRN Reason: Shortness Of Air Metformin [Glucophage] 500 mg PO BIDWM Fluticasone HFA [Flovent Hfa 220 mcg] 1 - 2 puff INH Q2-4HR Nitroglycerin [Nitrostat] 0.4 mg SL Q5M PRN PRN Reason: Chest Pain Furosemide [Lasix] 40 mg PO DAILY #30 tab Cabergoline [Dostinex] 1 mg PO TuFr #0 Gabapentin 300 mg PO HS #0 Metoprolol Succinate 100 mg PO DAILY #0 Buspirone HCl 7.5 mg PO BID #0 Cyproheptadine HCl 1 - 2 tab PO HS PRN #0 PRN Reason: Insomnia Pramipexole Di-HCl [Pramipexole Dihydrochloride] 0.375 mg PO HS Paliperidone [Paliperidone ER] 9 mg PO DAILY Zolpidem [Ambien] 10 mg PO HS Aspirin [Adult Aspirin Regimen] 81 mg PO DAILY Cholestyramine Packet [Questran Light] 4 g PO BID LORazepam [Ativan] 0.5 mg PO Q12HR PRN #10 tab PRN Reason: Anxiety/Air Hunger/Agitation Changed Albuterol/Ipratropium [Duoneb] 1 unit AEROSOL QID #1 box Discontinued levoFLOXacin [Levaquin] 750 mg PO ACB #7 tab PredniSONE [Deltasone 50 mg] 50 mg PO DAILY #5 tab - Discharge Packet/Instructions *Diet: Diabetic *Activity: As tolerates, wear 2 L of oxygen when walking *Pain Management/Treatment: Tylenol if needed *Wound Care: Not applicable Additional Instructions: Continue your breathing medicines as before-duoneb 4 times a day, pro-air as needed, Flovent at home dosage twice a day, and Stiolto once daily. Continue prednisone 40 mg (2-20 mg tablets) for the next 3 days, then decrease dose to 20 mg daily for 4 days, then resume taking 10 mg daily as you normally do. You do not need antibiotics. Take magnesium in addition to potassium with the water pill. *Expected Signs/Symptoms: Getting out of breath with activity *Notify Physician if: Fever, inability to catch your breath *During Business Hours Contact: Rafaela Rosales at [employer] or Dr. Rolon *After Business Hours Contact: Call [facility] at [phone] and ask that the on-call physician be paged for [employer] *Pending Lab/Results: Follow up w/Provider (final blood cultures pending) - Referrals/Follow Up *Referrals/Follow Up: Pankaj Rolon MD [Physician] - (2-3 weeks or as previously scheduled) Rafaela Rosales APRN [Primary Care Provider] - 1 Week - Patient Handouts - Dismissal Complete Discharge Instructions are:: Complete Physician Narrative - Narrative Attestation Narrative: Date: 07/07/17 Time: 1550
== END 2017-07-07 19:00 | disposition home health service (06) | DRG 190 ==
LOC: SUATTDRO 17:46 → INTOOBSV 17:46 → MED 17:46 → OBSVTOIN 17:46
PROVIDERS: ADMIT Hospitalist; ATTEND Internal Medicine

== ENCOUNTER 2017-12-10 11:40 | Inpatient (IN) ==
[2017-12-10] MEDS ORDERED: ALBUTEROL/IPRATROPIUM 2.5mg-0.5mg/3ml NEB AEROSOL ONE (11:47)
--- NOTE | 2017-12-10 11:59 | Emergency Department Report ---
SOB HPI - General Chief Complaint: Shortness of Breath/Dyspnea Stated Complaint: DYSPNEA Time Seen by Provider: 12/10/17 11:46 Source: patient, EMS Mode of arrival: ambulatory Limitations: no limitations - History of Present Illness Patient is a 62-year-old female well-known to [facility] emergency department. Patient presents the ER for evaluation of difficulty breathing. Patient is chronic COPD or, currently supposed to be on home O2 at 2 L by nasal cannula. Patient states she's been having increasing difficulty breathing, has turned her home O2 up to 3 L, has been using her breathing treatments at home with minimal relief. EMS was called, patient was brought to the ER for evaluation. Patient setting 100% on 3 L by nasal cannula currently, however does have mild respiratory distress and audible wheezing on arrival - Related Data Home Medications Medication Instructions Recorded Confirmed Cabergoline [Dostinex] 0.5 mg PO TuFr #0 06/19/12 12/31/17 Buspirone HCl 7.5 mg PO BID #0 08/09/16 12/31/17 Cyproheptadine HCl 4 - 8 mg PO HS PRN #0 08/22/16 12/31/17 Pramipexole Di-HCl [Pramipexole 0.375 mg PO HS 12/04/16 12/31/17 Dihydrochloride] Paliperidone [Paliperidone ER] 9 mg PO DAILY 01/05/17 12/31/17 Albuterol Sulfate [Proair Hfa] 1 spray INH PRN PRN 06/18/17 12/31/17 Aspirin [Adult Aspirin Regimen] 81 mg PO DAILY 06/18/17 12/31/17 Fluticasone HFA [Flovent Hfa 220 1 - 2 puff INH Q2-4HR 06/18/17 12/31/17 mcg] Tramadol [Ultram] 50 mg PO Q6H PRN 06/18/17 12/31/17 Stiolto Respimat (tiotropium) 2.5 2 puff INH DAILY g 11/06/17 12/31/17 mcg-olodaterol 2.5 mcg/actuation inhalation liraglutide 0.6 mg/0.1 mL (18 mg/3 1.2 mg SQ DAILY ml 11/06/17 12/31/17 mL) subcutaneous pen injector Pantoprazole Tab [Protonix Tab] 40 mg PO DAILY 11/14/17 12/31/17 Acetaminophen [Acetaminophen ER] 650 mg PO Q8H PRN 12/10/17 12/31/17 Magnesium Oxide [Magnesium] 400 mg PO TID 12/10/17 12/31/17 Nitroglycerin [Nitrostat] 0.4 mg SL Q5MIN3 PRN 12/10/17 12/31/17 melatonin ER 10 mg tablet,extended 10 mg PO HS tab 12/30/17 12/31/17 release Albuterol/Ipratropium [Duoneb] 3 ml AEROSOL Q6H PRN 12/31/17 12/31/17 Folic Acid [Folate] 1 mg PO DAILY 12/31/17 12/31/17 Gabapentin 300 mg PO AM 12/31/17 12/31/17 LORazepam [Ativan] 0.5 mg PO QID 12/31/17 12/31/17 Meloxicam 7.5 mg PO CHEW DAILY 12/31/17 12/31/17 Metformin HCl 500 mg PO WS 12/31/17 12/31/17 Potassium Chloride 10 meq PO DAILY 12/31/17 12/31/17 Primidone [Mysoline] 150 mg PO HS 12/31/17 12/31/17 Previous Rx's Medication Instructions Recorded Furosemide [Lasix 40 mg Tab] 40 mg PO DAILY #30 tab 06/23/17 Amlodipine [Norvasc] 10 mg PO DAILY #30 tab 12/18/17 Lidocaine 5% Patch [Lidoderm] 1 patch TOP DAILY #5 patch 12/18/17 Hydralazine [Apresoline] 20 mg PO [facility] #60 tab 01/04/18 Lidocaine Patch Removal [Lidoderm 1 removal TOP 2100 patch 01/04/18 Patch Removal] Metoprolol Succinate (XL) [Toprol 150 mg PO DAILY #60 tab 01/04/18 Xl] PredniSONE [Deltasone 20 mg] 20 mg PO WB #30 tab 01/04/18 Allergies Allergy/AdvReac Type Severity Reaction Status Date / Time Influenza Virus Vaccines Allergy Severe DYSPNEA Verified 12/31/17 02:33 lisinopril Allergy Intermediate TONGUE Verified 12/31/17 02:33 SWELLING metformin Allergy Intermediate Acidosis Verified 01/01/18 08:44 Iodinated Contrast- Oral and Allergy Mild RASH Verified 12/31/17 02:33 IV Dye asenapine Allergy Unknown Verified 12/31/17 02:33 duloxetine [From Cymbalta] Allergy Unknown Verified 12/31/17 02:33 hydromorphone [From Dilaudid] Allergy Unknown Verified 12/31/17 02:33 iodine Allergy Unknown Verified 12/31/17 02:33 Sulfa (Sulfonamide Allergy Unknown RASH Verified 12/31/17 02:33 Antibiotics) venlafaxine Allergy Unknown Verified 12/31/17 02:33 lurasidone AdvReac Intermediate INCREASED Verified 12/31/17 02:33 SODIUM adhesive AdvReac Unknown Verified 12/31/17 02:33 cephalexin AdvReac Unknown VOMITING Verified 12/31/17 02:33 morphine AdvReac Unknown SWELLING Verified 12/31/17 02:33 SHELLFISH Allergy Severe Allergic Uncoded 12/31/17 02:33 Asthmatic Reaction Review of Systems Constitutional: Reports: weakness. Denies: fever, chills Eyes: Denies: eye pain ENT: Denies: throat pain, dental pain Cardiovascular: Reports: dyspnea on exertion. Denies: chest pain, palpitations Respiratory: Reports: cough, dyspnea, wheezes Gastrointestinal: Denies: abdominal pain, nausea, vomiting Musculoskeletal: Denies: back pain Neurological: Denies: headache Psychiatric: Denies: anxiety Endocrine: Denies: fatigue Hematological/Lymphatic: Denies: easy bleeding PFSH Patient Stated Medical History Cerebrovascular Accident Yes: 1999 Migraine Yes: PRESENT Transient Ischemic Attacks ( Yes: 2012 TIA) Cataracts Yes: BILAT Dental Problems Yes: DENTURES Macular Degeneration Yes: RECENTLY DX Hypertension Yes Myocardial Infarction Yes: PT IS VAGUE/UNSURE REGARDING DETAILS Asthma Yes Chronic Obstructive Pulmonary Yes Disease (COPD) Sleep Apnea Yes: Uses a Bipap occasionally at home. Other Respiratory Yes: EMPHYSEMA Diabetes Mellitus Type 2 Yes Gastroesophageal Reflux Yes Disease Hx Renal Disease No Anemia Yes Osteoarthritis Yes Other Musculoskeletal Yes: osteopenia Chlamydia Yes: 70'S MRSA Yes: HX PREVIOUS SORES ON BACK/BUTTOCKS. Shingles Yes: 1995 FACE Blood Transfusions Yes Bipolar Disorder Yes Substance Use Disorder Yes: NICOTINE DEPENDENCE Medical History Updates: Per report h/o HTN, HLD, Type 2 DM, Anxiety/Depression , MILDRED on BIPAP, chronic hypoxia w/ h/o COPD, Asthma, CHF and h/o CAD, chronic hyponatremia Surgical History: appendix. colonoscopy. gallbladder. hernia. tonsils. cardiac cath. hysterectomy. carpal tunnel. knee. shoulder Family History: Family History (Last Updated 06/19/17 @ 18:20 by Jammie Woodard MD) Mother COPD (chronic obstructive pulmonary disease) Brother COPD (chronic obstructive pulmonary disease) Family History Updates: Family History (Last Updated 06/19/17 @ 18:20 by Jammie oWodard MD). Mother. COPD (chronic obstructive pulmonary disease) . Brother. COPD (chronic obstructive pulmonary disease) - Social History Smoking status: Former smoker Packs-years: 50 Substance use type: does not use Alcohol intake frequency: does not drink Housing: house Household members: caregiver Current occupational status: disabled Does patient use chewing tobacco?: No Current residence: Apartment/Private Home Physical Exam - Limitations Limitations: no limitations - General General appearance: alert - Eye Eye exam: Present: PERRL, EOMI - ENT ENT exam: Present: normal oropharynx, mucous membranes moist, TM's normal bilaterally - Chest Chest inspection: Present: symmetric chest wall rise. Absent: tenderness - Respiratory Respiratory exam: Present: respiratory distress, wheezes, accessory muscle use, prolonged expiratory phase. Absent: stridor, crackles - Cardiovascular Cardiovascular exam: Present: regular rate, normal rhythm, normal heart sounds - Abdominal Exam Abdominal exam: Present: soft, normal bowel sounds. Absent: distention, tenderness - Extremities Exam Extremities exam: Present: full ROM - Back Exam Back exam: Present: full ROM - Skin Skin exam: Present: warm, dry - Neurological Exam Neurological exam: Present: alert, oriented X3 - Psychiatric Psychiatric exam: Present: normal affect, normal mood Course Vital Signs Temperature 98.4 F 12/10/17 11:40 Pulse Rate 90 12/10/17 11:40 Respiratory Rate 24 12/10/17 11:40 Blood Pressure 180/88 H 12/10/17 11:40 Pulse Oximetry 98 12/10/17 11:40 Temperature 98.4 F 12/10/17 11:40 Pulse Rate 90 12/10/17 11:40 Respiratory Rate 24 12/10/17 11:40 Blood Pressure 180/88 H 12/10/17 11:40 Pulse Oximetry 98 12/10/17 11:40 Shortness of Breath/Dyspnea - Medical Records Attestation: I reviewed the patient's medical records. - Lab Data Attestation: I reviewed the patient's lab results. Result diagrams: 12/16/17 03:53 12/18/17 04:41 - Radiology Data Attestation: I reviewed the patient's radiology results. Chest x-ray: No acute cardiopulmonary findings Disposition Clinical Impression: COPD exacerbation Disposition: 02 To [facility] Condition: Stable - Seen By: physician
--- NOTE | 2017-12-10 12:47 | XRay Report ---
Indication: shortness of air on BiPAP PROCEDURE: XR chest 1V: Encounter: Initial Comparison: October 20, 2017 Findings: The lungs are stable in appearance without new focal airspace consolidation. There is no pleural effusion or pneumothorax. The heart size, pulmonary vascularity and mediastinal contours are unchanged. IMPRESSION: Stable appearance of the chest without acute cardiopulmonary disease. .
--- NOTE | 2017-12-10 14:39 | History & Physical Report ---
History of Present Illness Date: 12/10/17 Chief complaint: Dyspnea HPI: Suyapa is a 62-year-old female who is known to the hospitalist services from previous frequent admissions. Patient reports that she began having onset of worsening dyspnea this morning, accompanied with a productive cough. She awoke at 4 a.m. and was unable to him related to the bathroom due to her dyspnea. All night long. She had to sleep in a recliner because she could not tolerate lying back. Her home health nurse came to evaluate her and due to her conversational dyspnea contacted EMS. Patient was given IV Solu-Medrol and albuterol nebulizer and transported to [facility] emergency room for acute evaluation. Blood work was obtained, CBC was normal other than neutrophils of 87%.BMP revealed hyponatremia with a sodium of 129 and potassium of 5.1. Troponin was undetectable and BNP 564. X-ray revealed no focal consolidation or otherwise acute cardiopulmonary process. Patient was placed on BiPAP on arrival to the emergency room. Her respiratory effort has improved with respiratory assistance. Given her symptoms the services were contacted and accepted patient for outpatient observation for further evaluation and treatment. Review of Systems All systems PM: 10-point ROS was reviewed, no additional remarkable complaints except - Respiratory Respiratory: Present: as per HPI, cough, dyspnea, dyspnea on exertion - Gastrointestinal Gastrointestinal: Present: diarrhea (chronic) Past Medical History Medical History Updates: HTN. HLD. Type 2 DM. Anxiety/Depression. MILDRED on BIPAP. COPD. Asthma. CHF. CAD. Chronic hyponatremia. Bipolar discorder Surgical History: appendix. colonoscopy. gallbladder. hernia. tonsils. cardiac cath. hysterectomy. carpal tunnel. knee. shoulder Family History: Mother COPD (chronic obstructive pulmonary disease) Brother COPD (chronic obstructive pulmonary disease) Family History: As Above - Social History Smoking status: Former smoker (Jeaneth 07/09/17) Quit date: 07/09/17 Substance use type: does not use Alcohol intake frequency: does not drink Housing: house Does patient use chewing tobacco?: No Current residence: Apartment/Private Home Social history: PCP Rafaela Dean APRN Medications Home Medications Medication Instructions Recorded Confirmed Type Cabergoline [Dostinex] 0.5 mg PO TuFr #0 06/19/12 12/10/17 History Gabapentin 300 mg PO HS #0 07/01/16 12/10/17 History Metoprolol Succinate 100 mg PO DAILY #0 07/15/16 12/10/17 History Buspirone HCl 7.5 mg PO BID #0 08/09/16 12/10/17 History Cyproheptadine HCl 4 - 8 mg PO HS PRN #0 08/22/16 12/10/17 History Pramipexole Di-HCl [Pramipexole 0.375 mg PO HS 12/04/16 12/10/17 History Dihydrochloride] Paliperidone [Paliperidone ER] 9 mg PO DAILY 01/05/17 12/10/17 History Folic Acid [Folate] 1 mg PO DAILY 05/02/17 12/10/17 History Potassium Chloride 10 meq PO DAILY 05/02/17 12/10/17 History Albuterol Sulfate [Proair Hfa] 1 spray INH PRN PRN 06/18/17 12/10/17 History Aspirin [Adult Aspirin Regimen] 81 mg PO DAILY 06/18/17 12/10/17 History Fluticasone HFA [Flovent Hfa 220 1 - 2 puff INH Q2-4HR 06/18/17 12/10/17 History mcg] Tramadol [Ultram] 50 mg PO Q6H PRN 06/18/17 12/10/17 History Furosemide [Lasix 40 mg Tab] 40 mg PO DAILY #30 tab 06/23/17 12/10/17 Rx Albuterol/Ipratropium [Duoneb] 1 unit AEROSOL QID #1 box 07/07/17 12/10/17 Rx Glucophage XR (metformin ER) 500 500 mg PO WS 11/06/17 12/10/17 History mg tablet, 24 hr Stiolto Respimat (tiotropium) 2.5 2 puff INH DAILY g 11/06/17 12/10/17 History mcg-olodaterol 2.5 mcg/actuation inhalation liraglutide 0.6 mg/0.1 mL (18 mg/3 1.2 mg SQ DAILY ml 11/06/17 12/10/17 History mL) subcutaneous pen injector prednisone 10 mg tablet 10 mg PO WB tab 11/06/17 12/10/17 History LORazepam [Ativan] 0.5 mg PO HS 11/14/17 12/10/17 History Meloxicam 7.5 mg PO DAILY 11/14/17 12/10/17 History Pantoprazole Tab [Protonix Tab] 40 mg PO DAILY 11/14/17 12/10/17 History Acetaminophen [Acetaminophen ER] 650 mg PO Q8H PRN 12/10/17 12/10/17 History Magnesium Oxide [Magnesium] 400 mg PO TID 12/10/17 12/10/17 History Nitroglycerin [Nitrostat] 0.4 mg SL Q5MIN3 PRN 12/10/17 12/10/17 History Primidone [Mysoline] 150 mg PO HS 12/10/17 12/10/17 History Allergies Allergy/AdvReac Type Severity Reaction Status Date / Time Influenza Virus Vaccines Allergy Severe DYSPNEA Verified 12/10/17 11:56 lisinopril Allergy Intermediate TONGUE Verified 12/10/17 11:56 SWELLING Iodinated Contrast- Oral and Allergy Mild RASH Verified 12/10/17 11:56 IV Dye asenapine Allergy Unknown Verified 12/10/17 11:56 duloxetine [From Cymbalta] Allergy Unknown Verified 12/10/17 11:56 hydromorphone [From Dilaudid] Allergy Unknown Verified 12/10/17 11:56 iodine Allergy Unknown Verified 12/10/17 11:56 Sulfa (Sulfonamide Allergy Unknown RASH Verified 12/10/17 11:56 Antibiotics) venlafaxine Allergy Unknown Verified 12/10/17 11:56 lurasidone AdvReac Intermediate INCREASED Verified 12/10/17 11:56 SODIUM adhesive AdvReac Unknown Verified 12/10/17 11:56 cephalexin AdvReac Unknown VOMITING Verified 12/10/17 11:56 morphine AdvReac Unknown SWELLING Verified 12/10/17 11:56 SHELLFISH Allergy Severe Allergic Uncoded 12/10/17 11:56 Asthmatic Reaction Exam Vital Signs: Temperature 98.4 F 12/10/17 11:40 Pulse Rate 82 12/10/17 13:30 Respiratory Rate 20 12/10/17 12:50 Blood Pressure 179/84 H 12/10/17 13:30 Pulse Oximetry 95 12/10/17 13:30 Height/Weight/BMI: Height 1.6 m Weight 121.4 kg - Constitutional Present: mild distress, well nourished, well developed - Routine HEENT Exam Eye: Present: EOMI ENT: Present: mucous membranes moist, dentition normal - Routine Respiratory Exam Present: diminished air movement. Absent: wheezes - Routine Cardiovascular Exam Present: RRR, S1, S2. Absent: murmur - Routine Abdominal Exam Present: soft, normoactive bowel sounds, non distended. Absent: tenderness - Routine Extremities Exam Present: edema (BLE), pulses intact Comments: Chronic erythema to feet - Routine Skin Exam Present: dry, warm - Routine Neurological Exam Present: alert, oriented X3, CN II-XII intact - Routine Psychiatric Exam Present: normal affect Results - Labs CBC & Chem 7: 12/10/17 12:50 12/10/17 12:50 - ABG Interpretation ABG results: 12/10/17 12:28 ABG pH 7.369 ABG pCO2 51 H ABG pO2 179.6 H ABG HCO3 29.3 H ABG Total CO2 30.8 H ABG O2 Saturation 99.5 H ABG Base Excess 3.0 H Assessment and Plan Assessment and Plan: Impression Acute COPD exacerbation Acute on chronic hyponatremia-present on admission Hypomagnesium- POA- 1.5 Hyperkalemia- POA- 5.1 Chronic respiratory failure with oxygen dependence of 2 liters. Obstructive sleep apnea-BiPAP. Type II diabetes Coronary artery disease Hypertension Hyperlipidemia Bipolar disorder Anxiety/depression Morbid obesity-BMI 47 Plan Patient outpatient observation under the care of Dr. Iglesias for acute COPD exacerbation Continue patient on scheduled DuoNeb breathing treatments 4 times a day as well as when necessary. Pulmicort twice a day well as BiPAP management per RT Continue with IV Solu-Medrol 125 milligrams IV every 6 hours for pulmonary inflammation. Give IV magnesium as well as oral supplementation. Given hypomanic magnesium Monitor Accu-Cheks, continue with metformin, Victoza and sliding scale insulin Place home potassium on hold given Hyperkalemia Andreas hose to BLE to help with edema. SCDs for DVT ppx Lasix 40 mg daily as per chronic diuresing Does wish to be a do not resuscitate and do not intubate Check CBC, BMP and magnesium tomorrow to follow all blood counts, renal function and electrolytes. Will discuss further orders and plan of care with attending, Dr. Anton At time of discharge medical care will return to primary care provider, Rafaela Dean APRN at [facility] DVT Prophylaxis: SCD's, ANDREAS Hose Resuscitation Status: Do Not Resuscitate - Physician Narrative Physician: Mark Anton MD Narrative: Date: 12/10/17 Time: 1648 Have independently interviewed and examined pt. Chart reviewed. Case discussed with ED physician and my COMMUNICATIONS SYSTEMS ENGINEER. Care plan developed with my supervision; agree with above. Present to ED secondary to increasing SOA and congestion. Symptoms dramatically worsened overnight. Feels the Heat and [place] trees are setting her off. Notes increased sputum production. Home neb treatments not helping. Appetite has been stable. No nausea or ab pain. Bowels moving. Urine output stable. Has been adherent with home vent (but did not use last night as slept in chair). Not smoked since Jul 09 of this year. Lungs: decreased bilaterally. Distant air movement. Labored breathing despite BiPAP. CV: regular AB: soft nt EXT: +1 edema MSE: awake alert Plan: OBS admission. BiPAP for resp support. IV Solu-Medrol to decrease pulmonary inflammation. Neb treatments. Mucinex DM to decrease cough and congestion. PT/OT to help functional status. Lasix 40mg IV x1 now to help waist free water (weight increased from prior visits). Monitor lab. Hospital Course Summary Disclaimer: The visit summary below is not to be considered part of the above Progress Note. Hospital Course: Impression Acute COPD exacerbation Acute on chronic hyponatremia-present on admission Hypomagnesium- POA- 1.5 Hyperkalemia- POA- 5.1 Chronic respiratory failure with oxygen dependence of 2 liters. Obstructive sleep apnea-BiPAP. Type II diabetes Coronary artery disease Hypertension Hyperlipidemia Bipolar disorder Anxiety/depression Morbid obesity-BMI 47 Plan Patient outpatient observation under the care of Dr. Iglesias for acute COPD exacerbation Continue patient on scheduled DuoNeb breathing treatments 4 times a day as well as when necessary. Pulmicort twice a day well as BiPAP management per RT Continue with IV Solu-Medrol 125 milligrams IV every 6 hours for pulmonary inflammation. Give IV magnesium as well as oral supplementation. Given hypomanic magnesium. Lasix 40mg IV to help waste free water as sodium low and weight with trend up from prior visits. Monitor Accu-Cheks, continue with metformin, Victoza and sliding scale insulin Place home potassium on hold given Hyperkalemia. Andreas hose to BLE to help with edema. SCDs for DVT ppx. Lasix 40 mg daily as per chronic diuresing. Does wish to be a do not resuscitate and do not intubate. Check CBC, BMP and magnesium tomorrow to follow all blood counts, renal function and electrolytes. At time of discharge medical care will return to primary care provider, Rafaela Dean APRN at [facility]
[2017-12-10] MEDS ORDERED: GLUCOSE ORAL GEL 40% 37.5gm PO PRN (14:41)
[2017-12-10] MEDS ORDERED: NITROGLYCERIN 0.4 MG SUBLINGUAL TABLET SL PRN (14:41)
[2017-12-10] MEDS: MAGNESIUM SULFATE 1gm PREMIX 1 GM/100 ML BAG IV SCH ×2 (15:10→17:03)
[2017-12-10 15:49] VITALS: BMI 48.4
[2017-12-10] MEDS ORDERED: FUROSEMIDE 40 MG/4 ML INJECTION IVP ONE (16:36)
[2017-12-10] MEDS: METHYLPREDNISOLONE SOD SUCC 125mg/2ml INJECTION IVP SCH ×2 (16:58→22:00)
[2017-12-10] MEDS: METFORMIN 500 MG TABLET PO SCH (16:59)
[2017-12-10] MEDS: BUDESONIDE INH.SOLN 0.5mg/2ml NEB AEROSOL SCH (18:23)
[2017-12-10] MEDS: ALBUTEROL/IPRATROPIUM 2.5mg-0.5mg/3ml NEB AEROSOL SCH ×2 (18:23→23:11)
[2017-12-10] MEDS: MAGNESIUM OXIDE 400 MG TABLET PO SCH ×2 (19:15→21:06)
[2017-12-10] MEDS: PRIMIDONE 50 MG TABLET PO SCH (21:05)
[2017-12-10] MEDS: GABAPENTIN 300 MG CAPSULE PO SCH (21:06)
[2017-12-10] MEDS: BUSPIRONE 5 MG TABLET PO SCH (21:06)
[2017-12-10] MEDS: LORazepam 1 MG TABLET PO SCH (21:07)
[2017-12-10] MEDS: PRAMIPEXOLE 0.25 MG TABLET PO SCH (21:07)
[2017-12-10] MEDS: SALINE FLUSH 10ml SYRINGE IVF PRN (22:01)
[2017-12-10] MEDS: INSULIN ASPART 100unit/ml INJECTION SQ PRN (23:01)
[2017-12-11] MEDS: METHYLPREDNISOLONE SOD SUCC 125mg/2ml INJECTION IVP SCH ×4 (02:59→21:18)
[2017-12-11] MEDS: SALINE FLUSH 10ml SYRINGE IVF PRN ×2 (02:59→21:18)
[2017-12-11] MEDS: PANTOPRAZOLE 40 MG TABLET PO SCH (06:38)
[2017-12-11] MEDS: INSULIN ASPART 100unit/ml INJECTION SQ PRN ×4 (06:50→21:18)
[2017-12-11] MEDS: BUDESONIDE INH.SOLN 0.5mg/2ml NEB AEROSOL SCH ×2 (07:03→20:48)
[2017-12-11] MEDS: ALBUTEROL/IPRATROPIUM 2.5mg-0.5mg/3ml NEB AEROSOL SCH ×4 (07:04→20:48)
[2017-12-11] MEDS: ASPIRIN *EC* 81 MG TABLET PO SCH (08:06)
[2017-12-11] MEDS: BUSPIRONE 5 MG TABLET PO SCH ×2 (08:06→21:20)
[2017-12-11] MEDS: TRAMADOL 50 MG TABLET PO PRN (08:07)
[2017-12-11] MEDS: MAGNESIUM OXIDE 400 MG TABLET PO SCH ×3 (08:07→21:19)
[2017-12-11] MEDS: PALIPERIDONE ER 1.5mg TABLET PO SCH (08:07)
[2017-12-11] MEDS: MELOXICAM 7.5 MG TABLET PO SCH (08:07)
[2017-12-11] MEDS: FUROSEMIDE 40 MG TABLET PO SCH (08:07)
[2017-12-11] MEDS: FOLIC ACID 1 MG TABLET PO SCH (08:10)
[2017-12-11] MEDS: LIRAGLUTIDE INJECTABLE PEN SQ SCH (08:11)
--- NOTE | 2017-12-11 14:57 | Progress Note ---
- Date 12/11/17 Subjective: She is seen this afternoon in follow-up. She continues to require Bi-pap most of the day. She does report that did take BiPAP at for lunch, however, labs feeling very dyspneic and feeling the need for "gasping for air". She denies having pain on examination. Voiding without difficulty. Objective Vital signs: Temperature 96.2 F L 12/11/17 07:34 Pulse Rate 103 H 12/11/17 08:00 Respiratory Rate 26 H 12/11/17 10:16 Blood Pressure 191/96 H 12/11/17 07:34 Pulse Oximetry 95 12/11/17 10:16 Height/Weight/BMI: Height 1.65 m Weight 132.3 kg Body Mass Index 48.4 - Constitutional Present: no acute distress, well nourished, well developed - Routine HEENT Exam Eye: Present: EOMI ENT: Present: mucous membranes moist, dentition normal - Routine Respiratory Exam Present: CTA bilaterally. Absent: wheezes - Routine Cardiovascular Exam Present: RRR, S1, S2. Absent: murmur - Routine Abdominal Exam Present: soft, normoactive bowel sounds, non distended. Absent: tenderness - Routine Extremities Exam Present: normal capillary refill - Routine Back/Spine/Pelvis Exam Back/Spine: Present: full ROM - Routine Skin Exam Present: intact, dry, warm - Routine Neurological Exam Present: alert, oriented X3, CN II-XII intact, moving all extremities - Routine Lymphatic Exam Lymphatic: Absent: adenopathy - Routine Psychiatric Exam Present: normal affect, normal thought process, cooperative Results - Labs CBC & Chem 7: 12/11/17 04:57 12/11/17 04:57 - ABG Interpretation ABG results: 12/10/17 12:28 ABG pH 7.369 ABG pCO2 51 H ABG pO2 179.6 H ABG HCO3 29.3 H ABG Total CO2 30.8 H ABG O2 Saturation 99.5 H ABG Base Excess 3.0 H Assessment and Plan Assessment and Plan: Impression Acute COPD exacerbation with need for ventilator support Acute on chronic hyponatremia-present on admission Hypomagnesium- POA- 1.5 Hyperkalemia- POA- 5.1 Chronic respiratory failure with oxygen dependence of 2 liters. Obstructive sleep apnea-BiPAP. Type II diabetes Coronary artery disease Hypertension Hyperlipidemia Bipolar disorder Anxiety/depression Morbid obesity-BMI 47 Plan She continues to require for ventilatory support via BiPAP Will change to inpatient status Continue with IV Solu-Medrol 125 milligrams IV every 6 hours for pulmonary inflammation as well as Duoneb scheduled Monitor Accu-Cheks, continue with metformin, Victoza and sliding scale insulin Hyperkalemia improving. May consider resuming home potassium tomorrow Chon hose to BLE to help with edema. Lasix 40 mg daily as per chronic diuresing Once breathing has improved will need to encourage ambulation and strengthening DVT Prophylaxis: SCD's Resuscitation Status: Do Not Resuscitate - Time spent with patient Time with patient PN: 25 minutes - Physician Narrative Physician: Mark Anton MD Narrative: Date: 12/11/17 Time: 9 Have independently interviewed and examined pt. Chart reviewed. Case discussed with my MEDICAL ADMINISTRATIVE TECHNICIAN. Care plan developed with my supervision; agree with above. Doing about the same-still very SOA. Needing BiPAP for most of the time to help breathing; able to come off for short periods. Not feeling cough/congestion. No pain with breathing. Appetite okay. No nausea. Lungs: decreased, diminished air movement. CV: regular AB: soft obese BS decreased MSE: awake alert appropriate Plan: With continued respiratory distress and need for near constant BiPAP for respiratory support, will change to inpatient admission as anticipate greater than 2 midnights of care needed and patient is not clinically improved for discharge at this time. Continue with BiPAP for respiratory support and to help decrease then work of breathing. Continue Solu-Medrol and breathing treatment. Encourage activities as able. Will recheck CXR in am. Hospital Course Summary Disclaimer: The visit summary below is not to be considered part of the above Progress Note. Hospital Course: Impression Acute COPD exacerbation Acute on chronic hyponatremia-present on admission Hypomagnesium- POA- 1.5 Hyperkalemia- POA- 5.1 Chronic respiratory failure with oxygen dependence of 2 liters. Obstructive sleep apnea-BiPAP. Type II diabetes Coronary artery disease Hypertension Hyperlipidemia Bipolar disorder Anxiety/depression Morbid obesity-BMI 47 Plan Patient outpatient observation under the care of Dr. Iglesias for acute COPD exacerbation Continue patient on scheduled DuoNeb breathing treatments 4 times a day as well as when necessary. Pulmicort twice a day well as BiPAP management per RT Continue with IV Solu-Medrol 125 milligrams IV every 6 hours for pulmonary inflammation. Give IV magnesium as well as oral supplementation. Given hypomanic magnesium. Lasix 40mg IV to help waste free water as sodium low and weight with trend up from prior visits. Monitor Accu-Cheks, continue with metformin, Victoza and sliding scale insulin Place home potassium on hold given Hyperkalemia. Chon hose to BLE to help with edema. SCDs for DVT ppx. Lasix 40 mg daily as per chronic diuresing. Does wish to be a do not resuscitate and do not intubate. Check CBC, BMP and magnesium tomorrow to follow all blood counts, renal function and electrolytes. At time of discharge medical care will return to primary care provider, Rafaela Dean APRN at [facility] 12/11/17 She continues to require for ventilatory support via BiPAP Will change to inpatient status Continue with IV Solu-Medrol 125 milligrams IV every 6 hours for pulmonary inflammation as well as Duoneb scheduled Monitor Accu-Cheks, continue with metformin, Victoza and sliding scale insulin Hyperkalemia improving. May consider resuming home potassium tomorrow Chon hose to BLE to help with edema. Lasix 40 mg daily as per chronic diuresing Once breathing has improved will need to encourage ambulation and strengthening
[2017-12-11] MEDS: METFORMIN 500 MG TABLET PO SCH (17:20)
[2017-12-11] MEDS: GABAPENTIN 300 MG CAPSULE PO SCH (21:19)
[2017-12-11] MEDS: LORazepam 1 MG TABLET PO SCH (21:19)
[2017-12-11] MEDS: PRIMIDONE 50 MG TABLET PO SCH (21:20)
[2017-12-11] MEDS: PRAMIPEXOLE 0.25 MG TABLET PO SCH (21:20)
[2017-12-12] MEDS: TRAMADOL 50 MG TABLET PO PRN ×3 (00:09→16:17)
[2017-12-12] MEDS: METHYLPREDNISOLONE SOD SUCC 125mg/2ml INJECTION IVP SCH ×5 (03:31→20:59)
[2017-12-12] MEDS: ALBUTEROL/IPRATROPIUM 2.5mg-0.5mg/3ml NEB AEROSOL SCH ×5 (04:57→19:02)
[2017-12-12] MEDS: BUDESONIDE INH.SOLN 0.5mg/2ml NEB AEROSOL SCH ×2 (04:57→19:01)
[2017-12-12] MEDS: PANTOPRAZOLE 40 MG TABLET PO SCH (06:02)
[2017-12-12] MEDS: INSULIN ASPART 100unit/ml INJECTION SQ PRN ×4 (06:27→21:01)
[2017-12-12] MEDS: ALBUTEROL/IPRATROPIUM 2.5mg-0.5mg/3ml NEB AEROSOL PRN ×4 (07:00→19:23)
[2017-12-12] MEDS: METHOCARBAMOL 750 MG TABLET PO PRN ×2 (07:24→16:17)
[2017-12-12] MEDS: CABERGOLINE 0.5 MG TABLET PO SCH (08:03)
[2017-12-12] MEDS: FOLIC ACID 1 MG TABLET PO SCH (08:03)
[2017-12-12] MEDS: ASPIRIN *EC* 81 MG TABLET PO SCH (08:03)
[2017-12-12] MEDS: FUROSEMIDE 40 MG TABLET PO SCH (08:04)
[2017-12-12] MEDS: PALIPERIDONE ER 1.5mg TABLET PO SCH (08:04)
[2017-12-12] MEDS: MAGNESIUM OXIDE 400 MG TABLET PO SCH ×3 (08:04→21:01)
[2017-12-12] MEDS: MELOXICAM 7.5 MG TABLET PO SCH (08:04)
[2017-12-12] MEDS: BUSPIRONE 5 MG TABLET PO SCH ×2 (08:04→21:13)
--- NOTE | 2017-12-12 08:19 | XRay Report ---
Indication: F/U PROCEDURE: XR chest 1V: Encounter: Initial Comparison: December 10, 2017 Findings: The lungs are stable in appearance without new focal airspace consolidation. Possible trace right effusion. No pneumothorax. The heart size, pulmonary vascularity and mediastinal contours are unchanged. IMPRESSION: Possible trace right effusion. .
[2017-12-12] MEDS: LIRAGLUTIDE INJECTABLE PEN SQ SCH (08:31)
[2017-12-12] MEDS ORDERED: LIDOCAINE PATCH REMOVAL TOP SCH (11:00)
--- NOTE | 2017-12-12 11:08 | Progress Note ---
- Date 12/12/17 Subjective: Suyapa is seen today in follow up. She is up in the chair as the bed position is causing her to have left scapula pain. No noted erythema or lesions, however point tender to the right posterior scapular spine on examination. Overall she feels that he breathing is slightly improved however she doesn't feel she is able to stay off Bi-pap long without dyspnea. Appetite is good. Objective Vital signs: Temperature 96.6 F L 12/12/17 07:42 Pulse Rate 90 12/12/17 07:42 Respiratory Rate 24 12/12/17 07:42 Blood Pressure 198/110 H 12/12/17 09:59 Pulse Oximetry 98 12/12/17 07:42 Height/Weight/BMI: Height 1.65 m Weight 130.9 kg Body Mass Index 48.4 - Constitutional Present: no acute distress, well nourished, well developed - Routine HEENT Exam Eye: Present: EOMI ENT: Present: mucous membranes moist, dentition normal - Routine Respiratory Exam Present: crackles - Routine Cardiovascular Exam Present: RRR, S1, S2. Absent: murmur - Routine Abdominal Exam Present: soft, normoactive bowel sounds, non distended. Absent: tenderness - Routine Extremities Exam Present: edema - Routine Skin Exam Present: intact, dry, warm - Routine Neurological Exam Present: alert, oriented X3, CN II-XII intact - Routine Lymphatic Exam Lymphatic: Absent: adenopathy - Routine Psychiatric Exam Present: normal affect, normal thought process, cooperative Results - Labs CBC & Chem 7: 12/12/17 04:15 12/12/17 04:15 - ABG Interpretation ABG results: 12/10/17 12:28 ABG pH 7.369 ABG pCO2 51 H ABG pO2 179.6 H ABG HCO3 29.3 H ABG Total CO2 30.8 H ABG O2 Saturation 99.5 H ABG Base Excess 3.0 H Assessment and Plan Assessment and Plan: Impression Acute COPD exacerbation with need for ventilator support Acute on chronic hyponatremia-present on admission Hypomagnesium- POA- 1.5 Hyperkalemia- POA- 5.1 Chronic respiratory failure with oxygen dependence of 2 liters. Obstructive sleep apnea-BiPAP. Type II diabetes Coronary artery disease Hypertension Hyperlipidemia Bipolar disorder Anxiety/depression Morbid obesity-BMI 47 Plan Noted mild leukocytosis today. Could be secondary to ongoing steroid use Chest X-ray this morning did revel possible right effusion Will give a extra dose of Lasix 20 mg IV this afternoon in addition to home dose of 40 mg PO. Continues to require for ventilatory support via BiPAP Continue with IV Solu-Medrol 125 milligrams IV every 6 hours for pulmonary inflammation as well as DuoNeb scheduled. BP elevated. Will re-evaluate and monitor- may need to consider adding Norvasc. Monitor Accu-Cheks, continue with metformin, Victoza and sliding scale insulin Home potassium remains on hold Chon hose to BLE to help with edema. Sloane Decrease Solu-Medrol to 62.5mg IV every 6 hours for pulmonary inflammation DVT Prophylaxis: SCD's Resuscitation Status: Do Not Resuscitate - Time spent with patient Time with patient PN: 25 minutes - Physician Narrative Physician: Mark Anton MD Narrative: Date: 12/12/17 Time: 1432 Have independently interviewed and examined pt. Chart reviewed. Case discussed with my CIGAR SORTER. Care plan developed with my supervision; agree with above. Feels like she is improving. Less SOA. Moving some sputum. No pain with breathing. Appetite stable, reports eating well. No ab pain. Asking about going home. Lungs: decreased, little air movement. CV: regular AB: soft obese NT BS decreased EXT: trace edema, SCD in palce MSE: awake alert Plan: Discussed with patient about going home-not sure she is up to it at this time (has been on BiPAP almost continually her). Did ask her (and nursing) to try taking her off BiPAP and having her ambulate to assess her functional status. As she feels her breathing is improving, will decrease Solu-Medrol to 62.5mg Q6 hours. Continue Neb treatment. Hospital Course Summary Disclaimer: The visit summary below is not to be considered part of the above Progress Note. Hospital Course: Impression Acute COPD exacerbation Acute on chronic hyponatremia-present on admission Hypomagnesium- POA- 1.5 Hyperkalemia- POA- 5.1 Chronic respiratory failure with oxygen dependence of 2 liters. Obstructive sleep apnea-BiPAP. Type II diabetes Coronary artery disease Hypertension Hyperlipidemia Bipolar disorder Anxiety/depression Morbid obesity-BMI 47 Plan Patient outpatient observation under the care of Dr. Iglesias for acute COPD exacerbation Continue patient on scheduled DuoNeb breathing treatments 4 times a day as well as when necessary. Pulmicort twice a day well as BiPAP management per RT Continue with IV Solu-Medrol 125 milligrams IV every 6 hours for pulmonary inflammation. Give IV magnesium as well as oral supplementation. Given hypomanic magnesium. Lasix 40mg IV to help waste free water as sodium low and weight with trend up from prior visits. Monitor Accu-Cheks, continue with metformin, Victoza and sliding scale insulin Place home potassium on hold given Hyperkalemia. Chon hose to BLE to help with edema. SCDs for DVT ppx. Lasix 40 mg daily as per chronic diuresing. Does wish to be a do not resuscitate and do not intubate. Check CBC, BMP and magnesium tomorrow to follow all blood counts, renal function and electrolytes. At time of discharge medical care will return to primary care provider, Rafaela Dean APRN at [facility] 12/11/17 She continues to require for ventilatory support via BiPAP Will change to inpatient status Continue with IV Solu-Medrol 125 milligrams IV every 6 hours for pulmonary inflammation as well as DuoNeb scheduled Monitor Accu-Cheks, continue with metformin, Victoza and sliding scale insulin Hyperkalemia improving. May consider resuming home potassium tomorrow Chon hose to BLE to help with edema. Lasix 40 mg daily as per chronic diuresing Once breathing has improved will need to encourage ambulation and strengthening 12/12/17 Noted mild leukocytosis today. Could be secondary to ongoing steroid use. Chest X-ray this morning did revel possible right effusion. Will give a extra dose of Lasix 20 mg IV this afternoon in addition to home dose of 40 mg PO. Continues to require for ventilatory support via BiPAP; will have nursing try to wean to O2. Decrease Solu-Medrol to 62.5mg IV every 6 hours for pulmonary inflammation; continue DuoNeb & budesonide as scheduled. BP elevated. Will re-evaluate and monitor- may need to consider adding Norvasc. Monitor Accu-Cheks, continue with metformin, Victoza and sliding scale insulin. Home potassium remains on hold - potassium 4.4. Chon hose to BLE to help with edema.
[2017-12-12] MEDS: LIDOCAINE 5% PATCH TOP SCH (12:23)
[2017-12-12] MEDS ORDERED: FUROSEMIDE 20 MG/2 ML INJECTION IVP ONE (14:00)
[2017-12-12] MEDS: AMLODIPINE 5 MG TABLET PO SCH (16:18)
[2017-12-12] MEDS: METFORMIN 500 MG TABLET PO SCH (17:24)
[2017-12-12] MEDS: HYDRALAZINE 20 MG/ML INJECTION IVP PRN (18:35)
[2017-12-12] MEDS: PRAMIPEXOLE 0.25 MG TABLET PO SCH (21:00)
[2017-12-12] MEDS: GABAPENTIN 300 MG CAPSULE PO SCH (21:00)
[2017-12-12] MEDS: LORazepam 1 MG TABLET PO SCH (21:00)
[2017-12-12] MEDS: PRIMIDONE 50 MG TABLET PO SCH (21:00)
[2017-12-12] MEDS: SALINE FLUSH 10ml SYRINGE IVF PRN (21:01)
[2017-12-13] MEDS: ALBUTEROL/IPRATROPIUM 2.5mg-0.5mg/3ml NEB AEROSOL PRN ×4 (00:39→23:24)
[2017-12-13] MEDS: HYDRALAZINE 20 MG/ML INJECTION IVP PRN (00:42)
[2017-12-13] MEDS: TRAMADOL 50 MG TABLET PO PRN ×3 (00:49→21:55)
[2017-12-13] MEDS: METHOCARBAMOL 750 MG TABLET PO PRN ×3 (00:49→21:53)
[2017-12-13] MEDS: SALINE FLUSH 10ml SYRINGE IVF PRN ×5 (00:50→21:53)
[2017-12-13] MEDS ORDERED: ONDANSETRON 4 MG/2 ML INJECTION IVP PRN (03:05)
[2017-12-13] MEDS: METHYLPREDNISOLONE SOD SUCC 125mg/2ml INJECTION IVP SCH ×4 (03:14→21:53)
[2017-12-13] MEDS: PANTOPRAZOLE 40 MG TABLET PO SCH (06:22)
[2017-12-13] MEDS: INSULIN ASPART 100unit/ml INJECTION SQ PRN ×4 (07:02→21:55)
[2017-12-13] MEDS: AMLODIPINE 5 MG TABLET PO SCH (08:58)
[2017-12-13] MEDS: ASPIRIN *EC* 81 MG TABLET PO SCH (08:58)
[2017-12-13] MEDS: BUSPIRONE 5 MG TABLET PO SCH ×2 (08:58→21:54)
[2017-12-13] MEDS: FOLIC ACID 1 MG TABLET PO SCH (09:00)
[2017-12-13] MEDS: FUROSEMIDE 40 MG TABLET PO SCH (09:00)
[2017-12-13] MEDS: LIRAGLUTIDE INJECTABLE PEN SQ SCH (09:01)
[2017-12-13] MEDS: LIDOCAINE 5% PATCH TOP SCH (09:01)
[2017-12-13] MEDS: MAGNESIUM OXIDE 400 MG TABLET PO SCH ×3 (09:02→21:55)
[2017-12-13] MEDS: MELOXICAM 7.5 MG TABLET PO SCH (09:02)
[2017-12-13] MEDS: PALIPERIDONE ER 1.5mg TABLET PO SCH (09:04)
[2017-12-13] MEDS: BUDESONIDE INH.SOLN 0.5mg/2ml NEB AEROSOL SCH ×2 (09:37→19:09)
[2017-12-13] MEDS: ALBUTEROL/IPRATROPIUM 2.5mg-0.5mg/3ml NEB AEROSOL SCH ×4 (09:37→19:08)
--- NOTE | 2017-12-13 13:58 | Progress Note ---
- Date 12/13/17 Subjective: Suyapa is seen today in follow up. She was off Bipap for a hour this morning. While eating meals she is using 4 liters of oxygen by nasal cannula. She describes feeling significantly anxious and she is without her BiPAP. She reports that with a even minimal exertion such as bedside commode or eating too quickly, she feels short of breath, thus causing anxiety making her feel like she needs BiPAP. The importance of not treating anxiety with use of a BiPAP. She verified that she does have a home BiPAP machine that she utilizes at night , and while napping during the day. She denies having pain, nausea, vomiting. Appetite is good, no difficulty with urination. Objective Vital signs: Temperature 96.6 F L 12/13/17 00:34 Pulse Rate 91 12/13/17 13:48 Respiratory Rate 18 12/13/17 13:48 Blood Pressure 158/97 H 12/13/17 13:48 Pulse Oximetry 98 12/13/17 13:48 Height/Weight/BMI: Height 1.65 m Weight 130.3 kg Body Mass Index 48.4 - Constitutional Present: no acute distress, well nourished, well developed - Routine HEENT Exam Eye: Present: EOMI ENT: Present: mucous membranes moist, dentition normal - Routine Respiratory Exam Present: CTA bilaterally, diminished air movement (bases). Absent: wheezes - Routine Cardiovascular Exam Present: RRR, S1, S2. Absent: murmur - Routine Abdominal Exam Present: soft, normoactive bowel sounds, non distended. Absent: tenderness - Routine Skin Exam Present: intact, dry, warm - Routine Neurological Exam Present: alert, oriented X3, CN II-XII intact - Routine Lymphatic Exam Lymphatic: Absent: adenopathy - Routine Psychiatric Exam Present: normal affect, cooperative, anxious Results - Labs CBC & Chem 7: 12/13/17 04:42 12/13/17 04:42 Assessment and Plan Assessment and Plan: Impression Acute COPD exacerbation with need for ventilator support Acute on chronic hyponatremia-present on admission Hypomagnesium- POA- 1.5 Hyperkalemia- POA- 5.1 Chronic respiratory failure with oxygen dependence of 2 liters. Obstructive sleep apnea-BiPAP. Type II diabetes Coronary artery disease Hypertension Hyperlipidemia Bipolar disorder Anxiety/depression Morbid obesity-BMI 47 Plan Continue to work with respiratory therapy to wean down BiPAP use. Plan to remove BiPAP for at least 1 hour again this afternoon. Discussed with patient and nurse. We will give patient a dose of Ativan prior to taking her off of the BiPAP. Solu-medrol Medrol decreased Chest X-ray obtained yesterday did show a possible small pleural effusion Weight does continue to be up from admission approximately 9 kg. Currently he is on home dose of Lasix 40 milligrams daily. She did receive an additional dose yesterday. Suspect she needs more aggressive diuresing. Monitor Accu-Cheks, continue with metformin, Victoza and sliding scale insulin Home potassium remains on hold Chon hose to BLE to help with edema. 12/13/2017-7:10 PM-I examined the patient independently. I reviewed this chart, the patient history, and the ENGINEERING SURVEYOR's/PA's documented findings as above. We discussed and formulated the assessment and plan as above with the additions below.-Dr. Mccoy The patient was seen this evening in her room. She states her breathing is better today. She was off of the BiPAP for about 2 and half hours today. She is on 3 L of oxygen when she is not on BiPAP. She is getting ready for breathing treatment. She has some pain in her neck and right shoulder which have improved with lidocaine patch and Aspercreme. She is eating and drinking well. On exam she is alert and in no acute distress. Chest reveals decreased breath sounds with minimal wheezes and no crackles. Cardiovascular reveals a regular rate and rhythm. Abdomen is obese, soft with positive bowel sounds. Extremities reveal trace edema without pitting. SCDs are on. Impression and plan Acute on chronic hypoxemic respiratory failure is improving. She is on 3 L of oxygen while not on BiPAP. At home she is on 2 L. We are trying to wean her off of BiPAP during the day and have asked her to try not to use it except at bedtime and for naps. Continue breathing treatments. Likely decrease steroids tomorrow. Continue sliding scale insulin as needed for hyperglycemia from steroids Weight is up 9 kg, likely give IV Lasix tomorrow. Will not give today since it' s late in the day. Recheck basic metabolic profile and CBC tomorrow. Anxiety is a little better today. - Physician Narrative Narrative: Date: 12/13/17 Time: 1350 Hospital Course Summary Disclaimer: The visit summary below is not to be considered part of the above Progress Note. Hospital Course: Impression Acute COPD exacerbation Acute on chronic hyponatremia-present on admission Hypomagnesium- POA- 1.5 Hyperkalemia- POA- 5.1 Chronic respiratory failure with oxygen dependence of 2 liters. Obstructive sleep apnea-BiPAP. Type II diabetes Coronary artery disease Hypertension Hyperlipidemia Bipolar disorder Anxiety/depression Morbid obesity-BMI 47 Plan Patient outpatient observation under the care of Dr. Iglesias for acute COPD exacerbation Continue patient on scheduled DuoNeb breathing treatments 4 times a day as well as when necessary. Pulmicort twice a day well as BiPAP management per RT Continue with IV Solu-Medrol 125 milligrams IV every 6 hours for pulmonary inflammation. Give IV magnesium as well as oral supplementation. Given hypomanic magnesium. Lasix 40mg IV to help waste free water as sodium low and weight with trend up from prior visits. Monitor Accu-Cheks, continue with metformin, Victoza and sliding scale insulin Place home potassium on hold given Hyperkalemia. Chon hose to BLE to help with edema. SCDs for DVT ppx. Lasix 40 mg daily as per chronic diuresing. Does wish to be a do not resuscitate and do not intubate. Check CBC, BMP and magnesium tomorrow to follow all blood counts, renal function and electrolytes. At time of discharge medical care will return to primary care provider, Rafaela Dean APRN at [facility] 12/11/17 She continues to require for ventilatory support via BiPAP Will change to inpatient status Continue with IV Solu-Medrol 125 milligrams IV every 6 hours for pulmonary inflammation as well as DuoNeb scheduled Monitor Accu-Cheks, continue with metformin, Victoza and sliding scale insulin Hyperkalemia improving. May consider resuming home potassium tomorrow Chon hose to BLE to help with edema. Lasix 40 mg daily as per chronic diuresing Once breathing has improved will need to encourage ambulation and strengthening 12/12/17 Noted mild leukocytosis today. Could be secondary to ongoing steroid use. Chest X-ray this morning did revel possible right effusion. Will give a extra dose of Lasix 20 mg IV this afternoon in addition to home dose of 40 mg PO. Continues to require for ventilatory support via BiPAP; will have nursing try to wean to O2. Decrease Solu-Medrol to 62.5mg IV every 6 hours for pulmonary inflammation; continue DuoNeb & budesonide as scheduled. BP elevated. Will re-evaluate and monitor- may need to consider adding Norvasc. Monitor Accu-Cheks, continue with metformin, Victoza and sliding scale insulin. Home potassium remains on hold - potassium 4.4. Chon hose to BLE to help with edema. 12/13/17 Continue to work with respiratory therapy to wean down BiPAP use. Plan to remove BiPAP for at least 1 hour again this afternoon. Discussed with patient and nurse. We will give patient a dose of Ativan prior to taking her off of the BiPAP. Solu-medrol Medrol decreased Chest X-ray obtained yesterday did show a possible small pleural effusion Weight does continue to be up from admission approximately 9 kg. Currently he is on home dose of Lasix 40 milligrams daily. She did receive an additional dose yesterday. Suspect she needs more aggressive diuresing. Monitor Accu-Cheks, continue with metformin, Victoza and sliding scale insulin Home potassium remains on hold
[2017-12-13] MEDS: METFORMIN 500 MG TABLET PO SCH (18:07)
[2017-12-13] MEDS: PRAMIPEXOLE 0.25 MG TABLET PO SCH (21:53)
[2017-12-13] MEDS: LORazepam 1 MG TABLET PO SCH (21:54)
[2017-12-13] MEDS: PRIMIDONE 50 MG TABLET PO SCH (21:54)
[2017-12-13] MEDS: GABAPENTIN 300 MG CAPSULE PO SCH (21:54)
[2017-12-13] MEDS: LIDOCAINE PATCH REMOVAL TOP SCH (22:06)
[2017-12-14] MEDS: SALINE FLUSH 10ml SYRINGE IVF PRN ×2 (03:49→13:22)
[2017-12-14] MEDS: METHYLPREDNISOLONE SOD SUCC 125mg/2ml INJECTION IVP SCH ×4 (03:49→21:16)
[2017-12-14] MEDS: PANTOPRAZOLE 40 MG TABLET PO SCH (06:08)
[2017-12-14] MEDS: INSULIN ASPART 100unit/ml INJECTION SQ PRN ×4 (06:14→21:18)
[2017-12-14] MEDS: ALBUTEROL/IPRATROPIUM 2.5mg-0.5mg/3ml NEB AEROSOL SCH ×4 (07:45→18:28)
[2017-12-14] MEDS: BUDESONIDE INH.SOLN 0.5mg/2ml NEB AEROSOL SCH ×2 (07:46→18:28)
[2017-12-14] MEDS: AMLODIPINE 5 MG TABLET PO SCH (08:18)
[2017-12-14] MEDS: ASPIRIN *EC* 81 MG TABLET PO SCH (08:18)
[2017-12-14] MEDS: BUSPIRONE 5 MG TABLET PO SCH ×2 (08:19→21:20)
[2017-12-14] MEDS: PALIPERIDONE ER 1.5mg TABLET PO SCH (08:19)
[2017-12-14] MEDS: FOLIC ACID 1 MG TABLET PO SCH (08:19)
[2017-12-14] MEDS: MELOXICAM 7.5 MG TABLET PO SCH (08:19)
[2017-12-14] MEDS: MAGNESIUM OXIDE 400 MG TABLET PO SCH ×2 (08:30→16:21)
[2017-12-14] MEDS: FUROSEMIDE 40 MG/4 ML INJECTION IVP SCH (08:30)
[2017-12-14] MEDS: LIDOCAINE 5% PATCH TOP SCH (08:37)
[2017-12-14] MEDS: LIRAGLUTIDE INJECTABLE PEN SQ SCH (08:39)
[2017-12-14] MEDS: ALBUTEROL/IPRATROPIUM 2.5mg-0.5mg/3ml NEB AEROSOL PRN (09:44)
[2017-12-14] MEDS: HYDRALAZINE 20 MG/ML INJECTION IVP PRN ×2 (10:26→16:17)
[2017-12-14] MEDS: TRAMADOL 50 MG TABLET PO PRN ×2 (13:33→18:54)
--- NOTE | 2017-12-14 14:16 | Progress Note ---
- Date 12/14/17 Subjective: Suyapa was resting in bed but easily awakened. She has been on BiPAP most of the time -- per RN only comes off for meals. So she's off BiPAP for about 3 hours per day. Suyapa gets "worked up" when she's not on BiPAP. She tried to go for a walk yesterday and became too anxious off BiPAP; she's planning on a shorter walk today. She reports that she hardly slept last night. She denies any abdominal pain or nausea and she's had a good appetite. She notes chronic pain to her neck and tight shoulder. Objective Vital signs: Temperature 96.3 F L 12/14/17 07:37 Pulse Rate 95 12/14/17 10:26 Respiratory Rate 22 12/14/17 13:33 Blood Pressure 164/108 H 12/14/17 11:13 Pulse Oximetry 97 12/14/17 12:35 Height/Weight/BMI: Height 1.65 m Weight 126.2 kg Body Mass Index 48.4 - Constitutional Present: no acute distress, well nourished, well developed - Routine HEENT Exam Head: Present: normocephalic Eye: Absent: conjunctival icterus, scleral injection Comments: BiPAP mask in place - Routine Respiratory Exam Present: decreased breath sounds, wheezes, crackles (faint) - Routine Cardiovascular Exam Present: RRR, S1, S2 - Routine Abdominal Exam Present: soft, normoactive bowel sounds, non distended, non tender - Routine Extremities Exam Present: edema (trace BLE) - Routine Skin Exam Present: intact, dry, warm - Routine Neurological Exam Present: alert, oriented X3, normal speech - Routine Psychiatric Exam Present: normal thought process, cooperative Results - Labs CBC & Chem 7: 12/14/17 04:48 12/14/17 04:48 Assessment and Plan Assessment and Plan: Impression Acute COPD exacerbation with need for ventilator support Acute on chronic hyponatremia-present on admission Hypomagnesium- POA- 1.5 Hyperkalemia- POA- 5.1 Hyponatremia- POA Chronic respiratory failure with oxygen dependence of 2 liters. Obstructive sleep apnea-BiPAP. Type II diabetes Coronary artery disease Hypertension Hyperlipidemia Bipolar disorder Anxiety/depression Morbid obesity-BMI 47 Plan Encouraged a short walk today off BiPAP. Trying to reduce BiPAP-dependence. Weight is down from yesterday; will recheck CXR to f/u on effusion and to evaluate for increased vascularity. Continue Lasix 40 mg IV (Home dose: 40 mg PO ; conversion rate from IV to PO is equivalent) Hyponatremia is stable at 131 BGM uncontrolled - will start Lantus 10 U at night for now to try to reduce sugars. Continue metformin, Victoza and sliding scale insulin. Recheck A1c, last one was 6.7% in Jul 2017. Could also consider increasing metformin. In addition will decrease IV steroids to BID dosing. Cont nebs/pulmicort. 12/14/2017-3 PM-I examined the patient independently. I reviewed this chart, the patient history, and the [employer] TEACHER's/PA's documented findings as above. We discussed and formulated the assessment and plan as above with the additions below.-Dr. Mccoy The patient continues to wear BiPAP most of the time. She was able to be off for about an hour earlier today. She states she feels anxious and short of breath and then feels better when it is replaced. It is difficult to tell for sure whether this is primary anxiety versus anxiety caused by breathing difficulties. She states she would like to go for a walk. She is drinking well. She is urinating frequently. She thinks her edema in her legs is better. She states she wasn't able to finish her lunch because she got short of breath. On exam she is alert and oriented and in no acute distress. She is currently on BiPAP. Chest reveals some prolonged expiratory phase but no obvious rhonchi, wheezing or crackles. Cardiovascular reveals a regular rate and rhythm. Abdomen is soft and nontender. Extremities reveal trace edema. Lab is reviewed and fairly stable. Sodium is 131. Potassium 4.8. Weight is 126 kg down from 130 to yesterday. Weight was 121 kg on admission. Impression and plan COPD exacerbation-appears to be improving, but the patient continues to use BiPAP almost continuously because of anxiety. Will consult Dr. Rolon to see tomorrow. Anxiety may be contributing to patient's shortness of breath and frequent use of BiPAP. Will start lorazepam 0.5 mg by mouth 3 times a day. We'll ask psychiatry to see tomorrow for help with anxiety. Regarding elevated blood pressure, we'll increase Norvasc to 10 mg daily. Continue Lasix 40 mg IV once daily for fluid retention and weight gain Monitor sodium Discussed with RT and patient's nurse DVT Prophylaxis: SCD's GI Prophylaxis: Protonix Resuscitation Status: Do Not Resuscitate - Physician Narrative Narrative: Date: 12/14/17 Time: 141 Hospital Course Summary Disclaimer: The visit summary below is not to be considered part of the above Progress Note. Hospital Course: Impression Acute COPD exacerbation Acute on chronic hyponatremia-present on admission Hypomagnesium- POA- 1.5 Hyperkalemia- POA- 5.1 Chronic respiratory failure with oxygen dependence of 2 liters. Obstructive sleep apnea-BiPAP. Type II diabetes Coronary artery disease Hypertension Hyperlipidemia Bipolar disorder Anxiety/depression Morbid obesity-BMI 47 Plan Patient outpatient observation under the care of Dr. Iglesias for acute COPD exacerbation Continue patient on scheduled DuoNeb breathing treatments 4 times a day as well as when necessary. Pulmicort twice a day well as BiPAP management per RT Continue with IV Solu-Medrol 125 milligrams IV every 6 hours for pulmonary inflammation. Give IV magnesium as well as oral supplementation. Given hypomanic magnesium. Lasix 40mg IV to help waste free water as sodium low and weight with trend up from prior visits. Monitor Accu-Cheks, continue with metformin, Victoza and sliding scale insulin Place home potassium on hold given Hyperkalemia. Chon hose to BLE to help with edema. SCDs for DVT ppx. Lasix 40 mg daily as per chronic diuresing. Does wish to be a do not resuscitate and do not intubate. Check CBC, BMP and magnesium tomorrow to follow all blood counts, renal function and electrolytes. At time of discharge medical care will return to primary care provider, Rafaela Dean APRN at [facility] 12/11/17 She continues to require for ventilatory support via BiPAP Will change to inpatient status Continue with IV Solu-Medrol 125 milligrams IV every 6 hours for pulmonary inflammation as well as DuoNeb scheduled Monitor Accu-Cheks, continue with metformin, Victoza and sliding scale insulin Hyperkalemia improving. May consider resuming home potassium tomorrow Chon hose to BLE to help with edema. Lasix 40 mg daily as per chronic diuresing Once breathing has improved will need to encourage ambulation and strengthening 12/12/17 Noted mild leukocytosis today. Could be secondary to ongoing steroid use. Chest X-ray this morning did revel possible right effusion. Will give a extra dose of Lasix 20 mg IV this afternoon in addition to home dose of 40 mg PO. Continues to require for ventilatory support via BiPAP; will have nursing try to wean to O2. Decrease Solu-Medrol to 62.5mg IV every 6 hours for pulmonary inflammation; continue DuoNeb & budesonide as scheduled. BP elevated. Will re-evaluate and monitor- may need to consider adding Norvasc. Monitor Accu-Cheks, continue with metformin, Victoza and sliding scale insulin. Home potassium remains on hold - potassium 4.4. Chon hose to BLE to help with edema. 12/13/17 Continue to work with respiratory therapy to wean down BiPAP use. Plan to remove BiPAP for at least 1 hour again this afternoon. Discussed with patient and nurse. We will give patient a dose of Ativan prior to taking her off of the BiPAP. Solu-medrol Medrol decreased Chest X-ray obtained yesterday did show a possible small pleural effusion Weight does continue to be up from admission approximately 9 kg. Currently he is on home dose of Lasix 40 milligrams daily. She did receive an additional dose yesterday. Suspect she needs more aggressive diuresing. Monitor Accu-Cheks, continue with metformin, Victoza and sliding scale insulin Home potassium remains on hold 12/14/17 Encouraged a short walk today off BiPAP. Trying to reduce BiPAP-dependence. Weight is down from yesterday; will recheck CXR to f/u on effusion and to evaluate for increased vascularity. Continue Lasix 40 mg IV (Home dose: 40 mg PO ; conversion rate from IV to PO is equivalent) Hyponatremia is stable at 131 BGM uncontrolled - will start Lantus 10 U at night for now to try to reduce sugars. Continue metformin, Victoza and sliding scale insulin. Recheck A1c, last one was 6.7% in Jul 2017. Could also consider increasing metformin. In addition will decrease IV steroids to BID dosing. Cont nebs/pulmicort.
[2017-12-14] MEDS: METFORMIN 500 MG TABLET PO SCH (17:51)
--- NOTE | 2017-12-14 17:51 | Pulmonology Consult Note ---
History of Present Illness Consult date: 12/14/17 Requesting physician: Mandy Mccoy Reason for consult: dyspnea, COPD Chief complaint: short of breath History of present illness: This is a 62 year old lady who is quite debilitated from severe COPD and chronic hypercapnic respiratory failure. Her baseline pCO2 is 52. She has a home BIPAP which she wears nightly. Due to insurance coverage she is unable to get updated supplies however. She lives independently in an apartment and has a nurse that comes twice daily to help her. She is on inhaled medications at home. Her history is best summarized as follows: chronic obstructive lung disease - severe COPD with FEV1 37 %. COPD Assessment Test score is 35 This patient is GOLD Stage D and is High risk for exacerbation or complications related to COPD. We will treat this patient with a combination of: 1. Medical therapy. prednisone 10 mg daily Stiolto 2 puffs daily Duoneb QID Proair as needed 2. Exercise as tolerated, recommend pulmonary rehab referral 3. Immunizations are up to date 4. Close followup and education Provided chronic obstructive pulmonary disease (COPD): care instructions Provided learning about copd and how to prevent lung infections She was referred for pulmonary rehab Uses bipap every night, but her equipment is old and she doesn't have a new mask or tubing for 2 years. On admission the notes indicate: Suyapa is a 62-year-old female who is known to the hospitalist services from previous frequent admissions. Patient reports that she began having onset of worsening dyspnea this morning, accompanied with a productive cough. She awoke at 4 a.m. and was unable to him related to the bathroom due to her dyspnea. All night long. She had to sleep in a recliner because she could not tolerate lying back. Her home health nurse came to evaluate her and due to her conversational dyspnea contacted EMS. Patient was given IV Solu-Medrol and albuterol nebulizer and transported to [facility] emergency room for acute evaluation. Blood work was obtained, CBC was normal other than neutrophils of 87%.BMP revealed hyponatremia with a sodium of 129 and potassium of 5.1. Troponin was undetectable and BNP 564. X-ray revealed no focal consolidation or otherwise acute cardiopulmonary process. Patient was placed on BiPAP on arrival to the emergency room. Her respiratory effort has improved with respiratory assistance. Given her symptoms the services were contacted and accepted patient for outpatient observation for further evaluation and treatment. Review of Systems All systems: reviewed and no additional remarkable complaints except as stated PFSH Patient Stated Medical History Cerebrovascular Accident Yes: 1999 Migraine Yes: PRESENT Peripheral Neuropathy Yes: diabetic Transient Ischemic Attacks ( Yes: 2012 TIA) Cataracts Yes: BILAT Dental Problems Yes: DENTURES Macular Degeneration Yes: RECENTLY DX Cardiac Arrhythmia Yes Congestive Heart Failure Yes Heart Murmur Yes Hypertension Yes Myocardial Infarction Yes: 2002 Asthma Yes Bronchitis Yes Chronic Obstructive Pulmonary Yes Disease (COPD) Pneumonia Yes Sleep Apnea Yes: Uses a Bipap occasionally at home. Other Respiratory Yes: EMPHYSEMA Diabetes Mellitus Type 2 Yes Gastroesophageal Reflux Yes Disease Hiatal Hernia Yes Ulcer Yes Hx Incontinence Yes Hx Renal Disease No Anemia Yes Osteoarthritis Yes Other Musculoskeletal Yes: osteopenia Chlamydia Yes: 'S MRSA Yes: HX PREVIOUS SORES ON BACK/BUTTOCKS. Shingles Yes: 1995 FACE Blood Transfusions Yes Bipolar Disorder Yes Depression Yes Post Traumatic Stress Disorder Yes Substance Use Disorder Yes: NICOTINE DEPENDENCE Abnormal Pap Yes: 1977 Medical History Updates: HTN. HLD. Type 2 DM. Anxiety/Depression. MILDRED on BIPAP. COPD. Asthma. CHF. CAD. Chronic hyponatremia. Bipolar discorder Surgical History: appendix. colonoscopy. gallbladder. hernia. tonsils. cardiac cath. hysterectomy. carpal tunnel. knee. shoulder Family History: Family History (Last Updated 06/19/17 @ 18:20 by Jammie Woodard MD) Mother COPD (chronic obstructive pulmonary disease) Brother COPD (chronic obstructive pulmonary disease) Family History Updates: Family History (Last Updated 06/19/17 @ 18:20 by Jammie Woodard MD). Mother. COPD (chronic obstructive pulmonary disease) . Brother. COPD (chronic obstructive pulmonary disease) - Social History Smoking status: Former smoker Packs-years: 50 Quit date: 07/09/17 Substance use type: does not use Alcohol intake frequency: does not drink Housing: house Household members: caregiver Current occupational status: disabled Does patient use chewing tobacco?: No Current residence: Apartment/Private Home Medications Home Medications Medication Instructions Recorded Confirmed Type Cabergoline [Dostinex] 0.5 mg PO TuFr #0 06/19/12 12/10/17 History Gabapentin 300 mg PO HS #0 07/01/16 12/10/17 History Metoprolol Succinate 100 mg PO DAILY #0 07/15/16 12/10/17 History Buspirone HCl 7.5 mg PO BID #0 08/09/16 12/10/17 History Cyproheptadine HCl 4 - 8 mg PO HS PRN #0 08/22/16 12/10/17 History Pramipexole Di-HCl [Pramipexole 0.375 mg PO HS 12/04/16 12/10/17 History Dihydrochloride] Paliperidone [Paliperidone ER] 9 mg PO DAILY 01/05/17 12/10/17 History Folic Acid [Folate] 1 mg PO DAILY 05/02/17 12/10/17 History Potassium Chloride 10 meq PO DAILY 05/02/17 12/10/17 History Albuterol Sulfate [Proair Hfa] 1 spray INH PRN PRN 06/18/17 12/10/17 History Aspirin [Adult Aspirin Regimen] 81 mg PO DAILY 06/18/17 12/10/17 History Fluticasone HFA [Flovent Hfa 220 1 - 2 puff INH Q2-4HR 06/18/17 12/10/17 History mcg] Tramadol [Ultram] 50 mg PO Q6H PRN 06/18/17 12/10/17 History Furosemide [Lasix 40 mg Tab] 40 mg PO DAILY #30 tab 06/23/17 12/10/17 Rx Albuterol/Ipratropium [Duoneb] 1 unit AEROSOL QID #1 box 07/07/17 12/10/17 Rx Glucophage XR (metformin ER) 500 500 mg PO WS 11/06/17 12/10/17 History mg tablet, 24 hr Stiolto Respimat (tiotropium) 2.5 2 puff INH DAILY g 11/06/17 12/10/17 History mcg-olodaterol 2.5 mcg/actuation inhalation liraglutide 0.6 mg/0.1 mL (18 mg/3 1.2 mg SQ DAILY ml 11/06/17 12/10/17 History mL) subcutaneous pen injector prednisone 10 mg tablet 10 mg PO WB tab 11/06/17 12/10/17 History LORazepam [Ativan] 0.5 mg PO HS 11/14/17 12/10/17 History Meloxicam 7.5 mg PO DAILY 11/14/17 12/10/17 History Pantoprazole Tab [Protonix Tab] 40 mg PO DAILY 11/14/17 12/10/17 History Acetaminophen [Acetaminophen ER] 650 mg PO Q8H PRN 12/10/17 12/10/17 History Magnesium Oxide [Magnesium] 400 mg PO TID 12/10/17 12/10/17 History Nitroglycerin [Nitrostat] 0.4 mg SL Q5MIN3 PRN 12/10/17 12/10/17 History Primidone [Mysoline] 150 mg PO HS 12/10/17 12/10/17 History Allergies Allergy/AdvReac Type Severity Reaction Status Date / Time Influenza Virus Vaccines Allergy Severe DYSPNEA Verified 12/10/17 11:56 lisinopril Allergy Intermediate TONGUE Verified 12/10/17 11:56 SWELLING Iodinated Contrast- Oral and Allergy Mild RASH Verified 12/10/17 11:56 IV Dye asenapine Allergy Unknown Verified 12/10/17 11:56 duloxetine [From Cymbalta] Allergy Unknown Verified 12/10/17 11:56 hydromorphone [From Dilaudid] Allergy Unknown Verified 12/10/17 11:56 iodine Allergy Unknown Verified 12/10/17 11:56 Sulfa (Sulfonamide Allergy Unknown RASH Verified 12/10/17 11:56 Antibiotics) venlafaxine Allergy Unknown Verified 12/10/17 11:56 lurasidone AdvReac Intermediate INCREASED Verified 12/10/17 11:56 SODIUM adhesive AdvReac Unknown Verified 12/10/17 11:56 cephalexin AdvReac Unknown VOMITING Verified 12/10/17 11:56 morphine AdvReac Unknown SWELLING Verified 12/10/17 11:56 SHELLFISH Allergy Severe Allergic Uncoded 12/10/17 11:56 Asthmatic Reaction Exam Vital signs: Temperature 97.2 F 12/14/17 16:00 Pulse Rate 84 12/14/17 16:17 Respiratory Rate 18 12/14/17 16:00 Blood Pressure 203/112 H 12/14/17 16:17 Pulse Oximetry 22 L 12/14/17 16:00 - Constitutional no acute distress, obese - Routine HEENT Exam Head: Present: normocephalic Eye: Absent: conjunctival icterus ENT: Present: mucous membranes moist - Routine Neck Exam Present: supple. Absent: JVD - Routine Respiratory Exam Absent: accessory muscle use, wheezes - Routine Cardiovascular Exam Present: RRR - Routine Abdominal Exam Present: soft - Routine Extremities Exam Absent: cyanosis, clubbing - Routine Skin Exam Present: intact. Absent: rash - Routine Neurological Exam Present: alert, oriented X3 Results - Laboratory Findings CBC and BMP: 12/14/17 04:48 12/14/17 04:48 ABG ABG pH 7.369 (7.350-7.450) 12/10/17 12:28 ABG pCO2 51 MMHG (34.0-45.0) H 12/10/17 12:28 ABG pO2 179.6 MMHG (80.0-100.0) H 12/10/17 12:28 ABG O2 Saturation 99.5 % (95.0-98.0) H 12/10/17 12:28 Abnormal lab findings: Abnormal Labs 12/10/17 12/10/17 12/10/17 12:28 12:50 12:50 WBC Hgb 11.4 L Hct 35.0 L MPV 7.8 L Neutrophils % (Manual) 87.0 H Lymphocytes % (Manual) 9.0 L Metamyelocytes % Neutrophils # (Manual) 9.3 H Lymphocytes # (Manual) ABG pCO2 51 H ABG pO2 179.6 H ABG HCO3 29.3 H ABG Total CO2 30.8 H ABG O2 Saturation 99.5 H ABG Base Excess 3.0 H Sodium 129 L Potassium 5.1 H Chloride 88 L BUN BUN/Creatinine Ratio Glucose 285 H Hemoglobin A1c Calculated Osmolality 260 L Magnesium 1.5 L NT-Pro-B Natriuret Pep 564 H 12/11/17 12/11/17 12/12/17 04:57 04:57 04:15 WBC 14.2 H D Hgb 11.5 L 11.7 L Hct 35.6 L MPV 8.3 L 8.5 L Neutrophils % (Manual) 84.0 H 90.0 H Lymphocytes % (Manual) 11.0 L 7.0 L Metamyelocytes % 1.0 H Neutrophils # (Manual) 12.8 H Lymphocytes # (Manual) ABG pCO2 ABG pO2 ABG HCO3 ABG Total CO2 ABG O2 Saturation ABG Base Excess Sodium 131 L Potassium Chloride 87 L BUN 24.0 H D BUN/Creatinine Ratio 27 H Glucose 225 H Hemoglobin A1c Calculated Osmolality Magnesium NT-Pro-B Natriuret Pep 12/12/17 12/13/17 12/13/17 04:15 04:42 04:42 WBC Hgb 11.4 L Hct 35.4 L MPV 8.2 L Neutrophils % (Manual) 91.0 H Lymphocytes % (Manual) 6.0 L Metamyelocytes % 1.0 H Neutrophils # (Manual) 9.6 H Lymphocytes # (Manual) 0.6 L ABG pCO2 ABG pO2 ABG HCO3 ABG Total CO2 ABG O2 Saturation ABG Base Excess Sodium 131 L 132 L Potassium Chloride 86 L 89 L BUN 32.0 H 29.0 H BUN/Creatinine Ratio 40 H 41 H Glucose 239 H 255 H Hemoglobin A1c Calculated Osmolality Magnesium NT-Pro-B Natriuret Pep 12/14/17 12/14/17 12/14/17 04:48 04:48 04:48 WBC 11.9 H Hgb Hct MPV 8.2 L Neutrophils % (Manual) 92.0 H Lymphocytes % (Manual) 4.0 L Metamyelocytes % Neutrophils # (Manual) 10.9 H Lymphocytes # (Manual) 0.5 L ABG pCO2 ABG pO2 ABG HCO3 ABG Total CO2 ABG O2 Saturation ABG Base Excess Sodium 131 L Potassium Chloride 89 L BUN 32.0 H BUN/Creatinine Ratio 40 H Glucose 235 H Hemoglobin A1c 8.0 H Calculated Osmolality Magnesium NT-Pro-B Natriuret Pep - Diagnostic Findings Chest x-ray: report reviewed, image reviewed Assessment and Plan (1) Acute and chronic respiratory failure with hypercapnia Status: Acute Assessment and plan: Agree with BIPAP 16/8, rate 12, FiO2 30% O2 by nc to maintain O2 sat >90% Anxiolytics as needed for anxiety. Current Visit: Yes (2) COPD (chronic obstructive pulmonary disease) Status: Chronic Assessment and plan: Severe COPD. Fev1 37%, GOLD stage D home regimen is Stiolto 2 puffs daily Duoneb QID/ProAir prn Prednisone 10 mg daily Continue methylpred 62.5 q12 and wean to prednisone as tolerated Agree with nebulized budesonide BID, Duoneb Q4H WA Transition back to home regimen on discharge Current Visit: No - Time Spent With Patient Total time spent is greater than 50% in coordination of care (as documented) at patient's floor/unit and/or counseling patient: 25 - 35 minutes
[2017-12-14] MEDS: METHOCARBAMOL 750 MG TABLET PO PRN (18:54)
[2017-12-14] MEDS: GABAPENTIN 300 MG CAPSULE PO SCH (21:16)
[2017-12-14] MEDS: PRAMIPEXOLE 0.25 MG TABLET PO SCH (21:18)
[2017-12-14] MEDS: LORazepam 1 MG TABLET PO SCH (21:35)
[2017-12-14] MEDS: LIDOCAINE PATCH REMOVAL TOP SCH (21:37)
[2017-12-14] MEDS: PRIMIDONE 50 MG TABLET PO SCH (21:39)
[2017-12-15] MEDS: ALBUTEROL/IPRATROPIUM 2.5mg-0.5mg/3ml NEB AEROSOL PRN ×2 (00:48→12:28)
[2017-12-15] MEDS: MAGNESIUM OXIDE 400 MG TABLET PO SCH ×4 (04:44→20:00)
[2017-12-15] MEDS: TRAMADOL 50 MG TABLET PO PRN ×3 (04:47→18:31)
[2017-12-15] MEDS: ALBUTEROL/IPRATROPIUM 2.5mg-0.5mg/3ml NEB AEROSOL SCH ×4 (05:12→18:09)
[2017-12-15] MEDS: BUDESONIDE INH.SOLN 0.5mg/2ml NEB AEROSOL SCH ×2 (05:14→18:09)
[2017-12-15] MEDS: INSULIN ASPART 100unit/ml INJECTION SQ PRN ×3 (06:30→15:53)
[2017-12-15] MEDS: PANTOPRAZOLE 40 MG TABLET PO SCH (06:31)
--- NOTE | 2017-12-15 07:08 | XRay Report ---
Indication: f/u effusion XR chest 1V: Comparison: 12/12/2017 Technique: Single portable upright chest Findings: Patient should similar cardiac appearance the previous study. Central vascular mediastinum are unremarkable. No acute pulmonary findings are seen. No new bony findings identified. Patient still showed degenerative changes particularly at the right shoulder Incidentally noted is moderate gas in the bowel. Impression: No active cardiopulmonary abnormality. .
--- NOTE | 2017-12-15 08:56 | Neuropsychiatric Consult ---
[facility] HPI Date: 12/15/17 [facility] Patient Stated Medical History Cerebrovascular Accident Yes: 1999 Migraine Yes: PRESENT Peripheral Neuropathy Yes: diabetic Transient Ischemic Attacks ( Yes: 2012 TIA) Cataracts Yes: BILAT Dental Problems Yes: DENTURES Macular Degeneration Yes: RECENTLY DX Cardiac Arrhythmia Yes Congestive Heart Failure Yes Heart Murmur Yes Hypertension Yes Myocardial Infarction Yes: 2002 Asthma Yes Bronchitis Yes Chronic Obstructive Pulmonary Yes Disease (COPD) Pneumonia Yes Sleep Apnea Yes: Uses a Bipap occasionally at home. Other Respiratory Yes: EMPHYSEMA Diabetes Mellitus Type 2 Yes Gastroesophageal Reflux Yes Disease Hiatal Hernia Yes Ulcer Yes Hx Incontinence Yes Hx Renal Disease No Anemia Yes Osteoarthritis Yes Other Musculoskeletal Yes: osteopenia Chlamydia Yes: 'S MRSA Yes: HX PREVIOUS SORES ON BACK/BUTTOCKS. Shingles Yes: 1995 FACE Blood Transfusions Yes Bipolar Disorder Yes Depression Yes Post Traumatic Stress Disorder Yes Substance Use Disorder Yes: NICOTINE DEPENDENCE Abnormal Pap Yes: 1977 Medical History Updates: HTN. HLD. Type 2 DM. Anxiety/Depression. MILDRED on BIPAP. COPD. Asthma. CHF. CAD. Chronic hyponatremia. Bipolar discorder Surgical History: appendix. colonoscopy. gallbladder. hernia. tonsils. cardiac cath. hysterectomy. carpal tunnel. knee. shoulder Family History: Family History (Last Updated 06/19/17 @ 18:20 by Jammie Woodard MD) Mother COPD (chronic obstructive pulmonary disease) Brother COPD (chronic obstructive pulmonary disease) Family History Updates: Family History (Last Updated 06/19/17 @ 18:20 by Jammie Woodard MD). Mother. COPD (chronic obstructive pulmonary disease) . Brother. COPD (chronic obstructive pulmonary disease) - Social History Smoking status: Former smoker Packs-years: 50 Quit date: 07/09/17 Substance use type: does not use Alcohol intake frequency: does not drink Housing: house Household members: caregiver Current occupational status: disabled Does patient use chewing tobacco?: No Current residence: Apartment/Private Home Mental Status Exam Vitals: Last Vital Signs Temp 98.3 F 12/15/17 07:00 Pulse 86 12/15/17 07:00 Resp 18 12/15/17 07:00 BP 152/91 H 12/14/17 23:48 Pulse Ox 96 12/15/17 07:00 Height: 1.65 m Weight: 126.2 kg - Laboratory Result Diagrams: 12/14/17 04:48 12/15/17 04:15 Laboratory Results - last 24 hr 12/13/17 12/14/17 12/14/17 19:54 04:48 06:11 Turbidity Sodium Potassium Chloride Carbon Dioxide Anion Gap BUN Creatinine GFR Calculation BUN/Creatinine Ratio Glucose Glucometer 278 231 Hemoglobin A1c 8.0 H Calculated Osmolality Calcium Magnesium Icterus Index Specimen Hemolysis 12/14/17 12/14/17 12/14/17 10:36 14:13 20:47 Turbidity Sodium Potassium Chloride Carbon Dioxide Anion Gap BUN Creatinine GFR Calculation BUN/Creatinine Ratio Glucose Glucometer 379 306 287 Hemoglobin A1c Calculated Osmolality Calcium Magnesium Icterus Index Specimen Hemolysis 12/15/17 12/15/17 04:15 05:56 Turbidity < 20 Sodium 129 L Potassium 4.6 Chloride 85 L Carbon Dioxide 31 H Anion Gap 13 BUN 32.0 H Creatinine 0.8 GFR Calculation 73 BUN/Creatinine Ratio 40 H Glucose 220 H Glucometer 201 Hemoglobin A1c Calculated Osmolality 263 Calcium 9.5 Magnesium 2.0 Icterus Index < 2 Specimen Hemolysis < 15
[2017-12-15] MEDS: METHOCARBAMOL 750 MG TABLET PO PRN ×2 (09:15→18:04)
[2017-12-15] MEDS: LORazepam 1 MG TABLET PO SCH ×3 (09:21→20:00)
[2017-12-15] MEDS: AMLODIPINE 5 MG TABLET PO SCH (09:31)
[2017-12-15] MEDS: BUSPIRONE 5 MG TABLET PO SCH ×2 (09:32→20:01)
[2017-12-15] MEDS: ASPIRIN *EC* 81 MG TABLET PO SCH (09:32)
[2017-12-15] MEDS: FOLIC ACID 1 MG TABLET PO SCH (09:34)
[2017-12-15] MEDS: FUROSEMIDE 40 MG/4 ML INJECTION IVP SCH (09:38)
[2017-12-15] MEDS: LIRAGLUTIDE INJECTABLE PEN SQ SCH (09:39)
[2017-12-15] MEDS: MELOXICAM 7.5 MG TABLET PO SCH (09:40)
[2017-12-15] MEDS: METHYLPREDNISOLONE SOD SUCC 125mg/2ml INJECTION IVP SCH ×2 (09:41→20:05)
[2017-12-15] MEDS: PALIPERIDONE ER 1.5mg TABLET PO SCH (09:41)
--- NOTE | 2017-12-15 10:06 | Progress Note ---
Progress Note: I saw patient briefly this AM and she was wearing BiPap. She stated that she does have anxiety here but feels it's primarily related to her breathing difficulties. Patient is prescribed Invega 9mg daily and stated that this is also "for anxiety." This would not be a typical indication for an antipsychotic so will touch base with outpatient provider Guadalupe Cartwright at [facility] before making further recommendations.
[2017-12-15] MEDS: LIDOCAINE 5% PATCH TOP SCH (10:13)
[2017-12-15] MEDS ORDERED: FLEET PHOSPHO - SODA ENEMA 133ml PR PRN (11:58)
--- NOTE | 2017-12-15 13:21 | Progress Note ---
- Date 12/15/17 Subjective: Suyapa is seen today in follow up. She is napping however she does awake during exam. She is currently wearing bi-pap while sleeping however has been using 3 liters of oxygen earlier today. BP continues to elevated 165/80 however this is improved from perviously. She complains of generalized back and neck pain and suspects this is from laying in bed. She verbalizes wanting to get up and ambulate in the [place]. Objective Vital signs: Temperature 98.3 F 12/15/17 07:00 Pulse Rate 88 12/15/17 12:32 Respiratory Rate 23 12/15/17 12:25 Blood Pressure 165/80 H 12/15/17 12:32 Pulse Oximetry 97 12/15/17 12:25 Height/Weight/BMI: Height 1.65 m Weight 124 kg Body Mass Index 48.4 - Constitutional Present: no acute distress, well nourished, well developed - Routine HEENT Exam Eye: Present: EOMI ENT: Present: mucous membranes moist, dentition normal - Routine Respiratory Exam Present: diminished air movement. Absent: wheezes - Routine Cardiovascular Exam Present: RRR, S1, S2. Absent: murmur - Routine Abdominal Exam Present: soft, normoactive bowel sounds, non distended. Absent: tenderness - Routine Extremities Exam Present: edema (BLE) - Routine Skin Exam Present: dry, warm - Routine Neurological Exam Present: alert, oriented X3, CN II-XII intact - Routine Lymphatic Exam Lymphatic: Absent: adenopathy - Routine Psychiatric Exam Present: normal affect, cooperative Results - Labs CBC & Chem 7: 12/14/17 04:48 12/15/17 04:15 Assessment and Plan Assessment and Plan: Impression Acute COPD exacerbation with need for ventilator support Acute on chronic hyponatremia-present on admission Hypomagnesium- POA- 1.5 Hyperkalemia- POA- 5.1 Hyponatremia- POA Chronic respiratory failure with oxygen dependence of 2 liters. Obstructive sleep apnea-BiPAP. Type II diabetes Coronary artery disease Hypertension Hyperlipidemia Bipolar disorder Anxiety/depression Morbid obesity-BMI 47 Plan Continue to encourage time off Bi-pap while awake Will try short ambulation distances within the room. Lidoderm patch and Tylenol as needed for back pain Weight continues to trend down- Continue with Lasix 40 mg IV daily Persistent hyponatremia- continue to follow Blood sugars remain elevated. Will start Lantus to 10 units at HS. Continue metformin, Victoza and sliding scale insulin. Recheck A1c, last one was 6.7% in Jul 2017. Encourage ambulation with PT/OT 12/15/2017-7:30 PM-I examined the patient independently. I reviewed this chart, the patient history, and the [employer]'s/PA's documented findings as above. We discussed and formulated the assessment and plan as above with the additions below.-Dr. Mccoy The patient was seen this evening in her room. She was sleeping on BiPAP but awakened easily. She states that she is breathing better today. Her FiO2 was increased to 40% today on BiPAP. She currently has an O2 sat of 100%. She states she was able to be off BiPAP for 4 hours last night and states she was awake during those 4 hours. She also states she was off of BiPAP for 2 hours today. She complains of low back pain but has no other complaints. She is eating and drinking well. She states she is urinating without difficulty. On exam she is alert and in no acute distress. Chest reveals some faint wheezes bilaterally. Cardiovascular reveals a regular rate and rhythm. Abdomen is soft and nontender. Extremities reveal trace edema. Blood pressure currently is 155/81. Heart rate is 90. Impression and plan COPD exacerbation in a patient with cold stage D COPD. Continue steroids at current dose for today. Continue to try to wean the patient off of BiPAP. Blood pressure is better controlled today after increase in Norvasc to 10 mg daily and adding hydralazine 10 mg by mouth 3 times a day with meals. Regarding fluid overload, She is on Lasix 40 mg IV once daily. Continue to monitor weight, electrolytes and renal function. Can eventually switch from IV Lasix to oral Lasix. She is usually on 40 mg once daily. Psychiatry consultation regarding anxiety Regarding low back pain, will start Finley 5 by mouth 4 times a day when necessary. DC tramadol. The patient states it is not helping. - Physician Narrative Narrative: Date: 12/15/17 Time: 5995 Hospital Course Summary Disclaimer: The visit summary below is not to be considered part of the above Progress Note. Hospital Course: Impression Acute COPD exacerbation Acute on chronic hyponatremia-present on admission Hypomagnesium- POA- 1.5 Hyperkalemia- POA- 5.1 Chronic respiratory failure with oxygen dependence of 2 liters. Obstructive sleep apnea-BiPAP. Type II diabetes Coronary artery disease Hypertension Hyperlipidemia Bipolar disorder Anxiety/depression Morbid obesity-BMI 47 Plan Patient outpatient observation under the care of Dr. Iglesias for acute COPD exacerbation Continue patient on scheduled DuoNeb breathing treatments 4 times a day as well as when necessary. Pulmicort twice a day well as BiPAP management per RT Continue with IV Solu-Medrol 125 milligrams IV every 6 hours for pulmonary inflammation. Give IV magnesium as well as oral supplementation. Given hypomanic magnesium. Lasix 40mg IV to help waste free water as sodium low and weight with trend up from prior visits. Monitor Accu-Cheks, continue with metformin, Victoza and sliding scale insulin Place home potassium on hold given Hyperkalemia. Chon hose to BLE to help with edema. SCDs for DVT ppx. Lasix 40 mg daily as per chronic diuresing. Does wish to be a do not resuscitate and do not intubate. Check CBC, BMP and magnesium tomorrow to follow all blood counts, renal function and electrolytes. At time of discharge medical care will return to primary care provider, Rafaela Dean APRN at [facility] 12/11/17 She continues to require for ventilatory support via BiPAP Will change to inpatient status Continue with IV Solu-Medrol 125 milligrams IV every 6 hours for pulmonary inflammation as well as DuoNeb scheduled Monitor Accu-Cheks, continue with metformin, Victoza and sliding scale insulin Hyperkalemia improving. May consider resuming home potassium tomorrow Chon hose to BLE to help with edema. Lasix 40 mg daily as per chronic diuresing Once breathing has improved will need to encourage ambulation and strengthening 12/12/17 Noted mild leukocytosis today. Could be secondary to ongoing steroid use. Chest X-ray this morning did revel possible right effusion. Will give a extra dose of Lasix 20 mg IV this afternoon in addition to home dose of 40 mg PO. Continues to require for ventilatory support via BiPAP; will have nursing try to wean to O2. Decrease Solu-Medrol to 62.5mg IV every 6 hours for pulmonary inflammation; continue DuoNeb & budesonide as scheduled. BP elevated. Will re-evaluate and monitor- may need to consider adding Norvasc. Monitor Accu-Cheks, continue with metformin, Victoza and sliding scale insulin. Home potassium remains on hold - potassium 4.4. Chon hose to BLE to help with edema. 12/13/17 Continue to work with respiratory therapy to wean down BiPAP use. Plan to remove BiPAP for at least 1 hour again this afternoon. Discussed with patient and nurse. We will give patient a dose of Ativan prior to taking her off of the BiPAP. Solu-medrol Medrol decreased Chest X-ray obtained yesterday did show a possible small pleural effusion Weight does continue to be up from admission approximately 9 kg. Currently he is on home dose of Lasix 40 milligrams daily. She did receive an additional dose yesterday. Suspect she needs more aggressive diuresing. Monitor Accu-Cheks, continue with metformin, Victoza and sliding scale insulin Home potassium remains on hold 12/14/17 Encouraged a short walk today off BiPAP. Trying to reduce BiPAP-dependence. Weight is down from yesterday; will recheck CXR to f/u on effusion and to evaluate for increased vascularity. Continue Lasix 40 mg IV (Home dose: 40 mg PO ; conversion rate from IV to PO is equivalent) Hyponatremia is stable at 131 BGM uncontrolled . Continue metformin, Victoza and sliding scale insulin. Recheck A1c, last one was 6.7% in Jul 2017. Could also consider increasing metformin. In addition will decrease IV steroids to BID dosing. Cont nebs/pulmicort. -Dr. Mccoy The patient continues to wear BiPAP most of the time. She was able to be off for about an hour earlier today. She states she feels anxious and short of breath and then feels better when it is replaced. It is difficult to tell for sure whether this is primary anxiety versus anxiety caused by breathing difficulties. She states she would like to go for a walk. She is drinking well. She is urinating frequently. She thinks her edema in her legs is better. She states she wasn't able to finish her lunch because she got short of breath. On exam she is alert and oriented and in no acute distress. She is currently on BiPAP. Chest reveals some prolonged expiratory phase but no obvious rhonchi, wheezing or crackles. Cardiovascular reveals a regular rate and rhythm. Abdomen is soft and nontender. Extremities reveal trace edema. Lab is reviewed and fairly stable. Sodium is 131. Potassium 4.8. Weight is 126 kg down from 130 to yesterday. Weight was 121 kg on admission. Impression and plan COPD exacerbation-appears to be improving, but the patient continues to use BiPAP almost continuously because of anxiety. Will consult Dr. Rolon to see tomorrow. Anxiety may be contributing to patient's shortness of breath and frequent use of BiPAP. Will start lorazepam 0.5 mg by mouth 3 times a day. We'll ask psychiatry to see tomorrow for help with anxiety. Regarding elevated blood pressure, we'll increase Norvasc to 10 mg daily. Continue Lasix 40 mg IV once daily for fluid retention and weight gain Monitor sodium Discussed with RT and patient's nurse 12/15/17 Continue to encourage time off Bi-pap while awake Will try short ambulation distances within the room. Lidoderm patch and Tylenol as needed for back pain Weight continues to trend down- Continue with Lasix 40 mg IV daily Persistent hyponatremia- continue to follow Blood sugars remain elevated. Will start Lantus to 10 units at HS. Continue metformin, Victoza and sliding scale insulin. Recheck A1c, last one was 6.7% in Jul 2017. Encourage ambulation with PT/OT
[2017-12-15] MEDS: HYDRALAZINE 10 MG TABLET PO SCH ×2 (15:52→18:25)
[2017-12-15] MEDS: METFORMIN 500 MG TABLET PO SCH (18:25)
[2017-12-15] MEDS: HYDROCODONE/APAP 5mg/325mg TABLET PO PRN (19:59)
[2017-12-15] MEDS: GABAPENTIN 300 MG CAPSULE PO SCH (20:00)
[2017-12-15] MEDS: PRAMIPEXOLE 0.25 MG TABLET PO SCH (20:00)
[2017-12-15] MEDS: PRIMIDONE 50 MG TABLET PO SCH (20:01)
[2017-12-15] MEDS: LIDOCAINE PATCH REMOVAL TOP SCH (20:08)
[2017-12-15] MEDS ORDERED: INSULIN GLARGINE 100unit/ml INJECTION SQ SCH (21:00)
[2017-12-16] MEDS: ALBUTEROL/IPRATROPIUM 2.5mg-0.5mg/3ml NEB AEROSOL PRN (00:57)
[2017-12-16] MEDS: HYDROCODONE/APAP 5mg/325mg TABLET PO PRN ×4 (02:04→21:29)
[2017-12-16] MEDS: BUDESONIDE INH.SOLN 0.5mg/2ml NEB AEROSOL SCH ×2 (04:48→18:18)
[2017-12-16] MEDS: ALBUTEROL/IPRATROPIUM 2.5mg-0.5mg/3ml NEB AEROSOL SCH ×4 (04:48→18:18)
[2017-12-16] MEDS: PANTOPRAZOLE 40 MG TABLET PO SCH (05:52)
[2017-12-16] MEDS: INSULIN ASPART 100unit/ml INJECTION SQ PRN ×4 (05:59→21:27)
[2017-12-16] MEDS: LORazepam 1 MG TABLET PO SCH ×3 (08:09→20:58)
[2017-12-16] MEDS: FUROSEMIDE 40 MG/4 ML INJECTION IVP SCH (08:09)
[2017-12-16] MEDS: AMLODIPINE 5 MG TABLET PO SCH (08:10)
[2017-12-16] MEDS: HYDRALAZINE 10 MG TABLET PO SCH ×3 (08:10→17:40)
[2017-12-16] MEDS: ASPIRIN *EC* 81 MG TABLET PO SCH (08:10)
[2017-12-16] MEDS: CABERGOLINE 0.5 MG TABLET PO SCH (08:11)
[2017-12-16] MEDS: BUSPIRONE 5 MG TABLET PO SCH ×2 (08:11→20:57)
[2017-12-16] MEDS: LIRAGLUTIDE INJECTABLE PEN SQ SCH (08:12)
[2017-12-16] MEDS: LIDOCAINE 5% PATCH TOP SCH (08:12)
[2017-12-16] MEDS: FOLIC ACID 1 MG TABLET PO SCH (08:13)
[2017-12-16] MEDS: MELOXICAM 7.5 MG TABLET PO SCH (08:14)
[2017-12-16] MEDS: PALIPERIDONE ER 1.5mg TABLET PO SCH (08:14)
[2017-12-16] MEDS: METHYLPREDNISOLONE SOD SUCC 125mg/2ml INJECTION IVP SCH ×2 (08:14→20:59)
[2017-12-16] MEDS: MAGNESIUM OXIDE 400 MG TABLET PO SCH ×3 (08:34→20:56)
--- NOTE | 2017-12-16 16:28 | Progress Note ---
- Date 12/16/17 Subjective: Suyapa is seen this afternoon while napping on Bi-pap. She reports overall she is eager to go home. She feels that her breathing is near her baseline despite noted expiratory wheezing. Denies having pain or GI complaints. Has been able to ambulate in the room with assistance however does become quite dyspneic. Objective Vital signs: Temperature 96.0 F L 12/16/17 16:03 Pulse Rate 93 12/16/17 16:03 Respiratory Rate 18 12/16/17 16:03 Blood Pressure 127/66 12/16/17 16:03 Pulse Oximetry 94 12/16/17 16:03 Height/Weight/BMI: Height 1.65 m Weight 122.2 kg Body Mass Index 48.4 - Constitutional Present: no acute distress, well nourished, well developed - Routine HEENT Exam Eye: Present: EOMI ENT: Present: mucous membranes moist, dentition normal - Routine Respiratory Exam Present: wheezes - Routine Cardiovascular Exam Present: RRR, S1, S2. Absent: murmur - Routine Abdominal Exam Present: soft, normoactive bowel sounds, non distended. Absent: tenderness - Routine Extremities Exam Present: normal capillary refill - Routine Back/Spine/Pelvis Exam Back/Spine: Present: full ROM - Routine Skin Exam Present: intact, dry, warm - Routine Neurological Exam Present: alert, oriented X3, CN II-XII intact - Routine Lymphatic Exam Lymphatic: Absent: adenopathy - Routine Psychiatric Exam Present: normal affect, cooperative Results - Labs CBC & Chem 7: 12/16/17 03:53 12/16/17 03:53 Assessment and Plan (1) Chronic obstructive pulmonary disease with acute exacerbation Current visit: No Status: Acute Assessment and Plan: Impression Acute COPD exacerbation with need for ventilator support Acute on chronic hyponatremia-present on admission Hypomagnesium- POA- 1.5 Hyperkalemia- POA- 5.1 Hyponatremia- POA Chronic respiratory failure with oxygen dependence of 2 liters. Obstructive sleep apnea-BiPAP. Type II diabetes Coronary artery disease Hypertension Hyperlipidemia Bipolar disorder Anxiety/depression Morbid obesity-BMI 47 Plan BGM continue to be elevated- Will increase Lantus to 14 units BP better controlled after adding Hydralazine TID Continue to encourage time off Bi-pap while awake on baseline oxygen of 2 liters Will try short ambulation distances within the room. Continues to have significant wheezing. Continue with Solumedrol 62.5 BID for pulmonary inflammation Lidoderm patch, tylenol or norco as needed for back pain Gentle diuresis- Continue with Lasix 40 mg IV daily Appreciate Dr Terrazas consultation and recommendations 12/16/2017-6:40 PM-I examined the patient independently. I reviewed this chart, the patient history, and the TECHN[employer]IST [employer]'s/PA's documented findings as above. We discussed and formulated the assessment and plan as above with the additions below.-Dr. Mccoy The Patient is seen sitting up in a chair eating supper. She appears to be breathing easily on 2.5 L. She states her breathing is doing well today. She denies shortness of breath. She states she's been off the BiPAP for an hour and a half at a time. She has some chronic neck and shoulder pain. She denies any other pain. Weight is 122.2 kg. Weight on admission was 121.4 kg (high weight this admission was 130.9 kg) Exam she is alert and in no acute distress. Chest reveals very minimal wheezing. Good air movement. Cardiovascular reveals a regular rate and rhythm. Abdomen is soft, obese, nontender with positive bowel sounds. Extremities reveal trace edema Impression and plan COPD exacerbation is improving -start oral steroids tomorrow. Encouraged patient to be off of BiPAP as much as possible during the day and use only at night and with sleep. I did encourage the patient that if she is anxious to let the nurse know and it might be time for an anxiolytic. Regarding edema, is improving, but will start 2 L fluid restriction and 2 g sodium diet. Possibly change to oral Lasix tomorrow if weight is back to baseline. Discussed today with Dr. Rolon. - Physician Narrative Narrative: Date: 12/16/17 Time: 3504 Hospital Course Summary Disclaimer: The visit summary below is not to be considered part of the above Progress Note. Hospital Course: Impression Acute COPD exacerbation Acute on chronic hyponatremia-present on admission Hypomagnesium- POA- 1.5 Hyperkalemia- POA- 5.1 Chronic respiratory failure with oxygen dependence of 2 liters. Obstructive sleep apnea-BiPAP. Type II diabetes Coronary artery disease Hypertension Hyperlipidemia Bipolar disorder Anxiety/depression Morbid obesity-BMI 47 Plan Patient outpatient observation under the care of Dr. Iglesias for acute COPD exacerbation Continue patient on scheduled DuoNeb breathing treatments 4 times a day as well as when necessary. Pulmicort twice a day well as BiPAP management per RT Continue with IV Solu-Medrol 125 milligrams IV every 6 hours for pulmonary inflammation. Give IV magnesium as well as oral supplementation. Given hypomanic magnesium. Lasix 40mg IV to help waste free water as sodium low and weight with trend up from prior visits. Monitor Accu-Cheks, continue with metformin, Victoza and sliding scale insulin Place home potassium on hold given Hyperkalemia. Chon hose to BLE to help with edema. SCDs for DVT ppx. Lasix 40 mg daily as per chronic diuresing. Does wish to be a do not resuscitate and do not intubate. Check CBC, BMP and magnesium tomorrow to follow all blood counts, renal function and electrolytes. At time of discharge medical care will return to primary care provider, Rafaela Dean APRN at [facility] 12/11/17 She continues to require for ventilatory support via BiPAP Will change to inpatient status Continue with IV Solu-Medrol 125 milligrams IV every 6 hours for pulmonary inflammation as well as DuoNeb scheduled Monitor Accu-Cheks, continue with metformin, Victoza and sliding scale insulin Hyperkalemia improving. May consider resuming home potassium tomorrow Chon hose to BLE to help with edema. Lasix 40 mg daily as per chronic diuresing Once breathing has improved will need to encourage ambulation and strengthening 12/12/17 Noted mild leukocytosis today. Could be secondary to ongoing steroid use. Chest X-ray this morning did revel possible right effusion. Will give a extra dose of Lasix 20 mg IV this afternoon in addition to home dose of 40 mg PO. Continues to require for ventilatory support via BiPAP; will have nursing try to wean to O2. Decrease Solu-Medrol to 62.5mg IV every 6 hours for pulmonary inflammation; continue DuoNeb & budesonide as scheduled. BP elevated. Will re-evaluate and monitor- may need to consider adding Norvasc. Monitor Accu-Cheks, continue with metformin, Victoza and sliding scale insulin. Home potassium remains on hold - potassium 4.4. Chon hose to BLE to help with edema. 12/13/17 Continue to work with respiratory therapy to wean down BiPAP use. Plan to remove BiPAP for at least 1 hour again this afternoon. Discussed with patient and nurse. We will give patient a dose of Ativan prior to taking her off of the BiPAP. Solu-medrol Medrol decreased Chest X-ray obtained yesterday did show a possible small pleural effusion Weight does continue to be up from admission approximately 9 kg. Currently he is on home dose of Lasix 40 milligrams daily. She did receive an additional dose yesterday. Suspect she needs more aggressive diuresing. Monitor Accu-Cheks, continue with metformin, Victoza and sliding scale insulin Home potassium remains on hold 12/14/17 Encouraged a short walk today off BiPAP. Trying to reduce BiPAP-dependence. Weight is down from yesterday; will recheck CXR to f/u on effusion and to evaluate for increased vascularity. Continue Lasix 40 mg IV (Home dose: 40 mg PO ; conversion rate from IV to PO is equivalent) Hyponatremia is stable at 131 BGM uncontrolled . Continue metformin, Victoza and sliding scale insulin. Recheck A1c, last one was 6.7% in Jul 2017. Could also consider increasing metformin. In addition will decrease IV steroids to BID dosing. Cont nebs/pulmicort. -Dr. Mccoy The patient continues to wear BiPAP most of the time. She was able to be off for about an hour earlier today. She states she feels anxious and short of breath and then feels better when it is replaced. It is difficult to tell for sure whether this is primary anxiety versus anxiety caused by breathing difficulties. She states she would like to go for a walk. She is drinking well. She is urinating frequently. She thinks her edema in her legs is better. She states she wasn't able to finish her lunch because she got short of breath. On exam she is alert and oriented and in no acute distress. She is currently on BiPAP. Chest reveals some prolonged expiratory phase but no obvious rhonchi, wheezing or crackles. Cardiovascular reveals a regular rate and rhythm. Abdomen is soft and nontender. Extremities reveal trace edema. Lab is reviewed and fairly stable. Sodium is 131. Potassium 4.8. Weight is 126 kg down from 130 to yesterday. Weight was 121 kg on admission. Impression and plan COPD exacerbation-appears to be improving, but the patient continues to use BiPAP almost continuously because of anxiety. Will consult Dr. Rolon to see tomorrow. Anxiety may be contributing to patient's shortness of breath and frequent use of BiPAP. Will start lorazepam 0.5 mg by mouth 3 times a day. We'll ask psychiatry to see tomorrow for help with anxiety. Regarding elevated blood pressure, we'll increase Norvasc to 10 mg daily. Continue Lasix 40 mg IV once daily for fluid retention and weight gain Monitor sodium Discussed with RT and patient's nurse 12/15/17 Continue to encourage time off Bi-pap while awake Will try short ambulation distances within the room. Lidoderm patch and Tylenol as needed for back pain Weight continues to trend down- Continue with Lasix 40 mg IV daily Persistent hyponatremia- continue to follow Blood sugars remain elevated. Will start Lantus to 10 units at HS. Continue metformin, Victoza and sliding scale insulin. Recheck A1c, last one was 6.7% in Jul 2017. Encourage ambulation with PT/OT
--- NOTE | 2017-12-16 16:40 | Pulmonology Progress Note ---
Subjective Principal diagnosis: COPD, chronic respiratory failure Interval history: still having anxiety attacks. on BIPAP 17/01, rate 12, FiO2 25% vTE 800 Ml sPo2 97% Exam Vital signs: Temperature 96.0 F L 12/16/17 16:03 Pulse Rate 93 12/16/17 16:03 Respiratory Rate 18 12/16/17 16:03 Blood Pressure 127/66 12/16/17 16:03 Pulse Oximetry 94 12/16/17 16:03 Inpatient Medications: Generic Name Dose Route Start Last Admin Trade Name Freq PRN Reason Stop Dose Admin Acetaminophen 650 mg 12/10/17 14:41 12/13/17 15:44 Tylenol Arthritis 650 Mg Sr PO 650 mg Q8H PRN Administration Pain Hydrocodone Bitart/Acetaminophen 1 tab 12/15/17 19:34 12/16/17 08:06 [place] 5/325 PO 1 tab Q6H PRN Administration Pain Albuterol/Ipratropium 3 ml 12/10/17 15:00 12/16/17 14:53 Duoneb AEROSOL 3 ml RTQID MITCH Administration Albuterol/Ipratropium 3 ml 12/12/17 19:13 12/16/17 00:57 Duoneb AEROSOL 3 ml PRN PRN Administration Shortness of air Amlodipine Besylate 10 mg 12/14/17 09:00 12/16/17 08:10 Norvasc PO 10 mg DAILY MITCH Administration Aspirin 81 mg 12/11/17 09:00 12/16/17 08:10 Ecotrin PO 81 mg DAILY MITCH Administration Budesonide 0.5 mg 12/10/17 19:00 12/16/17 04:48 Pulmicort Inhalation AEROSOL 0.5 mg RTBID MITCH Administration Buspirone HCl 7.5 mg 12/10/17 21:00 12/16/17 08:11 Buspar PO 7.5 mg BID MITCH Administration Cabergoline 0.5 mg 12/12/17 09:00 12/16/17 08:11 Dostinex PO 0.5 mg TuFr@0900 MITCH Administration Folic Acid 1 mg 12/11/17 09:00 12/16/17 08:13 Folate PO 1 mg DAILY MITCH Administration Furosemide 40 mg 12/11/17 09:00 12/13/17 09:00 Lasix 40 Mg Tab PO 40 mg DAILY MITCH Administration Furosemide 40 mg 12/14/17 09:00 12/16/17 08:09 Lasix 40 Mg/4 Ml IVP 40 mg DAILY MITCH Administration Gabapentin 300 mg 12/10/17 21:00 12/15/17 20:00 Neurontin PO 300 mg HS MITCH Administration Glucose 37.5 gm 12/10/17 14:41 Glutose 15 PO PRN PRN Hypoglycemia Hydralazine HCl 10 mg 12/12/17 15:59 12/14/17 16:17 Apresoline IVP 10 mg Q6H PRN Administration Hydralazine HCl 10 mg 12/15/17 12:00 12/16/17 11:53 Apresoline PO 10 mg TIDWM MITCH Administration Insulin Aspart 3 - 12 unit 12/10/17 14:41 12/16/17 15:08 Novolog SQ 10 unit SS PRN Administration Hyperglycemia Protocol Insulin Glargine 14 unit 12/16/17 21:00 Lantus SQ HS MITCH Lidocaine 1 patch 12/12/17 11:00 12/16/17 08:12 Lidoderm TOP 1 patch DAILY MITCH Administration Lidocaine HCl/Dextrose 1 removal 12/13/17 21:00 12/15/17 20:08 Lidoderm Patch Removal TOP 1 removal HS MITCH Administration Liraglutide 1.2 mg 12/11/17 09:00 12/16/17 08:12 Victoza SQ 1.2 mg DAILY MITCH Administration Lorazepam 0.5 mg 12/10/17 14:41 12/16/17 12:54 Ativan Inj IVP 0.5 mg Q4H PRN Administration Air hunger/Anxiety Lorazepam 0.5 mg 12/14/17 21:00 12/16/17 15:06 Ativan PO 0.5 mg TID MITCH Administration Magnesium Oxide 400 mg 12/10/17 15:00 12/16/17 15:08 Magox PO 400 mg TID MITCH Administration Meloxicam 7.5 mg 12/11/17 09:00 12/16/17 08:14 Mobic PO 7.5 mg DAILY MITCH Administration Metformin HCl 500 mg 12/10/17 17:30 12/15/17 18:25 Glucophage PO 500 mg WS MITCH Administration Methocarbamol 750 mg 12/12/17 07:07 12/15/17 18:04 Robaxin PO 750 mg Q6H PRN Administration Methylprednisolone Sodium Succinate 62.5 mg 12/14/17 21:00 12/16/17 08:14 Solu-Medrol IVP 62.5 mg Q12HR MITCH Administration Metoprolol Succinate 100 mg 12/11/17 09:00 12/16/17 08:14 Toprol Xl PO 100 mg DAILY MITCH Administration Nitroglycerin 0.4 mg 12/10/17 14:41 Nitrostat SL Q5MIN3 PRN Chest pain Ondansetron HCl 4 mg 12/13/17 03:05 12/13/17 03:13 Zofran IVP 4 mg Q4H PRN Administration Nausea &/or vomiting Paliperidone 9 mg 12/11/17 09:00 12/16/17 08:14 Invega PO 9 mg DAILY MITCH Administration Pantoprazole Sodium 40 mg 12/11/17 06:30 12/16/17 05:52 Protonix Tab PO 40 mg ACB MITCH Administration Potassium Chloride 10 meq 12/11/17 08:00 Micro-K 10 Meq Capsule PO WB MITCH Pramipexole Dihydrochloride 0.375 mg 12/10/17 21:00 12/15/17 20:00 Mirapex PO 0.375 mg HS MITCH Administration Primidone 150 mg 12/10/17 21:00 12/15/17 20:01 Mysoline PO 150 mg HS MITCH Administration Sodium Chloride 10 - 80 ml 12/10/17 12:32 12/14/17 13:22 Iv Flush IVF 20 ml PRN PRN Administration Flushing Trolamine Salicylate 1 applic 12/13/17 15:59 12/15/17 20:08 Aspercreme TOP 1 applic PRN PRN Administration Discontinued Medications Generic Name Dose Route Start Last Admin Trade Name Freq PRN Reason Stop Dose Admin Albuterol/Ipratropium 3 ml 12/10/17 11:47 12/10/17 11:50 Duoneb AEROSOL 12/10/17 11:48 3 ml O ONE Administration Albuterol/Ipratropium 3 ml 12/10/17 14:41 12/12/17 13:00 Duoneb AEROSOL 3 ml Q4HR PRN Administration Shortness of air Amlodipine Besylate 5 mg 12/12/17 16:00 12/13/17 08:58 Norvasc PO 5 mg DAILY MITCH Administration Furosemide 40 mg 12/10/17 16:36 12/10/17 17:00 Lasix 40 Mg/4 Ml IVP 12/10/17 16:37 40 mg O ONE Administration Furosemide 20 mg 12/12/17 14:00 12/12/17 14:32 Lasix 20 Mg/2 Ml IVP 12/12/17 14:01 20 mg ONCE ONE Administration Magnesium Sulfate/Dextrose 1 gm in 100 mls @ 100 mls/hr 12/10/17 14:41 18:03 Mag Sulf 1gm Premix IV 12/10/17 16:40 Infused Q1H MITCH Infusion Insulin Glargine 10 unit 12/15/17 21:00 12/15/17 20:05 Lantus SQ 10 unit HS MITCH Administration Lidocaine HCl/Dextrose 1 removal 12/12/17 11:00 12/12/17 12:23 Lidoderm Patch Removal TOP Not Given O MITCH Lorazepam 0.5 mg 12/10/17 21:00 12/13/17 21:54 Ativan PO 0.5 mg HS MITCH Administration Methylprednisolone Sodium Succinate 125 mg 12/10/17 15:00 12/12/17 14:35 Solu-Medrol IVP 125 mg Q6HR MITCH Administration Methylprednisolone Sodium Succinate 62.5 mg 12/12/17 15:00 12/14/17 14:25 Solu-Medrol IVP 62.5 mg Q6HR MITCH Administration Sodium Phosphate 1 enema 12/15/17 11:58 Fleet Enema IN DAILY PRN Tramadol HCl 50 mg 12/10/17 14:41 12/15/17 18:31 Ultram PO 50 mg Q6H PRN Administration Pain - Constitutional moderate distress, diaphoretic, disheveled Comments: ON BIPAP - Routine HEENT Exam Head: Present: normocephalic, atraumatic - Routine Neck Exam Present: supple. Absent: JVD - Routine Respiratory Exam Present: CTA bilaterally, prolonged expiratory phase. Absent: wheezes - Routine Cardiovascular Exam Present: RRR - Routine Abdominal Exam Present: soft. Absent: guarding Results - Laboratory Findings Laboratory: Laboratory Results - last 48 hr 12/14/17 12/15/17 12/15/17 20:47 04:15 05:56 WBC RBC Hgb Hct MCV MCH MCHC RDW Std Deviation Plt Count MPV Immature Gran % (Auto) Neut % (Auto) Lymph % (Auto) Holmes % (Auto) Eos % (Auto) Baso % (Auto) Neut # (Auto) Lymph # (Auto) Holmes # (Auto) Eos # (Auto) Baso # (Auto) Abs Immat Gran (auto) Turbidity < 20 Sodium 129 L Potassium 4.6 Chloride 85 L Carbon Dioxide 31 H Anion Gap 13 BUN 32.0 H Creatinine 0.8 GFR Calculation 73 BUN/Creatinine Ratio 40 H Glucose 220 H Glucometer 287 201 Calculated Osmolality 263 Calcium 9.5 Magnesium 2.0 Icterus Index < 2 Specimen Hemolysis < 15 12/15/17 12/15/17 12/15/17 11:14 15:34 20:12 WBC RBC Hgb Hct MCV MCH MCHC RDW Std Deviation Plt Count MPV Immature Gran % (Auto) Neut % (Auto) Lymph % (Auto) Holmes % (Auto) Eos % (Auto) Baso % (Auto) Neut # (Auto) Lymph # (Auto) Holmes # (Auto) Eos # (Auto) Baso # (Auto) Abs Immat Gran (auto) Turbidity Sodium Potassium Chloride Carbon Dioxide Anion Gap BUN Creatinine GFR Calculation BUN/Creatinine Ratio Glucose Glucometer 305 248 260 Calculated Osmolality Calcium Magnesium Icterus Index Specimen Hemolysis 12/16/17 12/16/17 12/16/17 03:53 03:53 14:49 WBC 11.8 H RBC 4.54 Hgb 12.3 Hct 39.2 MCV 86.3 MCH 27.1 MCHC 31.4 RDW Std Deviation 48.0 Plt Count 362 MPV 8.5 L Immature Gran % (Auto) 0.8 H Neut % (Auto) 79.2 H Lymph % (Auto) 15.1 L Holmes % (Auto) 4.8 Eos % (Auto) 0.0 Baso % (Auto) 0.1 Neut # (Auto) 9.3 H Lymph # (Auto) 1.8 Holmes # (Auto) 0.6 Eos # (Auto) 0.0 Baso # (Auto) 0.0 Abs Immat Gran (auto) 0.09 H Turbidity < 20 Sodium 132 L Potassium 4.6 Chloride 87 L Carbon Dioxide 32 H Anion Gap 13 BUN 35.0 H Creatinine 0.9 GFR Calculation 63 BUN/Creatinine Ratio 39 H Glucose 231 H Glucometer 325 Calculated Osmolality 270 Calcium 9.1 Magnesium Icterus Index < 2 Specimen Hemolysis < 15 Assessment and Plan (1) Acute and chronic respiratory failure with hypercapnia Status: Acute Assessment and plan: Agree with BIPAP 18/8, rate 12, FiO2 25% O2 by nc to maintain O2 sat >90% Anxiolytics as needed for anxiety. Current Visit: Yes (2) COPD (chronic obstructive pulmonary disease) Status: Chronic Assessment and plan: Severe COPD. Fev1 37%, GOLD stage D home regimen is Stiolto 2 puffs daily Duoneb QID/ProAir prn Prednisone 10 mg daily Continue methylpred 62.5 q12 and wean to prednisone as tolerated Agree with nebulized budesonide BID, Duoneb Q4H WA Transition back to home regimen on discharge Current Visit: No - Time Spent With Patient Total time spent is greater than 50% in coordination of care (as documented) at patient's floor/unit and/or counseling patient: less than 15 minutes
[2017-12-16] MEDS: METFORMIN 500 MG TABLET PO SCH (17:40)
--- NOTE | 2017-12-16 19:44 | Progress Note ---
Progress Note: Followed up with patient again today. She feels her anxiety has improved and she doesn't need overall adjustments to current medication regimen. I was [facility] to [facility] but have left a return number. Patient says she has a hx of bipolar disorder so SSRIs are not recommended. She does complain of difficulty falling asleep. Discussed with her and primary team that this is likely related to steroids but we must be vigilant for emerging gricel (which can be triggered by steroid use). Recommend using Ativan 1mg PO q HS PRN insomnia to target sleep. Patient also states Lunesta has worked well in the past though insurance will not cover it after discharge.
[2017-12-16] MEDS: GABAPENTIN 300 MG CAPSULE PO SCH (20:56)
[2017-12-16] MEDS: METHOCARBAMOL 750 MG TABLET PO PRN (20:56)
[2017-12-16] MEDS: PRAMIPEXOLE 0.25 MG TABLET PO SCH (20:56)
[2017-12-16] MEDS: INSULIN GLARGINE 100unit/ml INJECTION SQ SCH (20:59)
[2017-12-16] MEDS: SALINE FLUSH 10ml SYRINGE IVF PRN (20:59)
[2017-12-16] MEDS: PRIMIDONE 50 MG TABLET PO SCH (21:07)
[2017-12-16] MEDS: LIDOCAINE PATCH REMOVAL TOP SCH (21:08)
[2017-12-17] MEDS: BUDESONIDE INH.SOLN 0.5mg/2ml NEB AEROSOL SCH ×2 (05:15→18:40)
[2017-12-17] MEDS: ALBUTEROL/IPRATROPIUM 2.5mg-0.5mg/3ml NEB AEROSOL SCH ×4 (05:15→18:40)
[2017-12-17] MEDS: PANTOPRAZOLE 40 MG TABLET PO SCH (05:47)
[2017-12-17] MEDS: HYDROCODONE/APAP 5mg/325mg TABLET PO PRN ×2 (05:47→17:41)
[2017-12-17] MEDS: METHOCARBAMOL 750 MG TABLET PO PRN ×2 (05:47→19:38)
[2017-12-17] MEDS: INSULIN ASPART 100unit/ml INJECTION SQ PRN ×4 (06:29→20:36)
[2017-12-17] MEDS: FUROSEMIDE 40 MG/4 ML INJECTION IVP SCH (08:09)
[2017-12-17] MEDS: SALINE FLUSH 10ml SYRINGE IVF PRN ×2 (08:09→10:58)
[2017-12-17] MEDS: LORazepam 1 MG TABLET PO SCH ×3 (08:10→20:37)
[2017-12-17] MEDS: ASPIRIN *EC* 81 MG TABLET PO SCH (08:11)
[2017-12-17] MEDS: MAGNESIUM OXIDE 400 MG TABLET PO SCH ×3 (08:11→21:40)
[2017-12-17] MEDS: FOLIC ACID 1 MG TABLET PO SCH (08:11)
[2017-12-17] MEDS: AMLODIPINE 5 MG TABLET PO SCH (08:11)
[2017-12-17] MEDS: HYDRALAZINE 10 MG TABLET PO SCH ×4 (08:11→20:38)
[2017-12-17] MEDS: BUSPIRONE 5 MG TABLET PO SCH ×2 (08:12→20:39)
[2017-12-17] MEDS: MELOXICAM 7.5 MG TABLET PO SCH (08:13)
[2017-12-17] MEDS: PALIPERIDONE ER 1.5mg TABLET PO SCH (08:13)
[2017-12-17] MEDS: LIDOCAINE 5% PATCH TOP SCH (08:14)
[2017-12-17] MEDS: LIRAGLUTIDE INJECTABLE PEN SQ SCH (08:25)
[2017-12-17] MEDS: PredniSONE 10 MG TABLET PO SCH (08:59)
--- NOTE | 2017-12-17 14:46 | Progress Note ---
- Date 12/17/17 Subjective: Suyapa is seen and examined today. She originally is up in the chair on nasal cannula at baseline. She states that she has been off of BiPAP for approximately 45 minutes. She states that she is feeling at her baseline respiratory status. She is noted to have an improvement in wheezing today. Eyes having pain. She is quite adamant about being discharged home soon. Despite continued utilization of BiPAP routinely. Upon returning to the room. Patient has placed herself back on BiPAP. He denies having pain or GI complaints. Appetite is good. She is ambulating in the room. Objective Vital signs: Temperature 98.7 F 12/17/17 11:58 Pulse Rate 94 12/17/17 11:58 Respiratory Rate 22 12/17/17 14:35 Blood Pressure 180/98 H 12/17/17 11:58 Pulse Oximetry 97 12/17/17 11:58 Height/Weight/BMI: Height 1.65 m Weight 123.9 kg Body Mass Index 48.4 - Constitutional Present: no acute distress, well nourished, well developed - Routine HEENT Exam Eye: Present: EOMI ENT: Present: mucous membranes moist, dentition normal - Routine Respiratory Exam Present: CTA bilaterally. Absent: wheezes - Routine Cardiovascular Exam Present: RRR, S1, S2. Absent: murmur - Routine Abdominal Exam Present: soft, normoactive bowel sounds, non distended. Absent: tenderness - Routine Extremities Exam Present: pulses intact - Routine Skin Exam Present: intact, dry, warm - Routine Neurological Exam Present: alert, oriented X3, CN II-XII intact - Routine Lymphatic Exam Lymphatic: Absent: adenopathy - Routine Psychiatric Exam Present: normal affect, cooperative Results - Labs CBC & Chem 7: 12/16/17 03:53 12/17/17 04:13 Assessment and Plan (1) Chronic obstructive pulmonary disease with acute exacerbation Current visit: No Status: Acute Assessment and Plan: Impression Acute COPD exacerbation with need for ventilator support Acute on chronic hyponatremia-present on admission Hypomagnesium- POA- 1.5 Hyperkalemia- POA- 5.1 Hyponatremia- POA Chronic respiratory failure with oxygen dependence of 2 liters. Obstructive sleep apnea-BiPAP. Type II diabetes Coronary artery disease Hypertension Hyperlipidemia Bipolar disorder Anxiety/depression Morbid obesity-BMI 47 Plan She is quite adamant about discharge today. She does continue to utilize BiPAP regularly. We discussed the importance of only using BiPAP during sleep, nighttime or a nap. Rather than utilizing it throughout the day when awake. She does breathe comfortably on her baseline of 2 liters. Transitioned over to oral prednisone to tape at 30mg. She is chronically on Prednisone 10mg. Appreciate psychiatric recommendations for anxiety as per Dr. Terrazas. Weight continues to trend down Lidoderm patch, tylenol or norco as needed for back pain Case discussed with Dr. Rolon. He would like to see in follow-up within the next week when she is discharged Patients request for urgent discharge is discussed with attending, Dr. Mccoy 12/17/2017-3:10 PM-I examined the patient independently. I reviewed this chart, the patient history, and the CRM FUNCTIONAL ANALYST's/PA's documented findings as above. We discussed and formulated the assessment and plan as above with the additions below.-Dr. Mccoy The patient was seen this afternoon in her room. Initially she was stating she was going to leave AGAINST MEDICAL ADVICE, but then she did decide to stay. Blood pressure is 180 systolic. She states that is normal for her. She states her breathing is better. She does feel anxious. She states she got a hospital bill for $147,000 and she is worried about this bill On exam she is mildly anxious. Chest is fairly clear to auscultation without wheezing. Cardiovascular reveals a regular rate and rhythm. Abdomen is soft and nontender. Extremities reveal trace edema. Impression and plan COPD exacerbation-improving, IV steroids stopped yesterday and prednisone 30 mg daily started today Hypertension-increase hydralazine to 10 mg 4 times a day. Continue Norvasc and metoprolol Anxiety/history of bipolar disorder-last Dr. Terrazas to see again tomorrow. Anxiolytics as needed. Will encourage the patient not to use her BiPAP for anxiety She is closer to her baseline weight, little peripheral edema. Start oral Lasix tomorrow. I did ask case management to talk with the patient regarding her concerns about billing. The behavioral health case manager will also talk with her DPOA. - Physician Narrative Narrative: Date: 12/17/17 Time: 1440 Hospital Course Summary Disclaimer: The visit summary below is not to be considered part of the above Progress Note. Hospital Course: Impression Acute COPD exacerbation Acute on chronic hyponatremia-present on admission Hypomagnesium- POA- 1.5 Hyperkalemia- POA- 5.1 Chronic respiratory failure with oxygen dependence of 2 liters. Obstructive sleep apnea-BiPAP. Type II diabetes Coronary artery disease Hypertension Hyperlipidemia Bipolar disorder Anxiety/depression Morbid obesity-BMI 47 Plan Patient outpatient observation under the care of Dr. Iglesias for acute COPD exacerbation Continue patient on scheduled DuoNeb breathing treatments 4 times a day as well as when necessary. Pulmicort twice a day well as BiPAP management per RT Continue with IV Solu-Medrol 125 milligrams IV every 6 hours for pulmonary inflammation. Give IV magnesium as well as oral supplementation. Given hypomanic magnesium. Lasix 40mg IV to help waste free water as sodium low and weight with trend up from prior visits. Monitor Accu-Cheks, continue with metformin, Victoza and sliding scale insulin Place home potassium on hold given Hyperkalemia. Chon hose to BLE to help with edema. SCDs for DVT ppx. Lasix 40 mg daily as per chronic diuresing. Does wish to be a do not resuscitate and do not intubate. Check CBC, BMP and magnesium tomorrow to follow all blood counts, renal function and electrolytes. At time of discharge medical care will return to primary care provider, Rafaela Dean APRN at [facility] 12/11/17 She continues to require for ventilatory support via BiPAP Will change to inpatient status Continue with IV Solu-Medrol 125 milligrams IV every 6 hours for pulmonary inflammation as well as DuoNeb scheduled Monitor Accu-Cheks, continue with metformin, Victoza and sliding scale insulin Hyperkalemia improving. May consider resuming home potassium tomorrow Chon hose to BLE to help with edema. Lasix 40 mg daily as per chronic diuresing Once breathing has improved will need to encourage ambulation and strengthening 12/12/17 Noted mild leukocytosis today. Could be secondary to ongoing steroid use. Chest X-ray this morning did revel possible right effusion. Will give a extra dose of Lasix 20 mg IV this afternoon in addition to home dose of 40 mg PO. Continues to require for ventilatory support via BiPAP; will have nursing try to wean to O2. Decrease Solu-Medrol to 62.5mg IV every 6 hours for pulmonary inflammation; continue DuoNeb & budesonide as scheduled. BP elevated. Will re-evaluate and monitor- may need to consider adding Norvasc. Monitor Accu-Cheks, continue with metformin, Victoza and sliding scale insulin. Home potassium remains on hold - potassium 4.4. Chon hose to BLE to help with edema. 12/13/17 Continue to work with respiratory therapy to wean down BiPAP use. Plan to remove BiPAP for at least 1 hour again this afternoon. Discussed with patient and nurse. We will give patient a dose of Ativan prior to taking her off of the BiPAP. Solu-medrol Medrol decreased Chest X-ray obtained yesterday did show a possible small pleural effusion Weight does continue to be up from admission approximately 9 kg. Currently he is on home dose of Lasix 40 milligrams daily. She did receive an additional dose yesterday. Suspect she needs more aggressive diuresing. Monitor Accu-Cheks, continue with metformin, Victoza and sliding scale insulin Home potassium remains on hold 12/14/17 Encouraged a short walk today off BiPAP. Trying to reduce BiPAP-dependence. Weight is down from yesterday; will recheck CXR to f/u on effusion and to evaluate for increased vascularity. Continue Lasix 40 mg IV (Home dose: 40 mg PO ; conversion rate from IV to PO is equivalent) Hyponatremia is stable at 131 BGM uncontrolled . Continue metformin, Victoza and sliding scale insulin. Recheck A1c, last one was 6.7% in Jul 2017. Could also consider increasing metformin. In addition will decrease IV steroids to BID dosing. Cont nebs/pulmicort. -Dr. Mccoy The patient continues to wear BiPAP most of the time. She was able to be off for about an hour earlier today. She states she feels anxious and short of breath and then feels better when it is replaced. It is difficult to tell for sure whether this is primary anxiety versus anxiety caused by breathing difficulties. She states she would like to go for a walk. She is drinking well. She is urinating frequently. She thinks her edema in her legs is better. She states she wasn't able to finish her lunch because she got short of breath. On exam she is alert and oriented and in no acute distress. She is currently on BiPAP. Chest reveals some prolonged expiratory phase but no obvious rhonchi, wheezing or crackles. Cardiovascular reveals a regular rate and rhythm. Abdomen is soft and nontender. Extremities reveal trace edema. Lab is reviewed and fairly stable. Sodium is 131. Potassium 4.8. Weight is 126 kg down from 130 to yesterday. Weight was 121 kg on admission. Impression and plan COPD exacerbation-appears to be improving, but the patient continues to use BiPAP almost continuously because of anxiety. Will consult Dr. Rolon to see tomorrow. Anxiety may be contributing to patient's shortness of breath and frequent use of BiPAP. Will start lorazepam 0.5 mg by mouth 3 times a day. We'll ask psychiatry to see tomorrow for help with anxiety. Regarding elevated blood pressure, we'll increase Norvasc to 10 mg daily. Continue Lasix 40 mg IV once daily for fluid retention and weight gain Monitor sodium Discussed with RT and patient's nurse 12/15/17 Continue to encourage time off Bi-pap while awake Will try short ambulation distances within the room. Lidoderm patch and Tylenol as needed for back pain Weight continues to trend down- Continue with Lasix 40 mg IV daily Persistent hyponatremia- continue to follow Blood sugars remain elevated. Will start Lantus to 10 units at HS. Continue metformin, Victoza and sliding scale insulin. Recheck A1c, last one was 6.7% in Jul 2017. Encourage ambulation with PT/OT 12/17/17 She is quite adamant about discharge today. She does continue to utilize BiPAP regularly. We discussed the importance of only using BiPAP during sleep, nighttime or a nap. Rather than utilizing it throughout the day when awake. She does breathe comfortably on her baseline of 2 liters. Transitioned over to oral prednisone to tape at 30mg. She is chronically on Prednisone 10mg. Appreciate psychiatric recommendations for anxiety as per Dr. Terrazas. Weight continues to trend down Lidoderm patch, tylenol or norco as needed for back pain Case discussed with Dr. Rolon. He would like to see in follow-up within the next week when she is discharged Patients request for urgent discharge is discussed with attending, Dr. Mccoy
[2017-12-17] MEDS: HYDRALAZINE 20 MG/ML INJECTION IVP PRN (14:49)
[2017-12-17] MEDS: METFORMIN 500 MG TABLET PO SCH (17:37)
[2017-12-17] MEDS: INSULIN GLARGINE 100unit/ml INJECTION SQ SCH (20:36)
[2017-12-17] MEDS: PRIMIDONE 50 MG TABLET PO SCH (20:38)
[2017-12-17] MEDS: PRAMIPEXOLE 0.25 MG TABLET PO SCH (20:38)
[2017-12-17] MEDS: GABAPENTIN 300 MG CAPSULE PO SCH (21:29)
[2017-12-17] MEDS: LIDOCAINE PATCH REMOVAL TOP SCH (21:29)
[2017-12-18] MEDS: HYDROCODONE/APAP 5mg/325mg TABLET PO PRN ×2 (01:22→09:06)
[2017-12-18] MEDS: BUDESONIDE INH.SOLN 0.5mg/2ml NEB AEROSOL SCH (06:21)
[2017-12-18] MEDS: ALBUTEROL/IPRATROPIUM 2.5mg-0.5mg/3ml NEB AEROSOL SCH ×3 (06:21→15:09)
[2017-12-18] MEDS: PANTOPRAZOLE 40 MG TABLET PO SCH (06:32)
[2017-12-18] MEDS: METHOCARBAMOL 750 MG TABLET PO PRN (06:32)
[2017-12-18 07:49] VITALS: BP 141/74; TEMP 96.9; O2SAT 97
[2017-12-18] MEDS ORDERED: FUROSEMIDE 40 MG TABLET PO SCH (09:00)
[2017-12-18] MEDS: MAGNESIUM OXIDE 400 MG TABLET PO SCH ×2 (09:07→14:21)
[2017-12-18] MEDS: LORazepam 1 MG TABLET PO SCH ×2 (09:07→14:31)
[2017-12-18] MEDS: AMLODIPINE 5 MG TABLET PO SCH (09:07)
[2017-12-18] MEDS: LIDOCAINE 5% PATCH TOP SCH (09:08)
[2017-12-18] MEDS: ASPIRIN *EC* 81 MG TABLET PO SCH (09:10)
[2017-12-18] MEDS: PredniSONE 10 MG TABLET PO SCH (09:11)
[2017-12-18] MEDS: HYDRALAZINE 10 MG TABLET PO SCH ×2 (09:11→13:39)
[2017-12-18] MEDS: FOLIC ACID 1 MG TABLET PO SCH (09:12)
[2017-12-18] MEDS: BUSPIRONE 5 MG TABLET PO SCH (09:12)
[2017-12-18] MEDS: MELOXICAM 7.5 MG TABLET PO SCH (09:14)
[2017-12-18] MEDS: LIRAGLUTIDE INJECTABLE PEN SQ SCH (09:14)
[2017-12-18] MEDS: PALIPERIDONE ER 1.5mg TABLET PO SCH (09:15)
[2017-12-18] MEDS: ALBUTEROL/IPRATROPIUM 2.5mg-0.5mg/3ml NEB AEROSOL PRN (09:46)
[2017-12-18] MEDS: INSULIN ASPART 100unit/ml INJECTION SQ PRN (11:57)
[2017-12-18 13:09] VITALS: PULSE 88
--- NOTE | 2017-12-18 14:42 | Discharge Summary ---
Discharge Information Date of admission: 12/11/17 15:03 Anticipated date of discharge: 12/18/17 Attending Physician: Alexander Delcid MD Primary care physician: Rafaela Rosales APRN Consults: Dr. Terrazas- psychiatry Dr. Rolon- pulmonology Acute COPD exacerbation with need for ventilator support Acute on chronic hyponatremia-present on admission Hypomagnesium- POA- 1.5 Hyperkalemia- POA- 5.1 Hyponatremia- POA Chronic respiratory failure with oxygen dependence of 2 liters. Obstructive sleep apnea-BiPAP. Type II diabetes Coronary artery disease Hypertension Hyperlipidemia Bipolar disorder Anxiety/depression Morbid obesity-BMI 47 - Procedures Procedures: None - Laboratory Labs: 12/16/17 03:53 12/18/17 04:41 - Microbiology None - Radiology Radiology: 12/10/17-chest [id number] appearance without acute pulmonary disease 12/12/17-chest [id number] trace right effusion 12/14/17- Chest X-ray- No active cardiopulmonary abnormality. - Pathology None History of Present Illness HPI: Suyapa is a 62-year-old female who is known to the hospitalist services from previous frequent admissions. Patient reports that she began having onset of worsening dyspnea this morning, accompanied with a productive cough. She awoke at 4 a.m. and was unable to him related to the bathroom due to her dyspnea. All night long. She had to sleep in a recliner because she could not tolerate lying back. Her home health nurse came to evaluate her and due to her conversational dyspnea contacted EMS. Patient was given IV Solu-Medrol and albuterol nebulizer and transported to [facility] emergency room for acute evaluation. Blood work was obtained, CBC was normal other than neutrophils of 87%.BMP revealed hyponatremia with a sodium of 129 and potassium of 5.1. Troponin was undetectable and BNP 564. X-ray revealed no focal consolidation or otherwise acute cardiopulmonary process. Patient was placed on BiPAP on arrival to the emergency room. Her respiratory effort has improved with respiratory assistance. Given her symptoms the services were contacted and accepted patient for outpatient observation for further evaluation and treatment. Objective Vital signs: Temperature 96.9 F 12/18/17 07:00 Pulse Rate 88 12/18/17 08:00 Respiratory Rate 21 12/18/17 11:30 Blood Pressure 141/74 H 12/18/17 07:00 Pulse Oximetry 97 12/18/17 11:30 Height/Weight/BMI: Height 1.65 m Weight 124.5 kg Body Mass Index 48.4 - Constitutional Present: no acute distress, well nourished, well developed - Routine HEENT Exam Eye: Present: EOMI ENT: Present: mucous membranes moist, dentition normal - Routine Respiratory Exam Present: CTA bilaterally, diminished air movement. Absent: wheezes - Routine Cardiovascular Exam Present: RRR, S1, S2. Absent: murmur - Routine Abdominal Exam Present: soft, normoactive bowel sounds, non distended. Absent: tenderness - Routine Back/Spine/Pelvis Exam Back/Spine: Present: full ROM - Routine Skin Exam Present: intact, dry, warm - Routine Neurological Exam Present: alert, oriented X3, CN II-XII intact - Routine Lymphatic Exam Lymphatic: Absent: adenopathy - Routine Psychiatric Exam Present: normal affect Hospital Course This is a general summary of the patient's hospital course. For more details refer to the complete medical record. Hospital course: Impression Acute COPD exacerbation Acute on chronic hyponatremia-present on admission Hypomagnesium- POA- 1.5 Hyperkalemia- POA- 5.1 Chronic respiratory failure with oxygen dependence of 2 liters. Obstructive sleep apnea-BiPAP. Type II diabetes Coronary artery disease Hypertension Hyperlipidemia Bipolar disorder Anxiety/depression Morbid obesity-BMI 47 Plan Patient outpatient observation under the care of Dr. Iglesias for acute COPD exacerbation Continue patient on scheduled DuoNeb breathing treatments 4 times a day as well as when necessary. Pulmicort twice a day well as BiPAP management per RT Continue with IV Solu-Medrol 125 milligrams IV every 6 hours for pulmonary inflammation. Give IV magnesium as well as oral supplementation. Given hypomanic magnesium. Lasix 40mg IV to help waste free water as sodium low and weight with trend up from prior visits. Monitor Accu-Cheks, continue with metformin, Victoza and sliding scale insulin Place home potassium on hold given Hyperkalemia. Chon hose to BLE to help with edema. SCDs for DVT ppx. Lasix 40 mg daily as per chronic diuresing. Does wish to be a do not resuscitate and do not intubate. Check CBC, BMP and magnesium tomorrow to follow all blood counts, renal function and electrolytes. At time of discharge medical care will return to primary care provider, Rafaela Dean APRN at [facility] 12/11/17 She continues to require for ventilatory support via BiPAP Will change to inpatient status Continue with IV Solu-Medrol 125 milligrams IV every 6 hours for pulmonary inflammation as well as DuoNeb scheduled Monitor Accu-Cheks, continue with metformin, Victoza and sliding scale insulin Hyperkalemia improving. May consider resuming home potassium tomorrow Chon hose to BLE to help with edema. Lasix 40 mg daily as per chronic diuresing Once breathing has improved will need to encourage ambulation and strengthening 12/12/17 Noted mild leukocytosis today. Could be secondary to ongoing steroid use. Chest X-ray this morning did revel possible right effusion. Will give a extra dose of Lasix 20 mg IV this afternoon in addition to home dose of 40 mg PO. Continues to require for ventilatory support via BiPAP; will have nursing try to wean to O2. Decrease Solu-Medrol to 62.5mg IV every 6 hours for pulmonary inflammation; continue DuoNeb & budesonide as scheduled. BP elevated. Will re-evaluate and monitor- may need to consider adding Norvasc. Monitor Accu-Cheks, continue with metformin, Victoza and sliding scale insulin. Home potassium remains on hold - potassium 4.4. Chon hose to BLE to help with edema. 12/13/17 Continue to work with respiratory therapy to wean down BiPAP use. Plan to remove BiPAP for at least 1 hour again this afternoon. Discussed with patient and nurse. We will give patient a dose of Ativan prior to taking her off of the BiPAP. Solu-medrol Medrol decreased Chest X-ray obtained yesterday did show a possible small pleural effusion Weight does continue to be up from admission approximately 9 kg. Currently he is on home dose of Lasix 40 milligrams daily. She did receive an additional dose yesterday. Suspect she needs more aggressive diuresing. Monitor Accu-Cheks, continue with metformin, Victoza and sliding scale insulin Home potassium remains on hold 12/14/17 Encouraged a short walk today off BiPAP. Trying to reduce BiPAP-dependence. Weight is down from yesterday; will recheck CXR to f/u on effusion and to evaluate for increased vascularity. Continue Lasix 40 mg IV (Home dose: 40 mg PO ; conversion rate from IV to PO is equivalent) Hyponatremia is stable at 131 BGM uncontrolled . Continue metformin, Victoza and sliding scale insulin. Recheck A1c, last one was 6.7% in Jul 2017. Could also consider increasing metformin. In addition will decrease IV steroids to BID dosing. Cont nebs/pulmicort. -Dr. Mccoy The patient continues to wear BiPAP most of the time. She was able to be off for about an hour earlier today. She states she feels anxious and short of breath and then feels better when it is replaced. It is difficult to tell for sure whether this is primary anxiety versus anxiety caused by breathing difficulties. She states she would like to go for a walk. She is drinking well. She is urinating frequently. She thinks her edema in her legs is better. She states she wasn't able to finish her lunch because she got short of breath. On exam she is alert and oriented and in no acute distress. She is currently on BiPAP. Chest reveals some prolonged expiratory phase but no obvious rhonchi, wheezing or crackles. Cardiovascular reveals a regular rate and rhythm. Abdomen is soft and nontender. Extremities reveal trace edema. Lab is reviewed and fairly stable. Sodium is 131. Potassium 4.8. Weight is 126 kg down from 130 to yesterday. Weight was 121 kg on admission. Impression and plan COPD exacerbation-appears to be improving, but the patient continues to use BiPAP almost continuously because of anxiety. Will consult Dr. Rolon to see tomorrow. Anxiety may be contributing to patient's shortness of breath and frequent use of BiPAP. Will start lorazepam 0.5 mg by mouth 3 times a day. We'll ask psychiatry to see tomorrow for help with anxiety. Regarding elevated blood pressure, we'll increase Norvasc to 10 mg daily. Continue Lasix 40 mg IV once daily for fluid retention and weight gain Monitor sodium Discussed with RT and patient's nurse 12/15/17 Continue to encourage time off Bi-pap while awake Will try short ambulation distances within the room. Lidoderm patch and Tylenol as needed for back pain Weight continues to trend down- Continue with Lasix 40 mg IV daily Persistent hyponatremia- continue to follow Blood sugars remain elevated. Will start Lantus to 10 units at HS. Continue metformin, Victoza and sliding scale insulin. Recheck A1c, last one was 6.7% in Jul 2017. Encourage ambulation with PT/OT 12/17/17 She is quite adamant about discharge today. She does continue to utilize BiPAP regularly. We discussed the importance of only using BiPAP during sleep, nighttime or a nap. Rather than utilizing it throughout the day when awake. She does breathe comfortably on her baseline of 2 liters. Transitioned over to oral prednisone to tape at 30mg. She is chronically on Prednisone 10mg. Appreciate psychiatric recommendations for anxiety as per Dr. Terrazas. Weight continues to trend down Lidoderm patch, tylenol or norco as needed for back pain Case discussed with Dr. Rolon. He would like to see in follow-up within the next week when she is discharged Patients request for urgent discharge is discussed with attending, Dr. Mccoy 12/18/17- Discharge Suyapa is seen and examined today. Today prior to discharge. Overall she is feeling much better today. She feels that her anxiety is well controlled. She does not feel anxious, harmful to herself or others. Did speak with Dr. Terrazas today who agrees that she is safe for discharge and recommends continuing to utilize Ativan 1 milligram at bedtime in addition to her regimen buspar and Ingeva. She recommends follow-up in the outpatient setting with her therapist, Guadalupe Cartwright at [place]. She feels that her breathing is at her baseline. While on a nasal cannula. She is continuing to utilize BiPAP with resting. She will be discharged home to continue with the prednisone taper, 30 milligrams daily for 3 days, then 20 milligrams daily for 3 days, then 10 milligrams daily indefinitely, as this is her baseline dose. She has been seen and examined today by her sole molder, Dr. Rolon who agrees with our discharge plan. He would like to follow up with her in the office next week. She is given a prescription for refill of DuoNeb to utilize in her nebulizers. During her hospitalization she was started on 2 new blood pressure medications including Norvasc 10 milligrams daily and hydralazine 10 milligrams with meals and at bedtime. Suyapa feels stable and ready for discharge. [facility]. Discharged in stable condition Time spent with patient: discharge greater than 30 minutes Discharge Plan - Discharge Disposition Discharge Date: 12/18/17 Disposition: 01 Discharged Home, Self-Care *Condition: Stable Reason For Visit (Visit label in EMR): COPD exacerbation - Discharge Medications *Discharge Medications: New Amlodipine [Norvasc] 10 mg PO DAILY #30 tab Lidocaine 5% Patch [Lidoderm] 1 patch TOP DAILY #5 patch PredniSONE [Deltasone 10 mg] See Protocol PO WB #20 tab Albuterol/Ipratropium [Duoneb] 3 ml AEROSOL PRN PRN #1 box PRN Reason: Shortness Of Air Hydralazine [Apresoline] 10 mg PO [facility] #30 tab Continue Folic Acid [Folate] 1 mg PO DAILY Potassium Chloride 10 meq PO DAILY Tramadol [Ultram] 50 mg PO Q6H PRN PRN Reason: Pain Albuterol Sulfate [Proair Hfa] 1 spray INH PRN PRN PRN Reason: Shortness Of Air Fluticasone HFA [Flovent Hfa 220 mcg] 1 - 2 puff INH Q2-4HR Furosemide [Lasix 40 mg Tab] 40 mg PO DAILY #30 tab Pantoprazole Tab [Protonix Tab] 40 mg PO DAILY Meloxicam 7.5 mg PO DAILY Nitroglycerin [Nitrostat] 0.4 mg SL Q5MIN3 PRN PRN Reason: Chest Pain Acetaminophen [Acetaminophen ER] 650 mg PO Q8H PRN PRN Reason: Pain LORazepam [Ativan] 0.5 mg PO HS #10 tab Cabergoline [Dostinex] 0.5 mg PO TuFr #0 Gabapentin 300 mg PO HS #0 Metoprolol Succinate 100 mg PO DAILY #0 Buspirone HCl 7.5 mg PO BID #0 Cyproheptadine HCl 4 - 8 mg PO HS PRN #0 PRN Reason: Insomnia Pramipexole Di-HCl [Pramipexole Dihydrochloride] 0.375 mg PO HS Paliperidone [Paliperidone ER] 9 mg PO DAILY Aspirin [Adult Aspirin Regimen] 81 mg PO DAILY Albuterol/Ipratropium [Duoneb] 1 unit AEROSOL QID #1 box Magnesium Oxide [Magnesium] 400 mg PO TID Glucophage XR (metformin ER) 500 mg tablet, 24 hr 500 mg PO WS liraglutide 0.6 mg/0.1 mL (18 mg/3 mL) subcutaneous pen injector 1.2 mg SQ DAILY ml Discontinued prednisone 10 mg tablet 10 mg PO WB tab No Action Primidone [Mysoline] 150 mg PO HS Stiolto Respimat (tiotropium) 2.5 mcg-olodaterol 2.5 mcg/actuation inhalation 2 puff INH DAILY g - Discharge Packet/Instructions *Diet: Carb consistant diet *Activity: As tolerated *Pain Management/Treatment: Home Ultram or Tylenol *Wound Care: N/A Additional Instructions: On taper-. 30 milligrams daily for 3 days, then decrease to 20 milligrams daily for 3 days, then decrease to normal 10 milligrams daily dose. Two New medications for your blood pressure-Norvasc and hydralazine. They use Ativan 1 milligram at bedtime to help with anxiety. Important that you follow up with Guadalupe Cartwright in the next week for reevaluation. Use Bipap when napping or sleeping at night. Utilize oxygen by nasal cannula remaining part of the time. Need to use scheduled DuoNeb. These call and schedule your own appointment with primary care provider, Rafaela Rosales and sole molder, Dr. Rolon to be seen in the next 1 week *Expected Signs/Symptoms: Continued improvement in breathing *Notify Physician if: Fevers, chills, chest pain, worsening shortness of breath or other concerning symptoms *During Business Hours Contact: Guadalupe Mckenzie or Dr. Rolon *After Business Hours Contact: Page oncall physician or present to the ER *Pending Lab/Results: No Pending Lab - Referrals/Follow Up *Referrals/Follow Up: Pankaj Rolon MD [Physician] - (Call to schedule your appointment with Dr. Pankaj Rolon.) Rafaela Rosales APRN [Primary Care Provider] - (Call to schedule an appointment with Rafaela Rosales APRN. ) - Patient Handouts Patient Handouts: COPD (Chronic Obstructive Pulmonary Disease) (GEN) - Dismissal Complete Discharge Instructions are:: Complete Physician Narrative - Narrative Physician: other (Alexander Delcid MD) Attestation Narrative: Date: 12/18/17 Time: 1441 I have independently interviewed and examined patient. Patient chart reviewed. Case discussed with my [facility] MANA[facility]. Care plan developed with my supervision, agree with above. A pleasant 62-year-old female patient with history of advanced COPD, end-stage pulmonary disease requiring noninvasive ventilator support at home in addition to continuous supplemental oxygen via nasal cannula and obstructive sleep apnea , coronary artery disease, hypertension, hyperlipidemia, bipolar disorder with episodes of anxiety, type 2 diabetes mellitus admitted with complaints of shortness of breath and productive cough. At time of discharge, patient does not have significant wheezing on auscultation. Patient will be discharged on prednisone taper starting at 30 mg by mouth daily which will be slowly decreased to 10 mg by mouth daily. Patient to follow-up with sole molder, Dr. Rolon after discharge and also follow-up with PCP. In view of elevated blood pressure, patient started on oral hydralazine and amlodipine medications on discharge.
[2017-12-18 15:11] VITALS: RESP 20
== END 2017-12-18 15:40 | disposition home or self-care (01) | DRG 190 ==
LOC: EDHOLD 11:40 → ED 11:40 → MED 14:37 → SUATTDRO 12-11 15:03
PROVIDERS: ADMIT Hospitalist; ATTEND Internal Medicine

== ENCOUNTER 2017-12-31 02:13 | Inpatient (IN) ==
[2017-12-31] MEDS ORDERED: ALBUTEROL/IPRATROPIUM 2.5mg-0.5mg/3ml NEB AEROSOL ONE ×3 (02:17→03:21)
[2017-12-31] MEDS ORDERED: DEXAMETHASONE 4 MG/ML INJECTION IM ONE (02:17)
--- NOTE | 2017-12-31 02:19 | Emergency Department Report ---
Asthma HPI - General Stated Complaint: soa Time Seen by Provider: 12/31/17 02:17 Source: patient, EMS Mode of arrival: EMS Limitations: no limitations - History of Present Illness HPI Narrative: She began having difficulty breathing at home this evening, used her breathing treatments, but with little improvement. 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 EMS found the patient with significant air hunger, as well as anxiety. Patient was given an albuterol treatment in route, the seemed to help, but the patient' s anxiety remained high. She denies any cough or fevers, and states this feels like her normal COPD exacerbations. - Related Data Home Medications Medication Instructions Recorded Confirmed Cabergoline [Dostinex] 0.5 mg PO TuFr #0 06/19/12 12/31/17 Metoprolol Succinate 100 mg PO DAILY #0 07/15/16 12/31/17 Buspirone HCl 7.5 mg PO BID #0 08/09/16 12/31/17 Cyproheptadine HCl 4 - 8 mg PO HS PRN #0 08/22/16 12/31/17 Pramipexole Di-HCl [Pramipexole 0.375 mg PO HS 12/04/16 12/31/17 Dihydrochloride] Paliperidone [Paliperidone ER] 9 mg PO DAILY 01/05/17 12/31/17 Albuterol Sulfate [Proair Hfa] 1 spray INH PRN PRN 06/18/17 12/31/17 Aspirin [Adult Aspirin Regimen] 81 mg PO DAILY 06/18/17 12/31/17 Fluticasone HFA [Flovent Hfa 220 1 - 2 puff INH Q2-4HR 06/18/17 12/31/17 mcg] Tramadol [Ultram] 50 mg PO Q6H PRN 06/18/17 12/31/17 Stiolto Respimat (tiotropium) 2.5 2 puff INH DAILY g 11/06/17 12/31/17 mcg-olodaterol 2.5 mcg/actuation inhalation liraglutide 0.6 mg/0.1 mL (18 mg/3 1.2 mg SQ DAILY ml 11/06/17 12/31/17 mL) subcutaneous pen injector Pantoprazole Tab [Protonix Tab] 40 mg PO DAILY 11/14/17 12/31/17 Acetaminophen [Acetaminophen ER] 650 mg PO Q8H PRN 12/10/17 12/31/17 Magnesium Oxide [Magnesium] 400 mg PO TID 12/10/17 12/31/17 Nitroglycerin [Nitrostat] 0.4 mg SL Q5MIN3 PRN 12/10/17 12/31/17 melatonin ER 10 mg tablet,extended 10 mg PO HS tab 12/30/17 12/31/17 release prednisone 10 mg tablet 10 mg PO DAILY tab 12/30/17 12/31/17 Albuterol/Ipratropium [Duoneb] 3 ml AEROSOL Q6H PRN 12/31/17 12/31/17 LORazepam [Ativan] 0.5 mg PO QID 12/31/17 12/31/17 Previous Rx's Medication Instructions Recorded Furosemide [Lasix 40 mg Tab] 40 mg PO DAILY #30 tab 06/23/17 Amlodipine [Norvasc] 10 mg PO DAILY #30 tab 12/18/17 Hydralazine [Apresoline] 10 mg PO WMHS #30 tab 12/18/17 Lidocaine 5% Patch [Lidoderm] 1 patch TOP DAILY #5 patch 12/18/17 Allergies Allergy/AdvReac Type Severity Reaction Status Date / Time Influenza Virus Vaccines Allergy Severe DYSPNEA Verified 12/31/17 02:33 lisinopril Allergy Intermediate TONGUE Verified 12/31/17 02:33 SWELLING Iodinated Contrast- Oral and Allergy Mild RASH Verified 12/31/17 02:33 IV Dye asenapine Allergy Unknown Verified 12/31/17 02:33 duloxetine [From Cymbalta] Allergy Unknown Verified 12/31/17 02:33 hydromorphone [From Dilaudid] Allergy Unknown Verified 12/31/17 02:33 iodine Allergy Unknown Verified 12/31/17 02:33 Sulfa (Sulfonamide Allergy Unknown RASH Verified 12/31/17 02:33 Antibiotics) venlafaxine Allergy Unknown Verified 12/31/17 02:33 lurasidone AdvReac Intermediate INCREASED Verified 12/31/17 02:33 SODIUM adhesive AdvReac Unknown Verified 12/31/17 02:33 cephalexin AdvReac Unknown VOMITING Verified 12/31/17 02:33 morphine AdvReac Unknown SWELLING Verified 12/31/17 02:33 SHELLFISH Allergy Severe Allergic Uncoded 12/31/17 02:33 Asthmatic Reaction Review of Systems All systems: reviewed and negative except as stated PFSH Patient Stated Medical History Cerebrovascular Accident Yes: 1999 Migraine Yes: PRESENT Peripheral Neuropathy Yes: diabetic Transient Ischemic Attacks ( Yes: 2012 TIA) Cataracts Yes: BILAT Dental Problems Yes: DENTURES Macular Degeneration Yes: RECENTLY DX Cardiac Arrhythmia Yes Congestive Heart Failure Yes Heart Murmur Yes Hypertension Yes Myocardial Infarction Yes: 2002 Asthma Yes Bronchitis Yes Chronic Obstructive Pulmonary Yes Disease (COPD) Pneumonia Yes Sleep Apnea Yes: Uses a Bipap occasionally at home. Other Respiratory Yes: EMPHYSEMA Diabetes Mellitus Type 2 Yes Gastroesophageal Reflux Yes Disease Hiatal Hernia Yes Ulcer Yes Hx Incontinence Yes Hx Renal Disease No Anemia Yes Osteoarthritis Yes Other Musculoskeletal Yes: osteopenia Chlamydia Yes: 'S MRSA Yes: HX PREVIOUS SORES ON BACK/BUTTOCKS. Shingles Yes: 1995 FACE Blood Transfusions Yes Bipolar Disorder Yes Depression Yes Post Traumatic Stress Disorder Yes Substance Use Disorder Yes: NICOTINE DEPENDENCE Abnormal Pap Yes: 1977 [facility] Medical History (Last Updated 12/30/17 @ 15:48 by Kimani Ku MD) Prolactinoma (Resolved Medical ~2007) Has had adenoma shrink and is no longer detectable on MRI. Need to check prolactin level, then taper down and off of cabergoline if possible. Hyponatremia (Chronic Medical) Longstanding, but etiology unknown. Diabetes mellitus type 2, uncontrolled, without complications (Chronic Medical ~ 2005) Had A1c done by Rafaela Rosales. Dyslipidemia (Chronic Medical) HTN (hypertension) (Chronic Medical) Good control. CAD (coronary artery disease) (Chronic Medical) Stable. Morbid obesity with BMI of 45.0-49.9, adult (Chronic Medical) Medical History Updates: HTN. HLD. Type 2 DM. Anxiety/Depression. MILDRED on BIPAP. COPD. Asthma. CHF. CAD. Chronic hyponatremia. Bipolar discorder Surgical History: appendix. colonoscopy. gallbladder. hernia. tonsils. cardiac cath. hysterectomy. carpal tunnel. knee. shoulder. wrist Family History: Family History (Last Reviewed 12/30/17 @ 15:43 by Kimani Ku MD) Mother COPD (chronic obstructive pulmonary disease) Brother COPD (chronic obstructive pulmonary disease) Family History Updates: Family History (Last Updated 06/19/17 @ 18:20 by Jammie Woodard MD). Mother. COPD (chronic obstructive pulmonary disease) . Brother. COPD (chronic obstructive pulmonary disease) - Social History Smoking status: Former smoker Packs-years: 50 Quit date: 07/09/17 Substance use type: does not use Alcohol intake frequency: does not drink Housing: house Household members: caregiver Current occupational status: disabled Does patient use chewing tobacco?: No Current residence: Apartment/Private Home Physical Exam - Limitations Limitations: no limitations - General General appearance: alert - Normal Exams: Head:: Normocephalic without trauma Eyes:: Pupils are PERRLA w/ EOMI, No scleral icterus, irritation, or foreign bodies noted ENMT:: No facial trauma, nasal exudates, pharyngeal erythema, or exudates are noted Neck:: Full range of motion, without adenopathy, JVD, bruits or thyromegaly Cardiovascular:: Regular rate and rhythm, without murmur or gallop, Pulses 2+ all extremities, capillary refill, <2 seconds all extremities Abdomen:: Bowel sounds positive, soft, non-tender, non-distended, no hepatosplenomegaly, masses or bruits noted Lymphatic:: No lymphadenopathy, or lymphedema noted Musculoskeletal:: No tenderness, or deformity noted, good range of motion, all extremities Integumentary:: No rashes, hives, or bruising noted, hair and nails, without abnormality Neurological:: Patient is alert, and oriented, cranial nerves, motor/sensory/ cerebellar, exams w/o gross deficits, to observation Psychiatric:: Patient exhibits, appropriate attention, emotion and affect - Chest Chest inspection: Present: normal inspection, symmetric chest wall rise. Absent : tenderness - Respiratory Respiratory exam: Present: wheezes, accessory muscle use, prolonged expiratory phase. Absent: normal lung sounds bilaterally (or Stipe wheezes bilaterally) Course Vital Signs Temperature 98.1 F 12/31/17 02:13 Pulse Rate 110 H 12/31/17 02:13 Respiratory Rate 24 12/31/17 02:13 Blood Pressure 227/114 H 12/31/17 02:13 Pulse Oximetry 96 12/31/17 02:13 Temperature 98.1 F 12/31/17 02:13 Pulse Rate 100 12/31/17 03:00 Respiratory Rate 24 12/31/17 03:26 Blood Pressure 172/76 H 12/31/17 03:00 Pulse Oximetry 97 12/31/17 03:20 Dyspnea - MDM Narrative Medical decision making narrative: Patient is given dexamethasone 8 mg IM, and 2 duonebs -patient is feeling some better, but continues to have wheezing with extended expiratory phase, patient' s anxiety also seems to be heightened. Patient is given Ativan 1 mg by mouth, and 2 additional DuoNeb times - After total of 4 breathing treatments, dexamethasone, and Ativan, patient continues to require additional oxygen supplement, and continues to have tight wheezes bilaterally. Case is discussed with Dr. Richard Greene, we will admit observation for COPD exacerbation, and get lab and chest x-ray drawn and taken in the ER before the patient is taken to the medical floor. This time the patient appears medically stable, and does not seem to warrant inpatient or CCU admission Disposition Clinical Impression: COPD exacerbation Disposition: To [facility] Condition: Improved Prescriptions: No Action Tramadol [Ultram] 50 mg PO Q6H PRN PRN Reason: Pain Albuterol Sulfate [Proair Hfa] 1 spray INH PRN PRN PRN Reason: Shortness Of Air Fluticasone HFA [Flovent Hfa 220 mcg] 1 - 2 puff INH Q2-4HR Furosemide [Lasix 40 mg Tab] 40 mg PO DAILY #30 tab Pantoprazole Tab [Protonix Tab] 40 mg PO DAILY Nitroglycerin [Nitrostat] 0.4 mg SL Q5MIN3 PRN PRN Reason: Chest Pain Acetaminophen [Acetaminophen ER] 650 mg PO Q8H PRN PRN Reason: Pain Amlodipine [Norvasc] 10 mg PO DAILY #30 tab Lidocaine 5% Patch [Lidoderm] 1 patch TOP DAILY #5 patch Albuterol/Ipratropium [Duoneb] 3 ml AEROSOL Q6H PRN PRN Reason: Shortness Of Air LORazepam [Ativan] 0.5 mg PO QID Cabergoline [Dostinex] 0.5 mg PO TuFr #0 Metoprolol Succinate 100 mg PO DAILY #0 Buspirone HCl 7.5 mg PO BID #0 Cyproheptadine HCl 4 - 8 mg PO HS PRN #0 PRN Reason: Insomnia Pramipexole Di-HCl [Pramipexole Dihydrochloride] 0.375 mg PO HS Paliperidone [Paliperidone ER] 9 mg PO DAILY Aspirin [Adult Aspirin Regimen] 81 mg PO DAILY Magnesium Oxide [Magnesium] 400 mg PO TID Hydralazine [Apresoline] 10 mg PO WMHS #30 tab Stiolto Respimat (tiotropium) 2.5 mcg-olodaterol 2.5 mcg/actuation inhalation 2 puff INH DAILY g liraglutide 0.6 mg/0.1 mL (18 mg/3 mL) subcutaneous pen injector 1.2 mg SQ DAILY ml prednisone 10 mg tablet 10 mg PO DAILY tab melatonin ER 10 mg tablet,extended release 10 mg PO HS tab Referrals: Rafaela Rosales APRN [Primary Care Provider] - - Seen By: physician
[2017-12-31] MEDS ORDERED: LORazepam 1 MG TABLET PO ONE (03:20)
[2017-12-31] MEDS ORDERED: ACETAMINOPHEN 650 MG SUPPOSITORY PR PRN (05:00)
[2017-12-31] MEDS ORDERED: NITROGLYCERIN 0.4 MG SUBLINGUAL TABLET SL PRN (05:00)
[2017-12-31] MEDS ORDERED: ONDANSETRON 4 MG/2 ML INJECTION IVP PRN (05:00)
[2017-12-31] MEDS ORDERED: NICOTINE 14 MG PATCH TD PRN (05:00)
[2017-12-31] MEDS ORDERED: SENNOSIDES 8.6 MG TABLET PO PRN (05:00)
[2017-12-31 05:38] VITALS: BMI 46.7
--- NOTE | 2017-12-31 06:06 | History & Physical Report ---
History of Present Illness Date: 12/31/17 Chief complaint: SOA HPI: Binh is a 62 year old female with COPD and chronic anxiety who was brought to the emergency department by ems with a complaint of shortness of air, progressive for 3 days. her caregiver came by late last night, and became concerned with her work of breathing. in the emergency department, she is commonly treated for anxiety and bronchospasm and is able to go home, however she was still dyspneic, after several breathing treatments requiring 4 l of oxygen to maintain her oxygen saturation in the mid 90s, as opposed to her 3 l chronic by nasal cannula. she stated she was not feeling much better. it was felt prudent to place her in observation status for continued breathing treatments, solu-medrol, ativan as needed, and serial examination. Review of Systems - Constitutional Constitutional: Present: as per HPI, daytime sleepiness, fatigue, fever(s) ( subjective). Absent: night sweats - Cardiovascular Cardiovascular: Present: dyspnea on exertion. Absent: chest pain, palpitations , syncope Past Medical History Medical History: Medical History (Last Updated 12/30/17 @ 15:48 by Kimani Ku MD) Prolactinoma (Resolved) Onset Date: ~2007 Has had adenoma shrink and is no longer detectable on MRI. Need to check prolactin level, then taper down and off of cabergoline if possible. Hyponatremia (Chronic) Longstanding, but etiology unknown. Diabetes mellitus type 2, uncontrolled, without complications (Chronic) Onset Date: ~2005 Had A1c done by Rafaela Rosales. Dyslipidemia (Chronic) HTN (hypertension) (Chronic) Good control. CAD (coronary artery disease) (Chronic) Stable. Morbid obesity with BMI of 45.0-49.9, adult (Chronic) Medical History Updates: HTN. HLD. Type 2 DM. Anxiety/Depression. MILDRED on BIPAP. COPD. Asthma. CHF. CAD. Chronic hyponatremia. Bipolar discorder Surgical History: appendix. colonoscopy. gallbladder. hernia. tonsils. cardiac cath. hysterectomy. carpal tunnel. knee. shoulder. wrist Family History: Family History (Last Reviewed 12/30/17 @ 15:43 by Kimani Ku MD) Mother COPD (chronic obstructive pulmonary disease) Brother COPD (chronic obstructive pulmonary disease) Family History: As Above - Social History Smoking status: Former smoker (she quit smoking in july) Housing: apartment (she lives alone but has a caregiver visit at least twice daily) Medications Home Medications Medication Instructions Recorded Confirmed Type Cabergoline [Dostinex] 0.5 mg PO TuFr #0 06/19/12 12/31/17 History Metoprolol Succinate 100 mg PO DAILY #0 07/15/16 12/31/17 History Buspirone HCl 7.5 mg PO BID #0 08/09/16 12/31/17 History Cyproheptadine HCl 4 - 8 mg PO HS PRN #0 08/22/16 12/31/17 History Pramipexole Di-HCl [Pramipexole 0.375 mg PO HS 12/04/16 12/31/17 History Dihydrochloride] Paliperidone [Paliperidone ER] 9 mg PO DAILY 01/05/17 12/31/17 History Albuterol Sulfate [Proair Hfa] 1 spray INH PRN PRN 06/18/17 12/31/17 History Aspirin [Adult Aspirin Regimen] 81 mg PO DAILY 06/18/17 12/31/17 History Fluticasone HFA [Flovent Hfa 220 1 - 2 puff INH Q2-4HR 06/18/17 12/31/17 History mcg] Tramadol [Ultram] 50 mg PO Q6H PRN 06/18/17 12/31/17 History Furosemide [Lasix 40 mg Tab] 40 mg PO DAILY #30 tab 06/23/17 12/31/17 Rx Stiolto Respimat (tiotropium) 2.5 2 puff INH DAILY g 11/06/17 12/31/17 History mcg-olodaterol 2.5 mcg/actuation inhalation liraglutide 0.6 mg/0.1 mL (18 mg/3 1.2 mg SQ DAILY ml 11/06/17 12/31/17 History mL) subcutaneous pen injector Pantoprazole Tab [Protonix Tab] 40 mg PO DAILY 11/14/17 12/31/17 History Acetaminophen [Acetaminophen ER] 650 mg PO Q8H PRN 12/10/17 12/31/17 History Magnesium Oxide [Magnesium] 400 mg PO TID 12/10/17 12/31/17 History Nitroglycerin [Nitrostat] 0.4 mg SL Q5MIN3 PRN 12/10/17 12/31/17 History Amlodipine [Norvasc] 10 mg PO DAILY #30 tab 12/18/17 12/31/17 Rx Hydralazine [Apresoline] 10 mg PO WMHS #30 tab 12/18/17 12/31/17 Rx Lidocaine 5% Patch [Lidoderm] 1 patch TOP DAILY #5 patch 12/18/17 12/31/17 Rx melatonin ER 10 mg tablet,extended 10 mg PO HS tab 12/30/17 12/31/17 History release prednisone 10 mg tablet 10 mg PO DAILY tab 12/30/17 12/31/17 History Albuterol/Ipratropium [Duoneb] 3 ml AEROSOL Q6H PRN 12/31/17 12/31/17 History LORazepam [Ativan] 0.5 mg PO QID 12/31/17 12/31/17 History Allergies Allergy/AdvReac Type Severity Reaction Status Date / Time Influenza Virus Vaccines Allergy Severe DYSPNEA Verified 12/31/17 02:33 lisinopril Allergy Intermediate TONGUE Verified 12/31/17 02:33 SWELLING Iodinated Contrast- Oral and Allergy Mild RASH Verified 12/31/17 02:33 IV Dye asenapine Allergy Unknown Verified 12/31/17 02:33 duloxetine [From Cymbalta] Allergy Unknown Verified 12/31/17 02:33 hydromorphone [From Dilaudid] Allergy Unknown Verified 12/31/17 02:33 iodine Allergy Unknown Verified 12/31/17 02:33 Sulfa (Sulfonamide Allergy Unknown RASH Verified 12/31/17 02:33 Antibiotics) venlafaxine Allergy Unknown Verified 12/31/17 02:33 lurasidone AdvReac Intermediate INCREASED Verified 12/31/17 02:33 SODIUM adhesive AdvReac Unknown Verified 12/31/17 02:33 cephalexin AdvReac Unknown VOMITING Verified 12/31/17 02:33 morphine AdvReac Unknown SWELLING Verified 12/31/17 02:33 SHELLFISH Allergy Severe Allergic Uncoded 12/31/17 02:33 Asthmatic Reaction Exam Vital Signs: Temperature 97.4 F 12/31/17 05:31 Pulse Rate 103 H 12/31/17 05:31 Respiratory Rate 24 12/31/17 05:31 Blood Pressure 161/91 H 12/31/17 05:31 Pulse Oximetry 96 12/31/17 05:31 Height/Weight/BMI: Height 5 ft 5 in Weight 127.6 kg Body Mass Index 46.7 - Constitutional Present: mild distress ( tachypnea, anxiety), morbidly obese - Routine HEENT Exam Head: Present: normocephalic, atraumatic Eye: Present: EOMI, PERRL ENT: Present: mucous membranes moist - Routine Neck Exam Present: supple. Absent: JVD Comments: thick - Routine Respiratory Exam Present: dyspnea, decreased breath sounds, prolonged expiratory phase. Absent: accessory muscle use - Routine Cardiovascular Exam Present: RRR - Routine Extremities Exam Absent: cyanosis, clubbing, edema - Routine Skin Exam Present: dry. Absent: rash - Routine Neurological Exam Present: alert, oriented X3, CN II-XII intact. Absent: sensory deficit, motor deficit - Routine Psychiatric Exam Present: anxious - Additional findings Additional findings: examination performed using telemedicine equipment with the assistance of the bedside nurse Results - Labs CBC & Chem 7: 12/31/17 04:50 12/31/17 04:50 Assessment and Plan (1) COPD exacerbation Current visit: Yes Status: Acute (2) Hyponatremia Problem details: Longstanding, but etiology unknown. Current visit: No Status: Chronic (3) Diabetes mellitus type 2, uncontrolled, without complications Problem details: Had A1c done by Rafaela Rosales. Current visit: No Status: Chronic (4) Dyslipidemia Current visit: No Status: Chronic (5) HTN (hypertension) Problem details: Good control. Current visit: No Status: Chronic (6) CAD (coronary artery disease) Problem details: Stable. Current visit: No Status: Chronic (7) Morbid obesity with BMI of 45.0-49.9, adult Current visit: No Status: Chronic Assessment and Plan: binh is placed in observation status for continued solu-medrol, supplemental oxygen, nebulized bronchodilator therapy, and the majority of her home medications are continued. she stated she was feeling slightly better after triage treatment, but endorsed ongoing anxiety. she states that she saw dr. cheney recently, and he focused on treatment of her anxiety. his note was briefly reviewed. she was hoping to go on bipap for a few hours this morning in order to get some rest. further symptom medic supportive and diagnostic cares will be provided as the current workup or as changes in her clinical scenario indicated. plan of care was discussed with the patient and her nurse at the bedside at the time of my evaluation. her initial code status was changed to do not resuscitate per her wishes after my evaluation. DVT Prophylaxis: SCD's Resuscitation Status: Do Not Resuscitate - Physician Narrative Narrative: Date: 12/31/17 Time: 602 Hospital Course Summary Disclaimer: The visit summary below is not to be considered part of the above Progress Note.
[2017-12-31] MEDS: BUDESONIDE INH.SOLN 0.5mg/2ml NEB AEROSOL SCH ×2 (06:36→20:24)
[2017-12-31] MEDS ORDERED: ALBUTEROL/IPRATROPIUM 2.5mg-0.5mg/3ml NEB AEROSOL SCH (07:00)
--- NOTE | 2017-12-31 08:00 | XRay Report ---
INDICATION: dyspnea PROCEDURE: CHEST 2-VIEWS UPRIGHT (PA & LAT) Encounter: Initial COMPARISON: December 14, 2017 FINDINGS: There is a new rounded 1 cm nodule projecting over the right second anterior rib. Lungs are otherwise stable and clear. There is no pleural effusion or pneumothorax. The heart size, mediastinal contours and pulmonary vascularity are within normal limits. There is no significant skeletal abnormality. IMPRESSION: 1. No acute cardiopulmonary disease. 2. Possible 1 cm right upper lobe nodule. Recommend noncontrast chest CT for further evaluation. .
[2017-12-31] MEDS: METHYLPREDNISOLONE SOD SUCC 125mg/2ml INJECTION IVP SCH ×3 (08:39→22:12)
[2017-12-31] MEDS: AMLODIPINE 10 MG TABLET PO SCH (08:39)
[2017-12-31] MEDS: HYDRALAZINE 10 MG TABLET PO SCH ×4 (08:39→20:53)
[2017-12-31] MEDS: LORazepam 1 MG TABLET PO SCH ×4 (08:40→20:50)
[2017-12-31] MEDS: FUROSEMIDE 40 MG TABLET PO SCH (08:40)
[2017-12-31] MEDS: MAGNESIUM OXIDE 400 MG TABLET PO SCH ×3 (08:40→20:47)
[2017-12-31] MEDS: BUSPIRONE 15 MG TABLET PO SCH ×2 (08:40→20:52)
[2017-12-31] MEDS: LIDOCAINE 5% PATCH TOP SCH (08:41)
[2017-12-31] MEDS: PALIPERIDONE ER 1.5mg TABLET PO SCH (08:41)
[2017-12-31] MEDS: SALINE FLUSH 10ml SYRINGE IVF PRN (08:41)
[2017-12-31] MEDS: LIRAGLUTIDE INJECTABLE PEN SQ SCH (08:42)
[2017-12-31] MEDS: ASPIRIN *EC* 81 MG TABLET PO SCH (08:47)
[2017-12-31] MEDS ORDERED: BUSPIRONE HCL 7.5 MG PO SCH (09:00)
[2017-12-31] MEDS ORDERED: PANTOPRAZOLE 40 MG TABLET PO SCH (09:00)
[2017-12-31] MEDS ORDERED: PALIPERIDONE 9 MG PO SCH (09:00)
[2017-12-31] MEDS ORDERED: NON-FORMULARY MEDICATION 1 EACH EACH (Tiotropium Br/Olodaterol Hcl [Stiolto Respimat Inhal INH SCH (09:00)
--- NOTE | 2017-12-31 09:36 | History & Physical Report ---
History of Present Illness Date: 12/31/17 Chief complaint: SOA HPI: Per overnight teledoc: Suyapa is a 62 year old female with COPD and chronic anxiety who was brought to the emergency department by ems with a complaint of shortness of air, progressive for 3 days. her caregiver came by late last night, and became concerned with her work of breathing. in the emergency department, she is commonly treated for anxiety and bronchospasm and is able to go home, however she was still dyspneic, after several breathing treatments requiring 4 l of oxygen to maintain her oxygen saturation in the mid 90s, as opposed to her 3 l chronic by nasal cannula. she stated she was not feeling much better. it was felt prudent to place her in observation status for continued breathing treatments, solu-medrol, ativan as needed, and serial examination. When I evaluated pt this am, she c/o continued SOA and anxiety. She is concerned b/c she doesn't want to go to the [facility] and she is realizing that she is struggling to get by at home. Ideally, she would like caregivers to come to her house for a larger amt of time. She relates that sheh is taking ativan routinely and is on 3L O2 during the day and uses 5L through her BiPAP at night and with napping. Review of Systems All systems PM: 10-point ROS was reviewed, no additional remarkable complaints except (headache, diffuse joint pain, R shoulder pain, anxiety, SOA) Past Medical History Medical History: Medical History (Last Updated 12/31/17 @ 09:41 by MILLICENT Goins) Prolactinoma (Resolved) Onset Date: ~2007 Has had adenoma shrink and is no longer detectable on MRI. Need to check prolactin level, then taper down and off of cabergoline if possible. Hyponatremia (Chronic) Longstanding, but etiology unknown. Diabetes mellitus type 2, uncontrolled, without complications (Chronic) Onset Date: ~2005 Dyslipidemia (Chronic) HTN (hypertension) (Chronic) Good control. CAD (coronary artery disease) (Chronic) Stable. Morbid obesity with BMI of 45.0-49.9, adult (Chronic) Medical History Updates: HTN. HLD. Type 2 DM. Anxiety/Depression. MILDRED on BIPAP. COPD. Asthma. CHF. CAD. Chronic hyponatremia. Bipolar discorder Surgical History: appendix. colonoscopy. gallbladder. hernia. tonsils. cardiac cath. hysterectomy. carpal tunnel. knee. shoulder. wrist Family History: Family History Mother COPD (chronic obstructive pulmonary disease) Brother COPD (chronic obstructive pulmonary disease) Family History: As Above - Social History Smoking status: Former smoker (quit 07/20. Prior smoked for 34 years from 2ppd up to ppd x 5 yrs.) Substance use type: does not use Alcohol intake frequency: does not drink Household members: none (has caretakers and a neighbor who frequently check on her) Current occupational status: disabled Current residence: Apartment/Private Home Social history: PCP - Rafaela Rosales APRN Patient Centered Care Specialist - Dr. Rolon [employer] Troubleshooter-Dr. Ku Medications Home Medications Medication Instructions Recorded Confirmed Type Cabergoline [Dostinex] 0.5 mg PO TuFr #0 06/19/12 12/31/17 History Metoprolol Succinate 100 mg PO DAILY #0 07/15/16 12/31/17 History Buspirone HCl 7.5 mg PO BID #0 08/09/16 12/31/17 History Cyproheptadine HCl 4 - 8 mg PO HS PRN #0 08/22/16 12/31/17 History Pramipexole Di-HCl [Pramipexole 0.375 mg PO HS 12/04/16 12/31/17 History Dihydrochloride] Paliperidone [Paliperidone ER] 9 mg PO DAILY 01/05/17 12/31/17 History Albuterol Sulfate [Proair Hfa] 1 spray INH PRN PRN 06/18/17 12/31/17 History Aspirin [Adult Aspirin Regimen] 81 mg PO DAILY 06/18/17 12/31/17 History Fluticasone HFA [Flovent Hfa 220 1 - 2 puff INH Q2-4HR 06/18/17 12/31/17 History mcg] Tramadol [Ultram] 50 mg PO Q6H PRN 06/18/17 12/31/17 History Furosemide [Lasix 40 mg Tab] 40 mg PO DAILY #30 tab 06/23/17 12/31/17 Rx Stiolto Respimat (tiotropium) 2.5 2 puff INH DAILY g 11/06/17 12/31/17 History mcg-olodaterol 2.5 mcg/actuation inhalation liraglutide 0.6 mg/0.1 mL (18 mg/3 1.2 mg SQ DAILY ml 11/06/17 12/31/17 History mL) subcutaneous pen injector Pantoprazole Tab [Protonix Tab] 40 mg PO DAILY 11/14/17 12/31/17 History Acetaminophen [Acetaminophen ER] 650 mg PO Q8H PRN 12/10/17 12/31/17 History Magnesium Oxide [Magnesium] 400 mg PO TID 12/10/17 12/31/17 History Nitroglycerin [Nitrostat] 0.4 mg SL Q5MIN3 PRN 12/10/17 12/31/17 History Amlodipine [Norvasc] 10 mg PO DAILY #30 tab 12/18/17 12/31/17 Rx Lidocaine 5% Patch [Lidoderm] 1 patch TOP DAILY #5 patch 12/18/17 12/31/17 Rx melatonin ER 10 mg tablet,extended 10 mg PO HS tab 12/30/17 12/31/17 History release prednisone 10 mg tablet 10 mg PO DAILY tab 12/30/17 12/31/17 History Albuterol/Ipratropium [Duoneb] 3 ml AEROSOL Q6H PRN 12/31/17 12/31/17 History Folic Acid [Folate] 1 mg PO DAILY 12/31/17 12/31/17 History Gabapentin 300 mg PO AM 12/31/17 12/31/17 History Hydralazine [Apresoline] 1 tab PO HS 12/31/17 12/31/17 History LORazepam [Ativan] 0.5 mg PO QID 12/31/17 12/31/17 History Meloxicam 7.5 mg PO CHEW DAILY 12/31/17 12/31/17 History Metformin HCl 500 mg PO WS 12/31/17 12/31/17 History Potassium Chloride 10 meq PO DAILY 12/31/17 12/31/17 History Primidone [Mysoline] 150 mg PO HS 12/31/17 12/31/17 History Allergies Allergy/AdvReac Type Severity Reaction Status Date / Time Influenza Virus Vaccines Allergy Severe DYSPNEA Verified 12/31/17 02:33 lisinopril Allergy Intermediate TONGUE Verified 12/31/17 02:33 SWELLING Iodinated Contrast- Oral and Allergy Mild RASH Verified 12/31/17 02:33 IV Dye asenapine Allergy Unknown Verified 12/31/17 02:33 duloxetine [From Cymbalta] Allergy Unknown Verified 12/31/17 02:33 hydromorphone [From Dilaudid] Allergy Unknown Verified 12/31/17 02:33 iodine Allergy Unknown Verified 12/31/17 02:33 Sulfa (Sulfonamide Allergy Unknown RASH Verified 12/31/17 02:33 Antibiotics) venlafaxine Allergy Unknown Verified 12/31/17 02:33 lurasidone AdvReac Intermediate INCREASED Verified 12/31/17 02:33 SODIUM adhesive AdvReac Unknown Verified 12/31/17 02:33 cephalexin AdvReac Unknown VOMITING Verified 12/31/17 02:33 morphine AdvReac Unknown SWELLING Verified 12/31/17 02:33 SHELLFISH Allergy Severe Allergic Uncoded 12/31/17 02:33 Asthmatic Reaction Exam Vital Signs: Temperature 97.4 F 12/31/17 07:26 Pulse Rate 105 H 12/31/17 07:26 Respiratory Rate 24 12/31/17 08:40 Blood Pressure 139/70 12/31/17 07:26 Pulse Oximetry 97 12/31/17 07:26 Height/Weight/BMI: Height 1.65 m Weight 127 kg Body Mass Index 46.7 - Constitutional Present: no acute distress, well nourished, well developed, morbidly obese, disheveled - Routine HEENT Exam Head: Present: normocephalic, atraumatic Eye: Present: EOMI, PERRL ENT: Present: mucous membranes moist, oropharynx clear Comments: edentulous - Routine Neck Exam Present: supple. Absent: lymphadenopathy, tenderness - Routine Respiratory Exam Present: dyspnea, decreased breath sounds, diminished air movement - Routine Cardiovascular Exam Present: RRR, no murmur - Routine Abdominal Exam Present: soft, normoactive bowel sounds, tenderness (epigastric (chronic for pt -"I have a hiatal hernia")). Absent: distended - Routine Extremities Exam Present: no edema, normal capillary refill - Routine Skin Exam Present: dry, warm - Routine Neurological Exam Present: alert, oriented X3, CN II-XII intact - Routine Psychiatric Exam Present: cooperative, anxious (tearful when talking about inability to care for herself) Results - Labs CBC & Chem 7: 12/31/17 04:50 12/31/17 04:50 Labs: Laboratory Tests 12/31/17 12/31/17 04:50 09:02 Plasma Lactate 3.4 H 3.7 H - Imaging and Cardiology Chest x-ray Additional comments: Date of Exam: 12/31/17 INDICATION: dyspnea PROCEDURE: CHEST 2-VIEWS UPRIGHT (PA & LAT) FINDINGS: There is a new rounded 1 cm nodule projecting over the right second anterior rib. Lungs are otherwise stable and clear. There is no pleural effusion or pneumothorax. The heart size, mediastinal contours and pulmonary vascularity are within normal limits. There is no significant skeletal abnormality. IMPRESSION: 1. No acute cardiopulmonary disease. 2. Possible 1 cm right upper lobe nodule. Recommend noncontrast chest CT for further evaluation. Assessment and Plan Assessment and Plan: Assessment Acute COPD exacerbation Acute on chronic respiratory failure with oxygen dependence of 3 L Obstructive sleep apnea-home vent and 5 L O2 at night Elevated lactate on admission -3.4 Possible 1 cm right upper lobe nodule seen on chest x-ray in ER (radiologist recommending noncontrast chest CT for further evaluation) Normocytic anemia-present on admission Chronic hyponatremia-132 on admission Type 2 diabetes (follows with Dr. Ku) Coronary artery disease Hypertension Hyperlipidemia Bipolar disorder Anxiety/depression Morbid obesity-BMI 46 Plan Patient placed in outpatient observation for acute COPD exacerbation. Continue DuoNeb treatments, Pulmicort, and BiPAP management per RT. Continue IV Solu-Medrol Accu-Cheks. Continue Victoza. Hold metformin due to elevated lactate. Consider increasing ativan dosing (currently on 0.5mg QID) or change to clonazepam. Consider increasing Buspar to 15mg BID for anxiety. (Will discuss with Dr. Mccoy.) Consider CT chest per radiologist. (Will discuss with Dr. Mccoy.) PT/OT to improve functional status. SCD's for DVT ppx. Reviewed CODE STATUS-patient wishes to be a DO NOT RESUSCITATE. Care to return to Rafaela Rosales APRN on dismissal. Patient with frequent ER visits and admissions. CM consult - she may be at a point where she needs higher level of care. 12/31/2017-12:10 PM-I examined the patient independently. I reviewed this chart , the patient history, and the ELECTRONICS MECHANIC APPRENTICE's/PA's documented findings as above. We discussed and formulated the assessment and plan as above with the additions below.-Dr. Mccoy The patient was seen this morning in her room. She had finished eating an early lunch. She stated that her breathing felt back to normal and she was on her usual 3 L of oxygen. She states that she has been more anxious recently and thinks she may need to go into a [place] [facility] [place] facility. Her caregivers have been encouraging her to sell her car and make plans, and this has made her more anxious. She was scheduled to see a psychiatrist yesterday, but the physician had to cancel the appointment. The patient states that last night her breathing was worse and she was brought into the emergency room because she could not catch her breath. She denies any recent runny nose, sore throat, congestion or cough. She denies any chest pain. She denies fevers. She is otherwise feeling well. She was admitted early this morning with COPD exacerbation and placed on BiPAP, given IV steroids, and several breathing treatments. She states at this point her breathing feels back to normal. She would like to speak with case management about [place] [facility] [place] options. However, she also states she wants to go home today but is willing to wait until tomorrow. She would also like to see the psychiatrist regarding her anxiety. On exam she is alert and mildly anxious. She is mildly tachypneic. Chest is fairly clear to auscultation without significant wheezing. No rhonchi. Cardiovascular reveals a borderline tachycardic rate with regular rhythm. Abdomen is soft and nontender. Extremities are free of edema. Feet are purplish and she states this is common for her when her legs are down. Lab on admission shows a normal white count with 93% neutrophils, hemoglobin 11 , platelets 195. Sodium 132, BUN and creatinine or normal, glucose is elevated at 224, liver enzymes are normal, lactate was elevated at 3.4 and on recheck was 3.7. Pro- calcitonin is less than 0.05. The patient does take metformin at home and this was placed on hold because of elevated lactate. Most recent blood pressure was 177/98. She does not have signs or symptoms of infection at this time. Chest x- ray revealed a questionable nodule but no obvious pneumonia. Impression COPD exacerbation in a patient with severe COPD Acute on chronic hypoxic respiratory failure Elevated lactate -currently no signs or symptoms of infection, currently no hypoxia, not hypotensive Anxiety Questionable pulmonary nodule Sleep apnea Epigastric pain-Protonix recently increased to 3 times a day by Rafaela Rosales, per patient Plan Continue breathing treatments, IV steroids, supplemental oxygen, BiPAP with sleep and when necessary. Lactate regarding elevated lactate. Check ABG. Hold metformin. Monitor for hypotension and hypoxia Consult case management to discuss [place] [facility] [place] options Consult Dr. Terrazas regarding patient's increasing anxiety DVT Prophylaxis: SCD's GI Prophylaxis: Protonix Resuscitation Status: Do Not Resuscitate - Physician Narrative Physician: Mandy Mccoy MD Narrative: Date: 12/31/17 Time: 09 Hospital Course Summary Disclaimer: The visit summary below is not to be considered part of the above Progress Note. Hospital Course: 12/31/17 Patient placed in outpatient observation for acute COPD exacerbation. Continue DuoNeb treatments, Pulmicort, and BiPAP management per RT. Continue IV Solu-Medrol Accu-Cheks. Continue Victoza. Hold metformin due to elevated lactate. Consider increasing ativan dosing (currently on 0.5mg QID) or change to clonazepam. Consider increasing Buspar to 15mg BID for anxiety. (Will discuss with Dr. Mccoy.) Consider CT chest per radiologist. (Will discuss with Dr. Mccoy.) PT/OT to improve functional status. SCD's for DVT ppx. Reviewed CODE STATUS-patient wishes to be a DO NOT RESUSCITATE. Care to return to Rafaela Rosales APRN on dismissal. Patient with frequent ER visits and admissions. CM consult - she may be at a point where she needs higher level of care.
[2017-12-31] MEDS: ALBUTEROL/IPRATROPIUM 2.5mg-0.5mg/3ml NEB AEROSOL SCH ×3 (10:16→20:24)
[2017-12-31] MEDS: INSULIN ASPART 100unit/ml INJECTION SQ PRN ×3 (11:58→22:11)
[2017-12-31] MEDS: GABAPENTIN 300 MG CAPSULE PO SCH (11:58)
[2017-12-31] MEDS ORDERED: NICOTINE PATCH REMOVAL TD PRN (12:44)
[2017-12-31] MEDS: ALBUTEROL/IPRATROPIUM 2.5mg-0.5mg/3ml NEB AEROSOL PRN ×2 (12:45→21:51)
--- NOTE | 2017-12-31 14:05 | Neuropsychiatric Consult ---
[facility] Date: 01/01/18 Requesting Physician: Mandy Mccoy Reason for Consultation: Anxiety Start Time: 15:20 Stop Time: 16:00 History of Present Illness: Patient is a 62-year-old female who was readmitted to [facility] [place] due to SOA, progressive x 3 days. Patient has a hx of COPD and is commonly treated for anxiety and bronchospasm in the ED and released. This time, she required increased O2 and was still dyspneic after 4 breathing treatments. Patient was seen by this provider on previous visit as well. She was supposed to f/u with outpatient provider on 12/30 but he cancelled appointment for personal reasons. Patient states that she has a hx of bipolar disorder but has been well controlled on Invega for sometime (and this is what was confirmed to me by [facility] during last hospitalization). Psychiatry was consulted due to increased anxiety. Patient was prescribed Ativan during the last hospitalization for increased anxiety. However, last hospitalization, her anxiety improved as her breathing improved. On interview today, patient is cooperative but is not wearing her O2 and becomes more dyspneic towards the end of the interview. She reports becoming more anxious after her caregiver/DPOA suggested that patient can no longer thrive at home and that placement would be beneficial. She states that she found this out after coming to the hospital and this has exacerbated her anxiety. She feels that no one is considering her feelings but admits that she has limited support and is not doing well at home. She feels that her caregiver is "doing what's convenient" rather than what is best for the patient and she worries that they may try to take some of her belongings such as her music and movie collection. Patient states that she has had some difficulty sleeping but she does feel tired (does not appear manic). She denies any other major changes in appetite, energy level, AVH. She admits having some morbid thoughts after placement was suggested but denies any intent of self-harm. She denies any HI. Discussed different medication options. She feels that her medications are adequate and agrees that this is primarily situational, related to the possibility of placement. She does not care for any med changes at this time and would like clarification on future planning. [facility] Patient Stated Medical History Cerebrovascular Accident Yes: 1999 Migraine Yes: PRESENT Peripheral Neuropathy Yes: diabetic Transient Ischemic Attacks ( Yes: 2013 TIA) Cataracts Yes: BILAT Dental Problems Yes: DENTURES Macular Degeneration Yes: RECENTLY DX Cardiac Arrhythmia Yes Congestive Heart Failure Yes Heart Murmur Yes Hypertension Yes Myocardial Infarction Yes: 2002 Asthma Yes Bronchitis Yes Chronic Obstructive Pulmonary Yes Disease (COPD) Pneumonia Yes Sleep Apnea Yes: Uses a Bipap occasionally at home. Other Respiratory Yes: EMPHYSEMA Diabetes Mellitus Type 2 Yes Gastroesophageal Reflux Yes Disease Hiatal Hernia Yes Ulcer Yes Hx Incontinence Yes Hx Renal Disease No Anemia Yes Osteoarthritis Yes Other Musculoskeletal Yes: osteopenia Chlamydia Yes: 70'S MRSA Yes: HX PREVIOUS SORES ON BACK/BUTTOCKS. Shingles Yes: 1995 FACE Blood Transfusions Yes Bipolar Disorder Yes Depression Yes Post Traumatic Stress Disorder Yes Substance Use Disorder Yes: NICOTINE DEPENDENCE Abnormal Pap Yes: 1977 [facility] Medical History (Last Updated 12/31/17 @ 09:41 by MILLICENT Goins) Prolactinoma (Resolved Medical ~2007) Has had adenoma shrink and is no longer detectable on MRI. Need to check prolactin level, then taper down and off of cabergoline if possible. Hyponatremia (Chronic Medical) Longstanding, but etiology unknown. Diabetes mellitus type 2, uncontrolled, without complications (Chronic Medical ~ 2005) Dyslipidemia (Chronic Medical) HTN (hypertension) (Chronic Medical) Good control. CAD (coronary artery disease) (Chronic Medical) Stable. Morbid obesity with BMI of 45.0-49.9, adult (Chronic Medical) Medical History Updates: HTN. HLD. Type 2 DM. Anxiety/Depression. MILDRED on BIPAP. COPD. Asthma. CHF. CAD. Chronic hyponatremia. Bipolar discorder Surgical History: appendix. colonoscopy. gallbladder. hernia. tonsils. cardiac cath. hysterectomy. carpal tunnel. knee. shoulder. wrist Family History: Family History (Last Reviewed 12/30/17 @ 15:43 by Kimani Ku MD) Mother COPD (chronic obstructive pulmonary disease) Brother COPD (chronic obstructive pulmonary disease) Family History Updates: Family History (Last Updated 06/19/17 @ 18:20 by Jammie Woodard MD). Mother. COPD (chronic obstructive pulmonary disease) . Brother. COPD (chronic obstructive pulmonary disease) - Social History Smoking status: Former smoker (quit 07/20. 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 She currently lives alone with help from caregiver/neighbor Susanne who is also DPOA. She denies any other family support. She states that she stopped smoking in July of this year and denies any other substance use. Review of Systems All systems: reviewed and no additional remarkable complaints except as stated - Constitutional Constitutional: Present: weakness ("all over") - Respiratory Respiratory: Present: dyspnea - Musculoskeletal Musculoskeletal: Present: other (complains of pain "all over" related to degenerative arthritis) - Psychiatric Psychiatric: Present: as per HPI, anxiety Mental Status Exam Vitals: Last Vital Signs Temp 97.1 F 12/31/17 11:39 Pulse 109 H 12/31/17 11:39 Resp 22 12/31/17 13:39 BP 177/98 H 12/31/17 11:39 Pulse Ox 99 12/31/17 12:45 Height: 1.65 m Weight: 127.6 kg - Mental Status Exam Muscle Strength/Tone: Normal Dressing: Casual Grooming: Disheveled Attitude: Cooperative, Manipulative Motor Activity: Fidgety Eye Contact: Fair Speech: Normal Volume: Normal Rhythm: Appropriate Rhythm Sensory: Alert Orientation: Oriented X4 Mood: Anxious Affect: Anxious Rate of Thoughts: Appropriate Rate Thought Organization: Organized Associations: Intact Abstract Reasoning: Poor abstract reasoning Thought Content: Ruminations, Helplessness, Somatic Concerns Perception/Psychotic: Perception Normal Language: Naming Intact Fund of Knowledge: Trevor aware current events Memory: Grossly Intact Suicidal Ideation: Denies Homicidal Ideation: Denies Insight: Limited Judgement: Limited Impulse Control: Fair - Laboratory Result Diagrams: 01/01/18 04:07 01/01/18 04:07 Laboratory Results - last 24 hr 12/31/17 12/31/17 12/31/17 04:50 04:50 06:34 WBC 7.6 RBC 3.91 L Hgb 11.0 L Hct 34.3 L MCV 87.7 MCH 28.1 MCHC 32.1 RDW Std Deviation 49.5 Plt Count 195 D MPV 8.3 L Immature Gran % (Auto) Not performed Neut % (Auto) Not performed Lymph % (Auto) Not performed [place] % (Auto) Not performed Eos % (Auto) Not performed Baso % (Auto) Not performed Neut # (Auto) Not performed Lymph # (Auto) Not performed [place] # (Auto) Not performed Eos # (Auto) Not performed Baso # (Auto) Not performed Abs Immat Gran (auto) Not performed Neutrophils % (Manual) 93.0 H Lymphocytes % (Manual) 6.0 L Monocytes % (Manual) 1.0 Neutrophils # (Manual) 7.1 Lymphocytes # (Manual) 0.5 L Monocytes # (Manual) 0.1 RBC Morph Comment Normal Sample Site Alveolar Air PO2 ABG pH ABG pCO2 ABG pO2 ABG HCO3 ABG Total CO2 ABG O2 Saturation ABG Base Excess Modified Erick Test A-a Gradient a/A Ratio O2 Delivery Method FiO2 Turbidity < 20 Sodium 132 L Potassium 3.9 Chloride 88 L Carbon Dioxide 30 Anion Gap 14 BUN 17.0 Creatinine 0.7 Estimated Creat Clear 77 GFR Calculation 85 BUN/Creatinine Ratio 24 Glucose 224 H Glucometer 226 Calculated Osmolality 264 Calcium 8.5 Total Bilirubin 0.40 Conjugated Bilirubin 0.00 Unconjugated Bilirubin 0.10 Icterus Index < 2 AST 23 ALT 34 Alkaline Phosphatase 110 Total Protein 6.9 Albumin 4.3 Globulin 2.6 Albumin/Globulin Ratio 1.7 Plasma Lactate 3.4 H Procalcitonin Specimen Hemolysis < 15 12/31/17 12/31/17 12/31/17 09:02 09:02 11:37 WBC RBC Hgb Hct MCV MCH MCHC RDW Std Deviation Plt Count MPV Immature Gran % (Auto) Neut % (Auto) Lymph % (Auto) [place] % (Auto) Eos % (Auto) Baso % (Auto) Neut # (Auto) Lymph # (Auto) [place] # (Auto) Eos # (Auto) Baso # (Auto) Abs Immat Gran (auto) Neutrophils % (Manual) Lymphocytes % (Manual) Monocytes % (Manual) Neutrophils # (Manual) Lymphocytes # (Manual) Monocytes # (Manual) RBC Morph Comment Sample Site Alveolar Air PO2 ABG pH ABG pCO2 ABG pO2 ABG HCO3 ABG Total CO2 ABG O2 Saturation ABG Base Excess Modified Erick Test A-a Gradient a/A Ratio O2 Delivery Method FiO2 Turbidity Sodium Potassium Chloride Carbon Dioxide Anion Gap BUN Creatinine Estimated Creat Clear GFR Calculation BUN/Creatinine Ratio Glucose Glucometer 339 Calculated Osmolality Calcium Total Bilirubin Conjugated Bilirubin Unconjugated Bilirubin Icterus Index AST ALT Alkaline Phosphatase Total Protein Albumin Globulin Albumin/Globulin Ratio Plasma Lactate 3.7 H Procalcitonin < 0.05 Specimen Hemolysis 12/31/17 13:31 WBC RBC Hgb Hct MCV MCH MCHC RDW Std Deviation Plt Count MPV Immature Gran % (Auto) Neut % (Auto) Lymph % (Auto) [place] % (Auto) Eos % (Auto) Baso % (Auto) Neut # (Auto) Lymph # (Auto) [place] # (Auto) Eos # (Auto) Baso # (Auto) Abs Immat Gran (auto) Neutrophils % (Manual) Lymphocytes % (Manual) Monocytes % (Manual) Neutrophils # (Manual) Lymphocytes # (Manual) Monocytes # (Manual) RBC Morph Comment Sample Site R radial Alveolar Air PO2 191.1 ABG pH 7.424 ABG pCO2 42 ABG pO2 112.1 H ABG HCO3 27.5 H ABG Total CO2 28.8 H ABG O2 Saturation 98.5 H ABG Base Excess 2.7 H Modified Erick Test Positive A-a Gradient 79.0 a/A Ratio 58.6 O2 Delivery Method Bipap FiO2 35 Turbidity Sodium Potassium Chloride Carbon Dioxide Anion Gap BUN Creatinine Estimated Creat Clear GFR Calculation BUN/Creatinine Ratio Glucose Glucometer Calculated Osmolality Calcium Total Bilirubin Conjugated Bilirubin Unconjugated Bilirubin Icterus Index AST ALT Alkaline Phosphatase Total Protein Albumin Globulin Albumin/Globulin Ratio Plasma Lactate Procalcitonin Specimen Hemolysis Assessment and Plan (1) Anxiety disorder due to general medical condition Current visit: Yes Status: Acute (2) Bipolar affective disorder Problem details: by history, currently well-controlled Current visit: No Status: Chronic Additional medical problems: Acute COPD exacerbation Acute on chronic respiratory failure with oxygen dependence of 3 L Obstructive sleep apnea-home vent and 5 L O2 at night Elevated lactate on admission -3.4 Normocytic anemia-present on admission Chronic hyponatremia-132 on admission Type 2 diabetes (follows with Dr. Ku) Coronary artery disease Hypertension Hyperlipidemia Morbid obesity-BMI 46 Plan: Patient does not want psychiatric med changes at this time. However, would suggest discontinuing Buspar as it could contribute to manic episode daisy. when steroids are required. Suggest continuing current care otherwise and close f/u with established outpatient provider once medically stable.
--- NOTE | 2017-12-31 14:36 | Progress Note ---
Progress Note: Patient seen; will complete full note in chart. Patient feels increased anxiety is primarily situational, related to her DPOA recommending placement in facility (which she opposes). Discussed possible medication changes with her and she feels that current dose of Ativan is helpful, and that getting clarity on current situation regarding placement will be most helpful in decreasing her anxiety.
[2017-12-31] MEDS: PANTOPRAZOLE 40 MG TABLET PO SCH ×2 (16:01→20:47)
[2017-12-31] MEDS: TRAMADOL 50 MG TABLET PO PRN (16:51)
[2017-12-31] MEDS: MELATONIN 5 MG TABLET PO SCH (20:48)
[2017-12-31] MEDS: PRAMIPEXOLE 0.25 MG TABLET PO SCH (20:48)
[2017-12-31] MEDS: PRIMIDONE 50 MG TABLET PO SCH (20:53)
[2017-12-31] MEDS ORDERED: PRAMIPEXOLE DI HCL PO SCH (21:00)
[2017-12-31] MEDS ORDERED: MELATONIN 10 MG PO SCH (21:00)
[2017-12-31] MEDS ORDERED: HYDRALAZINE 10 MG TABLET PO SCH (21:00)
[2018-01-01] MEDS: ALBUTEROL/IPRATROPIUM 2.5mg-0.5mg/3ml NEB AEROSOL PRN (02:21)
[2018-01-01] MEDS: HYDROCODONE/APAP 5mg/325mg TABLET PO PRN (03:16)
[2018-01-01] MEDS: INSULIN ASPART 100unit/ml INJECTION SQ PRN ×4 (06:20→21:51)
[2018-01-01] MEDS: ALBUTEROL/IPRATROPIUM 2.5mg-0.5mg/3ml NEB AEROSOL SCH ×4 (06:54→19:40)
[2018-01-01] MEDS: BUDESONIDE INH.SOLN 0.5mg/2ml NEB AEROSOL SCH ×2 (06:54→19:40)
--- NOTE | 2018-01-01 08:38 | XRay Report ---
INDICATION: SOA PROCEDURE: CHEST 2-VIEWS UPRIGHT (PA & LAT) Encounter: Initial COMPARISON: None FINDINGS: Linear platelike atelectasis seen overlying the lower thoracic spine on the lateral view only. This is new prior exam. Lungs are otherwise clear. There is no pleural effusion or pneumothorax. Right upper lobe nodular opacity seen on the comparison study is no longer identified. The heart size, mediastinal contours and pulmonary vascularity are within normal limits. There is no significant skeletal abnormality. IMPRESSION: Platelike lower lobe atelectasis. .
[2018-01-01] MEDS: PANTOPRAZOLE 40 MG TABLET PO SCH ×3 (09:17→21:37)
[2018-01-01] MEDS: FUROSEMIDE 40 MG TABLET PO SCH (09:18)
[2018-01-01] MEDS: AMLODIPINE 10 MG TABLET PO SCH (09:18)
[2018-01-01] MEDS: GABAPENTIN 300 MG CAPSULE PO SCH (09:18)
[2018-01-01] MEDS: MAGNESIUM OXIDE 400 MG TABLET PO SCH ×3 (09:19→21:36)
[2018-01-01] MEDS: ASPIRIN *EC* 81 MG TABLET PO SCH (09:19)
[2018-01-01] MEDS: HYDRALAZINE 10 MG TABLET PO SCH ×4 (09:19→21:35)
[2018-01-01] MEDS: MELOXICAM 7.5 MG TABLET PO SCH (09:20)
[2018-01-01] MEDS: BUSPIRONE 15 MG TABLET PO SCH ×2 (09:20→22:39)
[2018-01-01] MEDS: FOLIC ACID 1 MG TABLET PO SCH (09:20)
[2018-01-01] MEDS: LIRAGLUTIDE INJECTABLE PEN SQ SCH (09:21)
[2018-01-01] MEDS: PALIPERIDONE ER 1.5mg TABLET PO SCH (09:21)
[2018-01-01] MEDS: LORazepam 1 MG TABLET PO SCH ×4 (09:22→21:51)
[2018-01-01] MEDS: INSULIN GLARGINE 100unit/ml INJECTION SQ SCH (09:31)
[2018-01-01] MEDS: INSULIN ASPART 100unit/ml INJECTION SQ SCH ×3 (09:31→18:37)
[2018-01-01] MEDS: LIDOCAINE 5% PATCH TOP SCH (09:35)
[2018-01-01] MEDS: METHYLPREDNISOLONE SOD SUCC 125mg/2ml INJECTION IVP SCH ×2 (09:36→18:39)
--- NOTE | 2018-01-01 11:34 | Progress Note ---
- Date 01/01/18 Subjective: Patient seen this am sitting in bed. She reports she is feeling better and she wants to go home. She denies CP, n/v/f/c. States her breathing is better. Objective Vital signs: Temperature 96.5 F L 01/01/18 07:35 Pulse Rate 88 01/01/18 08:00 Respiratory Rate 22 01/01/18 10:18 Blood Pressure 146/86 H 01/01/18 07:35 Pulse Oximetry 98 01/01/18 10:18 Height/Weight/BMI: Height 1.65 m Weight 127.6 kg Body Mass Index 46.7 - Constitutional Present: no acute distress, well nourished, well developed - Routine HEENT Exam Head: Present: normocephalic, atraumatic - Routine Respiratory Exam Present: dyspnea, decreased breath sounds, wheezes (subtle diffuse exp wheezes) , diminished air movement - Routine Cardiovascular Exam Present: RRR, no murmur - Routine Abdominal Exam Present: soft, non distended - Routine Extremities Exam Present: no edema, normal capillary refill - Routine Skin Exam Present: dry, warm - Routine Neurological Exam Present: alert, oriented X3 - Routine Lymphatic Exam Lymphatic: Absent: adenopathy - Routine Psychiatric Exam Present: normal affect, cooperative Results - Labs CBC & Chem 7: 01/01/18 04:07 01/01/18 04:07 - ABG Interpretation ABG results: 12/31/17 13:31 ABG pH 7.424 ABG pCO2 42 ABG pO2 112.1 H ABG HCO3 27.5 H ABG Total CO2 28.8 H ABG O2 Saturation 98.5 H ABG Base Excess 2.7 H Assessment and Plan (1) COPD exacerbation Current visit: Yes Status: Acute (2) Acute and chronic respiratory failure with hypoxia Current visit: No Status: Acute Assessment and Plan: Assessment Acute COPD exacerbation Acute on chronic respiratory failure with oxygen dependence of 3 L Obstructive sleep apnea-home vent and 5 L O2 at night Elevated lactate on admission -3.4 Normocytic anemia-present on admission Chronic hyponatremia-132 on admission Type 2 diabetes (follows with Dr. Ku) Coronary artery disease Hypertension Hyperlipidemia Bipolar disorder Anxiety/depression Morbid obesity-BMI 46 Plan Lactate went back up last night from 3.7--> 4.9. She was given a bolus of normal saline 500 cc overnight. Her lactate this morning is 2.4. Will repeat again in 6 hours. Sodium decreasing 133--> 131 (patient has chronic hyponatremia) IV Solu-Medrol was increased back up to 125 every 6 hours last night due to her difficulty breathing. Metformin remains on hold due to elevated lactate. Considering her lactate levels during her hospital stay, it may be prudent to keep her off of the metformin. She was started on Lantus 10 units daily and 3 units NovoLog before each meal due to her elevated blood sugars. She is also on sliding scale. Continues Victoza. Dr. Terrazas evaluated patient regarding her anxiety. It was determined the patient's anxiety is situational and she would like to continue on her current anxiety medications. Nodule seen yesterday on chest x-ray is not evident on repeat chest x-ray this morning She is currently requiring 2 L of oxygen. 01/01/2018-2:50 PM-I examined the patient independently. I reviewed this chart, the patient history, and the STOREROOM KEEPER's/PA's documented findings as above. We discussed and formulated the assessment and plan as above with the additions below.-Dr. Mccoy The patient was seen this afternoon in her room. She states her breathing is better. She states she wants to go home. She denies any chest pain. She complains of chronic back pain. She also has some epigastric pain that she's had for about a week and a half. She states certain movements make it hurt more and it is tender to touch. She denies any nausea or vomiting. Her pain sounds muscular in nature and she states it does not feel deep in her abdomen. On exam she is alert and in no acute distress. Chest reveals some expiratory wheezes bilaterally. Cardiovascular reveals a regular rate and rhythm. Abdomen is soft with minimal epigastric tenderness, no rebound or guarding. Bowel sounds are normoactive. Extremities are free of clubbing or edema. She does have chronic cyanosis of her feet which is minimal at this time with her feet elevated in bed, feet were purplish yesterday when her legs were dependent. Capillary refill in her feet is about 4 seconds and in her hands is 1-2 seconds. Skin is warm and dry. SCDs are on. Chest x-ray today shows platelike lower lobe atelectasis-I have reviewed the films and agree Impression and plan She continues to have elevated lactate and on recent testing was 3.6. Carbon dioxide level on basic metabolic profile is normal. ABG yesterday showed a normal pH. She is not hypotensive, and in fact is hypertensive. Lactate may be elevated secondary to COPD/asthma exacerbation. We'll continue supportive care with breathing treatments, BiPAP, and steroids. We'll titrate down steroids today. The patient is strongly wanting to go home, but I did tell her that I don 't think she is safe for discharge at this point and she is agreeable to staying , at least until tomorrow. We'll give 500 cc normal saline bolus over [address] Rolon to see the patient tomorrow. Lantus every morning and NovoLog with meals was initiated for hyperglycemia. I would recommend that she remain off of metformin indefinitely because of a tendency toward lactic acidosis. Metformin was placed on her allergy list. The epigastric pain without nausea or vomiting. Liver enzymes were normal on admission. Her pain seems to be muscular in nature. We'll continue to monitor. DVT Prophylaxis: SCD's GI Prophylaxis: Protonix Resuscitation Status: Do Not Resuscitate - Physician Narrative Narrative: Date: 12/31/17 Time: 0933 Hospital Course Summary Disclaimer: The visit summary below is not to be considered part of the above Progress Note. Hospital Course: 12/31/17 Patient placed in outpatient observation for acute COPD exacerbation. Continue DuoNeb treatments, Pulmicort, and BiPAP management per RT. Continue IV Solu-Medrol Accu-Cheks. Continue Victoza. Hold metformin due to elevated lactate. Consider increasing ativan dosing (currently on 0.5mg QID) or change to clonazepam. Consider increasing Buspar to 15mg BID for anxiety. (Will discuss with Dr. Mccoy.) Consider CT chest per radiologist. (Will discuss with Dr. Mccoy.) PT/OT to improve functional status. SCD's for DVT ppx. Reviewed CODE STATUS-patient wishes to be a DO NOT RESUSCITATE. Care to return to [facility] on dismissal. Patient with frequent ER visits and admissions. CM consult - she may be at a point where she needs higher level of care. 01/01/18 Lactate went back up last night from 3.7--> 4.9. She was given a bolus of normal saline 500 cc overnight. Her lactate this morning is 2.4. Will repeat again in 6 hours. Sodium decreasing 133--> 131 IV Solu-Medrol was increased back up to 125 every 6 hours last night due to her difficulty breathing. Metformin remains on hold due to elevated lactate. Considering her lactate levels during her hospital stay, it may be prudent to keep her off of the metformin. She was started on Lantus 10 units daily and 3 units NovoLog before each meal due to her elevated blood sugars. She is also on sliding scale. Continues Victoza. Dr. Terrazas evaluated patient regarding her anxiety. It was determined the patient's anxiety is situational and she would like to continue on her current anxiety medications. Nodule seen yesterday on chest x-ray is not evident on repeat chest x-ray this morning She is currently requiring 2 L of oxygen.
[2018-01-01] MEDS: MELATONIN 5 MG TABLET PO SCH (21:36)
[2018-01-01] MEDS: PRAMIPEXOLE 0.25 MG TABLET PO SCH (21:37)
[2018-01-01] MEDS: PRIMIDONE 50 MG TABLET PO SCH (21:38)
[2018-01-02] MEDS: METHYLPREDNISOLONE SOD SUCC 125mg/2ml INJECTION IVP SCH ×3 (01:14→16:49)
[2018-01-02] MEDS: ALBUTEROL/IPRATROPIUM 2.5mg-0.5mg/3ml NEB AEROSOL PRN ×2 (01:30→11:00)
[2018-01-02] MEDS: LORazepam 0.5 MG TABLET PO PRN ×2 (05:23→17:26)
[2018-01-02] MEDS: INSULIN ASPART 100unit/ml INJECTION SQ PRN ×3 (05:33→16:50)
[2018-01-02] MEDS: BUDESONIDE INH.SOLN 0.5mg/2ml NEB AEROSOL SCH ×2 (07:30→19:41)
[2018-01-02] MEDS: ALBUTEROL/IPRATROPIUM 2.5mg-0.5mg/3ml NEB AEROSOL SCH ×4 (07:30→19:41)
[2018-01-02] MEDS: HYDROCODONE/APAP 5mg/325mg TABLET PO PRN ×2 (07:53→20:20)
[2018-01-02] MEDS: SALINE FLUSH 10ml SYRINGE IVF PRN ×3 (07:55→16:51)
[2018-01-02] MEDS: HYDRALAZINE 10 MG TABLET PO SCH ×4 (08:17→20:09)
[2018-01-02] MEDS ORDERED: CABERGOLINE 0.5 MG TABLET PO SCH (09:00)
[2018-01-02] MEDS: MAGNESIUM OXIDE 400 MG TABLET PO SCH ×3 (09:07→20:09)
[2018-01-02] MEDS: ASPIRIN *EC* 81 MG TABLET PO SCH (09:07)
[2018-01-02] MEDS: PANTOPRAZOLE 40 MG TABLET PO SCH ×3 (09:07→20:08)
[2018-01-02] MEDS: AMLODIPINE 10 MG TABLET PO SCH (09:07)
[2018-01-02] MEDS: GABAPENTIN 300 MG CAPSULE PO SCH (09:07)
[2018-01-02] MEDS: FUROSEMIDE 40 MG TABLET PO SCH (09:07)
[2018-01-02] MEDS: INSULIN ASPART 100unit/ml INJECTION SQ SCH ×3 (09:08→16:50)
[2018-01-02] MEDS: LIRAGLUTIDE INJECTABLE PEN SQ SCH (09:08)
[2018-01-02] MEDS: PALIPERIDONE ER 1.5mg TABLET PO SCH (09:23)
[2018-01-02] MEDS: MELOXICAM 7.5 MG TABLET PO SCH (09:24)
[2018-01-02] MEDS: FOLIC ACID 1 MG TABLET PO SCH (09:24)
[2018-01-02] MEDS: BUSPIRONE 15 MG TABLET PO SCH ×2 (09:24→20:09)
[2018-01-02] MEDS: LIDOCAINE 5% PATCH TOP SCH (09:24)
[2018-01-02] MEDS: INSULIN GLARGINE 100unit/ml INJECTION SQ SCH ×2 (09:25→20:08)
--- NOTE | 2018-01-02 19:11 | Progress Note ---
- Date 01/02/18 Subjective: The patient was seen this evening in her room. She was resting comfortably on BiPAP. She awakened without difficulties. She states her breathing is better and she wants to go home. She was requiring 7 L of oxygen earlier today when she was off of BiPAP. She is eating and drinking okay. She states she wants to get up and walk. She denies any pain. Objective Vital signs: Temperature 97.1 F 01/02/18 16:00 Pulse Rate 91 01/02/18 16:00 Respiratory Rate 22 01/02/18 17:26 Blood Pressure 182/98 H 01/02/18 16:00 Pulse Oximetry 96 01/02/18 16:00 Height/Weight/BMI: Height 1.65 m Weight 129 kg Body Mass Index 46.7 Comments: Afebrile, heart rate 91, blood pressure 127/91 to 182/98. O2 sat in the 90s on 7 L per nasal cannula. Currently O2 sat is 94% on BiPAP with FiO2 of 25% Weight is 129 kg which is up from 127 kg on admission GEN-alert, oriented, no acute distress except when I discussed with her that she is not ready for dismissal and she became tearful. HEENT-BiPAP is on NECK-supple CV-regular rate and rhythm CHEST-End expiratory wheezes, no rhonchi, no crackles ABD-soft, nontender with positive bowel sounds -no Diop EXT-no edema, discoloration of the feet is better today, they're warm to touch NEURO-no focal deficits SKIN-warm and dry Results - Labs CBC & Chem 7: 01/02/18 04:19 01/02/18 04:19 Labs: Lactate this morning had improved to 2.5. Blood sugars ranging from 273-334 Assessment and Plan (1) COPD exacerbation Current visit: Yes Status: Acute (2) Acute and chronic respiratory failure with hypoxia Current visit: No Status: Acute Assessment and Plan: Assessment Acute COPD exacerbation Acute on chronic respiratory failure with oxygen dependence of 3 L Obstructive sleep apnea-home vent and 5 L O2 at night Elevated lactate on admission -3.4 Normocytic anemia-present on admission Chronic hyponatremia-132 on admission Type 2 diabetes (follows with Dr. Ku) Coronary artery disease Hypertension Hyperlipidemia Bipolar disorder Anxiety/depression Morbid obesity-BMI 46 Plan Lactate improved this morning to 2.5. She is not septic. She is not hypotensive. ABG done previously this hospital course did not show acidosis. Metformin was discontinued. Patient was given a fluid bolus yesterday. Weight is up about 2 kg since admission. I do not think she has fluid overload at this time. Dr. Rolon was consulted and will likely see the patient tomorrow morning. Continue steroids, breathing treatments, BiPAP as needed. The patient has end-stage COPD. She did want to go home today. I discussed with her that she would have to leave AGAINST MEDICAL ADVICE and I did not feel that she was ready to leave today. I did discuss with her that there is increased risk of her dying if she went home with her COPD exacerbation had not been adequately treated. She stated "I'm dying right now." I did discuss with her that I know her COPD is severe but I would like to get it under better control and back to baseline prior to discharge. We will need to determine her goals of care prior to discharge. Start prednisone 40 mg daily in the morning DVT Prophylaxis: SCD's GI Prophylaxis: Protonix Resuscitation Status: Do Not Resuscitate - Physician Narrative Narrative: Date: 01/02/18 Time: 1907 Hospital Course Summary Disclaimer: The visit summary below is not to be considered part of the above Progress Note. Hospital Course: 12/31/17 Patient placed in outpatient observation for acute COPD exacerbation. Continue DuoNeb treatments, Pulmicort, and BiPAP management per RT. Continue IV Solu-Medrol Accu-Cheks. Continue Victoza. Hold metformin due to elevated lactate. Consider increasing ativan dosing (currently on 0.5mg QID) or change to clonazepam. Consider increasing Buspar to 15mg BID for anxiety. (Will discuss with Dr. Mccoy.) Consider CT chest per radiologist. (Will discuss with Dr. Mccoy.) PT/OT to improve functional status. SCD's for DVT ppx. Reviewed CODE STATUS-patient wishes to be a DO NOT RESUSCITATE. Care to return to [facility] on dismissal. Patient with frequent ER visits and admissions. CM consult - she may be at a point where she needs higher level of care. 01/01/18 Lactate went back up last night from 3.7--> 4.9. She was given a bolus of normal saline 500 cc overnight. Her lactate this morning is 2.4. Will repeat again in 6 hours. Sodium decreasing 133--> 131 IV Solu-Medrol was increased back up to 125 every 6 hours last night due to her difficulty breathing. Metformin remains on hold due to elevated lactate. Considering her lactate levels during her hospital stay, it may be prudent to keep her off of the metformin. She was started on Lantus 10 units daily and 3 units NovoLog before each meal due to her elevated blood sugars. She is also on sliding scale. Continues Victoza. Dr. Terrazas evaluated patient regarding her anxiety. It was determined the patient's anxiety is situational and she would like to continue on her current anxiety medications. Nodule seen yesterday on chest x-ray is not evident on repeat chest x-ray this morning She is currently requiring 2 L of oxygen. 01/01/2018 Impression and plan She continues to have elevated lactate and on recent testing was 3.6. Carbon dioxide level on basic metabolic profile is normal. ABG yesterday showed a normal pH. She is not hypotensive, and in fact is hypertensive. Lactate may be elevated secondary to COPD/asthma exacerbation. We'll continue supportive care with breathing treatments, BiPAP, and steroids. We'll titrate down steroids today. The patient is strongly wanting to go home, but I did tell her that I don 't think she is safe for discharge at this point and she is agreeable to staying , at least until tomorrow. We'll give 500 cc normal saline bolus over [address] Rolon to see the patient tomorrow. Lantus every morning and NovoLog with meals was initiated for hyperglycemia. I would recommend that she remain off of metformin indefinitely because of a tendency toward lactic acidosis. Metformin was placed on her allergy list. The epigastric pain without nausea or vomiting. Liver enzymes were normal on admission. Her pain seems to be muscular in nature. We'll continue to monitor.- Dr. Mccoy 01/02/2018 Lactate improved this morning to 2.5. She is not septic. She is not hypotensive. ABG done previously this hospital course did not show acidosis. Metformin was discontinued. Patient was given a fluid bolus yesterday. Weight is up about 2 kg since admission. I do not think she has fluid overload at this time. Dr. Rolon was consulted and will likely see the patient tomorrow morning. Continue steroids, breathing treatments, BiPAP as needed. The patient has end-stage COPD. She did want to go home today. I discussed with her that she would have to leave AGAINST MEDICAL ADVICE and I did not feel that she was ready to leave today. I did discuss with her that there is increased risk of her dying if she went home with her COPD exacerbation had not been adequately treated. She stated "I'm dying right now." I did discuss with her that I know her COPD is severe but I would like to get it under better control and back to baseline prior to discharge. We will need to determine her goals of care prior to discharge.
[2018-01-02] MEDS: PRAMIPEXOLE 0.25 MG TABLET PO SCH (20:08)
[2018-01-02] MEDS: MELATONIN 5 MG TABLET PO SCH (20:09)
[2018-01-02] MEDS: PRIMIDONE 50 MG TABLET PO SCH (20:12)
[2018-01-02] MEDS: LIDOCAINE PATCH REMOVAL TOP SCH (20:14)
[2018-01-03] MEDS: LORazepam 0.5 MG TABLET PO PRN ×3 (00:49→18:04)
[2018-01-03] MEDS: ALBUTEROL/IPRATROPIUM 2.5mg-0.5mg/3ml NEB AEROSOL PRN ×3 (00:52→23:43)
[2018-01-03] MEDS: ALBUTEROL/IPRATROPIUM 2.5mg-0.5mg/3ml NEB AEROSOL SCH ×4 (05:05→19:19)
[2018-01-03] MEDS: BUDESONIDE INH.SOLN 0.5mg/2ml NEB AEROSOL SCH ×2 (05:05→19:19)
[2018-01-03] MEDS: INSULIN ASPART 100unit/ml INJECTION SQ PRN ×4 (05:49→20:22)
[2018-01-03] MEDS: LIDOCAINE 5% PATCH TOP SCH (08:36)
[2018-01-03] MEDS: INSULIN ASPART 100unit/ml INJECTION SQ SCH ×3 (08:36→17:15)
[2018-01-03] MEDS: INSULIN GLARGINE 100unit/ml INJECTION SQ SCH ×2 (08:36→20:23)
[2018-01-03] MEDS: LIRAGLUTIDE INJECTABLE PEN SQ SCH (08:37)
[2018-01-03] MEDS: PALIPERIDONE ER 1.5mg TABLET PO SCH (08:37)
[2018-01-03] MEDS: AMLODIPINE 10 MG TABLET PO SCH (08:37)
[2018-01-03] MEDS: PANTOPRAZOLE 40 MG TABLET PO SCH ×3 (08:37→20:21)
[2018-01-03] MEDS: ASPIRIN *EC* 81 MG TABLET PO SCH (08:37)
[2018-01-03] MEDS: FUROSEMIDE 40 MG TABLET PO SCH (08:37)
[2018-01-03] MEDS: BUSPIRONE 15 MG TABLET PO SCH ×2 (08:39→20:20)
[2018-01-03] MEDS: PredniSONE 20 MG TABLET PO SCH (08:39)
[2018-01-03] MEDS: GABAPENTIN 300 MG CAPSULE PO SCH (08:39)
[2018-01-03] MEDS: MAGNESIUM OXIDE 400 MG TABLET PO SCH ×3 (08:39→20:20)
[2018-01-03] MEDS: FOLIC ACID 1 MG TABLET PO SCH (08:39)
[2018-01-03] MEDS: HYDROCODONE/APAP 5mg/325mg TABLET PO PRN ×2 (08:40→18:03)
[2018-01-03] MEDS: MELOXICAM 7.5 MG TABLET PO SCH (08:40)
[2018-01-03] MEDS: HYDRALAZINE 10 MG TABLET PO SCH ×4 (08:40→20:20)
[2018-01-03] MEDS: TRAMADOL 50 MG TABLET PO PRN (10:45)
--- NOTE | 2018-01-03 12:07 | Pulmonology Consult Note ---
History of Present Illness Consult date: 01/03/18 Requesting physician: Mandy Mccoy Reason for consult: dyspnea, COPD Chief complaint: short of breath History of present illness: Suyapa is a 62 year old lady known to me from the clinic. Her PCP is Rafaela Rosales APRN. Suyapa has severe COPD with FEV1 37 %. COPD Assessment Test score is 35/40, which is very high. This patient is GOLD Stage D and is High risk for exacerbation or complications related to COPD and in fact, has had multiple hospitalizations and ER visits for shortness of breath. We are treating this patient with a combination of: prednisone 10 mg daily, Stiolto 2 puffs daily, ProAir when needed, Flovent 2 puffs BID, Nebulized albuterol/ipratropium up to 5 times daily. She also has a generalized anxiety disorder and is currently treated with buspirone and lorazepam prn. She began having difficulty breathing at home on 12/31/17. She states she has been coughing up yellow sputum for 2 days prior to admission. She used her breathing treatments, but with little improvement. She and her lawn caretaker notified EMS. EMS found the patient with significant air hunger, as well as anxiety. Patient was given an albuterol treatment in route, the seemed to help, but the patient's anxiety remained high. She denies any cough or fevers, and states this feels like her normal COPD exacerbations. She is normally on O2 at 3-4 lpm at night. She uses a BIPAP at home and was recently provided a new prescription for mask and supplies. Review of Systems All systems: reviewed and no additional remarkable complaints except as stated PFSH Patient Stated Medical History Cerebrovascular Accident Yes: 1999 Migraine Yes: PRESENT Peripheral Neuropathy Yes: diabetic Transient Ischemic Attacks ( Yes: 2012 TIA) Cataracts Yes: BILAT Dental Problems Yes: DENTURES Macular Degeneration Yes: RECENTLY DX Cardiac Arrhythmia Yes Congestive Heart Failure Yes Heart Murmur Yes Hypertension Yes Myocardial Infarction Yes: 2002 Asthma Yes Bronchitis Yes Chronic Obstructive Pulmonary Yes Disease (COPD) Pneumonia Yes Sleep Apnea Yes: Uses a Bipap occasionally at home. Other Respiratory Yes: EMPHYSEMA Diabetes Mellitus Type 2 Yes Gastroesophageal Reflux Yes Disease Hiatal Hernia Yes Ulcer Yes Hx Incontinence Yes Hx Renal Disease No Anemia Yes Osteoarthritis Yes Other Musculoskeletal Yes: osteopenia Chlamydia Yes: 70'S MRSA Yes: HX PREVIOUS SORES ON BACK/BUTTOCKS. Shingles Yes: 1995 FACE Blood Transfusions Yes Bipolar Disorder Yes Depression Yes Post Traumatic Stress Disorder Yes Substance Use Disorder Yes: NICOTINE DEPENDENCE Abnormal Pap Yes: 1977 [facility] Medical History (Last Updated 01/01/18 @ 08:07 by Kimani Ku MD) Hyponatremia (Chronic Medical) Longstanding, but etiology unknown. SIADH (syndrome of inappropriate ADH production) (Chronic Medical) Prolactinoma (Resolved Medical ~2007) Has had adenoma shrink and is no longer detectable on MRI. Need to check prolactin level, then taper down and off of cabergoline if possible. Diabetes mellitus type 2, uncontrolled, without complications (Chronic Medical ~ 2005) Dyslipidemia (Chronic Medical) HTN (hypertension) (Chronic Medical) Good control. CAD (coronary artery disease) (Chronic Medical) Stable. Morbid obesity with BMI of 45.0-49.9, adult (Chronic Medical) Medical History Updates: HTN. HLD. Type 2 DM. Anxiety/Depression. MILDRED on BIPAP. COPD. Asthma. CHF. CAD. Chronic hyponatremia. Bipolar discorder Surgical History: appendix. colonoscopy. gallbladder. hernia. tonsils. cardiac cath. hysterectomy. carpal tunnel. knee. shoulder. wrist Family History: Family History (Last Reviewed 12/30/17 @ 15:43 by Kimani Ku MD) Mother COPD (chronic obstructive pulmonary disease) Brother COPD (chronic obstructive pulmonary disease) Family History Updates: Family History (Last Updated 06/19/17 @ 18:20 by Jammie Woodard MD). Mother. COPD (chronic obstructive pulmonary disease) . Brother. COPD (chronic obstructive pulmonary disease) - Social History Smoking status: Former smoker (quit 07/20. Prior smoked for 34 years from 2ppd up to ppd x 5 yrs.) Packs-years: 50 Quit date: 07/09/17 Substance use type: does not use Alcohol intake frequency: does not drink Housing: apartment (she lives alone but has a caregiver visit at least twice daily) Household members: none (has caretakers and a neighbor who frequently check on her) Current occupational status: disabled Does patient use chewing tobacco?: No Current residence: Apartment/Private Home Medications Home Medications Medication Instructions Recorded Confirmed Type Cabergoline [Dostinex] 0.5 mg PO TuFr #0 06/19/12 12/31/17 History Metoprolol Succinate 100 mg PO DAILY #0 07/15/16 12/31/17 History Buspirone HCl 7.5 mg PO BID #0 08/09/16 12/31/17 History Cyproheptadine HCl 4 - 8 mg PO HS PRN #0 08/22/16 12/31/17 History Pramipexole Di-HCl [Pramipexole 0.375 mg PO HS 12/04/16 12/31/17 History Dihydrochloride] Paliperidone [Paliperidone ER] 9 mg PO DAILY 01/05/17 12/31/17 History Albuterol Sulfate [Proair Hfa] 1 spray INH PRN PRN 06/18/17 12/31/17 History Aspirin [Adult Aspirin Regimen] 81 mg PO DAILY 06/18/17 12/31/17 History Fluticasone HFA [Flovent Hfa 220 1 - 2 puff INH Q2-4HR 06/18/17 12/31/17 History mcg] Tramadol [Ultram] 50 mg PO Q6H PRN 06/18/17 12/31/17 History Furosemide [Lasix 40 mg Tab] 40 mg PO DAILY #30 tab 06/23/17 12/31/17 Rx Stiolto Respimat (tiotropium) 2.5 2 puff INH DAILY g 11/06/17 12/31/17 History mcg-olodaterol 2.5 mcg/actuation inhalation liraglutide 0.6 mg/0.1 mL (18 mg/3 1.2 mg SQ DAILY ml 11/06/17 12/31/17 History mL) subcutaneous pen injector Pantoprazole Tab [Protonix Tab] 40 mg PO DAILY 11/14/17 12/31/17 History Acetaminophen [Acetaminophen ER] 650 mg PO Q8H PRN 12/10/17 12/31/17 History Magnesium Oxide [Magnesium] 400 mg PO TID 12/10/17 12/31/17 History Nitroglycerin [Nitrostat] 0.4 mg SL Q5MIN3 PRN 12/10/17 12/31/17 History Amlodipine [Norvasc] 10 mg PO DAILY #30 tab 12/18/17 12/31/17 Rx Lidocaine 5% Patch [Lidoderm] 1 patch TOP DAILY #5 patch 12/18/17 12/31/17 Rx melatonin ER 10 mg tablet,extended 10 mg PO HS tab 12/30/17 12/31/17 History release prednisone 10 mg tablet 10 mg PO DAILY tab 12/30/17 12/31/17 History Albuterol/Ipratropium [Duoneb] 3 ml AEROSOL Q6H PRN 12/31/17 12/31/17 History Folic Acid [Folate] 1 mg PO DAILY 12/31/17 12/31/17 History Gabapentin 300 mg PO AM 12/31/17 12/31/17 History Hydralazine [Apresoline] 1 tab PO HS 12/31/17 12/31/17 History LORazepam [Ativan] 0.5 mg PO QID 12/31/17 12/31/17 History Meloxicam 7.5 mg PO CHEW DAILY 12/31/17 12/31/17 History Metformin HCl 500 mg PO WS 12/31/17 12/31/17 History Potassium Chloride 10 meq PO DAILY 12/31/17 12/31/17 History Primidone [Mysoline] 150 mg PO HS 12/31/17 12/31/17 History Allergies Allergy/AdvReac Type Severity Reaction Status Date / Time Influenza Virus Vaccines Allergy Severe DYSPNEA Verified 12/31/17 02:33 lisinopril Allergy Intermediate TONGUE Verified 12/31/17 02:33 SWELLING metformin Allergy Intermediate Acidosis Verified 01/01/18 08:44 Iodinated Contrast- Oral and Allergy Mild RASH Verified 12/31/17 02:33 IV Dye asenapine Allergy Unknown Verified 12/31/17 02:33 duloxetine [From Cymbalta] Allergy Unknown Verified 12/31/17 02:33 hydromorphone [From Dilaudid] Allergy Unknown Verified 12/31/17 02:33 iodine Allergy Unknown Verified 12/31/17 02:33 Sulfa (Sulfonamide Allergy Unknown RASH Verified 12/31/17 02:33 Antibiotics) venlafaxine Allergy Unknown Verified 12/31/17 02:33 lurasidone AdvReac Intermediate INCREASED Verified 12/31/17 02:33 SODIUM adhesive AdvReac Unknown Verified 12/31/17 02:33 cephalexin AdvReac Unknown VOMITING Verified 12/31/17 02:33 morphine AdvReac Unknown SWELLING Verified 12/31/17 02:33 SHELLFISH Allergy Severe Allergic Uncoded 12/31/17 02:33 Asthmatic Reaction Exam Vital signs: Temperature 97.7 F 01/03/18 07:00 Pulse Rate 73 01/03/18 07:00 Respiratory Rate 22 01/03/18 11:10 Blood Pressure 171/100 H 01/03/18 07:00 Pulse Oximetry 97 01/03/18 11:10 - Constitutional no acute distress, obese, cooperative - Routine HEENT Exam Head: Present: normocephalic, atraumatic Eye: Present: EOMI. Absent: conjunctival icterus - Routine Neck Exam Present: supple, trachea midline - Routine Respiratory Exam Present: patient mechanically ventilated, decreased breath sounds, prolonged expiratory phase. Absent: accessory muscle use Comments: using BIPAP 14/5, rate 12 - Routine Cardiovascular Exam Present: RRR - Routine Abdominal Exam Present: soft. Absent: guarding - Routine Extremities Exam Present: edema. Absent: cyanosis, clubbing - Routine Skin Exam Present: erythema. Absent: rash - Routine Neurological Exam Present: alert, oriented X3. Absent: motor deficit Results - Laboratory Findings CBC and BMP: 01/02/18 04:19 01/03/18 04:43 ABG ABG pH 7.424 (7.350-7.450) 12/31/17 13:31 ABG pCO2 42 MMHG (34.0-45.0) 12/31/17 13:31 ABG pO2 112.1 MMHG (80.0-100.0) H 12/31/17 13:31 ABG O2 Saturation 98.5 % (95.0-98.0) H 12/31/17 13:31 Abnormal lab findings: Abnormal Labs 12/31/17 12/31/17 12/31/17 04:50 04:50 09:02 RBC 3.91 L Hgb 11.0 L Hct 34.3 L MPV 8.3 L Neutrophils % (Manual) 93.0 H Lymphocytes % (Manual) 6.0 L Neutrophils # (Manual) Lymphocytes # (Manual) 0.5 L ABG pO2 ABG HCO3 ABG Total CO2 ABG O2 Saturation ABG Base Excess Sodium 132 L Chloride 88 L Carbon Dioxide BUN Creatinine BUN/Creatinine Ratio Glucose 224 H Plasma Lactate 3.4 H 3.7 H 12/31/17 12/31/17 12/31/17 13:31 14:31 18:40 RBC Hgb Hct MPV Neutrophils % (Manual) Lymphocytes % (Manual) Neutrophils # (Manual) Lymphocytes # (Manual) ABG pO2 112.1 H ABG HCO3 27.5 H ABG Total CO2 28.8 H ABG O2 Saturation 98.5 H ABG Base Excess 2.7 H Sodium 133 L Chloride 91 L Carbon Dioxide BUN 19.0 H Creatinine BUN/Creatinine Ratio 27 H Glucose 277 H Plasma Lactate 4.6 H* 3.7 H 12/31/17 01/01/18 01/01/18 20:25 04:07 04:07 RBC 3.74 L Hgb 10.4 L Hct 32.4 L MPV 8.8 L Neutrophils % (Manual) 91.0 H Lymphocytes % (Manual) 8.0 L Neutrophils # (Manual) Lymphocytes # (Manual) 0.6 L ABG pO2 ABG HCO3 ABG Total CO2 ABG O2 Saturation ABG Base Excess Sodium 131 L Chloride 91 L Carbon Dioxide 31 H BUN 20.0 H Creatinine 0.6 L BUN/Creatinine Ratio 33 H Glucose 247 H Plasma Lactate 4.9 H* 2.4 H 01/01/18 01/01/18 01/02/18 11:38 19:25 04:19 RBC 3.81 L Hgb 10.5 L Hct 33.4 L MPV 8.4 L Neutrophils % (Manual) 90.0 H Lymphocytes % (Manual) 8.0 L Neutrophils # (Manual) 8.2 H Lymphocytes # (Manual) 0.7 L ABG pO2 ABG HCO3 ABG Total CO2 ABG O2 Saturation ABG Base Excess Sodium Chloride Carbon Dioxide BUN Creatinine BUN/Creatinine Ratio Glucose Plasma Lactate 3.6 H 3.2 H 01/02/18 01/03/18 04:19 04:43 RBC Hgb Hct MPV Neutrophils % (Manual) Lymphocytes % (Manual) Neutrophils # (Manual) Lymphocytes # (Manual) ABG pO2 ABG HCO3 ABG Total CO2 ABG O2 Saturation ABG Base Excess Sodium 132 L 133 L Chloride 89 L 90 L Carbon Dioxide 34 H 33 H BUN 24.0 H 24.0 H Creatinine BUN/Creatinine Ratio 34 H 34 H Glucose 232 H 187 H Plasma Lactate 2.5 H - Diagnostic Findings Chest x-ray: report reviewed Assessment and Plan (1) Atelectasis Status: Acute Assessment and plan: Seen on CXR 01/01/2018. This is new since the last CXR. Since she has had increased cough and mucus production I will repeat the study since she has been treated. Current Visit: Yes (2) COPD exacerbation Status: Acute Assessment and plan: I agree with increased systemic corticosteroids. Currently she is on prednisone 40 mg daily and I agree with this dosing for now. We can taper her as an outpatient as tolerated, back to a baseline dose of 10 mg daily. Continue current neb meds and return to usual regimen upon discharge. Home regimen includes: prednisone 10 mg daily, Stiolto 2 puffs daily, ProAir when needed, Flovent 2 puffs BID, Nebulized albuterol/ipratropium up to 5 times daily. Current Visit: Yes (3) Acute and chronic respiratory failure with hypoxia Status: Acute Assessment and plan: continue O2 to keep sat >90%, currently on her home flow of 3-[address] as needed and during sleep. She has a BIPAP at home and can resume upon discharge. Current Visit: No - Time Spent With Patient Total time spent is greater than 50% in coordination of care (as documented) at patient's floor/unit and/or counseling patient: 25 - 35 minutes
--- NOTE | 2018-01-03 14:25 | Progress Note ---
- Date 01/03/18 Subjective: 62y/o female with end-stage COPD and chronic anxiety was brought to the emergency room by EMS for increasing shortness of breath that had been progressive for about 3 days. She did try breathing treatments at home but it did not help. Her long haul truck driver came over and advised that she be taken to the ER and she agreed. Patient was given an albuterol treatment in route which did seem to help but her anxiety still remained high. She was subsequently admitted for further evaluation and treatment. She has frequent admissions most recently from 12/11/17 to 12/18/17, 10/20/17 to , and 07/02/17 to 07/07/17. Dr. Rolon knows her well and did see her again today. Dr. Terrazas also knows her well and evaluated her on 12/31/17. The patient is starting to realize that she is not able to take care of herself at home. She is interested in talking to someone about palliative care in the future. She does have a caregiver but apparently she does not feel her needs are being met by that caregiver according to Dr. Terrazas's note. When seen by me this morning and again this afternoon she is really wanting to go home. I explained to her that this was the 1st time Dr. Rolon was able to see her during this day and he has ordered a repeat x-ray in the morning. If that x-ray is stable I feel she could safely be discharged home tomorrow. Her steroids were changed over to oral today. Dr. Rolon will titrate those back down as an outpatient. She denies any fevers or chills. She feels her breathing is back to baseline. She has been up to the bathroom on her own. She denies lightheadedness or dizziness. She denies any chest pain, pressure or tightness. She denies palpitations. She denies any nausea, vomiting, diarrhea or constipation. She denies any black tarry stools or bloody stools. She denies any urinary issues at this time. She is back to her 3 to 4 L of oxygen by nasal cannula when she's not on her BiPAP. Each time I have been in today she has indeed been on the BiPAP. Objective Vital signs: Temperature 97.7 F 08/04/18 07:00 Pulse Rate 83 08/04/18 12:00 Respiratory Rate 22 01/03/18 12:00 Blood Pressure 147/88 H 01/03/18 12:00 Pulse Oximetry 94 01/03/18 13:00 Height/Weight/BMI: Height 1.65 m Weight 126.9 kg Body Mass Index 46.7 Comments: Gen: alert and oriented. NAD. BiPAP in place (14/5 rate 12). Skin: warm and dry, HEENT: NC/AT PERRL, EOMI, Sclera, lids and conjunctiva wnl. MMM. OP clear. Neck: short, thick, No JVD, Carotids 2+ without bruits. Lungs: diminished, without rales, rhonchi or wheezes CV: regular, No murmur, rubs or gallops. Pedal pulses 2+, radial pulses 2+, No edema Abd: obese, soft. +BS, NT/ND. MS: DEWITT, Normal ROM, strength Neuro: No focal deficit Psy: Appropriate mood and affect Results - Labs CBC & Chem 7: 01/02/18 04:19 01/03/18 04:43 Assessment and Plan (1) Acute and chronic respiratory failure with hypoxia Current visit: No Status: Acute (2) COPD exacerbation Current visit: Yes Status: Acute Assessment and Plan: Assessment and plan: Acute on Chronic hypoxic resp failure -back down to baseline oxygen flow when off BiPAP at 3 to 4 L -continue BiPAP ST as needed and during sleep -on prednisone 40 mg daily, Dr. Rolon will titrate dose as outpatient -x-ray to be repeated in a.m. -continue her inhalers, nebulizers Obstructive sleep apnea -on home trilogy unit Hyponatremia -chronic -relatively stable at present Hypertension -still not adequately controlled -increase Toprol to 150mg daily -may have to also increase hydralazine Dyslipidemia -not on a Statin Gerd -on PPI Anxiety and depression -on buspirone and Ativan Bipolar disorder -on paliperidone Coronary artery disease -heart catheterization 07/2016 showing minor coronary irregularities and normal ejection fraction of 60% Prophylaxis -SCD's and PPI DVT Prophylaxis: SCD's GI Prophylaxis: Protonix Resuscitation Status: Do Not Resuscitate - Physician Narrative Narrative: Date: 01/03/18 Time: 1410 Hospital Course Summary Disclaimer: The visit summary below is not to be considered part of the above Progress Note. Hospital Course: 12/31/17 Patient placed in outpatient observation for acute COPD exacerbation. Continue DuoNeb treatments, Pulmicort, and BiPAP management per RT. Continue IV Solu-Medrol Accu-Cheks. Continue Victoza. Hold metformin due to elevated lactate. Consider increasing ativan dosing (currently on 0.5mg QID) or change to clonazepam. Consider increasing Buspar to 15mg BID for anxiety. (Will discuss with Dr. Mccoy.) Consider CT chest per radiologist. (Will discuss with Dr. Mccoy.) PT/OT to improve functional status. SCD's for DVT ppx. Reviewed CODE STATUS-patient wishes to be a DO NOT RESUSCITATE. Care to return to [facility] on dismissal. Patient with frequent ER visits and admissions. CM consult - she may be at a point where she needs higher level of care. 01/01/18 Lactate went back up last night from 3.7--> 4.9. She was given a bolus of normal saline 500 cc overnight. Her lactate this morning is 2.4. Will repeat again in 6 hours. Sodium decreasing 133--> 131 IV Solu-Medrol was increased back up to 125 every 6 hours last night due to her difficulty breathing. Metformin remains on hold due to elevated lactate. Considering her lactate levels during her hospital stay, it may be prudent to keep her off of the metformin. She was started on Lantus 10 units daily and 3 units NovoLog before each meal due to her elevated blood sugars. She is also on sliding scale. Continues Victoza. Dr. Terrazas evaluated patient regarding her anxiety. It was determined the patient's anxiety is situational and she would like to continue on her current anxiety medications. Nodule seen yesterday on chest x-ray is not evident on repeat chest x-ray this morning She is currently requiring 2 L of oxygen. 01/01/2018 Impression and plan She continues to have elevated lactate and on recent testing was 3.6. Carbon dioxide level on basic metabolic profile is normal. ABG yesterday showed a normal pH. She is not hypotensive, and in fact is hypertensive. Lactate may be elevated secondary to COPD/asthma exacerbation. We'll continue supportive care with breathing treatments, BiPAP, and steroids. We'll titrate down steroids today. The patient is strongly wanting to go home, but I did tell her that I don 't think she is safe for discharge at this point and she is agreeable to staying , at least until tomorrow. We'll give 500 cc normal saline bolus over [address] Rolon to see the patient tomorrow. Lantus every morning and NovoLog with meals was initiated for hyperglycemia. I would recommend that she remain off of metformin indefinitely because of a tendency toward lactic acidosis. Metformin was placed on her allergy list. The epigastric pain without nausea or vomiting. Liver enzymes were normal on admission. Her pain seems to be muscular in nature. We'll continue to monitor.- Dr. Mccoy 01/02/2018 Lactate improved this morning to 2.5. She is not septic. She is not hypotensive. ABG done previously this hospital course did not show acidosis. Metformin was discontinued. Patient was given a fluid bolus yesterday. Weight is up about 2 kg since admission. I do not think she has fluid overload at this time. Dr. Rolon was consulted and will likely see the patient tomorrow morning. Continue steroids, breathing treatments, BiPAP as needed. The patient has end-stage COPD. She did want to go home today. I discussed with her that she would have to leave AGAINST MEDICAL ADVICE and I did not feel that she was ready to leave today. I did discuss with her that there is increased risk of her dying if she went home with her COPD exacerbation had not been adequately treated. She stated "I'm dying right now." I did discuss with her that I know her COPD is severe but I would like to get it under better control and back to baseline prior to discharge. We will need to determine her goals of care prior to discharge.
[2018-01-03] MEDS: MELATONIN 5 MG TABLET PO SCH (20:19)
[2018-01-03] MEDS: PRAMIPEXOLE 0.25 MG TABLET PO SCH (20:20)
[2018-01-03] MEDS: PRIMIDONE 50 MG TABLET PO SCH (20:24)
[2018-01-03] MEDS: LIDOCAINE PATCH REMOVAL TOP SCH (20:27)
[2018-01-04] MEDS: HYDROCODONE/APAP 5mg/325mg TABLET PO PRN (04:24)
[2018-01-04] MEDS: ALBUTEROL/IPRATROPIUM 2.5mg-0.5mg/3ml NEB AEROSOL SCH ×2 (05:55→09:24)
[2018-01-04 07:45] VITALS: RESP 18
--- NOTE | 2018-01-04 08:49 | Progress Note ---
- Date 01/04/18 Subjective: 62y/o female with end-stage COPD and chronic anxiety was brought to the emergency room by EMS for increasing shortness of breath that had been progressive for about 3 days. She did try breathing treatments at home but it did not help. Her cloud security architect came over and advised that she be taken to the ER and she agreed. Patient was given an albuterol treatment in route which did seem to help but her anxiety still remained high. She was subsequently admitted for further evaluation and treatment. She has frequent admissions most recently from 12/11/17 to 12/18/17, 10/20/17 to , and 07/02/17 to 07/07/17. Dr. Rolon knows her well and did see her again today. Dr. Terrazas also knows her well and evaluated her on 12/31/17. The patient is starting to realize that she is not able to take care of herself at home. She is interested in talking to someone about palliative care in the future. She does have a caregiver but apparently she does not feel her needs are being met by that caregiver according to Dr. Terrazas's note. When seen by me this morning she is feeling well and wants to go home. Her chest x-ray no longer show significant atelectasis. She denies any fevers or chills. She feels her breathing is baseline. She is getting up to the bathroom on her own. She denies any lightheadedness or dizziness. She denies any fevers or chills. She denies any chest pain, pressure or tightness. She denies palpitations. She denies any nausea, vomiting, diarrhea or constipation. She denies any black tarry stools or bloody stools. She denies any urinary issues at this time. She is back to her 3 to 4 L of oxygen by nasal cannula when she's not on her BiPAP. I instructed her on continuing to use the in spirometer to prevent atelectasis. I told her that's going to be a long-term tool for her to use. Objective Vital signs: Temperature 96 F L 01/04/18 07:00 Pulse Rate 73 01/04/18 07:00 Respiratory Rate 18 01/04/18 07:00 Blood Pressure 159/86 H 01/04/18 07:00 Pulse Oximetry 98 01/04/18 07:00 Height/Weight/BMI: Height 1.65 m Weight 126.1 kg Body Mass Index 46.7 Comments: Gen: alert and oriented. NAD. BiPAP in place (14/5 rate 12). Skin: warm and dry, HEENT: NC/AT PERRL, EOMI, Sclera, lids and conjunctiva wnl. MMM. OP clear. Neck: short, thick, No JVD, Carotids 2+ without bruits. Lungs: diminished, without rales, rhonchi or wheezes CV: regular, No murmur, rubs or gallops. Pedal pulses 2+, radial pulses 2+, No edema Abd: obese, soft. +BS, NT/ND. MS: DEWITT, Normal ROM, strength Neuro: No focal deficit Psy: Appropriate mood and affect Results - Labs CBC & Chem 7: 01/04/18 04:32 01/04/18 04:32 Assessment and Plan (1) Acute and chronic respiratory failure with hypoxia Current visit: No Status: Acute (2) COPD exacerbation Current visit: Yes Status: Acute Assessment and Plan: Assessment and plan: Acute on Chronic hypoxic resp failure -back down to baseline oxygen flow when off BiPAP at 3 to 4 L -continue BiPAP ST as needed and during sleep -on prednisone 40 mg daily, Dr. Rolon will titrate dose as outpatient -chest x-ray this morning looks better. -continue her inhalers, nebulizers -continue aggressive in spirometer use at home Obstructive sleep apnea -on home trilogy unit Hyponatremia -chronic -relatively stable at present Hypertension -still not adequately controlled -increase Toprol to 150mg daily -increase hydralazine to 20 mg with meals and HS Dyslipidemia -not on a Statin Gerd -on PPI Anxiety and depression -on buspirone and Ativan Bipolar disorder -on paliperidone Coronary artery disease -heart catheterization 07/2016 showing minor coronary irregularities and normal ejection fraction of 60% Prophylaxis -SCD's and PPI Home today DVT Prophylaxis: SCD's GI Prophylaxis: Protonix Resuscitation Status: Do Not Resuscitate - Physician Narrative Narrative: Date: 01/04/18 Time: 0848 Hospital Course Summary Disclaimer: The visit summary below is not to be considered part of the above Progress Note. Hospital Course: 12/31/17 Patient placed in outpatient observation for acute COPD exacerbation. Continue DuoNeb treatments, Pulmicort, and BiPAP management per RT. Continue IV Solu-Medrol Accu-Cheks. Continue Victoza. Hold metformin due to elevated lactate. Consider increasing ativan dosing (currently on 0.5mg QID) or change to clonazepam. Consider increasing Buspar to 15mg BID for anxiety. (Will discuss with Dr. Mccoy.) Consider CT chest per radiologist. (Will discuss with Dr. Mccoy.) PT/OT to improve functional status. SCD's for DVT ppx. Reviewed CODE STATUS-patient wishes to be a DO NOT RESUSCITATE. Care to return to [facility] on dismissal. Patient with frequent ER visits and admissions. CM consult - she may be at a point where she needs higher level of care. 01/01/18 Lactate went back up last night from 3.7--> 4.9. She was given a bolus of normal saline 500 cc overnight. Her lactate this morning is 2.4. Will repeat again in 6 hours. Sodium decreasing 133--> 131 IV Solu-Medrol was increased back up to 125 every 6 hours last night due to her difficulty breathing. Metformin remains on hold due to elevated lactate. Considering her lactate levels during her hospital stay, it may be prudent to keep her off of the metformin. She was started on Lantus 10 units daily and 3 units NovoLog before each meal due to her elevated blood sugars. She is also on sliding scale. Continues Victoza. Dr. Terrazas evaluated patient regarding her anxiety. It was determined the patient's anxiety is situational and she would like to continue on her current anxiety medications. Nodule seen yesterday on chest x-ray is not evident on repeat chest x-ray this morning She is currently requiring 2 L of oxygen. 01/01/2018 Impression and plan She continues to have elevated lactate and on recent testing was 3.6. Carbon dioxide level on basic metabolic profile is normal. ABG yesterday showed a normal pH. She is not hypotensive, and in fact is hypertensive. Lactate may be elevated secondary to COPD/asthma exacerbation. We'll continue supportive care with breathing treatments, BiPAP, and steroids. We'll titrate down steroids today. The patient is strongly wanting to go home, but I did tell her that I don 't think she is safe for discharge at this point and she is agreeable to staying , at least until tomorrow. We'll give 500 cc normal saline bolus over [address] Rolon to see the patient tomorrow. Lantus every morning and NovoLog with meals was initiated for hyperglycemia. I would recommend that she remain off of metformin indefinitely because of a tendency toward lactic acidosis. Metformin was placed on her allergy list. The epigastric pain without nausea or vomiting. Liver enzymes were normal on admission. Her pain seems to be muscular in nature. We'll continue to monitor.- Dr. Mccoy 01/02/2018 Lactate improved this morning to 2.5. She is not septic. She is not hypotensive. ABG done previously this hospital course did not show acidosis. Metformin was discontinued. Patient was given a fluid bolus yesterday. Weight is up about 2 kg since admission. I do not think she has fluid overload at this time. Dr. Rolon was consulted and will likely see the patient tomorrow morning. Continue steroids, breathing treatments, BiPAP as needed. The patient has end-stage COPD. She did want to go home today. I discussed with her that she would have to leave AGAINST MEDICAL ADVICE and I did not feel that she was ready to leave today. I did discuss with her that there is increased risk of her dying if she went home with her COPD exacerbation had not been adequately treated. She stated "I'm dying right now." I did discuss with her that I know her COPD is severe but I would like to get it under better control and back to baseline prior to discharge. We will need to determine her goals of care prior to discharge.
[2018-01-04] MEDS: BUDESONIDE INH.SOLN 0.5mg/2ml NEB AEROSOL SCH (09:24)
--- NOTE | 2018-01-04 10:48 | Discharge Summary ---
Discharge Information Date of admission: 12/31/17 14:16 Anticipated date of discharge: 01/04/18 Attending Physician: Mandy Mccoy MD Primary care physician: Rafaela Rosales APRN Consults: 12/31/17 12:08 Physician Consult [CONS] Routine Consulting Provider: Kathy Terrazas Reason For Exam: anxiety Ordering Provider has Notified Tank Officer: Yes Comment: generation's nurse notified 12/31/17 14:15 Doctor [Physician Consult] [CONS] Routine Consulting Provider: [facility] Reason For Exam: CONTINUED CARE Ordering Provider has Notified Tank Officer: Yes 01/02/18 08:01 Physician Consult [CONS] Routine Consulting Provider: Pankaj Rolon Reason For Exam: copd exac Ordering Provider has Notified Tank Officer: Yes - Discharge Diagnosis (1) Acute and chronic respiratory failure with hypoxia Status: Acute (2) COPD exacerbation Status: Acute (3) MILDRED treated with BiPAP Status: Chronic (4) Hypertension Status: Chronic (5) Hyponatremia Status: Chronic (6) Diabetes mellitus type 2, uncontrolled, without complications Status: Chronic (7) Anxiety disorder due to general medical condition Status: Acute (8) Bipolar affective disorder Status: Chronic Acute on Chronic hypoxic resp failure Obstructive sleep apnea -on home trilogy unit Hyponatremia Hypertension Dyslipidemia Gerd Anxiety and depression Bipolar disorder - Laboratory Labs: 01/04/18 04:32 01/04/18 04:32 Laboratory Results - last 48 hr 01/02/18 01/02/18 01/02/18 11:39 16:47 21:04 WBC RBC Hgb Hct MCV MCH MCHC RDW Std Deviation Plt Count MPV Immature Gran % (Auto) Neut % (Auto) Lymph % (Auto) Caldwell % (Auto) Eos % (Auto) Baso % (Auto) Neut # (Auto) Lymph # (Auto) Caldwell # (Auto) Eos # (Auto) Baso # (Auto) Abs Immat Gran (auto) Turbidity Sodium Potassium Chloride Carbon Dioxide Anion Gap BUN Creatinine Estimated Creat Clear GFR Calculation BUN/Creatinine Ratio Glucose Glucometer 334 273 257 Calculated Osmolality Calcium Magnesium Icterus Index Specimen Hemolysis 01/03/18 01/03/18 01/03/18 04:43 05:44 10:40 WBC RBC Hgb Hct MCV MCH MCHC RDW Std Deviation Plt Count MPV Immature Gran % (Auto) Neut % (Auto) Lymph % (Auto) Caldwell % (Auto) Eos % (Auto) Baso % (Auto) Neut # (Auto) Lymph # (Auto) Caldwell # (Auto) Eos # (Auto) Baso # (Auto) Abs Immat Gran (auto) Turbidity < 20 Sodium 133 L Potassium 4.1 Chloride 90 L Carbon Dioxide 33 H Anion Gap 10 BUN 24.0 H Creatinine 0.7 Estimated Creat Clear 79 GFR Calculation 85 BUN/Creatinine Ratio 34 H Glucose 187 H Glucometer 163 243 Calculated Osmolality 265 Calcium 9.2 Magnesium Icterus Index < 2 Specimen Hemolysis < 15 01/03/18 01/03/18 01/04/18 16:56 20:04 04:32 WBC 10.7 RBC 4.11 Hgb 11.5 L Hct 35.8 L MCV 87.1 MCH 28.0 MCHC 32.1 RDW Std Deviation 48.9 Plt Count 280 MPV 7.9 L Immature Gran % (Auto) 0.6 H Neut % (Auto) 49.4 Lymph % (Auto) 42.3 Caldwell % (Auto) 6.9 Eos % (Auto) 0.7 Baso % (Auto) 0.1 Neut # (Auto) 5.3 Lymph # (Auto) 4.5 Caldwell # (Auto) 0.7 Eos # (Auto) 0.1 Baso # (Auto) 0.0 Abs Immat Gran (auto) 0.06 H Turbidity Sodium Potassium Chloride Carbon Dioxide Anion Gap BUN Creatinine Estimated Creat Clear GFR Calculation BUN/Creatinine Ratio Glucose Glucometer 251 282 Calculated Osmolality Calcium Magnesium Icterus Index Specimen Hemolysis 01/04/18 01/04/18 01/04/18 04:32 05:45 06:18 WBC RBC Hgb Hct MCV MCH MCHC RDW Std Deviation Plt Count MPV Immature Gran % (Auto) Neut % (Auto) Lymph % (Auto) Caldwell % (Auto) Eos % (Auto) Baso % (Auto) Neut # (Auto) Lymph # (Auto) Caldwell # (Auto) Eos # (Auto) Baso # (Auto) Abs Immat Gran (auto) Turbidity < 20 Sodium 134 L Potassium 3.7 Chloride 89 L Carbon Dioxide 35 H Anion Gap 10 BUN 24.0 H Creatinine 0.8 Estimated Creat Clear 78 GFR Calculation 73 BUN/Creatinine Ratio 30 H Glucose 75 Glucometer 64 121 Calculated Osmolality 261 Calcium 9.1 Magnesium 1.6 Icterus Index < 2 Specimen Hemolysis < 15 - Radiology Radiology: Multiple chest x-rays 01/01/18 showed atelectasis 01/04/18 showed resolution History of Present Illness HPI: 62y/o female with end-stage COPD and chronic anxiety was brought to the emergency room by EMS for increasing shortness of breath that had been progressive for about 3 days. She did try breathing treatments at home but it did not help. Her manufacturing quality technician came over and advised that she be taken to the ER and she agreed. Patient was given an albuterol treatment in route which did seem to help but her anxiety still remained high. She was subsequently admitted for further evaluation and treatment. She has frequent admissions most recently from 12/11/17 to 12/18/17, 10/20/17 to , and 07/02/17 to 07/07/17. Dr. Rolon knows her well and did see her again today. Dr. Terrazas also knows her well and evaluated her on 12/31/17. The patient is starting to realize that she is not able to take care of herself at home. She is interested in talking to someone about palliative care in the future. She does have a caregiver but apparently she does not feel her needs are being met by that caregiver according to Dr. Terrazas's note. When seen by me on the morning of discharge she is feeling well and wants to go home. Her chest x-ray no longer shows significant atelectasis. She denies any fevers or chills. She feels her breathing is baseline. She is getting up to the bathroom on her own. She denies any lightheadedness or dizziness. She denies any fevers or chills. She denies any chest pain, pressure or tightness. She denies palpitations. She denies any nausea, vomiting, diarrhea or constipation. She denies any black tarry stools or bloody stools. She denies any urinary issues at this time. She is back to her 3 to 4 L of oxygen by nasal cannula when she's not on her BiPAP. I instructed her on continuing to use the in spirometer to prevent atelectasis. I told her that's going to be a long-term tool for her to use. Objective Vital signs: Temperature 96 F L 01/04/18 07:00 Pulse Rate 73 01/04/18 07:00 Respiratory Rate 18 01/04/18 09:24 Blood Pressure 159/86 H 01/04/18 07:00 Pulse Oximetry 97 01/04/18 09:24 Height/Weight/BMI: Height 1.65 m Weight 126.1 kg Body Mass Index 46.7 Comments: Gen: alert and oriented. NAD. BiPAP in place (14/5 rate 12). Skin: warm and dry, HEENT: NC/AT PERRL, EOMI, Sclera, lids and conjunctiva wnl. MMM. OP clear. Neck: short, thick, No JVD, Carotids 2+ without bruits. Lungs: diminished, without rales, rhonchi or wheezes CV: regular, No murmur, rubs or gallops. Pedal pulses 2+, radial pulses 2+, No edema Abd: obese, soft. +BS, NT/ND. MS: DEWITT, Normal ROM, strength Neuro: No focal deficit Psy: Appropriate mood and affect Hospital Course This is a general summary of the patient's hospital course. For more details refer to the complete medical record. Hospital course: 12/31/17 Patient placed in outpatient observation for acute COPD exacerbation. Continue DuoNeb treatments, Pulmicort, and BiPAP management per RT. Continue IV Solu-Medrol Accu-Cheks. Continue Victoza. Hold metformin due to elevated lactate. Consider increasing ativan dosing (currently on 0.5mg QID) or change to clonazepam. Consider increasing Buspar to 15mg BID for anxiety. (Will discuss with Dr. Mccoy.) Consider CT chest per radiologist. (Will discuss with Dr. Mccoy.) PT/OT to improve functional status. SCD's for DVT ppx. Reviewed CODE STATUS-patient wishes to be a DO NOT RESUSCITATE. Care to return to Rafaela Rosales APRN on dismissal. Patient with frequent ER visits and admissions. CM consult - she may be at a point where she needs higher level of care. 01/01/18 Lactate went back up last night from 3.7--> 4.9. She was given a bolus of normal saline 500 cc overnight. Her lactate this morning is 2.4. Will repeat again in 6 hours. Sodium decreasing 133--> 131 IV Solu-Medrol was increased back up to 125 every 6 hours last night due to her difficulty breathing. Metformin remains on hold due to elevated lactate. Considering her lactate levels during her hospital stay, it may be prudent to keep her off of the metformin. She was started on Lantus 10 units daily and 3 units NovoLog before each meal due to her elevated blood sugars. She is also on sliding scale. Continues Victoza. Dr. Terrazas evaluated patient regarding her anxiety. It was determined the patient's anxiety is situational and she would like to continue on her current anxiety medications. Nodule seen yesterday on chest x-ray is not evident on repeat chest x-ray this morning She is currently requiring 2 L of oxygen. 01/01/2018 Impression and plan She continues to have elevated lactate and on recent testing was 3.6. Carbon dioxide level on basic metabolic profile is normal. ABG yesterday showed a normal pH. She is not hypotensive, and in fact is hypertensive. Lactate may be elevated secondary to COPD/asthma exacerbation. We'll continue supportive care with breathing treatments, BiPAP, and steroids. We'll titrate down steroids today. The patient is strongly wanting to go home, but I did tell her that I don 't think she is safe for discharge at this point and she is agreeable to staying , at least until tomorrow. We'll give 500 cc normal saline bolus over [address] Rolon to see the patient tomorrow. Lantus every morning and NovoLog with meals was initiated for hyperglycemia. I would recommend that she remain off of metformin indefinitely because of a tendency toward lactic acidosis. Metformin was placed on her allergy list. The epigastric pain without nausea or vomiting. Liver enzymes were normal on admission. Her pain seems to be muscular in nature. We'll continue to monitor.- Dr. Mccoy 01/02/2018 Lactate improved this morning to 2.5. She is not septic. She is not hypotensive. ABG done previously this hospital course did not show acidosis. Metformin was discontinued. Patient was given a fluid bolus yesterday. Weight is up about 2 kg since admission. I do not think she has fluid overload at this time. Dr. Rolon was consulted and will likely see the patient tomorrow morning. Continue steroids, breathing treatments, BiPAP as needed. The patient has end-stage COPD. She did want to go home today. I discussed with her that she would have to leave AGAINST MEDICAL ADVICE and I did not feel that she was ready to leave today. I did discuss with her that there is increased risk of her dying if she went home with her COPD exacerbation had not been adequately treated. She stated "I'm dying right now." I did discuss with her that I know her COPD is severe but I would like to get it under better control and back to baseline prior to discharge. We will need to determine her goals of care prior to discharge. 01/03/18 patient continues to improve. She is close to her baseline. Dr. Rolon did see her today and ordered a chest x-ray for tomorrow. He did agree with prednisone 40 mg daily and stated he would titrate her back to her baseline dose as an outpatient. Her sodium continue to creep up and was at 133 today. The remainder of her labs looked good. Her blood pressure continued to run on the high side and her Toprol was increased to 150 mg daily from 100 mg daily. If her chest x- ray looks okay tomorrow she could probably go home. 01/04/18 Ms. Barr feels very well today. She really wants to go home. Her chest x-ray showed resolution of the platelike atelectasis. I instructed her on her in spirometer usage and told her this was a lifelong tool for her that she needs to be aggressive with on a daily basis. She is going to return home on her Stiolto, ProAir, Flovent and nebulized duonebs up to 5 times a day. She is to keep her oxygen greater than 90% with home flow of 3 to 4 L per minute. She is to resume universalizing her BiPAP at home with naps and at night. She is to follow up with Dr. Rolon as instructed. I did discuss with Ms. Barr regarding palliative care as she continues to decline at home. She is going to think about it. This can be addressed by either Ms. Rosales her primary care provider or Dr. Rolon her campaign fundraiser. Time spent with patient: 25 - 35 minutes Resuscitation Status: Do Not Resuscitate Discharge Plan - Discharge Disposition Disposition: [facility] Service *Condition: Improved Reason For Visit (Visit label in EMR): COPD EXACERBATION - Discharge Medications *Discharge Medications: New PredniSONE [Deltasone 20 mg] 20 mg PO WB #30 tab Lidocaine Patch Removal [Lidoderm Patch Removal] 1 removal TOP 2100 patch Hydralazine [Apresoline] 20 mg PO [facility] #60 tab Metoprolol Succinate (XL) [Toprol Xl] 150 mg PO DAILY #60 tab Continue Tramadol [Ultram] 50 mg PO Q6H PRN PRN Reason: Pain Albuterol Sulfate [Proair Hfa] 1 spray INH PRN PRN PRN Reason: Shortness Of Air Fluticasone HFA [Flovent Hfa 220 mcg] 1 - 2 puff INH Q2-4HR Furosemide [Lasix 40 mg Tab] 40 mg PO DAILY #30 tab Pantoprazole Tab [Protonix Tab] 40 mg PO DAILY Nitroglycerin [Nitrostat] 0.4 mg SL Q5MIN3 PRN PRN Reason: Chest Pain Acetaminophen [Acetaminophen ER] 650 mg PO Q8H PRN PRN Reason: Pain Amlodipine [Norvasc] 10 mg PO DAILY #30 tab Lidocaine 5% Patch [Lidoderm] 1 patch TOP DAILY #5 patch Albuterol/Ipratropium [Duoneb] 3 ml AEROSOL Q6H PRN PRN Reason: Shortness Of Air LORazepam [Ativan] 0.5 mg PO QID Metformin HCl 500 mg PO WS Primidone [Mysoline] 150 mg PO HS Meloxicam 7.5 mg PO CHEW DAILY Gabapentin 300 mg PO AM Folic Acid [Folate] 1 mg PO DAILY Cabergoline [Dostinex] 0.5 mg PO TuFr #0 Buspirone HCl 7.5 mg PO BID #0 Cyproheptadine HCl 4 - 8 mg PO HS PRN #0 PRN Reason: Insomnia Pramipexole Di-HCl [Pramipexole Dihydrochloride] 0.375 mg PO HS Paliperidone [Paliperidone ER] 9 mg PO DAILY Aspirin [Adult Aspirin Regimen] 81 mg PO DAILY Magnesium Oxide [Magnesium] 400 mg PO TID Potassium Chloride 10 meq PO DAILY Stiolto Respimat (tiotropium) 2.5 mcg-olodaterol 2.5 mcg/actuation inhalation 2 puff INH DAILY g liraglutide 0.6 mg/0.1 mL (18 mg/3 mL) subcutaneous pen injector 1.2 mg SQ DAILY ml melatonin ER 10 mg tablet,extended release 10 mg PO HS tab Discontinued Metoprolol Succinate 100 mg PO DAILY #0 Hydralazine [Apresoline] 1 tab PO HS prednisone 10 mg tablet 10 mg PO DAILY tab - Discharge Packet/Instructions *Diet: Carbohydrate consistent diet, 2000 calories *Activity: As tolerated. *Pain Management/Treatment: As prior *Wound Care: N/A *Expected Signs/Symptoms: Worsening SOA *Notify Physician if: Worsening SOA *During Business Hours Contact: Rafaela Rosales *After Business Hours Contact: call specialist physician for Rafaela Rosales Outpatient Orders: MAG - Magnesium - [facility] Time Frame: 1 Week, Facility: [facility], Location: [facility] OP - Referrals/Follow Up *Referrals/Follow Up: Rafaela Rosales APRN [Primary Care Provider] - 1 Week Pankaj Rolon MD [Physician] - 1 Week - Patient Handouts Patient Handouts: COPD (Chronic Obstructive Pulmonary Disease) (GEN) - Dismissal Complete Discharge Instructions are:: Complete Physician Narrative - Narrative Attestation Narrative: Date: 01/04/18 Time: 9018
[2018-01-04] MEDS ORDERED: MAGNESIUM SULFATE 1gm PREMIX 1 GM/100 ML BAG IV SCH (11:00)
[2018-01-04] MEDS: HYDRALAZINE 10 MG TABLET PO SCH (11:08)
[2018-01-04] MEDS: PALIPERIDONE ER 1.5mg TABLET PO SCH (11:21)
[2018-01-04] MEDS: MAGNESIUM OXIDE 400 MG TABLET PO SCH (11:22)
[2018-01-04] MEDS: PredniSONE 20 MG TABLET PO SCH (11:23)
[2018-01-04] MEDS: AMLODIPINE 10 MG TABLET PO SCH (11:24)
[2018-01-04] MEDS: PANTOPRAZOLE 40 MG TABLET PO SCH (11:24)
[2018-01-04] MEDS: BUSPIRONE 15 MG TABLET PO SCH (11:24)
[2018-01-04] MEDS: FOLIC ACID 1 MG TABLET PO SCH (11:25)
[2018-01-04] MEDS: FUROSEMIDE 40 MG TABLET PO SCH (11:25)
[2018-01-04] MEDS: MELOXICAM 7.5 MG TABLET PO SCH (11:25)
[2018-01-04] MEDS: GABAPENTIN 300 MG CAPSULE PO SCH (11:25)
[2018-01-04] MEDS: ASPIRIN *EC* 81 MG TABLET PO SCH (11:25)
[2018-01-04] MEDS: INSULIN ASPART 100unit/ml INJECTION SQ SCH ×2 (11:26→12:55)
[2018-01-04] MEDS: INSULIN GLARGINE 100unit/ml INJECTION SQ SCH (11:27)
[2018-01-04] MEDS: LIDOCAINE 5% PATCH TOP SCH (11:27)
[2018-01-04] MEDS: LIRAGLUTIDE INJECTABLE PEN SQ SCH (11:28)
[2018-01-04 11:45] VITALS: BP 169/92; PULSE 77; TEMP 96.3; O2SAT 100
[2018-01-04] MEDS ORDERED: HYDRALAZINE 10 MG TABLET PO SCH (12:00)
--- NOTE | 2018-01-04 14:33 | XRay Report ---
INDICATION: atelectasis, COPD PROCEDURE: CHEST 2-VIEWS UPRIGHT (PA & LAT) Encounter: Initial COMPARISON: January 01, 2018 FINDINGS: Interval improvement in the region of linear atelectasis in the lower lobes seen on the lateral view overlying the thoracic spine. No new or worsening airspace opacity. There is no pleural effusion or pneumothorax. The heart size, mediastinal contours and pulmonary vascularity are within normal limits. There is no significant skeletal abnormality. IMPRESSION: Improving atelectasis .
== END 2018-01-04 12:39 | disposition hospice, home (50) | DRG 190 ==
LOC: EDHOLD 02:13 → ED 02:13 → EDHOLD 04:13 → MED 05:05 → EDHOLD 05:05
PROVIDERS: ADMIT Internal Medicine; ATTEND Internal Medicine